=== PATIENT | male | born 1960 | race Caucasian/White ===

== ENCOUNTER 2019-01-21 22:31 | Emergency (ER) | payer MEDICAID, SELFPAY ==
[2019-01-21 22:33] VITALS: BP 134/65; PULSE 110; RESP 18; TEMP 36.9; O2SAT 97; BMI 25.1
--- NOTE | 2019-01-21 22:37 | ED.RN ---
RN CALLED FOR EKG, PULLED OLD EKGS FOR
--- NOTE | 2019-01-21 22:39 | EKG12_ITS ---
Test Reason : PALPS Blood Pressure : / mmHG Vent. Rate : 106 BPM Atrial Rate : 106 BPM P-R Int : 136 ms QRS Dur : 084 ms QT Int : 438 ms P-R-T Axes : 072 030 082 degrees QTc Int : 581 ms Sinus tachycardia with frequent Premature ventricular complexes in a pattern of bigeminy Otherwise normal ECG Confirmed by CHIQUI STYLES, HODAN ([id number]), features editor ELVIN WOODS ([id number] on 01/23/2019 9:32:31 AM Referred By: ROSITA Confirmed By:HODAN FLORIAN MD
--- NOTE | 2019-01-21 22:40 | ED.VIS.GEN ---
History of Present Illness Chief Complaint: Palpitations Informant: Patient Onset: Days Context: Sudden Onset Timing: Continuous Quality: Palpitations, irregular heartbeat Location: Chest Current Severity: Mild Maximum Severity: Moderate Worsened by: Nothing Relieved by: nothing Associated Symptoms: no associated symptoms Narrative: He reports that his heart heart is skipping. He denies history of coronary disease, atrial fibrillation, Congestive heart failure. He does report pedal edema when he stands for prolonged period of time. He denies orthopnea or PND. He denies nausea vomiting. He denies hematemesis, melena hematochezia. He denies back pain. He denies heat or cold intolerance. Prior similar symptoms: No Recent Illness/Hospitalization: No - Past Medical History (1) Gallbladder &duct stone, nonacute cholecystitis Status: Chronic Past Medical History - Allergies and Home Meds Allergies/Adverse Reactions: Allergies No Known Allergies Allergy (Verified 01/21/19 22:36) Primary Care Physician: Matt Dunbar MD [Primary Care Provider] - Prior records reviewed: Yes Lives: Alone Smoking Status: Current every day smoker Alcohol: None Drugs: None Review of Systems General: Denies: Chills, Fever, Malaise, Sweats, Weight loss Eyes: Denies: Visual changes - bilaterally, Blurred Vision - bilaterally, Diplopia ENT: Denies: Rhinorrhea, Sore throat Cardiovascular: Reports: Palpitations. Denies: Chest pain, Heart racing, -, - Respiratory: Denies: Dyspnea, Cough, Dyspnea on exertion Gastrointestinal: Denies: Abdominal pain, Nausea, Vomiting, Diarrhea, Melena, Hematochezia Genitourinary: Denies: Dysuria, Hematuria, Frequency Musculoskeletal: Denies: Myalgias, Arthralgias, Neck pain, Back pain, Extremity Pain Skin: Denies: Rash, Wounds Neurological: Denies: Headache, Weakness, Parasthesia, Numbness Psych: Denies: Depression, Anxiety Endocrine: Denies: Heat intolerance, Cold intolerance Hematologic: Denies: Easy bruising, Easy bleeding Physical Exam Vital Signs/Narrative: Vital Signs Temp Pulse Resp BP Pulse Ox 01/21/19 22:33 98.4 F 110 H 18 134/65 H 97 Inital Vital Signs reviewed: Yes General: Well nourished, Well developed, No Acute Distress Head: Normocephalic, Atraumatic Eyes: Perrl, EOMI. Negative for: Pale conjunctiva, Scleral icterus ENT: Moist mucous membranes, No rhinorrhea Neck: Supple, Nontender, No lymphadenopathy, No JVD, - - Baptiste A waves noted. Cardiovascular: Regular rate, Regular rhythm, No murmurs, Normal S1, Normal S2 Respiratory: No distress, CTA bilaterally, Chest nontender. Negative for: Rales, Rhonchi, Wheezing Abdomen: Soft, Nontender, Nondistended, Normal bowel sounds, No masses Back: Nontender, Normal Inspection Extremities: Nontender, Edema Skin: Normal color, No rash Neurological: Alert, Oriented x3, Cranial nerves II-XII grossly intact, Normal Strength, Normal Sensation Psychological: Normal affect, Normal Mood Diagnostic/Tx/Re-eval Laboratory Results 01/21/19 01/21/19 22:45 22:45 WBC 7.2 RBC 4.41 L Hgb 11.5 L Hct 36.0 L MCV 81.6 MCH 26.1 L MCHC 31.9 L RDW 15.2 H RDW Differential 45.1 H Plt Count 334 MPV 9.2 Immature Gran % (Auto) 0.100 Neut % (Auto) 62.4 Lymph % (Auto) 25.6 [place] % (Auto) 8.7 Eos % (Auto) 2.9 Baso % (Auto) 0.3 Absolute Neuts (auto) 4.5 Absolute Lymphs (auto) 1.85 Total Counted Not Reportable Sodium 137 Potassium 4.2 Chloride 106 Carbon Dioxide 28.0 Anion Gap 3 L BUN 17 Creatinine 1.17 Estim Creat Clear Calc 73.30 Est GFR (MDRD) Af Amer 82 Est GFR (MDRD) Non-Af 68 BUN/Creatinine Ratio 14.5 Glucose 118 H Calcium 8.4 L Magnesium 2.0 Troponin I < 0.015 - Rhythm Strip Rhythm Strip: Bigeminy Rate: 106 - EKG Initial EKG Interpretation: Sinus Rhythm - Ventricular rate is 106. Patient has bigeminy. AR interval is normal. QRS duration is normal. QT interval is normal. [place] is normal. There is no evidence of acute ischemic changes. - Medical Decision Making Monitor reveals bigeminy. Will obtain EKG to determine if there is any ischemic changes. Electric panel was ordered including magnesium. Troponin was ordered to evaluate for ischemia. After results have returned if patient remains in bigeminy will discuss case with cardiology. He states he has not seen a bottom crane operator in the past. Patient was reassessed at 0015. He is no longer in bigeminy. He does have occasional to frequent PVCs with occasional trigeminy. Since his workup is negative he was referred to Dr. Pastor. ED Disposition - Plan for ED Patient: Disposition: Home or Assisted Living Diagnosis: Ventricular bigeminy seen on cafeteria monitor Instructions: Premature Ventricular Contractions Referrals: Matt Dunbar MD [Primary Care Provider] - Mervin Pastor MD [STAFF PHYSICIAN] - As soon as possible Additional Instructions: Call Dr. Simental for his office in the morning to be seen within the next 24-48 hours. If you develop chest pain or shortness of breath with your palpitations return to the emergency department immediately.
--- NOTE | 2019-01-21 22:44 | ED.DCSUM_ITS ---
History of Present Illness Chief Complaint: Palpitations Informant: Patient Onset: Days Context: Sudden Onset Timing: Continuous Quality: Palpitations, irregular heartbeat Location: Chest Current Severity: Mild Maximum Severity: Moderate Worsened by: Nothing Relieved by: nothing Associated Symptoms: no associated symptoms Narrative: He reports that his heart heart is skipping. He denies history of coronary disease, atrial fibrillation, Congestive heart failure. He does report pedal edema when he stands for prolonged period of time. He denies orthopnea or PND. He denies nausea vomiting. He denies hematemesis, melena hematochezia. He denies back pain. He denies heat or cold intolerance. Prior similar symptoms: No Recent Illness/Hospitalization: No - Past Medical History (1) Gallbladder &duct stone, nonacute cholecystitis Status: Chronic Past Medical History - Allergies and Home Meds Allergies/Adverse Reactions: Allergies No Known Allergies Allergy (Verified 01/21/19 22:36) Primary Care Physician: Matt Dunbar MD [Primary Care Provider] - Prior records reviewed: Yes Lives: Alone Smoking Status: Current every day smoker Alcohol: None Drugs: None Review of Systems General: Denies: Chills, Fever, Malaise, Sweats, Weight loss Eyes: Denies: Visual changes - bilaterally, Blurred Vision - bilaterally, Diplopia ENT: Denies: Rhinorrhea, Sore throat Cardiovascular: Reports: Palpitations. Denies: Chest pain, Heart racing, -, - Respiratory: Denies: Dyspnea, Cough, Dyspnea on exertion Gastrointestinal: Denies: Abdominal pain, Nausea, Vomiting, Diarrhea, Melena, Hematochezia Genitourinary: Denies: Dysuria, Hematuria, Frequency Musculoskeletal: Denies: Myalgias, Arthralgias, Neck pain, Back pain, Extremity Pain Skin: Denies: Rash, Wounds Neurological: Denies: Headache, Weakness, Parasthesia, Numbness Psych: Denies: Depression, Anxiety Endocrine: Denies: Heat intolerance, Cold intolerance Hematologic: Denies: Easy bruising, Easy bleeding Physical Exam Vital Signs/Narrative: Vital Signs Temp Pulse Resp BP Pulse Ox 01/21/19 22:33 98.4 F 110 H 18 134/65 H 97 Inital Vital Signs reviewed: Yes General: Well nourished, Well developed, No Acute Distress Head: Normocephalic, Atraumatic Eyes: Perrl, EOMI. Negative for: Pale conjunctiva, Scleral icterus ENT: Moist mucous membranes, No rhinorrhea Neck: Supple, Nontender, No lymphadenopathy, No JVD, - - Baptiste A waves noted. Cardiovascular: Regular rate, Regular rhythm, No murmurs, Normal S1, Normal S2 Respiratory: No distress, CTA bilaterally, Chest nontender. Negative for: Rales, Rhonchi, Wheezing Abdomen: Soft, Nontender, Nondistended, Normal bowel sounds, No masses Back: Nontender, Normal Inspection Extremities: Nontender, Edema Skin: Normal color, No rash Neurological: Alert, Oriented x3, Cranial nerves II-XII grossly intact, Normal Strength, Normal Sensation Psychological: Normal affect, Normal Mood Diagnostic/Tx/Re-eval Laboratory Results 01/21/19 01/21/19 22:45 22:45 WBC 7.2 RBC 4.41 L Hgb 11.5 L Hct 36.0 L MCV 81.6 MCH 26.1 L MCHC 31.9 L RDW 15.2 H RDW Differential 45.1 H Plt Count 334 MPV 9.2 Immature Gran % (Auto) 0.100 Neut % (Auto) 62.4 Lymph % (Auto) 25.6 [place] % (Auto) 8.7 Eos % (Auto) 2.9 Baso % (Auto) 0.3 Absolute Neuts (auto) 4.5 Absolute Lymphs (auto) 1.85 Total Counted Not Reportable Sodium 137 Potassium 4.2 Chloride 106 Carbon Dioxide 28.0 Anion Gap 3 L BUN 17 Creatinine 1.17 Estim Creat Clear Calc 73.30 Est GFR (MDRD) Af Amer 82 Est GFR (MDRD) Non-Af 68 BUN/Creatinine Ratio 14.5 Glucose 118 H Calcium 8.4 L Magnesium 2.0 Troponin I < 0.015 - Rhythm Strip Rhythm Strip: Bigeminy Rate: 106 - EKG Initial EKG Interpretation: Sinus Rhythm - Ventricular rate is 106. Patient has bigeminy. [place] interval is normal. QRS duration is normal. QT interval is normal. [place] is normal. There is no evidence of acute ischemic changes. - Medical Decision Making Monitor reveals bigeminy. Will obtain EKG to determine if there is any ischemic changes. Electric panel was ordered including magnesium. Troponin was ordered to evaluate for ischemia. After results have returned if patient remains in bigeminy will discuss case with cardiology. He states he has not seen a investor relations coordinator in the past. Patient was reassessed at 0015. He is no longer in bigeminy. He does have occasional to frequent PVCs with occasional trigeminy. Since his workup is negative he was referred to Dr. Pastor. ED Disposition - Plan for ED Patient: Disposition: Home or Assisted Living Diagnosis: Ventricular bigeminy seen on cardiac cath tech Instructions: Premature Ventricular Contractions Referrals: Matt Dunbar MD [Primary Care Provider] - Mervin Pastor MD [STAFF PHYSICIAN] - As soon as possible Additional Instructions: Call Dr. Simental for his office in the morning to be seen within the next 24-48 hours. If you develop chest pain or shortness of breath with your palpitations return to the emergency department immediately.
[2019-01-21 22:53] LABS: Absolute Lymphocyte Count 1.85 X10^3/ul (0.83-4.51); Absolute Neutrophil Count 4.5 X10^3/uL (2.0-7.7); Basophil# 0.02 X10^3/uL; Basophil% 0.3 % (0-1); Eosinophil# 0.21 X10^3/uL; Eosinophils% 2.9 % (0-5); Hemoglobin 11.5 g/dl (13.0-16.5); Lymphocyte # 1.85 X10^3/ul (4.0); Lymphocyte % 25.6 % (19-41); Mean Corp Hgb Conc 31.9 g/gl (32-36); Mean Corpuscular Hgb 26.1 pg (27.0-32.0); Mean Corpuscular Volume 81.6 fL (80-94); Mean Platelet Vol. 9.2 fl (6.2-12.0); Monocyte# 0.63 X10^3/uL; Monocyte% 8.7 % (0-10); Neutrophil % 62.4 % (47-70); POSITIVE COUNT NO; POSITIVE DIFFERENTIAL NO; POSITIVE MORPHOLOGY NO; Platelet Count 334 K/mm3 (150-450); RBC Distribution Width CV 15.2 % (11.6-14.6); RBC Distribution Width SD 45.1 fl (35.1-43.9); Red Blood Count 4.41 M/mm3 (4.6-6.2); White Blood Count 7.2 K/mm3 (4.4-11.0)
[2019-01-21 23:09] LABS: Anion Gap 3 (5-15); BUN 17 mg/dL (7-18); BUN/Creat Ratio 14.5 RATIO (10-20); Calcium,Total 8.4 mg/dL (8.5-10.1); Chloride 106 mmol/L (98-107); Creatinine, Serum 1.17 mg/dL (0.70-1.30); EST Glomerular Filtration Rate 68 mL/min (>60); Est Glom Filt Rate - Afr Amer 82 mL/min (>60); Glucose 118 mg/dL (74-106); Potassium 4.2 mmol/L (3.5-5.1); Sodium Level 137 mmol/L (136-145)
[2019-01-21 23:54] VITALS: BP 99/66; PULSE 92; RESP 14; O2SAT 96
[2019-01-22] VITALS: BP 103/63; PULSE 84; RESP 13; O2SAT 96
[2019-01-22 00:33] VITALS: BP 107/77; PULSE 91; RESP 19; O2SAT 97
== END 2019-01-22 00:33 | disposition home or self-care (01) ==
PROVIDERS: Emergency Provider Emergency Medicine; Family Provider Family Medicine; PCP Family Medicine
DX: R00.8 Other abnormalities of heart beat (principal); F17.200 Nicotine dependence, unspecified, uncomplicated; Z79.82 Long term (current) use of aspirin
CPT/HCPCS: 80048; 83735; 84484; 85025; 93005; 99285; J7030; A4216

== ENCOUNTER 2019-01-22 22:09 | Emergency (ER) | payer MEDICAID, SELFPAY ==
[2019-01-21 22:33] VITALS: BMI 25.1
[2019-01-22 22:15] VITALS: BP 128/67; PULSE 99; RESP 15; TEMP 37; O2SAT 98; BMI 23.7
--- NOTE | 2019-01-22 22:57 | RAD_ITS ---
STUDY: X-RAY CHEST REASON FOR EXAM: Male, 58 years old. Palpitations smoker TECHNIQUE: PA and lateral views of the chest. COMPARISON: None. FINDINGS: The lungs are clear and expanded. There is no demonstrated pleural abnormality. Normal size heart. Normal mediastinum and sangeeta. Normal visualized pulmonary arteries. There is atherosclerotic calcification of the aortic arch with tortuosity. Normal visualized thoracic spine. Normal visualized ribs, clavicles, and shoulders. There is no demonstrated abnormality of the visualized soft tissue structures of the upper abdomen. RAD/Chest PA and Lateral IMPRESSION: No demonstrated acute cardiopulmonary process. Electronically Signed: Maryann Floyd MD at 23:37 EDT Tel , Service support ,
--- NOTE | 2019-01-22 22:57 | EKG12_ITS ---
Test Reason : Blood Pressure : / mmHG Vent. Rate : 102 BPM Atrial Rate : 102 BPM P-R Int : 142 ms QRS Dur : 084 ms QT Int : 316 ms P-R-T Axes : 076 036 058 degrees QTc Int : 411 ms Sinus tachycardia with frequent Premature ventricular complexes in a pattern of bigeminy Possible Left atrial enlargement Borderline ECG Confirmed by NETO STYLES, ED ([id number]), writer editor ELVIN WOODS ([id number]) on 01/24/2019 9:32:38 AM Referred By: Confirmed By:ED DUQUE MD
[2019-01-22] MEDS: Metoprolol Tartrate 25 MG Tablet PO (23:18)
[2019-01-22 23:19] VITALS: BP 105/82; PULSE 90; RESP 14; O2SAT 97
[2019-01-22 23:28] LABS: Absolute Lymphocyte Count 1.42 X10^3/ul (0.83-4.51); Absolute Neutrophil Count 3.2 X10^3/uL (2.0-7.7); Basophil# 0.03 X10^3/uL; Basophil% 0.5 % (0-1); Eosinophil# 0.24 X10^3/uL; Eosinophils% 4.2 % (0-5); Hematocrit 34.7 % (40-54); Hemoglobin 11.2 g/dl (13.0-16.5); Lymphocyte # 1.42 X10^3/ul (4.0); Lymphocyte % 24.8 % (19-41); Mean Corp Hgb Conc 32.3 g/gl (32-36); Mean Corpuscular Hgb 26.4 pg (27.0-32.0); Mean Corpuscular Volume 81.8 fL (80-94); Mean Platelet Vol. 9.9 fl (6.2-12.0); Monocyte# 0.82 X10^3/uL; Monocyte% 14.3 % (0-10); Neutrophil % 55.9 % (47-70); Platelet Count 343 K/mm3 (150-450); RBC Distribution Width CV 15.2 % (11.6-14.6); RBC Distribution Width SD 45.1 fl (35.1-43.9); Red Blood Count 4.24 M/mm3 (4.6-6.2); White Blood Count 5.7 K/mm3 (4.4-11.0)
[2019-01-22 23:43] LABS: POSITIVE COUNT NO; POSITIVE DIFFERENTIAL NO; POSITIVE MORPHOLOGY NO
[2019-01-22 23:44] LABS: Anion Gap 3 (5-15); BUN 20 mg/dL (7-18); BUN/Creat Ratio 24.4 RATIO (10-20); Calcium,Total 8.3 mg/dL (8.5-10.1); Chloride 108 mmol/L (98-107); Creatinine, Serum 0.82 mg/dL (0.70-1.30); EST Glomerular Filtration Rate 103 mL/min (>60); Est Glom Filt Rate - Afr Amer 124 mL/min (>60); Estimated Creatinine Clearance 104.58 ml/min; Glucose 124 mg/dL (74-106); Potassium 3.8 mmol/L (3.5-5.1); Sodium Level 140 mmol/L (136-145); Thyroid Stim Hormone (TSH) 9.97 uIU/mL (0.358-3.74)
--- NOTE | 2019-01-22 23:54 | ED.DCSUM_ITS ---
- ER Visit Summary Date of Service: 01/22/19 Chief Complaint: Palpitations History of Present Illness: The patient is a 58 M who presents with palpitations. This is been occurring for 3 days. He denies any chest pain shortness of breath nausea vomiting fevers. No history of prior similar symptoms. He was seen in the emergency department last night and found to be in ventricular bigeminy. Workup was unremarkable. On reevaluation he was back in normal rhythm. He was referred to Dr. Mills. Symptoms began again tonight about 2 hours before presentation. Physical Examination: Afebrile vitals notable for heart rate 99 Moist mucous membranes Heart is regular rhythm irregularly irregular Lungs are clear Abdomen soft Alert Test Results: EKG shows sinus rhythm at a rate of 102. Labs are notable for hemoglobin 11.2, hematocrit 34.7. TSH is 9.97. Troponin negative. Chest x-ray shows no acute process. Emergency Department Course and Treatment: Workup as above. I was concerned for possible hyperthyroidism given bigeminy and palpitations. TSH is actually elevated suggestive of hypothyroidism. I discussed these findings with the patient. He was given oral metoprolol here. On reevaluation he is in normal sinus rhythm and his symptoms have resolved. We will go ahead and start him on low-dose metoprolol until he can follow-up with cardiology. He understands return for new or worsening symptoms and was instructed on specific signs and symptoms to monitor for. Patient discharged. Treatment Plan: [] Disposition: Discharge Impression: Ventricular bigeminy Hypothyroidism This note was generated with [employer] dictation software. It may contain incorrect words, spelling, and punctuation that were not noted in review of the chart prior to signing ED Disposition - Plan for ED Patient: Referrals: Matt Dunbar MD [Primary Care Provider] -
--- NOTE | 2019-01-22 23:54 | ED.DEP ---
ED Disposition - Plan for ED Patient: Instructions: Premature Ventricular Contractions, ED Palpitations Prescriptions: Metoprolol Tartrate 25 mg PO DAILY #14 tab Referrals: Matt Dunbar MD [Primary Care Provider] - Mervin Pastor MD [STAFF PHYSICIAN] -
[2019-01-23 00:18] VITALS: BP 106/71; PULSE 73; RESP 13; O2SAT 96
--- NOTE | 2019-01-23 00:27 | ED.RN ---
PT TO CALL FOR TAXI RIDE HOME FROM [facility]OBBY. MOTHER IS ABLE TO PAY FOR TAXI.
== END 2019-01-23 00:27 | disposition home or self-care (01) ==
PROVIDERS: Emergency Provider Emergency Medicine; Family Provider Family Medicine; PCP Family Medicine
DX: R00.8 Other abnormalities of heart beat (principal); E03.9 Hypothyroidism, unspecified; Z72.0 Tobacco use; Z79.82 Long term (current) use of aspirin
CPT/HCPCS: 71046; 80048; 84443; 84484; 85025; 93005; 99285; A4216

== ENCOUNTER → 2019-02-12 | Outpatient (CLI) | payer MEDICAID, SELFPAY ==
[2019-02-12 13:27] VITALS: BMI 23.4
== END | disposition home or self-care (01) ==
LOC: PSN 14:14
PROVIDERS: Family Provider Family Medicine; PCP Family Medicine; Referring Provider Specialist; Visit Provider Specialist
DX: R00.2 Palpitations (principal)
CPT/HCPCS: 93225; 93226

== ENCOUNTER → 2019-03-08 | Outpatient (CLI) | payer MEDICAID, SELFPAY ==
[2019-02-12 13:27] VITALS: BMI 23.4
[2019-02-25 11:20] VITALS: BMI 23.4
--- NOTE | 2019-03-08 14:05 | ECHOD_ITS ---
Reason For Study: Bicuspid AV Procedure This was a 2D Doppler, Color Flow transthoracic echocardiogram. Exam performed in department. Left Ventricle Normal size and thickness. Left ventricular systolic function is normal. Normal diastology for age. The estimated ejection fraction is 65 %. No regional wall motion abnormalities noted. Right Ventricle Normal RV size. Normal systolic function. Atria Normal left atrium. Normal right atrium. No doppler evidence for ASD. Mitral Valve There is no mitral valve stenosis. No mitral valve insufficiency. Tricuspid Valve There is no tricuspid stenosis. Mild to moderate (1-2+) tricuspid valve insufficiency. Pulmonary artery systolic pressure is 30 mmHg. Aortic Valve Moderate diffuse aortic valve thickening. possible bicuspid aortic valve. Mild aortic stenosis. Mild (1+) aortic valve insufficiency. Pulmonic Valve There is no pulmonic valvular stenosis. No pulmonic valve insufficiency. Great Vessels Normal aortic root. Pericardium/Pleural No pericardial effusion. MMode/2D Measurements & Calculations LVIDd: 4.5 cm IVSd: 1.1 cm LVOT diam: 2.0 cm LVIDs: 2.8 cm LVPWd: 1.2 cm LVOT area: 3.2 cm2 RVDd: 3.6 cm FS: 38.7 % Ao root diam: 3.6 cm LAV(MOD-bp): 42.6 ml LA A4 area: 15.2 cm2 ACS: 1.3 cm LAV(MOD-bp) Indexed: 21.7 ml/m2 LA dimension: 3.1 cm LAV(MOD-sp2): 45.4 ml LAV(MOD-sp4): 35.7 ml RA A4 area: 18.1 cm2 Time Measurements MV dec time: 0.29 sec Doppler Measurements & Calculations MV E max ajit: 86.8 cm/sec Lat Peak E' Ajit: 10.1 cm/sec Med Peak E' Ajit: 10.1 cm/sec MV A max ajit: 60.4 cm/sec E/E' lat: 8.6 E/E' med: 8.6 MV E/A: 1.4 MV V2 max: 95.9 cm/sec MV P1/2t max ajit: 95.9 cm/sec Ao V2 max: 214.8 cm/sec MV max P.7 mmHg MV P1/2t: 67.7 msec Ao max P.4 mmHg MV V2 mean: 54.2 cm/sec MV dec slope: 415.1 cm/sec2 Ao V2 mean: 134.8 cm/sec MV mean P.4 mmHg Ao mean P.7 mmHg MV V2 VTI: 31.4 cm MVA(P1/2t): 3.3 cm2 Ao V2 VTI: 41.2 cm MVA(VTI): 2.5 cm2 VAL(I,D): 1.9 cm2 VAL(V,D): 1.6 cm2 AI max ajit: 323.9 cm/sec LV V1 max: 105.1 cm/sec SV(LVOT): 80.1 ml AI max P.0 mmHg LV V1 max P.4 mmHg LV V1 mean P.4 mmHg AI dec slope: 111.4 cm/sec2 LV V1 mean: 72.3 cm/sec AI P1/2t: 851.7 msec LV V1 VTI: 25.1 cm PA V2 max: 95.2 cm/sec TR max ajit: 240.6 cm/sec TR max P.2 mmHg Interpretation Summary Left ventricular systolic function is normal. Normal diastology for age. The estimated ejection fraction is 65 %. Mild to moderate (1-2+) tricuspid valve insufficiency. Moderate diffuse aortic valve thickening. possible bicuspid aortic valve Mild aortic stenosis. Ordering Physician: Paco Klein Referring Physician: Paco Klein Performed By: Surinder Echevarria RCS
== END | disposition home or self-care (01) ==
LOC: CVS 13:48
PROVIDERS: Family Provider Family Medicine; PCP Family Medicine; Referring Provider Specialist; Visit Provider Specialist
DX: I10 Essential (primary) hypertension (principal); I35.0 Nonrheumatic aortic (valve) stenosis; Q23.1 Congenital insufficiency of aortic valve
CPT/HCPCS: 93306

== ENCOUNTER 2019-07-28 15:28 | Emergency (ER) | payer MEDICAID, SELFPAY ==
[2019-06-17 11:26] VITALS: BMI 25.4
[2019-07-28 15:31] VITALS: BP 136/55; PULSE 85; RESP 17; TEMP 37; O2SAT 96; BMI 27.3
--- NOTE | 2019-07-28 15:35 | EKG12_ITS ---
Test Reason : PALP Blood Pressure : / mmHG Vent. Rate : 084 BPM Atrial Rate : 084 BPM P-R Int : 140 ms QRS Dur : 082 ms QT Int : 374 ms P-R-T Axes : 058 -02 032 degrees QTc Int : 441 ms Sinus rhythm with frequent Premature ventricular complexes Otherwise normal ECG Confirmed by ENTO STYLES, ED ([id number]), editor school photograph ELVIN WOODS ([id number]) on 08/02/2019 10:22:03 AM Referred By: MARS Confirmed By:ED DUQUE MD
--- NOTE | 2019-07-28 15:35 | RAD_ITS ---
STUDY: X-RAY CHEST REASON FOR EXAM: Male, 58 years old. Palpitations and short of breath TECHNIQUE: AP portable COMPARISON: January 22, 2019 FINDINGS: There are chronic interstitial changes in both lower lobes.. There is no demonstrated pleural abnormality. Normal size heart. Normal mediastinum and sangeeta. Normal visualized pulmonary arteries. Normal visualized aortic arch and descending thoracic aorta. Normal visualized thoracic spine. Normal visualized ribs, clavicles, and shoulders. There is no demonstrated abnormality of the visualized soft tissue structures of the upper abdomen. No significant change since prior exam RAD/Chest 1 View (Portable) IMPRESSION: Mild interstitial changes in the lower lobes. No acute infiltration or pulmonary edema Electronically Signed: David Guerrero MD at 15:58 EDT , Service support ,
[2019-07-28 15:36] VITALS: PULSE 90
--- NOTE | 2019-07-28 15:36 | ED.VIS.GEN ---
History of Present Illness Chief Complaint: Palpitations Informant: Patient Onset: Days Context: Gradual Onset Timing: Intermittent Current Severity: Moderate Maximum Severity: Moderate Narrative: The patient presents to the emergency department with palpitations. The patient has been having the symptoms intermittently for the past year. 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 He also has a history of bicuspid aortic valve. He does follow with cardiology, Dr. Klein. He is on metoprolol. He states that he had been taking ibuprofen because he strained a muscle in his leg. He felt like this was making his blood pressure elevated. He has been compliant with his metoprolol. He states from time to time, he will just feel like his heart is skipping beats. He denies chest pain or dyspnea. He denies weight gain orthopnea. He is otherwise been in his normal state of health. Prior similar symptoms: Yes Recent Illness/Hospitalization: No Past Medical History - Allergies and Home Meds Allergies/Adverse Reactions: Allergies No Known Allergies Allergy (Verified 07/28/19 15:35) Primary Care Physician: Bree Klein MD [STAFF PHYSICIAN] - Prior records reviewed: Yes Past Medical History: - - Hypertension, WPW status post ablation Smoking Status: Current every day smoker Review of Systems General: Denies: Chills, Fever, Sweats Eyes: Denies: Visual changes - bilaterally, Diplopia ENT: Denies: Rhinorrhea, Sore throat Cardiovascular: Reports: Palpitations. Denies: Chest pain Respiratory: Denies: Dyspnea, Cough, Dyspnea on exertion Gastrointestinal: Denies: Abdominal pain, Nausea, Vomiting, Diarrhea, Melena, Hematochezia Genitourinary: Denies: Dysuria, Hematuria, Frequency Musculoskeletal: Denies: Back pain, Extremity Pain Skin: Denies: Rash, Wounds Neurological: Denies: Headache, Weakness, Numbness Physical Exam Vital Signs/Narrative: Vital Signs Temp Pulse Resp BP Pulse Ox 07/28/19 15:31 98.6 F 85 17 136/55 H 96 Inital Vital Signs reviewed: Yes General: Well nourished, Well developed, No Acute Distress Head: Normocephalic, Atraumatic Eyes: Perrl, EOMI ENT: Moist mucous membranes, No rhinorrhea Neck: Supple, Nontender Cardiovascular: Regular rhythm, No murmurs, Irregular Respiratory: No distress, CTA bilaterally, Chest nontender Abdomen: Soft, Nontender, Nondistended, Normal bowel sounds Back: Nontender, Normal Inspection Extremities: Nontender, No edema Skin: Normal color, No rash Neurological: Alert, Oriented x3, Cranial nerves II-XII grossly intact, Normal Strength, Normal Sensation Psychological: Normal affect, Normal Mood Diagnostic/Tx/Re-eval Chest X-Ray - ED: 2 View, Normal, Heart, Lungs, Mediastinum Abnormal Lab Results 07/28/19 07/28/19 15:40 15:40 WBC 7.4 RBC 4.94 Hgb 13.2 Hct 41.7 MCV 84.4 MCH 26.7 L MCHC 31.7 L RDW Std Deviation 44.8 H RDW Coeff of Carmen 14.6 Plt Count 253 MPV 10.1 Immature Gran % (Auto) 0.500 Neut % (Auto) 61.2 Lymph % (Auto) 22.0 [place] % (Auto) 13.7 H Eos % (Auto) 2.2 Baso % (Auto) 0.4 Absolute Neuts (auto) 4.5 Absolute Lymphs (auto) 1.62 Nucleated RBC % 0 Sodium 142 Potassium 4.0 Chloride 106 Carbon Dioxide 29.0 Anion Gap 7 BUN 19 H Creatinine 0.90 Estim Creat Clear Calc 95.29 Est GFR (MDRD) Af Amer 112 Est GFR (MDRD) Non-Af 92 BUN/Creatinine Ratio 21.2 H Glucose 85 Calcium 9.0 Magnesium 2.3 Total Bilirubin 0.30 AST 12 L ALT 12 L Alkaline Phosphatase 92 Total Protein 7.9 Albumin 3.2 Globulin 4.7 H Albumin/Globulin Ratio 0.7 L - Rhythm Strip Rhythm Strip: Sinus Rhythm Rate: 80 Ectopy: PVC(s) - EKG Initial EKG Interpretation: Sinus Rhythm, No Acute Injury Pattern, - - EKG demonstrates sinus rhythm. There are a few PVCs. There is no acute ischemic change. - Medical Decision Making The patient presents to the emergency department palpitations. He has a history of PVCs. EKG was obtained which demonstrated a few PVCs, but no bigeminy. There was no evidence of WPW or acute ischemia. Screening labs are obtained. Electro lites were normal. The patient is otherwise asymptomatic. He does have a history of this. I do not suspect a dangerous cause. I do feel that he is safe for outpatient follow-up with his senior javascript engineer. Impression 1. Symptomatic PVCs ED Disposition - Plan for ED Patient: Disposition: Home or Assisted Living Instructions: Premature Ventricular Contractions Referrals: Bree Klein MD [STAFF PHYSICIAN] -
[2019-07-28 15:48] LABS: Absolute Lymphocyte Count 1.62 X10^3/uL (0.83-4.51); Absolute Neutrophil Count 4.5 X10^3/uL (2.0-7.7); Basophil# 0.03 X10^3/uL; Basophil% 0.4 % (0-1); Eosinophil# 0.16 X10^3/uL; Eosinophils% 2.2 % (0-5); Hematocrit 41.7 % (40-54); Hemoglobin 13.2 g/dL (13.0-16.5); Lymphocyte # 1.62 X10^3/ul (4.0); Mean Corp Hgb Conc 31.7 g/dL (32-36); Mean Corpuscular Hgb 26.7 pg (27.0-32.0); Mean Corpuscular Volume 84.4 fL (80-94); Mean Platelet Vol. 10.1 fl (6.2-12.0); Monocyte# 1.01 X10^3/uL; Monocyte% 13.7 % (0-10); NRBC Flagged by Analyzer 0 % (0-5); Neutrophil % 61.2 % (47-70); Platelet Count 253 K/mm3 (150-450); RBC Distribution Width CV 14.6 % (11.6-14.6); RBC Distribution Width SD 44.8 fl (35.1-43.9); Red Blood Count 4.94 M/mm3 (4.6-6.2); White Blood Count 7.4 K/mm3 (4.4-11.0)
[2019-07-28 16:10] LABS: ALB/GLOB Ratio 0.7 RATIO (0.9-2.4); AST(SGOT) 12 U/L (15-37); Alanine Aminotransfer ALT/SGPT 12 U/L (16-61); Albumin, Serum 3.2 g/dL (3.2-5.0); Alkaline Phosphatase 92 U/L (45-117); Anion Gap 7 (5-15); BUN 19 mg/dL (7-18); BUN/Creat Ratio 21.2 RATIO (10-20); Chloride 106 mmol/L (98-107); EST Glomerular Filtration Rate 92 mL/min (>60); Est Glom Filt Rate - Afr Amer 112 mL/min (>60); Estimated Creatinine Clearance 95.29 ml/min; Globulin 4.7 g/dL (2.2-4.2); Glucose 85 mg/dL (74-106); Magnesium 2.3 mg/dL (1.6-2.6); Protein, Total 7.9 g/dL (6.4-8.2); Sodium Level 142 mmol/L (136-145)
[2019-07-28 16:45] VITALS: BP 117/59; PULSE 81; RESP 16; O2SAT 95
== END 2019-07-28 16:52 | disposition home or self-care (01) ==
LOC: ED 15:41
PROVIDERS: Emergency Provider Emergency Medicine; Family Provider Family Medicine; PCP Family Medicine
DX: I49.3 Ventricular premature depolarization (principal); Q23.1 Congenital insufficiency of aortic valve; I10 Essential (primary) hypertension; F17.200 Nicotine dependence, unspecified, uncomplicated; Z79.899 Other long term (current) drug therapy
CPT/HCPCS: 71045; 80053; 83735; 85025; 93005; 96360; 99285; J7030; A4216

== ENCOUNTER 2019-12-05 15:12 | Emergency (ER) | payer MEDICAID, SELFPAY ==
[2019-11-18 14:05] VITALS: BMI 29.2
[2019-12-05 15:13] VITALS: BP 142/86; PULSE 78; RESP 17; TEMP 36.7; O2SAT 100; BMI 29.2
--- NOTE | 2019-12-05 15:52 | EKG12_ITS ---
Test Reason : CP Blood Pressure : / mmHG Vent. Rate : 070 BPM Atrial Rate : 070 BPM P-R Int : 150 ms QRS Dur : 092 ms QT Int : 406 ms P-R-T Axes : 060 007 031 degrees QTc Int : 438 ms Normal sinus rhythm Normal ECG Confirmed by CATHIE STYLES, LARRY ([id number]), editorial assistant JAY JAY NOLASCO ([id number]) on 12/09/2019 8:52:52 AM Referred By: SLY Confirmed By:GUILLERMO BRAND MD
--- NOTE | 2019-12-05 15:53 | ED.VIS.GEN ---
History of Present Illness Chief Complaint: Palpitations Informant: Patient Onset: Days - couple Context: Sudden Onset Timing: Intermittent, Lasts - a second or 2 Quality: skips Location: chest Current Severity: gone Maximum Severity: Moderate Worsened by: nothing in particular Relieved by: nothing in particular Associated Symptoms: none Narrative: Patient states he has been checking his blood pressure at home with a new cuff and it was in the 140s or 150s, high for him. He states he checked it today and it was higher but he cannot remember what it was. Has been feeling palpitations for the last couple days, same period of time. Denies any chest discomfort, shortness of breath, lightheadedness, near-syncope, or syncope. No recent illnesses. No changes in the chronic swelling in his legs. He states he has a medication that he takes twice a day for blood pressure, metoprolol, and has been compliant with it, with no recent changes in his medications from his doctors. He states he had a heart catheterization and suggestive might have been an EP study several years ago in [place], because he had a rhythm disturbance. He was having runs of tachycardia prior to that, he states the symptoms do not feel like that. Pt is very poor informant. - Past Medical History (1) Bicuspid aortic valve Status: Chronic (2) Essential hypertension Status: Chronic (3) HLD (hyperlipidemia) Status: Chronic (4) Heart palpitations Status: Chronic (5) Nonrheumatic aortic (valve) stenosis Status: Chronic (6) WPW (Lrtyj-Gxmcbqagm-Fprdf syndrome) Status: Chronic Comment: ablation 1999 (7) History of cardiac radiofrequency ablation (RFA) Status: Resolved Past Medical History - Allergies and Home Meds Allergies/Adverse Reactions: Allergies No Known Allergies Allergy (Verified 12/05/19 15:13) Primary Care Physician: Matt Dunbar MD [Primary Care Provider] - 3-5 Days if not improving Surgical History: - - RFA Lives: Alone Smoking Status: Current every day smoker Review of Systems General: Denies: Chills, Fever, Sweats Eyes: Denies: Visual changes - bilaterally, Diplopia ENT: Denies: Rhinorrhea, Sore throat Cardiovascular: Reports: Palpitations. Denies: Chest pain, Heart racing Respiratory: Denies: Dyspnea, Cough, Dyspnea on exertion Gastrointestinal: Denies: Abdominal pain, Nausea, Vomiting, Diarrhea, Melena, Hematochezia Genitourinary: Denies: Dysuria, Hematuria, Frequency Musculoskeletal: Reports: Swelling. Denies: Back pain, Extremity Pain Skin: Denies: Rash, Wounds Neurological: Denies: Headache, Weakness, Numbness Physical Exam Vital Signs/Narrative: Vital Signs Temp Pulse Resp BP Pulse Ox 12/05/19 15:13 98.0 F 78 17 142/86 H 100 Inital Vital Signs reviewed: Yes General: Well nourished, Well developed, No Acute Distress Head: Normocephalic, Atraumatic Eyes: Perrl, EOMI ENT: Moist mucous membranes, No rhinorrhea Neck: Supple, Nontender, No lymphadenopathy, No JVD Cardiovascular: Regular rate, Regular rhythm, Murmur - 2/6 systolic Respiratory: No distress, CTA bilaterally, Chest nontender Abdomen: Soft, Nontender, Nondistended, Normal bowel sounds Back: Nontender, Normal Inspection Extremities: Nontender, Edema - 1+ BLE symmetric to knees. Negative for: Calf Tenderness Skin: Normal color, No rash, No Trauma Neurological: Alert, Oriented x3, Cranial nerves II-XII grossly intact, Normal Strength, Normal Sensation Psychological: Normal affect, Normal Mood Diagnostic/Tx/Re-eval Laboratory Tests 12/05/19 12/05/19 Range/Units 16:55 16:55 WBC 6.5 (4.4-11.0) K/mm3 RBC 4.88 (4.6-6.2) M/mm3 Hgb 13.1 (13.0-16.5) g/dL Hct 41.2 (40-54) % MCV 84.4 (80-94) fL MCH 26.8 L (27.0-32.0) pg MCHC 31.8 L (32-36) g/dL RDW Std Deviation 43.9 (35.1-43.9) fl RDW Coeff of Carmen 14.3 (11.6-14.6) % Plt Count 227 (150-450) K/mm3 MPV 9.6 (6.2-12.0) fl Immature Gran % (Auto) 0.300 (0.0-0.9) % Neut % (Auto) 69.3 (47-70) % Lymph % (Auto) 18.8 L (19-41) % [place] % (Auto) 9.0 (0-10) % Eos % (Auto) 2.3 (0-5) % Baso % (Auto) 0.3 (0-1) % Absolute Neuts (auto) 4.5 (2.0-7.7) X10^3/uL Absolute Lymphs (auto) 1.21 (0.83-4.51) X10^3/uL Nucleated RBC % 0 (0-5) % Sodium 140 (136-145) mmol/L Potassium 3.6 (3.5-5.1) mmol/L Chloride 109 H (98-107) mmol/L Carbon Dioxide 27.0 (21.0-32.0) mmol/L Anion Gap 4 L (5-15) BUN 12 (7-18) mg/dL Creatinine 0.75 (0.70-1.30) mg/dL Estim Creat Clear Calc 112.95 ml/min Est GFR (MDRD) Af Amer 137 (>60) mL/min Est GFR (MDRD) Non-Af 113 (>60) mL/min BUN/Creatinine Ratio 16.0 (10-20) RATIO Glucose 90 (74-106) mg/dL Calcium 8.8 (8.5-10.1) mg/dL Troponin I < 0.015 (<0.045) ng/mL - Rhythm Strip Rhythm Strip: Sinus Rhythm Rate: 70 Ectopy: None - EKG Initial EKG Interpretation: Sinus Rhythm, No Acute Injury Pattern - normal EKG Prior: Unchanged - c/w EMS EKG, and with old EKG which has PVCs on it - Medical Decision Making Patient had no recurrent symptoms while in the emergency department. His electrolytes and work-up is unremarkable. No chest x-ray indicated. I initially ordered medication for his blood pressure because it was reading 173 systolic while resting in the cot, and appear to be accurate. However the next 2 blood pressures were in the 120s, so the clonidine was held and not given. Prior to discharge, his blood pressure is 131 systolic. At this time I feel he can follow-up as an outpatient and continue his metoprolol. PVCs on his old EKG, that would be the most likely explanation for his symptoms, as he was not having symptoms of a true dysrhythmia. ED Disposition - Plan for ED Patient: Disposition: Home or Assisted Living Diagnosis: Palpitations, Episode of hypertension Instructions: Palpitations Referrals: Matt Dunbar MD [Primary Care Provider] - 3-5 Days if not improving
[2019-12-05 16:57] VITALS: BP 143/94; PULSE 70; RESP 11; O2SAT 97
[2019-12-05 17:06] LABS: Absolute Lymphocyte Count 1.21 X10^3/uL (0.83-4.51); Absolute Neutrophil Count 4.5 X10^3/uL (2.0-7.7); Basophil# 0.02 X10^3/uL; Basophil% 0.3 % (0-1); Eosinophil# 0.15 X10^3/uL; Eosinophils% 2.3 % (0-5); Hematocrit 41.2 % (40-54); Hemoglobin 13.1 g/dL (13.0-16.5); Lymphocyte # 1.21 X10^3/ul (4.0); Lymphocyte % 18.8 % (19-41); Mean Corp Hgb Conc 31.8 g/dL (32-36); Mean Corpuscular Hgb 26.8 pg (27.0-32.0); Mean Corpuscular Volume 84.4 fL (80-94); Mean Platelet Vol. 9.6 fl (6.2-12.0); Monocyte# 0.58 X10^3/uL; NRBC Flagged by Analyzer 0 % (0-5); Neutrophil # 4.47 X10^3/uL (2.7-7.7); Neutrophil % 69.3 % (47-70); Platelet Count 227 K/mm3 (150-450); RBC Distribution Width CV 14.3 % (11.6-14.6); RBC Distribution Width SD 43.9 fl (35.1-43.9); Red Blood Count 4.88 M/mm3 (4.6-6.2); White Blood Count 6.5 K/mm3 (4.4-11.0)
[2019-12-05 17:12] VITALS: BP 120/80; PULSE 69; RESP 11; O2SAT 99
[2019-12-05 17:28] LABS: Anion Gap 4 (5-15); BUN 12 mg/dL (7-18); Calcium,Total 8.8 mg/dL (8.5-10.1); Chloride 109 mmol/L (98-107); Creatinine, Serum 0.75 mg/dL (0.70-1.30); EST Glomerular Filtration Rate 113 mL/min (>60); Est Glom Filt Rate - Afr Amer 137 mL/min (>60); Estimated Creatinine Clearance 112.95 ml/min; Glucose 90 mg/dL (74-106); Potassium 3.6 mmol/L (3.5-5.1); Sodium Level 140 mmol/L (136-145)
[2019-12-05 18:42] VITALS: BP 131/77; PULSE 71; RESP 15; O2SAT 97
[2019-12-05 18:55] VITALS: BP 130/88; PULSE 77; RESP 15; O2SAT 98
== END 2019-12-05 19:09 | disposition home or self-care (01) ==
PROVIDERS: Emergency Provider Emergency Medicine; PCP Family Medicine
DX: R00.2 Palpitations (principal); I10 Essential (primary) hypertension; F17.200 Nicotine dependence, unspecified, uncomplicated; Z79.899 Other long term (current) drug therapy
CPT/HCPCS: 80048; 84484; 85025; 93005; 99285; A4216

== ENCOUNTER 2020-03-21 11:42 | Emergency (ER) | payer MEDICAID, SELFPAY ==
[2020-03-21 11:43] VITALS: BP 167/89; PULSE 65; TEMP 37; O2SAT 97; BMI 29.7
--- NOTE | 2020-03-21 12:28 | ED.DCSUM_ITS ---
History of Present Illness Chief Complaint: Hypertension Informant: Patient Onset: Today Current Severity: Mild Maximum Severity: Mild Narrative: Blood pressure elevated to about 150, he has history of cardiovascular disease, he has no complaints of any kind no fever cough chest pain shortness of breath eating and drinking well bowel and bladder habits normal, he indicates he takes his blood pressure every day for routine basis he records that he recalls his physicians when he calls his physicians with blood pressure readings have told him not to worry about them this morning his blood pressure was about 160/80 a gain with no symptoms of any kind he is taking all his medications he presents for evaluation, he did not talk to his physicians His current blood pressure is 144/80 Past Medical History - Allergies and Home Meds Allergies/Adverse Reactions: Allergies No Known Allergies Allergy (Verified 12/05/19 15:13) Primary Care Physician: Matt Dunbar MD [Primary Care Provider] - Past Medical History: - - Hypertension and heart disease see the above Surgical History: - - RFA Smoking Status: Current every day smoker Review of Systems General: Denies: Chills, Fever, Sweats Eyes: Denies: Visual changes - bilaterally, Diplopia ENT: Denies: Rhinorrhea, Sore throat Cardiovascular: Denies: Chest pain, Palpitations Respiratory: Denies: Dyspnea, Cough, Dyspnea on exertion Gastrointestinal: Denies: Abdominal pain, Nausea, Vomiting, Diarrhea, Melena, Hematochezia Genitourinary: Denies: Dysuria, Hematuria, Frequency Musculoskeletal: Denies: Back pain, Extremity Pain Skin: Denies: Rash, Wounds Neurological: Denies: Headache, Weakness, Numbness Physical Exam Vital Signs/Narrative: Vital Signs Temp Pulse BP Pulse Ox 03/21/20 11:43 98.6 F 65 167/89 H 97 General: Well nourished, Well developed, No Acute Distress Head: Normocephalic, Atraumatic Eyes: Perrl, EOMI ENT: Moist mucous membranes, No rhinorrhea Neck: Supple, Nontender Cardiovascular: Regular rate, Regular rhythm, No murmurs Respiratory: No distress, CTA bilaterally, Chest nontender Abdomen: Soft, Nontender, Nondistended, Normal bowel sounds Back: Nontender, Normal Inspection Extremities: Nontender, No edema Skin: Normal color, No rash Neurological: Alert, Oriented x3, Cranial nerves II-XII grossly intact, Normal Strength, Normal Sensation Psychological: Normal affect, Normal Mood Diagnostic/Tx/Re-eval - Medical Decision Making Patient's blood pressure currently with no therapy is about 144/80 his physical exam is unremarkable he has no complaints he is taking all his medications, I explained to him we could do an ED evaluation with labs etc. he does not wish to pursue that I explained to him he should probably track his blood pressures as he has been doing in contact with his physicians for further management options he wants to go home now and he will follow-up with his outpatient providers Home stable Final impression hypertension ED Disposition - Plan for ED Patient: Diagnosis: Essential hypertension Instructions: ED Hypertension Established Referrals: Matt Dunbar MD [Primary Care Provider] -
== END 2020-03-21 12:49 | disposition home or self-care (01) ==
LOC: ED 12:46
PROVIDERS: Emergency Provider Emergency Medicine; PCP Family Medicine
DX: I10 Essential (primary) hypertension (principal); I25.10 Atherosclerotic heart disease of native coronary artery without angina pectoris; F17.200 Nicotine dependence, unspecified, uncomplicated; Z79.82 Long term (current) use of aspirin; Z79.899 Other long term (current) drug therapy
CPT/HCPCS: 99284

== ENCOUNTER 2020-04-14 11:53 | Emergency (ER) | payer MEDICAID, SELFPAY ==
[2020-04-14 11:54] VITALS: BP 138/88; PULSE 61; RESP 16; TEMP 36.6; O2SAT 99; BMI 29.2
--- NOTE | 2020-04-14 12:35 | ED.DCSUM_ITS ---
History of Present Illness Chief Complaint: Hypertension Narrative: Patient is a 59-year-old male with a past medical history of hypertension who presents to the emergency department for elevated blood pressure readings. He states that he checks them 2 times a day once in the morning, once at night. Last night he noticed that they were fluctuating. Today he checked his blood pressure and he had a reading in the 140s systolic. At that time he called his underground electrician office who prescribes his lisinopril. They state that they did not want to make any medication adjustments based on the one reading. At that time he decided to come to the emergency department. He denies any other symptoms whatsoever including any headaches, vision changes, chest pain, shortness of breath or heart palpitations. Upon arrival to the emerge department blood pressure has return to within normal limits. Past Medical History - Allergies and Home Meds Allergies/Adverse Reactions: Allergies No Known Allergies Allergy (Verified 12/05/19 15:13) Primary Care Physician: Matt Dunbar MD [Primary Care Provider] - Prior records reviewed: Yes Past Medical History: - - Hypertension, arthritis Surgical History: - - RFA Smoking Status: Current every day smoker Review of Systems All systems negative except as indicated General: Denies: Chills, Fever, Sweats Eyes: Denies: Visual changes - bilaterally, Diplopia ENT: Denies: Rhinorrhea, Sore throat Cardiovascular: Denies: Chest pain, Palpitations Respiratory: Denies: Dyspnea, Cough, Dyspnea on exertion Gastrointestinal: Denies: Abdominal pain, Nausea, Vomiting, Diarrhea Genitourinary: Denies: Dysuria, Hematuria, Frequency Musculoskeletal: Denies: Back pain, Extremity Pain Skin: Denies: Rash, Wounds Neurological: Denies: Headache, Weakness, Numbness Physical Exam Vital Signs/Narrative: Vital Signs Temp Pulse Resp BP Pulse Ox 04/14/20 11:54 97.8 F 61 16 138/88 H 99 Inital Vital Signs reviewed: Yes General: Well nourished, Well developed, No Acute Distress Head: Normocephalic, Atraumatic Eyes: Perrl, EOMI ENT: Moist mucous membranes, No rhinorrhea Neck: Supple, Nontender Cardiovascular: Regular rate, Regular rhythm, No murmurs, Murmur Respiratory: No distress, CTA bilaterally, Chest nontender Abdomen: Soft, Nontender, Nondistended, Normal bowel sounds Back: Nontender, Normal Inspection Extremities: Nontender, No edema Skin: Normal color, No rash Neurological: Alert, Oriented x3, Cranial nerves II-XII grossly intact, Normal Strength, Normal Sensation Psychological: Normal affect, Normal Mood Diagnostic/Tx/Re-eval - Medical Decision Making Patient presents to the emergency department for high blood pressure readings at home. He is asymptomatic with this. Upon arrival to the emerge department vital signs have returned within normal limits. He is in no acute distress. Physical exam is benign. Does have a holosystolic murmur that he was already aware of. I did discuss symptomatic versus asymptomatic hypertension extensively with him. Since he has been completely asymptomatic I do not feel any work-up is necessary at this time. Patient was reassured and he is to follow-up with his prescribing doctor as an outpatient. Did discuss strict return precautions including developing any chest pain, shortness of breath, rotations. He understands and is agreeable this plan. We will discharge him home in stable condition. ED Disposition - Plan for ED Patient: Disposition: Home or Assisted Living Diagnosis: Asymptomatic hypertension Instructions: ED HBP No Tx Referrals: Matt Dunbar MD [Primary Care Provider] - 3-5 Days
[2020-04-14 12:49] VITALS: BP 115/77; PULSE 70; RESP 16; O2SAT 97
== END 2020-04-14 12:50 | disposition home or self-care (01) ==
LOC: ED 12:37
PROVIDERS: Emergency Provider Emergency Medicine; PCP Family Medicine
DX: I10 Essential (primary) hypertension (principal); F17.200 Nicotine dependence, unspecified, uncomplicated; Z79.899 Other long term (current) drug therapy
CPT/HCPCS: 99284

== ENCOUNTER → 2021-05-05 07:40 | Outpatient (CLI) | payer MEDICAID, SELFPAY ==
[2020-06-01 14:22] VITALS: BMI 28.1
--- NOTE | 2021-05-05 07:49 | ECHOD_ITS ---
Reason For Study: Palpitations Procedure This was a 2D Doppler, Color Flow transthoracic echocardiogram. Exam performed in department. Left Ventricle Normal LV size. The estimated ejection fraction is 65 %. Diastolic function is indeterminate. No regional wall motion abnormalities noted. Right Ventricle Normal RV size. Normal systolic function. Atria Normal left atrium. Normal right atrium. No doppler evidence for ASD. Mitral Valve There is no mitral valve stenosis. Trivial mitral valve insufficiency. Tricuspid Valve There is no tricuspid stenosis. Mild tricuspid valve insufficiency. Pulmonary artery systolic pressure is 40-45 mmHg. Aortic Valve Previously reported as possible bicuspid. Appears to be trileaflet on this echo. Moderate diffuse aortic valve thickening. Mild aortic stenosis. Trivial aortic valve insufficiency. Pulmonic Valve There is no pulmonic valvular stenosis. Mild (1+) pulmonic valve insufficiency. Great Vessels Mildly dilated aortic root. Pericardium/Pleural No pericardial effusion. MMode/2D Measurements & Calculations LVIDd: 5.0 cm IVSd: 0.83 cm Ao root diam: 4.2 cm LVIDs: 3.2 cm LVPWd: 0.87 cm RVDd: 3.6 cm FS: 36.5 % LAV(MOD-bp): 49.6 ml LVAd ap4: 29.1 cm2 LVAd ap2: 26.2 cm2 LAV(MOD-bp) Indexed: 23.1 ml/m2 LVLd ap4: 7.7 cm LVLd ap2: 7.9 cm LAV(MOD-sp2): 40.4 ml EDV(MOD-sp4): 90.2 ml EDV(MOD-sp2): 72.4 ml LAV(MOD-sp4): 47.7 ml EDV(sp4-el): 93.9 ml EDV(sp2-el): 73.5 ml LVAs ap4: 14.0 cm2 LVAs ap2: 11.5 cm2 LVLs ap4: 6.4 cm LVLs ap2: 6.1 cm ESV(MOD-sp4): 26.6 ml ESV(MOD-sp2): 18.7 ml ESV(sp4-el): 25.9 ml ESV(sp2-el): 18.6 ml EF(MOD-sp4): 70.5 % EF(MOD-sp2): 74.2 % EF(sp4-el): 72.4 % SV(MOD-sp4): 63.5 ml SV(MOD-sp2): 53.7 ml SV(sp4-el): 68.0 ml LA dimension(2D): 4.3 cm LA A4 area: 18.6 cm2 RA A4 area: 19.9 cm2 Time Measurements MV dec time: 0.20 sec Doppler Measurements & Calculations MV E max ajit: 105.3 cm/sec Lat Peak E' Ajit: 3.5 cm/sec Med Peak E' Ajit: 5.8 cm/sec MV A max ajit: 61.3 cm/sec E/E' lat: 29.7 E/E' med: 18.1 MV E/A: 1.7 Ao V2 max: 280.6 cm/sec AI max ajit: 383.7 cm/sec LV V1 max: 138.6 cm/sec Ao max P.5 mmHg AI max P.9 mmHg LV V1 max P.7 mmHg Ao V2 mean: 182.7 cm/sec AI dec slope: 217.3 cm/sec2 LV V1 mean P.9 mmHg Ao mean P.2 mmHg AI P1/2t: 517.1 msec LV V1 mean: 92.3 cm/sec Ao V2 VTI: 57.5 cm LV V1 VTI: 31.5 cm PA V2 max: 90.4 cm/sec PI end-d ajit: 99.1 cm/sec TR max ajit: 303.5 cm/sec TR max P.7 mmHg ECHO/Echo Complete Interpretation Summary The estimated ejection fraction is 65 %. Diastolic function is indeterminate. Trivial mitral valve insufficiency. Mild tricuspid valve insufficiency. Previously reported as possible bicuspid. Appears to be trileaflet on this echo . Mild aortic stenosis. Moderate diffuse aortic valve thickening. Trivial aortic valve insufficiency. Mildly dilated aortic root. Ordering Physician: Bree Klein Referring Physician: Matt Dunbar Performed By: Estrella Saldivar, DINACS, RVT
== END ==
PROVIDERS: PCP Family Medicine; Referring Provider Specialist; Visit Provider Specialist
DX: I35.0 Nonrheumatic aortic (valve) stenosis (principal); I10 Essential (primary) hypertension; R00.2 Palpitations
CPT/HCPCS: 93306

== ENCOUNTER → 2021-06-12 07:43 | Outpatient (CLI) | payer MEDICAID, SELFPAY ==
[2021-06-12 08:37] LABS: AST(SGOT) 12 U/L (15-37); Alanine Aminotransfer ALT/SGPT 14 U/L (16-61); Albumin, Serum 3.5 g/dL (3.2-5.0); Alkaline Phosphatase 81 U/L (45-117); Anion Gap 6 (5-15); BUN 15 mg/dL (7-18); Bilirubin, Direct 0.12 mg/dL (0.00-0.30); Calcium,Total 8.9 mg/dL (8.5-10.1); Chloride 106 mmol/L (98-107); Cholesterol 168 mg/dL (200); EST Glomerular Filtration Rate 81 mL/min (>60); Est Glom Filt Rate - Afr Amer 98 mL/min (>60); Globulin 4.5 g/dL (2.2-4.2); Glucose 98 mg/dL (74-106); High Density Lipoprotein 32 mg/dL; Potassium 3.9 mmol/L (3.5-5.1); Sodium Level 139 mmol/L (136-145); Triglycerides 112 mg/dL; Very Low Density Lipoprotein 22 mg/dL (5-40)
== END ==
PROVIDERS: PCP Family Medicine; Referring Provider Nurse Practitioner Gerontology; Visit Provider Nurse Practitioner Gerontology
DX: I10 Essential (primary) hypertension (principal); E78.5 Hyperlipidemia, unspecified; R00.2 Palpitations
CPT/HCPCS: 36415; 80048; 80061; 80076; 84443

== ENCOUNTER → 2021-09-08 14:27 | Outpatient (CLI) | payer MEDICAID, SELFPAY ==
[2021-09-08 15:23] LABS: Hematocrit 42.2 % (40-54); Hemoglobin 13.9 g/dL (13.0-16.5); Mean Corp Hgb Conc 32.9 g/dL (32-36); Mean Corpuscular Hgb 29.4 pg (27.0-32.0); Mean Corpuscular Volume 89.4 fL (80-94); Platelet Count 245 K/mm3 (150-450); RBC Distribution Width CV 13.1 % (11.6-14.6); RBC Distribution Width SD 42.9 fl (35.1-43.9); Red Blood Count 4.72 M/mm3 (4.6-6.2); White Blood Count 7.1 K/mm3 (4.4-11.0)
[2021-09-08 15:56] LABS: Anion Gap 6 (5-15); BUN 20 mg/dL (7-18); BUN/Creat Ratio 16.7 RATIO (10-20); Calcium,Total 9.2 mg/dL (8.5-10.1); Chloride 101 mmol/L (98-107); EST Glomerular Filtration Rate 65 mL/min (>60); Est Glom Filt Rate - Afr Amer 79 mL/min (>60); Glucose 89 mg/dL (74-106); Magnesium 2.5 mg/dL (1.6-2.6); Potassium 3.9 mmol/L (3.5-5.1); Sodium Level 137 mmol/L (136-145); T4 Total, Thyroxin 6.3 ug/dL (4.5-12.1)
== END ==
PROVIDERS: PCP Family Medicine; Visit Provider Nurse Practitioner Gerontology
DX: E03.9 Hypothyroidism, unspecified (principal); I45.6 Pre-excitation syndrome; R00.2 Palpitations
CPT/HCPCS: 36415; 80048; 83735; 84436; 84443; 85027

== ENCOUNTER 2021-09-29 20:14 | Emergency (ER) | payer MEDICAID, SELFPAY ==
[2021-09-29 20:15] VITALS: BP 159/76; PULSE 69; RESP 15; TEMP 37.2; BMI 29.8
--- NOTE | 2021-09-29 20:35 | EKG12_ITS ---
Test Reason : PALPATIONS Blood Pressure : / mmHG Vent. Rate : 066 BPM Atrial Rate : 066 BPM P-R Int : 166 ms QRS Dur : 094 ms QT Int : 394 ms P-R-T Axes : 054 -13 041 degrees QTc Int : 413 ms Normal sinus rhythm Normal ECG Confirmed by NETO STYLES, ED ([id number]), web editor JAY JAY NOLASCO ([id number]) on 10/05/2021 9:26:05 AM Referred By: TAWANNA/[place] Confirmed By:ED DUQUE MD
--- NOTE | 2021-09-29 20:36 | EDS_ITS ---
HPI History of Present Illness Chief Complaint: Palpitations Informant: patient Onset/Context/Timing Onset: Today Activity at onset: gradual Timing: Waxes and wanes Quality: Positive for - (Extra beats, fluttering) Location: Substernal Worsened By: Nothing Relieved By: Nothing Associated Symptoms: Positive for Palpitations; Negative for Nausea, Vomiting, Diaphoresis, Dyspnea, Cough, Fever, Lightheadedness and Acid Reflux Narrative Narrative: Patient presents with palpitations that began today. Patient states it began earlier this morning then resolved patient states that then it came back on several hours ago. Patient states it has been constant since that time. Patient states it feels like there are extra beats and fluttering in his chest. Patient states nothing makes it worse and nothing makes it better. Patient denies any chest pain or shortness of breath. Patient denies any fevers or chills. Patient denies any nausea or vomiting. Patient denies any diaphoresis. [facility] Medical History (Updated 09/29/21 @ 22:[address] Cy Walker, DO) Bicuspid aortic valve Essential hypertension Heart palpitations HLD (hyperlipidemia) Nonrheumatic aortic (valve) stenosis Rheumatoid arthritis WPW (Fssda-Mxrjkvuaq-Dbfxd syndrome) Home Medications aspirin 81 mg PO DAILY 10/25/13 [History Last Taken Unknown] glucosamine-chondroitin 250 mg-200 mg tablet 1 tab PO DAILY tab 06/17/19 [History Last Taken Unknown] acetaminophen 650 mg tablet,extended release 650 mg PO Q12H 06/01/20 [History Last Taken Unknown] metoprolol tartrate 50 mg tablet 50 mg PO BID #180 tab 01/20/21 [Rx Last Taken Unknown] hydrochlorothiazide 12.5 mg capsule 12.5 mg PO DAILY #30 cap 05/06/21 [Rx Last Taken Unknown] lisinopril 10 mg tablet 10 mg PO BID #60 tab 05/06/21 [Rx Last Taken Unknown] levothyroxine 50 mcg PO DAILY 09/29/21 [History Last Taken Unknown] Allergy/AdvReac Type Severity Reaction Status Date / Time No Known Allergies Allergy Verified 09/29/21 20:18 Family History Brother Myocardial infarction Diabetes Father Heart disease Diabetes Cancer stomach Grandmother Heart disease Cancer stomach Surgical History H/O arthroscopic knee surgery History of arthroscopic knee surgery (~2000) History of cardiac radiofrequency ablation (RFA) (~1999) History of cholecystectomy History of cholecystectomy (~2014) Social History Smoking Status: Current every day smoker tobacco type: cigarettes alcohol intake: never substance use type: does not use caffeine: Yes Type: coffee Number of servings: 4 ROS ROS ED Constitutional Constitutional ED: Denies chills or fever(s) Eyes Eyes: Denies blurry vision or change in vision ENT ENT ED: Denies rhinorrhea or sore throat Cardiovascular Cardiovascular: Reports palpitations; Denies chest pain Respiratory/Chest Respiratory/Chest: Denies cough or dyspnea Gastrointestinal Gastrointestinal: Denies abdominal pain, nausea or vomiting Genitourinary Genitourinary ED: Denies dysuria or hematuria Musculoskeletal Musculoskeletal: Denies back pain or neck pain Integumentary Denies abscess or rash Neurologic Neurologic: Denies headache(s) or weakness Allergic/Immunologic Allergic/Immunologic ED: Denies mouth swelling or urticaria EXAM Physical Exam Const Vital Signs: 09/29/21 20:15 09/29/21 20:42 09/29/21 22:00 Temperature 98.9 F Temperature Source Temporal Pulse Rate 69 56 L Respiratory Rate 15 12 Blood Pressure 159/76 H 97/65 Blood Pressure Mean 103 75 Oxygen Delivery Method Room Air Room Air Positive well nourished and well developed General Appearance ED: well developed HEENT normocephalic and atraumatic Eyes PERRL and EOMs intact bilaterally Neck supple and no JVD Chest Wall palpation of chest normal Resp normal respiratory effort and clear to auscultation bilaterally Effort and Inspection: Negative for respiratory distress Cardio regular rate, regular rhythm and no murmurs GI normal to inspection, nondistended, normoactive bowel sounds, soft to palpation, non-tender and non-distended Extremity normal to inspection General Extremety ED: Negative for edema or tenderness General Extremity: Negative for edema Neuro oriented x3, CN's II-XII intact bilaterally and no sensory deficits noted Sensorium / Orientation: awake and alert Motor Exam: strength 5/5 throughout Psych mental status grossly normal Heart Score History: Slightly/Non-Suspicious ECG: Normal Age: >45 - <65 years Risk Factors: No Risk Factors Score: 1 MDM MDM MDM Narrative Medical decision making narrative: EKG was obtained. On my interpretation, it showed a normal sinus rhythm with a rate of 66. ND interval, QRS interval, and QTc intervals were all normal. Hostetter was normal. There are no acute ST or T wave changes. Portable 1 view chest x-ray was obtained. On my interpretation, lung tineo are clear. There is normal cardiac silhouette. Bony thorax is normal. There is no acute process noted. Radiologist also interpreted the x- ray and agrees. CBC was within normal limits. Basic metabolic profile was within normal limits. High-sensitivity troponin is was normal. TSH was elevated at 20.0. This was improved from previous result. Patient was advised of his findings. Patient was instructed to follow-up with his primary care physician in 5 to 7 days for further evaluation. Patient understood and was agreeable with the plan. All questions were answered. Lab Data Attestation: I reviewed the patient's lab results. Labs: Laboratory Results - last 24 hr 09/29/21 09/29/21 21:00 21:00 WBC 7.1 RBC 4.41 L Hgb 13.0 Hct 39.3 L MCV 89.1 MCH 29.5 MCHC 33.1 RDW Std Deviation 43.5 RDW Coeff of Carmen 13.2 Plt Count 205 MPV 9.7 Immature Gran % (Auto) 0.600 Neut % (Auto) 66.8 Lymph % (Auto) 21.5 [place] % (Auto) 7.5 Eos % (Auto) 3.0 Baso % (Auto) 0.6 Absolute Neuts (auto) 4.8 Absolute Lymphs (auto) 1.53 Nucleated RBC % 0 Sodium 142 Potassium 3.4 L Chloride 104 Carbon Dioxide 29.0 Anion Gap 9 BUN 20 H Creatinine 1.04 Estim Creat Clear Calc 79.44 Est GFR (MDRD) Af Amer 93 Est GFR (MDRD) Non-Af 77 BUN/Creatinine Ratio 19.2 Glucose 143 H Calcium 8.9 Troponin I High Sens 6 TSH 20.00 H Radiography Chest X-Ray - ED: 1 View, Read by ED Physician, Read by Radiologist and Normal Diagnostic Testing: Clinical Impression(s) from Imaging Studies Chest X-Ray 09/29/21 20:46 IMPRESSION: Normal x-ray examination of the chest. Electronically Signed: Andrew Ashraf DO at 21:43 EST Tel [phone], Service support , EKG Initial EKG: Attestation: I personally reviewed and interpreted this EKG as follows: Interpretation: Sinus Rhythm (66) and No Acute Injury Pattern Discharge Plan Triage Chief Complaint: Palpitations ED Provider: Cy Walker Dx/Rx/DC Orders Clinical Impression: Heart palpitations Instructions: ED Palpitations Prescriptions: No Action glucosamine-chondroitin 250 mg-200 mg tablet 250-200 mg tablet 1 tab PO DAILY RF: 0 acetaminophen [Tylenol Arthritis Pain] 650 mg tablet extended release 650 mg PO Q12H RF: 0 aspirin 81 MG tablet,chewable 81 mg PO DAILY RF: 0 levothyroxine 50 mcg tablet 50 mcg PO DAILY RF: 0 metoprolol tartrate 50 mg tablet 50 mg PO BID Qty: 180 RF: 3 lisinopril 10 mg tablet 10 mg PO BID Qty: 60 RF: 11 hydrochlorothiazide 12.5 mg capsule 12.5 mg PO DAILY Qty: 30 RF: 11 Primary Care Provider: Matt Dunbar Referrals: Matt Dunbar MD [Primary Care Provider] - 5-7 Days Disposition Disposition: Home, Self Care
--- NOTE | 2021-09-29 20:46 | RAD_ITS ---
STUDY: X-RAY CHEST REASON FOR EXAM: Male, 61 years old. Chest pain TECHNIQUE: Frontal view COMPARISON: July 28 2019 FINDINGS: The lungs are clear and expanded. There is no demonstrated pleural abnormality. Normal size heart. Normal mediastinum and sangeeta. Normal visualized pulmonary arteries. Normal visualized aortic arch and descending thoracic aorta. Degenerative changes of the thoracic spine. Normal visualized ribs, clavicles, and shoulders. There is no demonstrated abnormality of the visualized soft tissue structures of the upper abdomen. RAD/Chest 1 View (Portable) IMPRESSION: Normal x-ray examination of the chest. Electronically Signed: Andrew Ashraf DO at 21:43 EST Tel [phone], Service support ,
[2021-09-29 21:09] LABS: Absolute Lymphocyte Count 1.53 X10^3/uL (0.83-4.51); Absolute Neutrophil Count 4.8 X10^3/uL (2.0-7.7); Basophil# 0.04 X10^3/uL; Basophil% 0.6 % (0-1); Eosinophil# 0.21 X10^3/uL; Hematocrit 39.3 % (40-54); Lymphocyte # 1.53 X10^3/ul (0.83-4.51); Lymphocyte % 21.5 % (19-41); Mean Corp Hgb Conc 33.1 g/dL (32-36); Mean Corpuscular Hgb 29.5 pg (27.0-32.0); Mean Corpuscular Volume 89.1 fL (80-94); Mean Platelet Vol. 9.7 fl (6.2-12.0); Monocyte# 0.53 X10^3/uL; Monocyte% 7.5 % (0-10); NRBC Flagged by Analyzer 0 % (0-5); Neutrophil # 4.75 X10^3/uL (2.7-7.7); Neutrophil % 66.8 % (47-70); Platelet Count 205 K/mm3 (150-450); RBC Distribution Width CV 13.2 % (11.6-14.6); RBC Distribution Width SD 43.5 fl (35.1-43.9); Red Blood Count 4.41 M/mm3 (4.6-6.2); White Blood Count 7.1 K/mm3 (4.4-11.0)
[2021-09-29 21:37] LABS: Anion Gap 9 (5-15); BUN 20 mg/dL (7-18); BUN/Creat Ratio 19.2 RATIO (10-20); Calcium,Total 8.9 mg/dL (8.5-10.1); Chloride 104 mmol/L (98-107); Creatinine, Serum 1.04 mg/dL (0.70-1.30); EST Glomerular Filtration Rate 77 mL/min (>60); Est Glom Filt Rate - Afr Amer 93 mL/min (>60); Estimated Creatinine Clearance 79.44 ml/min; Glucose 143 mg/dL (74-106); Potassium 3.4 mmol/L (3.5-5.1); Sodium Level 142 mmol/L (136-145); Troponin-I HS 6 pg/mL (3.0-78.0)
[2021-09-29 22:00] VITALS: BP 97/65; PULSE 56; RESP 12
[2021-09-29 22:47] VITALS: BP 102/61; RESP 15; O2SAT 99
== END 2021-09-29 22:48 | disposition home or self-care (01) ==
PROVIDERS: Emergency Provider Emergency Medicine; PCP Family Medicine
DX: R00.2 Palpitations (principal); I10 Essential (primary) hypertension; E78.5 Hyperlipidemia, unspecified; Q23.1 Congenital insufficiency of aortic valve; M06.9 Rheumatoid arthritis, unspecified; Z79.899 Other long term (current) drug therapy; Z79.82 Long term (current) use of aspirin; F17.210 Nicotine dependence, cigarettes, uncomplicated
CPT/HCPCS: 71045; 80048; 84443; 84484; 85025; 93005; 99285; A4216

== ENCOUNTER 2021-10-06 19:26 | Emergency (ER) | payer MEDICAID, SELFPAY ==
[2021-10-06 19:27] VITALS: BP 130/81; PULSE 74; RESP 15; TEMP 37.3; O2SAT 96; BMI 28.8
--- NOTE | 2021-10-06 20:18 | EKG12_ITS ---
Test Reason : DYSRHYTHMIA Blood Pressure : / mmHG Vent. Rate : 069 BPM Atrial Rate : 069 BPM P-R Int : 164 ms QRS Dur : 086 ms QT Int : 386 ms P-R-T Axes : 061 -06 038 degrees QTc Int : 413 ms Normal sinus rhythm Normal ECG Confirmed by NETO STYLES, ED ([id number]), editor department CESARIO RAY ([id number]) on 10/12/2021 10:29:29 AM Referred By: GERMANIA Confirmed By:ED DUQUE MD
--- NOTE | 2021-10-06 20:19 | EX.ED.DYSGE1 ---
HPI History of Present Illness Chief Complaint: Palpitations Detail of Chief Complaint: Palpitations that he noticed around 4:20 AM today Informant: patient Narrative Narrative: Patient presents to the emergency department chief complaint of palpitations since around 4:20 AM. Patient states that he was up and drinking a cup of coffee when he noticed them. Patient states that they felt like extra beats and it was happen frequently. Patient now states that they are happening a little less frequently tonight but has had them throughout the day. He denies any chest pain. Patient states he was seen in the ER about a week ago for the same complaint. Patient states that he is on thyroid medicine that he is been taken for the last 3 weeks and initially was thought that maybe was related to his thyroid. Patient also has history of WPW with prior ablation. He denies any racing heart. Patient also states he has had a cold for the last for 5 days and has not had his Covid vaccine. Patient has had his influenza vaccine. Prior similar symptoms: Yes PFSH [facility] Medical History (Updated 10/06/21 @ 22:[address] Marleni Crews, DO) Aortic stenosis with bicuspid valve AVNRT (AV manolo re-entry tachycardia) Essential hypertension HLD (hyperlipidemia) Hyperthyroidism Rheumatoid arthritis WPW (Rmpgq-Tiejdpnrr-Cbzyp syndrome) Home Medications aspirin 81 mg PO DAILY 10/25/13 [History Last Taken Unknown] glucosamine-chondroitin 250 mg-200 mg tablet 1 tab PO DAILY tab 06/17/19 [History Last Taken Unknown] acetaminophen 650 mg tablet,extended release 650 mg PO Q12H 06/01/20 [History Last Taken Unknown] metoprolol tartrate 50 mg tablet 50 mg PO BID #180 tab 01/20/21 [Rx Last Taken Unknown] hydrochlorothiazide 12.5 mg capsule 12.5 mg PO DAILY #30 cap 05/06/21 [Rx Last Taken Unknown] lisinopril 10 mg tablet 10 mg PO BID #60 tab 05/06/21 [Rx Last Taken Unknown] levothyroxine 50 mcg PO DAILY 09/29/21 [History Last Taken Unknown] Allergy/AdvReac Type Severity Reaction Status Date / Time No Known Allergies Allergy Verified 10/06/21 19:27 Family History (Reviewed 06/08/21 @ 08:53 by Mei Barajas [employer], [employer]-C) Brother Myocardial infarction Diabetes Father Heart disease Diabetes Cancer stomach Grandmother Heart disease Cancer stomach Surgical History H/O arthroscopic knee surgery History of arthroscopic knee surgery (2000) History of cardiac radiofrequency ablation (RFA) (1999) History of cholecystectomy (2014) Social History Smoking Status: Current every day smoker tobacco type: cigarettes alcohol intake: never substance use type: does not use caffeine: Yes Type: coffee Number of servings: 4 ROS ROS ED Constitutional Constitutional ED: Reports systems reviewed and no addt'l complaints, except as documented; Denies body ache(s), change in weight or chills Eyes Eyes: Denies acute decrease in peripheral vision, change in vision, double vision or loss of vision ENT ENT ED: Reports none and rhinorrhea; Denies ear pain, lip swelling, loss taste/smell, neck pain, otalgia or sore throat Cardiovascular Cardiovascular: Reports none and palpitations; Denies abdominal pain, chest pain with activity, leg edema, lightheadedness, rapid heart rate or syncope Respiratory/Chest Respiratory/Chest: Reports none and cough; Denies change in mental status, dry cough, dyspnea, hemoptysis, shortness of breath at rest or shortness of breath with exertion Gastrointestinal Gastrointestinal: Reports none; Denies abdominal pain, change in stool character, diarrhea, hematemesis, hematochezia, melena, rectal bleeding or vomiting Genitourinary Genitourinary ED: Reports none; Denies abdominal discomfort, anuria, dysuria, genital pain or polyuria Musculoskeletal Musculoskeletal: Reports none; Denies arthralgias, back pain, difficulty walking, extremity pain, muscle weakness or myalgias Integumentary Reports none; Denies abscess or rash Neurologic Neurologic: Reports none; Denies abnormal gait, confusion, focal weakness, frequent falls, headache(s), loss of vision, numbness, paresthesias, radicular pain, vertigo or weakness Psychiatric Psychiatric: Reports systems reviewed and no addt'l complaints, except as documented and none; Denies behavioral changes, confusion, difficulty concentrating, hallucinations, suicidal ideation, tactile hallucinations or visual hallucinations Endocrine Endocrinology: Denies none, cold intolerance, excessive sweating, fatigue or heat intolerance Hematologic/Lymphatic Hematologic/Lymphatic: Reports none; Denies anemia, easy bleeding or easy bruising Allergic/Immunologic Allergic/Immunologic ED: Denies as per HPI, none, lip swelling, mouth swelling, throat swelling, tongue swelling or hives EXAM Physical Exam Const Vital Signs: 10/06/21 19:27 10/06/21 19:31 Temperature 99.1 F Temperature Source Oral Pulse Rate 74 Respiratory Rate 15 Respiratory Effort Normal Non-Labored Respiratory Pattern Normal Blood Pressure 130/81 H Blood Pressure Mean 97 Pulse Ox 96 Oxygen Delivery Method Room Air Positive well nourished and well developed General Appearance ED: well developed and NAD HEENT Reports TM's clear and moist mucous membranes normocephalic and atraumatic; Negative for trauma or tenderness Tympanic Membrane ED: Yes TM's clear Eyes PERRL and EOMs intact bilaterally General Eye ED: Negative for pale conjunctiva or scleral icterus Neck no lymphadenopathy, supple and no JVD General: Negative for tenderness Chest Wall inspection of chest normal and palpation of chest normal Chest: Negative for tenderness Resp normal respiratory effort and clear to auscultation bilaterally Effort and Inspection: Negative for respiratory distress or pain with movement Auscultation: Negative for rhonchi, wheezes or diminished lung sounds Cardio regular rate, regular rhythm, S1 normal heart sound, S2 normal heart sound and no murmurs Peripheral Pulses: pulses 2+ throughout GI normal to inspection, nondistended, normoactive bowel sounds, soft to palpation, non-tender, non-distended and no masses Back/Spine no CVA tenderness and no thoracic nor lumbar tenderness Extremity normal to inspection General Extremety ED: Negative for edema General Extremity: Negative for edema Neuro oriented x3, CN's II-XII intact bilaterally, no sensory deficits noted and gait normal Sensorium / Orientation: awake, alert, oriented to person, oriented to place and oriented to time Motor Exam: strength 5/5 throughout and strength abnormal Psych mental status grossly normal Skin no rashes or lesions noted and no wounds MDM MDM MDM Narrative Medical decision making narrative: IV line established on arrival. Patient placed on a night monitor. Lab work-up unremarkable. He did have an elevated TSH but it is down from 20 down to 15 in the last week. I did not appreciate any significant ectopy on the monitors while in the department and he is currently not feeling any palpitations. 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 Lab Data Attestation: I reviewed the patient's lab results. Labs: Laboratory Results - last 24 hr 10/06/21 10/06/21 19:35 19:35 WBC 6.5 RBC 4.39 L Hgb 13.3 Hct 39.2 L MCV 89.3 MCH 30.3 MCHC 33.9 RDW Std Deviation 43.4 RDW Coeff of Carmen 13.2 Plt Count 210 MPV 10.7 Immature Gran % (Auto) 0.300 Neut % (Auto) 61.5 Lymph % (Auto) 23.7 Stanton % (Auto) 11.3 H Eos % (Auto) 2.6 Baso % (Auto) 0.6 Absolute Neuts (auto) 4.0 Absolute Lymphs (auto) 1.55 Nucleated RBC % 0 Sodium 140 Potassium 4.0 Chloride 106 Carbon Dioxide 29.0 Anion Gap 5 BUN 22 H Creatinine 1.20 Estim Creat Clear Calc 68.85 Est GFR (MDRD) Af Amer 79 Est GFR (MDRD) Non-Af 65 BUN/Creatinine Ratio 18.3 Glucose 112 H Calcium 9.1 Troponin I High Sens 6 TSH 15.60 H Radiography Diagnostic Testing: Clinical Impression(s) from Imaging Studies Chest X-Ray 10/06/21 20:40 IMPRESSION: No radiographic evidence of acute cardiopulmonary disease. Electronically Signed: Tiuts Soliz MD at 21:18 EST Tel , Service support , EKG Initial EKG: Attestation: I personally reviewed and interpreted this EKG as follows: Comments: Sinus rhythm with a ventricular rate of 69 bpm with no acute ST segment changes Discharge Plan Triage Chief Complaint: Palpitations ED Provider: Marleni Crews Dx/Rx/DC Orders Clinical Impression: Palpitations Instructions: ED Palpitations Prescriptions: No Action glucosamine-chondroitin 250 mg-200 mg tablet 250-200 mg tablet 1 tab PO DAILY RF: 0 acetaminophen [Tylenol Arthritis Pain] 650 mg tablet extended release 650 mg PO Q12H RF: 0 aspirin 81 MG tablet,chewable 81 mg PO DAILY RF: 0 levothyroxine 50 mcg tablet 50 mcg PO DAILY RF: 0 metoprolol tartrate 50 mg tablet 50 mg PO BID Qty: 180 RF: 3 lisinopril 10 mg tablet 10 mg PO BID Qty: 60 RF: 11 hydrochlorothiazide 12.5 mg capsule 12.5 mg PO DAILY Qty: 30 RF: 11 Primary Care Provider: Matt Dunbar Referrals: Mervin Pastor MD [STAFF PHYSICIAN] - 5-7 Days Matt Dunbar MD [Primary Care Provider] - Disposition Disposition: Home, Self Care
[2021-10-06 20:26] LABS: Absolute Lymphocyte Count 1.55 X10^3/uL (0.83-4.51); Basophil# 0.04 X10^3/uL; Basophil% 0.6 % (0-1); Eosinophil# 0.17 X10^3/uL; Eosinophils% 2.6 % (0-5); Hematocrit 39.2 % (40-54); Hemoglobin 13.3 g/dL (13.0-16.5); Lymphocyte # 1.55 X10^3/ul (0.83-4.51); Lymphocyte % 23.7 % (19-41); Mean Corp Hgb Conc 33.9 g/dL (32-36); Mean Corpuscular Hgb 30.3 pg (27.0-32.0); Mean Corpuscular Volume 89.3 fL (80-94); Mean Platelet Vol. 10.7 fl (6.2-12.0); Monocyte# 0.74 X10^3/uL; Monocyte% 11.3 % (0-10); NRBC Flagged by Analyzer 0 % (0-5); Neutrophil # 4.02 X10^3/uL (2.7-7.7); Neutrophil % 61.5 % (47-70); Platelet Count 210 K/mm3 (150-450); RBC Distribution Width CV 13.2 % (11.6-14.6); RBC Distribution Width SD 43.4 fl (35.1-43.9); Red Blood Count 4.39 M/mm3 (4.6-6.2); White Blood Count 6.5 K/mm3 (4.4-11.0)
--- NOTE | 2021-10-06 20:40 | RAD_ITS ---
EXAM: XR CHEST, 1 VIEW CLINICAL INDICATION: palpitations TECHNIQUE: Frontal view of the chest. This report was created using [employer] report generation technology. COMPARISON: None. FINDINGS: LUNGS AND PLEURAL SPACES: Unremarkable. No consolidation or edema. No pneumothorax. No effusion. HEART: Unremarkable. Cardiac silhouette not enlarged. MEDIASTINUM: Central airways and mediastinal contour are unremarkable. Atherosclerotic calcifications of the nonenlarged thoracic aortic arch. BONES/JOINTS: Unchanged appearance of remote left acromioclavicular joint separation injury. SOFT TISSUES: Unremarkable. RAD/Chest 1 View (Portable) IMPRESSION: No radiographic evidence of acute cardiopulmonary disease. Electronically Signed: Titus Soliz MD at 21:18 EST Tel , Service support ,
[2021-10-06 20:51] LABS: Anion Gap 5 (5-15); BUN 22 mg/dL (7-18); BUN/Creat Ratio 18.3 RATIO (10-20); Calcium,Total 9.1 mg/dL (8.5-10.1); Chloride 106 mmol/L (98-107); EST Glomerular Filtration Rate 65 mL/min (>60); Est Glom Filt Rate - Afr Amer 79 mL/min (>60); Estimated Creatinine Clearance 68.85 ml/min; Glucose 112 mg/dL (74-106); Sodium Level 140 mmol/L (136-145); Troponin-I HS 6 pg/mL (3.0-78.0)
[2021-10-06 22:17] VITALS: BP 109/67; PULSE 66; RESP 17; O2SAT 95
== END 2021-10-06 22:17 | disposition home or self-care (01) ==
PROVIDERS: Emergency Provider Emergency Medicine; PCP Family Medicine
DX: R00.2 Palpitations (principal); I10 Essential (primary) hypertension; E78.5 Hyperlipidemia, unspecified; M06.9 Rheumatoid arthritis, unspecified; E05.90 Thyrotoxicosis, unspecified without thyrotoxic crisis or storm; Z79.899 Other long term (current) drug therapy; Z79.890 Hormone replacement therapy; Z79.82 Long term (current) use of aspirin; F17.210 Nicotine dependence, cigarettes, uncomplicated
CPT/HCPCS: 71045; 80048; 84443; 84484; 85025; 87426; 93005; 99285

== ENCOUNTER 2021-10-15 12:21 | Outpatient (CLI) | payer MEDICAID, SELFPAY | END 2021-10-15 23:59 | disposition short-term general hospital (02) | LOC: PSN 12:22 | PROVIDERS: PCP Family Medicine; Referring Provider Nurse Practitioner Family; Visit Provider Nurse Practitioner Family | DX: R00.2 Palpitations (principal); I47.1 Supraventricular tachycardia; I45.6 Pre-excitation syndrome | CPT/HCPCS: 93225; 93226 ==

== ENCOUNTER 2021-11-03 15:00 | Outpatient (CLI) | payer MEDICAID, SELFPAY | END 2021-11-03 23:59 | disposition short-term general hospital (02) | LOC: CVS 15:04 | PROVIDERS: PCP Family Medicine; Referring Provider Physician Assistant Medical; Visit Provider Physician Assistant Medical | DX: R00.2 Palpitations (principal) | CPT/HCPCS: 93271 ==

== ENCOUNTER 2021-12-14 22:58 | Outpatient (CLI) | payer MEDICAID, SELFPAY | END 2021-12-14 23:59 | disposition home or self-care (01) | PROVIDERS: PCP Family Medicine; Visit Provider Physician Assistant Medical | DX: G47.30 Sleep apnea, unspecified (principal); I45.5 Other specified heart block | CPT/HCPCS: 95810 ==

== ENCOUNTER 2022-01-15 07:30 | Outpatient (CLI) | payer MEDICAID, SELFPAY ==
[2022-01-15 09:16] LABS: Free T3 2.5 pg/mL (2.18-3.98); T4 Free Direct 1.13 ng/dL (0.76-1.46); Thyroid Stim Hormone (TSH) 9.06 uIU/mL (0.358-3.74)
== END 2022-01-15 23:59 | disposition home or self-care (01) ==
LOC: LAB 07:31
PROVIDERS: PCP Family Medicine; Referring Provider Nurse Practitioner Gerontology; Visit Provider Nurse Practitioner Gerontology
DX: E03.9 Hypothyroidism, unspecified (principal)
CPT/HCPCS: 36415; 84439; 84443; 84481

== ENCOUNTER 2022-01-19 13:32 | Outpatient (CLI) | payer MEDICAID, SELFPAY ==
--- NOTE | 2022-01-19 13:35 | CT_ITS ---
STUDY: LOW DOSE CT LUNG CANCER SCREENING REASON FOR EXAM: Male, 61 years old. and gt;40 pack years current smoker RADIATION DOSAGE (If Supplied By Facility): CTDIvol = ( 4.02 ) mGy, DLP = ( 148.98 ) mGycm TECHNIQUE: No contrast was administered. Low dose technique was utilized (average mAS-38 and kVp 120). 1.25 mm axial source images with a slice interval of 1.25-mm were reconstructed in lung windows. 2.5 mm axial source images with a slice interval of 2.5-mm were reconstructed in lung windows. 5.0 mm axial source images with a slice interval of 5.0-mm were reconstructed in soft tissue windows. COMPARISON: None. NODULES: No suspicious nodules are present. Emphysema: Hyperinflation and emphysematous changes more prominent in the lung apices. Findings suggestive of a bilateral apical scarring. No mass lesion is seen. Endobronchial lesion: None Aorta: Mild atherosclerotic calcification of the aortic arch. CORONARY ARTERIES: Coronary artery calcification Heart: Unremarkable Pulmonary artery: Unremarkable Mediastinal nodes: Small benign-appearing mediastinal lymph nodes. Other chest and abdominal findings: CT/Low Dose CT Lung Screening IMPRESSION: Lung-RADS category 2 - Continue annual screening with LDCT in 12 months. IMPORTANT NOTES FOR USE: ACR Lung-RADS Version 1.1 Assessment Categories Release Date: 2018 Category: Coded 0-4 bases on nodule(s) with highest degree of suspicion. Negative screen is defined as categories 1 and 2; a positive screen is defined as categories 3 and 4. Category 3 and 4A nodules that are unchanged on interval CT should be coded as category 2, and individuals returned to screening in 12 months. Category 4X: Category 3 or 4 nodules with additional imaging findings that increase the suspicion of lung cancer, such as spiculation, GGN that doubles in size in 1 year, enlarged lymph notes, etc. Category Modifiers: S (significant finding unrelated to lung cancer) Electronically Signed: Dung Brower MD at 14:15 EDT ,
== END 2022-01-19 23:59 | disposition home or self-care (01) ==
LOC: CT 13:33
PROVIDERS: PCP Family Medicine; Visit Provider Nurse Practitioner Acute Care
DX: F17.210 Nicotine dependence, cigarettes, uncomplicated (principal)
CPT/HCPCS: 71271

== ENCOUNTER → 2022-02-25 | Outpatient (CLI) | payer MEDICAID, SELFPAY ==
[2022-02-25] MEDS: Zolpidem Tartrate 5 MG Tablet PO (21:30)
== END | disposition home or self-care (01) ==
LOC: SL 20:01
PROVIDERS: PCP Family Medicine; Visit Provider Nurse Practitioner Acute Care
DX: G47.33 Obstructive sleep apnea (adult) (pediatric) (principal)
CPT/HCPCS: 95811

== ENCOUNTER → 2022-04-25 | Outpatient (CLI) | payer MEDICAID, SELFPAY ==
[2022-04-25 12:27] LABS: Thyroid Stim Hormone (TSH) 3.61 uIU/mL (0.358-3.74)
== END | disposition home or self-care (01) ==
LOC: LAB 10:38
PROVIDERS: PCP Family Medicine; Visit Provider Physician Assistant Medical
DX: E03.9 Hypothyroidism, unspecified (principal); G47.33 Obstructive sleep apnea (adult) (pediatric)
CPT/HCPCS: 36415; 84443

== ENCOUNTER → 2022-07-11 | Outpatient (CLI) | payer MEDICAID, SELFPAY ==
--- NOTE | 2022-07-12 08:52 | PFT ---
INTRODUCTION: The patient is a 61-year-old male that presents for pulmonary function studies secondary to a diagnosis of nicotine dependency. Respiratory therapy reported good patient effort. Bronchodilators were used during testing. INTERPRETATION: Forced expiration spirometry demonstrates no evidence of a large airways obstructive ventilatory defect. There was no significant response to aerosolized bronchodilators. Spirograms are of good quality and plateau normally. Body plethysmography was performed and reveals lung volumes to be within normal limits. Diffusing capacity by single breath CO is also within normal limits. IMPRESSION: Grossly normal pulmonary function studies.
== END | disposition home or self-care (01) ==
LOC: PSN 09:14
PROVIDERS: PCP Family Medicine; Referring Provider Internal Medicine Critical Care Medicine; Visit Provider Internal Medicine Critical Care Medicine
DX: F17.210 Nicotine dependence, cigarettes, uncomplicated (principal)
CPT/HCPCS: 94060; 94726; 94729

== ENCOUNTER → 2023-01-03 | Outpatient (CLI) | payer MEDICAID, SELFPAY ==
[2023-01-03 11:56] LABS: AST(SGOT) 15 U/L (15-37); Alanine Aminotransfer ALT/SGPT 14 U/L (16-61); Albumin, Serum 3.6 g/dL (3.2-5.0); Alkaline Phosphatase 84 U/L (45-117); Bilirubin, Direct 0.07 mg/dL (0.00-0.30); Cholesterol 146 mg/dL (200); Globulin 4.7 g/dL (2.2-4.2); High Density Lipoprotein 39 mg/dL; Protein, Total 8.3 g/dL (6.4-8.2); Triglycerides 89 mg/dL; Very Low Density Lipoprotein 18 mg/dL (5-40)
== END | disposition home or self-care (01) ==
PROVIDERS: PCP Family Medicine; Referring Provider Internal Medicine Cardiovascular Disease; Visit Provider Internal Medicine Cardiovascular Disease
DX: E78.5 Hyperlipidemia, unspecified (principal)
CPT/HCPCS: 36415; 80061; 80076

== ENCOUNTER → 2023-01-26 | Outpatient (CLI) | payer MEDICAID, SELFPAY ==
--- NOTE | 2023-01-26 07:32 | CT_ITS ---
EXAM: CT CHEST, LUNG CANCER SCREENING WITHOUT INTRAVENOUS CONTRAST CLINICAL INDICATION: smoker TECHNIQUE: Helically acquired images were obtained of the chest without intravenous contrast using low dose (LDCT) lung cancer screening protocol. This CT exam was performed using one or more of the following dose reduction techniques: automated exposure control, adjustment of the mA and/or kV according to patient size, and/or use of iterative reconstruction technique. This report was created using [employer] report generation technology. COMPARISON: CT Lung Cancer Screening dated 01/19/2022 FINDINGS: LUNGS AND PLEURAL SPACES: Diffuse emphysematous changes of the lungs again noted. No evidence of a lung mass or suspicious pulmonary nodule. No pleural effusion or thickening. No pneumothorax. HEART: Heart is normal size. Prominent coronary artery calcification. No pericardial effusion. MEDIASTINUM: Normal. No mediastinal or hilar adenopathy. Esophagus is unremarkable. No hiatal hernia. THYROID: Normal. No thyroid nodules or calcification. BONES/JOINTS: No suspicious lytic or blastic abnormality. VASCULATURE: See above. LYMPH NODES: Normal. No enlarged lymph nodes. CT/Low Dose CT Lung Screening IMPRESSION: 1. No evidence of a lung mass or suspicious pulmonary nodule. 2. Moderate diffuse pulmonary emphysema. Lung-RADS score: 1S - Additional clinically significant or potentially clinically significant findings are described. Recommend continued annual screening with low-dose CT (LDCT) in 12 months. Electronically Signed: Miguel Drake MD at 16:45 EDT Reading Location ID and State: [address] [place] [address] Tel , Service support ,
--- NOTE | 2023-01-26 07:32 | ECHOD_ITS ---
Reason For Study: Murmur Procedure This was a 2D Doppler, Color Flow transthoracic echocardiogram. Exam performed in department. Left Ventricle Normal LV size. Mild concentric left ventricular hypertrophy. Left ventricular systolic function is normal. The estimated ejection fraction is 65 %. No regional wall motion abnormalities noted. Right Ventricle Normal RV size. Normal systolic function. Atria Normal left atrium. Normal right atrium. Mitral Valve Normal mitral valve. Tricuspid Valve Normal tricuspid valve. Mild tricuspid valve insufficiency. Pulmonary artery systolic pressure is 30 mmHg. Aortic Valve Trisinus/trileaflet aortic valve. Mild focal aortic valve calcification. Peak aortic valve gradient 23 mmHg. Mean aortic valve gradient 12 mmHg. Mild aortic stenosis. Mild (1+) aortic valve insufficiency. Pulmonic Valve Normal pulmonic valve. Great Vessels Normal aortic root. The pulmonary artery is normal size. Normal inferior vena cava. Pericardium/Pleural No pericardial effusion. MMode/2D Measurements & Calculations LVIDd: 4.6 cm IVSd: 1.2 cm LVOT diam: 2.0 cm LVIDs: 2.7 cm LVPWd: 1.2 cm LVOT area: 3.2 cm2 RVDd: 4.2 cm FS: 41.4 % Ao root diam: 3.4 cm LAV(MOD-bp): 43.2 ml LA A4 area: 14.8 cm2 LA dimension: 3.4 cm LAV(MOD-bp) Indexed: 20.6 ml/m2 LAV(MOD-sp2): 48.5 ml LAV(MOD-sp4): 33.2 ml RA A4 area: 19.9 cm2 Time Measurements MV dec time: 0.24 sec Doppler Measurements & Calculations MV E max ajit: 85.8 cm/sec Lat Peak E' Ajit: 11.2 cm/sec Med Peak E' Ajit: 12.4 cm/sec MV A max ajit: 67.1 cm/sec E/E' lat: 7.7 E/E' med: 6.9 MV E/A: 1.3 MV V2 max: 90.5 cm/sec MV P1/2t max ajit: 92.5 cm/sec Ao V2 max: 238.5 cm/sec MV max P.3 mmHg MV P1/2t: 78.0 msec Ao max P.8 mmHg MV V2 mean: 49.6 cm/sec MV dec slope: 347.2 cm/sec2 Ao V2 mean: 163.2 cm/sec MV mean P.2 mmHg Ao mean P.4 mmHg MV V2 VTI: 32.4 cm MVA(P1/2t): 2.8 cm2 Ao V2 VTI: 54.6 cm MVA(VTI): 2.6 cm2 AV (velocity ratio): 0.47 VAL(I,D): 1.5 cm2 VAL(V,D): 1.5 cm2 AI max ajit: 329.0 cm/sec LV V1 max: 113.3 cm/sec SV(LVOT): 83.2 ml AI max P.3 mmHg LV V1 max P.1 mmHg LV V1 mean P.8 mmHg AI dec slope: 164.4 cm/sec2 LV V1 mean: 78.2 cm/sec AI P1/2t: 586.4 msec LV V1 VTI: 25.9 cm PA V2 max: 88.3 cm/sec TR max ajit: 254.0 cm/sec TR max P.8 mmHg ECHO/Echo Complete Interpretation Summary Normal LV size. Left ventricular systolic function is normal. The estimated ejection fraction is 65 %. Mild focal aortic valve calcification. Mean aortic valve gradient 12 mmHg. Mild (1+) aortic valve insufficiency. Mild aortic stenosis. Ordering Physician: Mervin Pastor Referring Physician: Mervin Pastor Performed By: Surinder Echevarria RCS
== END | disposition home or self-care (01) ==
LOC: CT 07:30
PROVIDERS: PCP Family Medicine; Referring Provider Internal Medicine Cardiovascular Disease; Visit Provider Internal Medicine Cardiovascular Disease
DX: I35.0 Nonrheumatic aortic (valve) stenosis (principal); F17.210 Nicotine dependence, cigarettes, uncomplicated
CPT/HCPCS: 71271; 93306

== ENCOUNTER → 2024-01-09 | Outpatient (CLI) | payer MEDICAID, SELFPAY | END | disposition home or self-care (01) | LOC: PSN 07:39 | PROVIDERS: PCP Family Medicine; Referring Provider Nurse Practitioner Acute Care; Visit Provider Nurse Practitioner Acute Care | DX: F17.210 Nicotine dependence, cigarettes, uncomplicated (principal) | CPT/HCPCS: 94060; 94726; 94729 ==

== ENCOUNTER → 2024-01-16 | Outpatient (CLI) | payer MEDICAID, SELFPAY ==
[2024-01-16 08:11] VITALS: PULSE 76; PULSE 77; PULSE 84; PULSE 89; PULSE 90; PULSE 91; O2SAT 95; O2SAT 96; O2SAT 97
--- NOTE | 2024-01-17 07:49 | PCM.PSN.6M ---
PSN 6 Minute Walk Test 6 Minute Walk Test 6 Minute Walk Test: 6 Minute Walk Test PSN:6-Minute Walk Test Start: 01/16/24 08:11 Freq: Status: Active Protocol: RESP.6MINW Document 01/16/24 08:11 [facility] (Rec: 01/16/24 08:14 [facility] [id number]) 6 Minute Walk Test Date Performed 01/16/24 Time Performed 08:00 Height 5 ft 11 in Weight: 209 lb Weight in Pounds 209.[address]: Lacey Gamble [employer] Assistive device used: None Pre-test Oxygen Delivery Method Room Air Pulse Ox 97 Pulse Rate (60-100) 77 Dyspnea Kaila Scale (0-10) 0 1st minute Oxygen Delivery Method Room Air Pulse Ox 97 Pulse Rate (60-100) 89 Dyspnea Kaila Scale (0-10) 0 Number of Rests Taken 0 2nd minute Oxygen Delivery Method Room Air Pulse Ox 95 Pulse Rate (60-100) 84 Dyspnea Kaila Scale (0-10) 0 Number of Rests Taken 0 3rd minute Oxygen Delivery Method Room Air Pulse Ox 95 Pulse Rate (60-100) 89 Dyspnea Kaila Scale (0-10) 0 Number of Rests Taken 0 4th minute Oxygen Delivery Method Room Air Pulse Ox 95 Pulse Rate (60-100) 91 Dyspnea Kaila Scale (0-10) 0 Number of Rests Taken 0 5th minute Oxygen Delivery Method Room Air Pulse Ox 96 Pulse Rate (60-100) 90 Dyspnea Kaila Scale (0-10) 0 Number of Rests Taken 0 6th minute Oxygen Delivery Method Room Air Pulse Ox 95 Pulse Rate (60-100) 90 Dyspnea Kaila Scale (0-10) 0 Number of Rests Taken 0 Post-test Oxygen Delivery Method Room Air Pulse Ox 97 Pulse Rate (60-100) 76 Dyspnea Kaila Scale (0-10) 0 Full Laps Walked 15 Partial Lap, Number of Tiles Walked 33 Total Distance Walked (ft) 918 Interpretation Interpretation: The patient ambulated 918 feet over the course of 6 minutes beginning on room air without assistive devices. Pretesting oxygen saturation was noted to be 97% on room air. With ambulation, the kimmie oxygen saturation was 95%. There was no significant exertional oxygen desaturation. Recommendations Recommendations: There is no indication for the use of supplemental oxygen at this time.
== END | disposition home or self-care (01) ==
LOC: PSN 07:49
PROVIDERS: PCP Family Medicine; Referring Provider Nurse Practitioner Acute Care; Visit Provider Nurse Practitioner Acute Care
DX: F17.210 Nicotine dependence, cigarettes, uncomplicated (principal)
CPT/HCPCS: 94618

== ENCOUNTER → 2024-02-02 | Outpatient (CLI) | payer MEDICAID, SELFPAY ==
--- NOTE | 2024-02-02 14:53 | CT_ITS ---
EXAM: CT CHEST, LUNG CANCER SCREENING WITHOUT INTRAVENOUS CONTRAST CLINICAL INDICATION: smoker TECHNIQUE: Helically acquired images were obtained of the chest without intravenous contrast using low dose (LDCT) lung cancer screening protocol. This CT exam was performed using one or more of the following dose reduction techniques: automated exposure control, adjustment of the mA and/or kV according to patient size, and/or use of iterative reconstruction technique. COMPARISON: No relevant prior studies available. FINDINGS: LUNGS AND PLEURAL SPACES: There is minimal scarring in the lung apices. There are mild emphysematous changes in the lung apices. There is a noncalcified nodule in the left lower lobe laterally that measures 5 mm seen on series 2 image 124. No pleural effusion or thickening. No pneumothorax. HEART: There are moderate coronary artery calcifications present.. Heart size is normal. No pericardial effusion. MEDIASTINUM: Unremarkable. No mediastinal or hilar adenopathy. Esophagus is unremarkable. No hiatal hernia. THYROID: Unremarkable. No thyroid lesions. BONES/JOINTS: Unremarkable. No suspicious lytic or blastic abnormality. VASCULATURE: See above. LYMPH NODES: Unremarkable. No enlarged lymph nodes. CT/Low Dose CT Lung Screening IMPRESSION: 5 mm noncalcified nodule in the left lower lobe. Lung-RADS score: 3 - Probably Benign. Recommend low-dose CT (LDCT) in 6 months. There is no acute pulmonary abnormality. Electronically Signed: Zan Bailey MD at 23:07 EDT ,
== END | disposition home or self-care (01) ==
LOC: CT 14:47
PROVIDERS: PCP Family Medicine; Referring Provider Nurse Practitioner Acute Care; Visit Provider Nurse Practitioner Acute Care
DX: F17.210 Nicotine dependence, cigarettes, uncomplicated (principal)
CPT/HCPCS: 71271

== ENCOUNTER 2024-06-21 20:47 | Emergency (ER) | payer MEDICAID, SELFPAY ==
[2024-06-21 20:52] VITALS: BP 177/93; PULSE 80; RESP 14; TEMP 36.9; BMI 29.2
--- NOTE | 2024-06-21 21:24 | EKG12_ITS ---
Test Reason : CP Blood Pressure : / mmHG Vent. Rate : 075 BPM Atrial Rate : 075 BPM P-R Int : 162 ms QRS Dur : 092 ms QT Int : 376 ms P-R-T Axes : 063 -06 047 degrees QTc Int : 419 ms Normal sinus rhythm Normal ECG Confirmed by Teddy Fuentes ([id number]), editor news CESARIO RAY ([id number]) on 06/24/2024 11:20:55 AM Referred By: KRISTINE Confirmed By:Teddy Fuentes
--- NOTE | 2024-06-21 21:25 | EDS_ITS ---
HPI History of Present Illness Chief Complaint: Chest Pain Informant: patient Narrative Narrative: Patient presents by EMS. He has epigastric discomfort that has been there for 3 to 4 days. No associated nausea, vomiting, back discomfort, pleuritic component, dyspnea, or changes with meals, position, or exertion. He states he thinks it feels like reflux that he has a history of but takes nothing for. When asked why he is not on anything for, he states he is not sure. When asked why he came by ambulance tonight for this discomfort that has been constant for 3 to 4 days, he states because he was having a cigarette when he suddenly felt palpitations that lasted for only 3-4 beats, no associated dyspnea, lightheadedness, syncope, or chest pain, and although he states he has had this before off and on as well, for some time, he states he was concerned that may be it was that irregular heartbeat again. He states it is not there now. [facility] Medical History Acid reflux Nonrheumatic aortic (valve) stenosis Thyroid nodule Thyromegaly Hyperthyroidism AVNRT (AV manolo re-entry tachycardia) Essential hypertension Rheumatoid arthritis HLD (hyperlipidemia) WPW (Xbuvl-Awaaqqipq-Cujhf syndrome) Home Medications ?Medication ?Instructions ?Recorded ?Last Taken ?Type aspirin 81 mg chewable tablet 81 mg PO DAILY 10/25/13 Unknown History acetaminophen 650 mg 650 mg PO Q12H 06/01/20 Unknown History tablet,extended release (Tylenol Arthritis Pain) hydrochlorothiazide 12.5 mg capsule 12.5 mg PO DAILY #90 caps 02/05/24 Unknown Rx lisinopril 10 mg tablet 10 mg PO DAILY #30 tabs 04/10/24 Unknown Rx levothyroxine 137 mcg tablet 150 mcg PO QDAY 05/06/24 Unknown History omeprazole 20 mg capsule,delayed 20 mg PO DAILY #30 CAPSULES 06/21/24 Unknown Rx release Allergy/AdvReac Type Severity Reaction Status Date / Time No Known Allergies Allergy Verified 06/21/24 20:52 Family History Brother Myocardial infarction Diabetes Father Heart disease Diabetes Cancer stomach Grandmother Heart disease Cancer stomach Surgical History History of cardiac radiofrequency ablation (RFA) (1999) History of cholecystectomy (2014) History of arthroscopic knee surgery (2000) H/O arthroscopic knee surgery Social History Smoking Status: Current every day smoker tobacco type: cigarettes alcohol intake: never substance use type: does not use caffeine: Yes Type: coffee Number of servings: 4 ROS ROS ED Constitutional Constitutional ED: Denies chills or fever(s) Eyes Eyes: Denies change in vision or diplopia ENT ENT ED: Denies rhinorrhea or sore throat Cardiovascular Cardiovascular: Reports palpitations; Denies chest pain Respiratory/Chest Respiratory/Chest: Denies cough or dyspnea Gastrointestinal Gastrointestinal: Reports abdominal pain; Denies diarrhea, nausea or vomiting Genitourinary Genitourinary ED: Denies dysuria or hematuria Musculoskeletal Musculoskeletal: Denies back pain or neck pain Integumentary Denies abscess or rash Neurologic Neurologic: Denies headache(s), paresthesias or weakness Psychiatric Psychiatric: Denies anxiety or suicidal thoughts EXAM Physical Exam Const Vital Signs: 06/21/24 20:52 06/21/24 20:56 06/21/24 21:42 Temperature 98.5 F Temperature Source Oral Pulse Rate 80 Respiratory Rate 14 Respiratory Effort Normal Non-Labored Blood Pressure 177/93 H Blood Pressure Mean 121 Pulse Ox Oxygen Delivery Method Room Air 06/21/24 21:47 06/21/24 22:00 06/21/24 23:00 Temperature Temperature Source Pulse Rate 74 68 66 Respiratory Rate 14 12 12 Respiratory Effort Blood Pressure 127/81 H 145/88 H Blood Pressure Mean 95 107 Pulse Ox 99 Oxygen Delivery Method Room Air Positive well nourished and well developed General Appearance ED: well developed and NAD HEENT Reports moist mucous membranes normocephalic and atraumatic Eyes PERRL and EOMs intact bilaterally Neck full ROM and supple Resp normal respiratory effort and clear to auscultation bilaterally Cardio regular rate, regular rhythm and no murmurs GI non-tender and non-distended Auscultation: normoactive bowel sounds Palpation: soft Back/Spine no CVA tenderness General Back: other FROM Extremity normal to inspection General Extremety ED: Negative for edema, pulses abnormal or tenderness General Extremity: Negative for edema or pulses abnormal Neuro oriented x3, CN's II-XII intact bilaterally and no sensory deficits noted Sensorium / Orientation: awake and alert Motor Exam: strength 5/5 throughout Psych mental status grossly normal Skin no rashes or lesions noted and no wounds Heart Score History: Slightly/Non-Suspicious ECG: Normal Age: >45 - <65 years Risk Factors: >/= 3 Risk Factors or History of CAD Score: 3 MDM MDM MDM Narrative Medical decision making narrative: Patient was monitored he had no telemetry events or recurrent palpitations or dysrhythmias. His EKG is normal. 1 view chest x-ray on my interpretation is normal. His troponin is in the single digits, liver enzymes and lipase are normal ruling out pancreatitis or acute cholecystitis in my judgment, and after GI cocktail his epigastric discomfort is resolved consistent with reflux/gastritis. He was given pantoprazole. At this time I am comfortable letting him go home I do not think he is having acute coronary syndrome, and going to prescribe him a PPI. He is comfortable with that plan. Lab Data Attestation: I reviewed the patient's lab results. Labs: Laboratory Results - last 24 hr 06/21/24 20:59 WBC 7.4 RBC 4.70 Hgb 13.7 Hct 41.9 MCV 89.1 MCH 29.1 MCHC 32.7 RDW Std Deviation 43.1 RDW Coeff of Carmen 13.1 Plt Count 226 MPV 10.4 Immature Gran % (Auto) 0.700 Neut % (Auto) 59.1 Lymph % (Auto) 26.7 [place] % (Auto) 10.4 H Eos % (Auto) 2.6 Baso % (Auto) 0.5 Absolute Neuts (auto) 4.4 Absolute Lymphs (auto) 1.97 Nucleated RBC % 0 Sodium 141 Potassium 3.9 Chloride 107 Carbon Dioxide 29.0 Anion Gap 5 BUN 14 Creatinine 1.03 Estim Creat Clear Calc 86.37 Est GFR (MDRD) Af Amer 94 Est GFR (MDRD) Non-Af 77 BUN/Creatinine Ratio 13.6 Glucose 102 Calcium 8.9 Total Bilirubin 0.20 AST 12 L ALT 13 L Alkaline Phosphatase 87 Troponin I High Sens 6 Total Protein 7.6 Albumin 3.6 Globulin 4.0 Albumin/Globulin Ratio 0.9 Lipase 42 Radiography Diagnostic Testing: Clinical Impression(s) from Imaging Studies Chest X-Ray 06/21/24 21:30 IMPRESSION: No radiographic evidence of acute cardiopulmonary disease. Electronically Signed: Andrewtiana Ashraf DO at 21:44 EDT Reading Location ID and State: [facility] / [place] Tel [phone], Service support , Rhythm Strip Rhythm Strip: Sinus Rhythm Rate: 80 Ectopy: None EKG Initial EKG: Attestation: I personally reviewed and interpreted this EKG as follows: Interpretation: Sinus Rhythm and No Acute Injury Pattern Comments: nml EKG Discharge Plan Triage Chief Complaint: Chest Pain ED Provider: Frank Coles Dx/Rx/DC Orders Clinical Impression: Acute epigastric pain, Palpitations, Chest pain due to GERD Instructions: ED Chest Pain, Noncardiac, ED Palpitations Prescriptions: New omeprazole 20 mg capsule,delayed release(DR/EC) 20 mg PO DAILY Qty: 30 0RF No Action acetaminophen [Tylenol Arthritis Pain] 650 mg tablet extended release 650 mg PO Q12H hydrochlorothiazide 12.5 mg capsule 12.5 mg PO DAILY Qty: 90 3RF levothyroxine 137 mcg tablet 150 mcg PO QDAY aspirin 81 MG tablet,chewable 81 mg PO DAILY lisinopril 10 mg tablet 10 mg PO DAILY Qty: 30 11RF Primary Care Provider: Matt Dunbar Referrals: Matt Dunbar MD [Primary Care Provider] - 1 Week if not improving Print Language: Citizen Of [place] Disposition Disposition: Home, Self Care
--- NOTE | 2024-06-21 21:30 | RAD_ITS ---
INDICATION: chest pain EXAMINATION/TECHNIQUE: X-RAY - XR Chest 1 View COMPARISON: October 06, 2021 FINDINGS: LINES/DEVICES: None. LUNGS: No consolidation, edema or effusion. No pneumothorax. MEDIASTINUM AND CARDIOVASCULAR STRUCTURES: Cardiac silhouette not enlarged. Central airways and mediastinal contour are unremarkable. BONES AND SOFT TISSUES: Unremarkable. RAD/Chest 1 View (Portable) IMPRESSION: No radiographic evidence of acute cardiopulmonary disease. Electronically Signed: Andrew Ashraf DO at 21:44 EDT ,
[2024-06-21] MEDS: Pantoprazole Sodium 40 MG Tablet PO (21:42)
[2024-06-21] MEDS: Lidocaine 2% Viscous15 ML UDC 15 ML PO (21:43)
[2024-06-21] MEDS: 0.9% Normal Saline (1000mL) 1,000 ML 150 ML IV (21:43)
[2024-06-21] MEDS: Mag /Aluminum/Simeth WCH UDC 30 ML ORAL.SUSP PO (21:43)
[2024-06-21 21:47] VITALS: PULSE 74; RESP 14
[2024-06-21 21:48] LABS: Absolute Lymphocyte Count 1.97 X10^3/uL (0.83-4.51); Absolute Neutrophil Count 4.4 X10^3/uL (2.0-7.7); Basophil# 0.04 X10^3/uL; Basophil% 0.5 % (0-1); Eosinophil# 0.19 X10^3/uL; Eosinophils% 2.6 % (0-5); Hematocrit 41.9 % (40-54); Hemoglobin 13.7 g/dL (13.0-16.5); Lymphocyte # 1.97 X10^3/ul (0.83-4.51); Lymphocyte % 26.7 % (19-41); Mean Corp Hgb Conc 32.7 g/dL (32-36); Mean Corpuscular Hgb 29.1 pg (27.0-32.0); Mean Corpuscular Volume 89.1 fL (80-94); Mean Platelet Vol. 10.4 fl (6.2-12.0); Monocyte# 0.77 X10^3/uL; Monocyte% 10.4 % (0-10); NRBC Flagged by Analyzer 0 % (0-5); Neutrophil # 4.36 X10^3/uL (2.7-7.7); Neutrophil % 59.1 % (47-70); Platelet Count 226 K/mm3 (150-450); RBC Distribution Width CV 13.1 % (11.6-14.6); RBC Distribution Width SD 43.1 fl (35.1-43.9); White Blood Count 7.4 K/mm3 (4.4-11.0)
[2024-06-21 22:00] VITALS: BP 127/81; PULSE 68; RESP 12
[2024-06-21 22:07] LABS: ALB/GLOB Ratio 0.9 RATIO (0.9-2.4); AST(SGOT) 12 U/L (15-37); Alanine Aminotransfer ALT/SGPT 13 U/L (16-61); Albumin, Serum 3.6 g/dL (3.2-5.0); Alkaline Phosphatase 87 U/L (45-117); Anion Gap 5 (5-15); BUN 14 mg/dL (7-18); BUN/Creat Ratio 13.6 RATIO (10-20); Calcium,Total 8.9 mg/dL (8.5-10.1); Chloride 107 mmol/L (98-107); Creatinine, Serum 1.03 mg/dL (0.70-1.30); EST Glomerular Filtration Rate 77 mL/min (>60); Est Glom Filt Rate - Afr Amer 94 mL/min (>60); Estimated Creatinine Clearance 86.37 ml/min; Glucose 102 mg/dL (74-106); Lipase 42 U/L (13-75); Potassium 3.9 mmol/L (3.5-5.1); Protein, Total 7.6 g/dL (6.4-8.2); Sodium Level 141 mmol/L (136-145); Troponin-I HS (w/2H Reflex) 6 pg/mL (3.0-78.0)
[2024-06-21 23:00] VITALS: BP 145/88; PULSE 66; RESP 12; O2SAT 99
[2024-06-21 23:33] LABS: Reflex Troponin-HS? (from REC) Y
[2024-06-21 23:45] VITALS: BP 134/85; PULSE 70; RESP 16; TEMP 36.6; O2SAT 100
== END 2024-06-21 23:46 | disposition home or self-care (01) ==
PROVIDERS: Emergency Provider Emergency Medicine; PCP Family Medicine; Visit Provider Emergency Medicine
DX: K21.9 Gastro-esophageal reflux disease without esophagitis (principal); R00.2 Palpitations; E78.5 Hyperlipidemia, unspecified; I10 Essential (primary) hypertension; R10.13 Epigastric pain; Z79.899 Other long term (current) drug therapy; F17.210 Nicotine dependence, cigarettes, uncomplicated
CPT/HCPCS: 71045; 80053; 83690; 84484; 85025; 93005; 99285; J7030; A4216

== ENCOUNTER → 2024-07-13 | Outpatient (CLI) | payer MEDICAID, SELFPAY ==
--- NOTE | 2024-07-13 09:55 | CT_ITS ---
INDICATION: NEW NODULE IN HIGH RISK PATIENT EXAMINATION: CT CHEST WITHOUT CONTRAST - CT Chest W/O Contrast Injection TECHNIQUE: Helically acquired images were obtained of the chest. A radiation dose optimization technique was used for this scan. The protocol utilizes one or more of the following dose reduction techniques: automated exposure control, adjustment of mA and/or kV according to patient size,and/or use of iterative reconstruction technique. IV Contrast dosage and agent: None. COMPARISON: None. FINDINGS: LUNGS, PLEURA AND LARGE AIRWAYS: 3 mm triangular nodule left upper lobe #38 appears new since previous exam. 3 mm nodule left lower lobe image #61 appears new. 3 mm groundglass nodule left lower lobe image #46 and 2 mm nodule left lower lobe image #26. These appear new. 3 mm nodule left lower lobe image #52 appears new. 3 mm nodule left lower lobe image #61 appears new. 3 mm nodule within the lingula image #74 appears new. 3 mm nodule left upper lobe image #38 appears new. 2. 4 mm groundglass nodules left upper lobe image #40 appears new. 5 mm groundglass nodule left upper lobe image #45 appears new. 5 mm groundglass nodule left upper lobe image #60 appears new. 2 mm nodule left lower lobe image #81. 3 x 5 mm groundglass nodule left lower lobe image #90 appears stable. 3 x 5 mm nodule left lower lobe image #94 appears stable. 3 mm nodule right lower lobe image #49. 4 mm nodule right upper lobe image #28 appears new. 4 mm groundglass nodule right upper lobe image #41. New. Bilateral centrilobular and paraseptal emphysema. No pleural effusion or thickening. No pneumothorax. THYROID: No thyroid lesions. HEART AND PERICARDIUM: Heart size is normal. No pericardial effusion. CORONARY ARTERIES: Coronary artery calcification present. VESSELS: Thoracic aorta is not dilated. Prominent stable bilateral axillary lymphadenopathy measuring up to 2.2 cm bilaterally. MEDIASTINUM AND GIN: No mediastinal or hilar adenopathy. Esophagus is unremarkable. No hiatal hernia. UPPER ABDOMEN: No acute pathology. BONES: No suspicious lytic or blastic abnormality. CT/Chest without Contrast IMPRESSION: Multiple new nonspecific small bilateral pulmonary nodules as above. Fleischner Society Guidelines (MacMahon, et al. Radiology 2017; 284(1):228-43) recommend follow-up chest CT in 2 years. Prominent nonspecific stable bilateral axillary lymphadenopathy. Coronary artery disease. Electronically Signed: Vince Torres MD at 23:55 EDT ,
== END | disposition home or self-care (01) ==
LOC: CT 09:54
PROVIDERS: PCP Family Medicine; Referring Provider Nurse Practitioner Acute Care; Visit Provider Nurse Practitioner Acute Care
DX: R91.1 Solitary pulmonary nodule (principal)
CPT/HCPCS: 71250

== ENCOUNTER → 2024-11-19 | Outpatient (CLI) | payer MEDICAID, SELFPAY ==
--- NOTE | 2024-11-19 07:41 | CT_ITS ---
PROCEDURE: CHEST WITHOUT CONTRAST REASON FOR EXAM: 64-year-old male, follow-up pulmonary nodules. TECHNIQUE: Chest CT without contrast. COMPARISON: CT chest 07/13/2024. FINDINGS: Hardware: None. Lymph nodes: Stable prominent bilateral axillary nodes. No mediastinal or hilar lymphadenopathy. Heart and Vasculature: Normal heart size. No pericardial effusion. Severe coronary artery and thoracic aortic calcifications. Lungs and Airways: Central airways are patent. Stable bilateral centrilobular and paraseptal emphysema. Several unchanged sub 6 mm pulmonary ground-glass nodules. For example a left upper lobe ground-glass nodule measures 0.5 cm (series 4, image 47), previously measuring 0.5 cm. No new or enlarging pulmonary nodule. Pleura: No pleural effusion. No pneumothorax. Upper Abdomen: Abdominal aortic calcifications. Bones: Bone windows are unremarkable. CT/Chest without Contrast IMPRESSION: 1. Stable CT chest. Consider follow-up CT at 2 and 4 years if patient is high risk by Fleischner criteria. If patient is immunocompromised or has known malignancy, they should be excluded from these g uidelines. Patient to return to regular low-dose CT screening. 2. Stable moderate emphysema. One or more dose reduction techniques were used (e.g., Automated exposure contr ol, adjustment of the mA and/or kV according to patient size, use of iterative reconstruction technique). Reading Location: [id number]
== END | disposition home or self-care (01) ==
LOC: CT 07:41
PROVIDERS: PCP Family Medicine; Referring Provider Nurse Practitioner Acute Care; Visit Provider Nurse Practitioner Acute Care
DX: R91.8 Other nonspecific abnormal finding of lung field (principal)
CPT/HCPCS: 71250

== ENCOUNTER → 2025-04-30 | Outpatient (CLI) | payer MEDICAID, SELFPAY ==
--- NOTE | 2025-04-30 07:03 | ECHOD_ITS ---
Reason For Study Reason For Study: BICUSPID AORTIC VALVE Procedure This was a 2D Doppler, Color Flow transthoracic echocardiogram. Exam performed in department. Left Ventricle Normal LV size. Left ventricular systolic function is normal. The left ventricular ejection fraction is 65 %. No regional wall motion abnormalities noted. Right Ventricle Normal RV size. Normal systolic function. Atria Normal left atrium. Normal right atrium. Mitral Valve Normal mitral valve. Tricuspid Valve Normal tricuspid valve. Mild (1+) tricuspid valve insufficiency. Pulmonary artery systolic pressure is 24 mmHg. Aortic Valve Trisinus/trileaflet aortic valve. Mild focal aortic valve calcification. Peak aortic valve gradient 32 mmHg. Mean aortic valve gradient 18 mmHg. Pulmonic Valve Normal pulmonic valve. Great Vessels Normal aortic root. The pulmonary artery is normal size. Inferior vena cava collapse with respiration. Pericardium/Pleural No pericardial effusion. MMode/2D Measurements & Calculations LVIDd: 4.8 cm IVSd: 0.90 cm LVOT diam: 2.0 cm LVIDs: 2.7 cm LVPWd: 0.95 cm LVOT area: 3.2 cm2 RVDd: 4.4 cm FS: 44.8 % asc Aorta Diam: 3.5 cm LAV(MOD-bp): 31.8 ml LVAd ap4: 23.6 cm2 LAV(MOD-bp) Indexed: 14.6 ml/m2 LVLd ap4: 7.6 cm LAV(MOD-sp2): 35.2 ml EDV(MOD-sp4): 60.3 ml LAV(MOD-sp4): 28.6 ml EDV(sp4-el): 62.0 ml LVAs ap4: 11.9 cm2 LVLs ap4: 6.4 cm ESV(MOD-sp4): 19.8 ml ESV(sp4-el): 18.9 ml EF(MOD-sp4): 67.1 % EF(sp4-el): 69.6 % LVAd ap2: 22.7 cm2 SV(MOD-sp4): 40.4 ml SV(MOD-sp2): 34.7 ml LVLd ap2: 7.5 cm SI(MOD-sp4): 18.6 ml/m2 SI(MOD-sp2): 16.0 ml/m2 EDV(MOD-sp2): 57.5 ml EDV(sp2-el): 58.5 ml LVAs ap2: 12.5 cm2 LVLs ap2: 6.0 cm ESV(MOD-sp2): 22.8 ml ESV(sp2-el): 22.3 ml EF(MOD-sp2): 60.4 % SV(sp4-el): 43.1 ml LA dimension(2D): 3.3 cm LA A4 area: 12.9 cm2 RA A4 area: 13.2 cm2 TAPSE: 2.0 cm Time Measurements MV dec time: 0.22 sec Doppler Measurements & Calculations MV E max ajit: 86.8 cm/sec Lat Peak E' Ajit: 12.3 cm/sec Med Peak E' Ajit: 11.0 cm/sec MV A max ajit: 80.3 cm/sec E/E' lat: 7.1 E/E' med: 7.9 MV E/A: 1.1 Ao V2 max: 283.0 cm/sec LV V1 max: 118.6 cm/sec MV dec slope: 389.9 cm/sec2 Ao max P.1 mmHg LV V1 max P.6 mmHg Ao V2 mean: 203.1 cm/sec LV V1 mean P.3 mmHg Ao mean P.2 mmHg LV V1 mean: 101.7 cm/sec Ao V2 VTI: 57.8 cm LV V1 VTI: 28.2 cm AV (velocity ratio): 0.49 VAL(I,D): 1.5 cm2 VAL(V,D): 1.3 cm2 SV(LVOT): 89.1 ml PA V2 max: 92.5 cm/sec TR max ajit: 225.5 cm/sec TR max P.3 mmHg ECHO/Echo Complete Interpretation Summary Normal LV size. Left ventricular systolic function is normal. The left ventricular ejection fraction is 65 %. Mild (1+) tricuspid valve insufficiency. Mild focal aortic valve calcification. Mean aortic valve gradient 18 mmHg. Ordering Physician: Mervin Pastor Referring Physician: Mervin Pastor MD Performed By: Janeth Mistry RDCS
--- OUTSIDE RECORDS SUMMARY | 2025-04-30 07:13 | XMS RPT_ITS | CCD ---
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 Matt Araiza Primary Care Provider Dr. Mervin Pastor Attending Provider LAQUITA Barajas Referring Provider Dr. Matt Araiza Referring Provider LAQUITA Barajas Attending Provider Mavis AGUILAR, ASSET RECOVERY SPECIALIST-C Lacey Attending Provider Dr. Matt Araiza Primary Care Provider Dr. Matt Araiza Referring Provider LAQUITA Barajas Attending Provider Matt Araiza MD Primary Care Provider Matt Araiza MD Unavailable Matt Araiza MD Primary Care Provider Matt Araiza MD Unavailable Dr. Matt Araiza Primary Care Provider Dr. Matt Araiza Referring Provider Dr. Mervin Pastor Attending Provider Dr. Matt Araiza Primary Care Provider Mavis AGUILAR, ASSET RECOVERY SPECIALIST-Jacobo Rahman Referring Provider [phone] Mavis AGUILAR, ASSET RECOVERY SPECIALIST-C Lacey Other Provider Dr. Duke Lopez Attending Provider Teodora STYLES, Matt Muhammad Primary Care Provider Dr. Matt Araiza Referring Provider Raine ASSET RECOVERY SPECIALIST, ASSET RECOVERY SPECIALIST-C Prince Still Attending Provider Darryl MORTGAGE COORDINATOR.WATCH CRYSTAL MOLDER Cristal Unavailable Wil MORTGAGE COORDINATOR.WATCH CRYSTAL MOLDER, Lolis Cole Unavailable [phone] TEODORA, MATT Muhammad Referring Unavailable TEODORA, MATT Muhammad Primary Care Unavailable TEODORA, MATT Muhammad Referring Unavailable TEODORA, MATT Muhammad Primary Care Unavailable TEODORA, MATT Muhammad Referring Unavailable TEODORA, MATT Muhammad Primary Care Unavailable TEODORA, MATT Muhammad Referring Unavailable TEODORA, MATT Muhammad Primary Care Unavailable TEODORA, MATT Muhammad Attending Unavailable TEODORA, MATT Muhammad Primary Care Unavailable TEODORA, MATT Muhammad Referring Unavailable TEODORA, MATT Muhammad Primary Care Unavailable TEODORA, MATT Muhammad Attending Unavailable TEODORA, MATT Muhammad Primary Care Unavailable TEODORA, MATT Muhammad Referring Unavailable TEODORA, MATT Muhammad Primary Care Unavailable [place] Dr. Matt STYLES Primary Care Provider Dr. Matt Araiza MD Referring Provider Verónica AGUILAR-CCaitie Attending Provider Darby STYLES, Dr. Jeffries Attending Provider Frank Coles Attending Unavailable Teodora, Matt Primary Care Unavailable [place], Matt Primary Care Unavailable Mervin Pastor Attending Unavailable Mervin Pastor Referring Unavailable Mavis AGUILAR, Lacey Attending Unavailable [place], Matt Primary Care Unavailable Teodora, Matt Referring Unavailable [place], Matt Primary Care Unavailable Mervin Pastor Attending Unavailable Teodora, Matt Referring Unavailable Teodora, Matt Primary Care Unavailable Teodora, Matt Referring Unavailable Caitie Sanches Attending Unavailable Mavis ASSET RECOVERY SPECIALIST, Lacey Attending Unavailable Teodora, Matt Primary Care Unavailable [place], Matt Referring Unavailable Mavis ASSET RECOVERY SPECIALIST, Lacey Attending Unavailable Mavis ASSET RECOVERY SPECIALIST, Lacey Referring Unavailable Teodora, Matt Primary Care Unavailable Mavis ASSET RECOVERY SPECIALIST, Lacey Attending Unavailable [place], Matt Primary Care Unavailable Mavis ASSET RECOVERY SPECIALIST, Lacey Referring Unavailable Medications Current Medications Medication Drug Class(es) Dates Sig (Normalized) Sig (Original) 8 hr acetaminophen 650 mg extended release oral tablet (20 sources) Start: 06-01-2020 take 1 tablet by mouth every twelve hours Acetaminophen (Tylenol Arthritis Pain) 650 mg tablet extended release Active 650 mg PO Q12H June 01, 2020 12:00am Start: 08-12-2019 End: 06-01-2020 take 2 tablets by mouth twice daily Acetaminophen (Tylenol) 325 mg tablet Discontinued 650 mg PO TWICE A DAY August 12, 2019 1:00am June 01, 2020 2:27pm take 1 tablet by adam th every eight hours as needed acetaminophen (TYLENOL ARTHRITIS PAIN) 650 mg CR tablet Take 650 mg by mouth every 8 hours as needed for Pain. Active Comment on above: Take 650 mg by mouth every 8 hours as needed for Pain. aspirin 81 mg chewable tablet (20 sources) Platelet Aggregation Inhibitor, Nonsteroidal Anti-inflammatory Drug Start: 10-25-2013 take 1 tablet by mouth once daily Aspirin 81 MG tablet,chewable Active 81 mg PO DAILY October 25, 2013 1:00am Start: 12-31-2012 take 1 tablet by adam th once daily at mealtime Aspirin 81 mg Tab Take 1 tablet by mouth once daily. Take with food. 30 tablet 11 12/31/2012 Active Comment on above: Take 1 tablet by adam th once daily. Take with food. Blood Pressure Test Kit-Medium kit (20 sources) Start: 10-21-2019 Blood Pressure Test Kit-Medium kit Indications: Essential hypertension 1 Each once daily. 1 Kit 10/21/2019 Active Start: 10-21-2019 Blood Pressure Test Kit-Medium kit Indications: Essential hypertension 1 Each once daily. 1 Kit 0 10/21/2019 Active Comment on above: 1 Each once daily. hydroCHLOROthiazide 12.5 mg oral capsule (20 sources) Thiazide Diuretic Start: 2019 End: 2024 take 1 capsule by mouth once daily hydroCHLOROthiazide 12.5 mg capsule Take 12.5 mg by mouth once daily. 09/03/2021 Active Comment on above: Take 12.5 mg by mout h once daily. lisinopril 10 mg oral tablet (20 sources) Angiotensin Converting Enzyme Inhibitor Start: 2020 End: 2023 take 1 tablet by mouth once daily lisinopril (ZESTRIL, PRINIVIL) 10 mg tablet Take 10 mg by mouth once daily. 09/03/2021 Active Start: 04-22-2020 End: 04-25-2022 take 1 tablet by mouth twice daily Lisinopril 10 mg tablet Discontinued 10 mg PO TWICE A DAY 60 May 06, 2021 1:27pm April 25, 2022 10:14am Start: 03-23-2020 End: 04-22-2020 take 1 tablet by mouth twice daily Lisinopril 5 mg tablet Discontinued 5 mg PO TWICE A DAY 60 March 23, 2020 3:47pm April 22, 2020 1:54pm Start: 12-06-2019 End: 03-23-2020 take 1 tablet by mouth once daily Lisinopril 5 mg tablet Discontinued 5 mg PO DAILY 30 December 06, 2019 12:41pm March 23, 2020 3:48pm Comment on above: Take 10 mg by mouth twice daily. Take 10 mg by mouth once daily. omeprazole 20 mg delayed release oral capsule (8 sources) Proton Pump Inhibitor Start: 06-21-2024 End: 04-01-2025 take 1 capsule by mouth once omeprazole (PRILOSEC) 20 mg capsule Take 1 capsule by mouth every afternoon. OTC 06/22/2024 Active predniSONE 20 mg oral tablet (2 sources) Start: 02-24-2025 End: 03-01-2025 take 1 tablet by mouth once daily predniSONE (DELTASONE) 20 mg tablet Indications: Acute pain of left shoulder Take 1 tablet by mouth once daily for 5 days. 5 tablet 02/24/2025 03/01/2025 Active Completed/Discontinued Medications Medication Drug Class(es) Dates Sig (Normalized) Sig (Original) acetaminophen 325 mg / oxyCODONE hydrochloride 5 mg oral tablet (9 sources) Opioid Agonist Start: 09-08-2013 End: 10-25-2013 Oxycodone-Acetamino phen 1 TABLET tablet Discontinued 1 - 2 {tbl} PO EVERY 4 HOURS NEEDED as needed for pain] September 08, 2013 1:00am October 25, 2013 4:14pm Start: 09-08-2013 End: 10-25-2013 take 1 tablet by mouth every four hours as needed Oxycodone-Acetaminophen Discontinued 1 - 2 TABLET PO EVERY 4 HOURS NEEDED September 08, 2013 1:00am October 25, 2013 4:14pm amoxicillin 875 mg / clavulanate 125 mg oral tablet (9 sources) Penicillin-class Antibacterial Start: 09-08-2013 End: 10-25-2013 Amoxicillin-Pot Clavulanate 875 MG tablet Discontinued 1 {tbl} PO Q12H September 08, 2013 1:00am October 25, 2013 4:14pm Automated BP arm cuff (6 sources) Start: 01-03-2023 End: 01-04-2023 Automated BP arm cuff Discontinued 0 .Route .MEDSUPPLY 1 January 03, 2023 12:00am January 04, 2023 3:12pm As directed Automated BP arm MONITOR (6 sources) Start: 01-04-2023 End: 02-05-2024 Automated BP arm MONITOR Discontinued 0 .Route .MEDSUPPLY 1 January 04, 2023 3:11pm February 05, 2024 9:34am As directed Start: 01-04-2023 Automated BP a rm MONITOR Active 0 .Route .MEDSUPPLY January 04, 2023 3:11pm As directed chondroitin sulfates 200 mg / glucosamine hydrochloride 250 mg oral tablet (18 sources) Start: 06-17-2019 End: 11-08-2021 Glucosamine-Chondroitin (Ost eo Bi-Flex) 250-200 mg tablet Discontinued 1 {tbl} PO DAILY June 17, 2019 11:30am November 08, 2021 10:58am Start: 01-28-2019 End: 06-17-2019 Glucosamine-Chondroitin (Ost eo Bi-Flex) 250-200 mg tablet Discontinued 1 {tbl} PO ONCE January 28, 2019 12:00am June 17, 2019 11:31am levothyroxine sodium 0.15 mg oral tablet (20 sources) l-Thyroxine Start: 05-06-2024 End: 05-06-2025 take 1 tablet by mouth once daily for thyroid dysfunction levothyroxine (LEVOXYL) 175 mcg tablet Indications: Hypothyroidism, acquired Take 1 tablet by mouth once daily. Take on empty stomach. For Thyroid. 90 tablet 3 05/06/2024 02/24/2025 Discontinued Start: 05-06-2024 Levothyroxine 137 mcg tablet Active 150 ug PO daily May 06, 2024 12:57pm Start: 03-18-2024 End: 03-13-2026 take 1 tablet by mouth once daily for thyroid dysfunction levothyroxine (SYNTHROID) 150 mcg tablet Take 150 mcg by mouth once daily. Take on an empty stomach. For thyroid 02/11/2025 03/13/2025 Discontinued Start: 01-29-2024 End: 01-28-2025 take 1 tablet by mouth once daily Levothyroxine 137 mc g tablet Discontinued 137 ug PO daily February 05, 2024 12:00am May 06, 2024 12:58pm Start: 12-25-2023 End: 12-24-2024 take 1 tablet by mouth once daily for thyroid dysfunction levothyroxine (LEVOXYL) 125 mcg tablet Indications: Hypothyroidism, acquired Take 1 tablet by mouth once daily. Take on empty stomach. For Thyroid 30 tablet 11 12/25/2023 01/29/2024 Discontinued Start: 11-07-2022 End: 02-05-2024 take 1 tablet by mouth once daily Levothyroxine 112 mc g tablet Discontinued 112 ug PO DAILY January 03, 2023 12:00am February 05, 2024 9:33am Start: 01-17-2022 End: 01-03-2023 take 1 tablet by mouth once daily Levothyroxine 100 mc g tablet Discontinued 100 ug PO DAILY February 25, 2022 12:00am January 03, 2023 10:29am Start: 11-29-2021 End: 02-25-2022 take 1 tablet by mouth once daily Levothyroxine 88 mcg tablet Discontinued 88 ug PO DAILY December 23, 2021 12:00am February 25, 2022 8:46am Start: 11-15-2021 End: 12-23-2021 take 2 tablets by mouth once daily Levothyroxine 50 mcg tablet Discontinued 100 ug PO DAILY November 15, 2021 5:06pm December 23, 2021 3:08pm Start: 11-15-2021 End: 12-23-2021 take 100 ug by mouth once daily Levothyroxine Disconti nued 100 MCG PO DAILY November 15, 2021 5:06pm December 23, 2021 3:08pm Start: 11-08-2021 End: 11-15-2021 Levothyroxine 50 mcg tablet Discontinued 75 ug PO DAILY November 08, 2021 10:57am November 15, 2021 5:06pm Start: 11-08-2021 End: 11-15-2021 take 75 ug by mouth once daily Levothyroxine Discontin ued 75 MCG PO DAILY November 08, 2021 10:57am November 15, 2021 5:06pm Start: 09-29-2021 End: 11-08-2021 take 1 tablet by mouth once daily Levothyroxine 50 mcg tablet Discontinued 50 ug PO DAILY September 29, 2021 1:00am November 08, 2021 10:57am Comment on above: Take 1 tablet by adam th once daily. Take on empty stomach. For Thyroid metoprolol tartrate 25 mg oral tablet (20 sources) beta-Adrenergic Monique Start: 10-27-2021 End: 11-08-2021 take 1 tablet by mouth twice daily Metoprolol Tartrate 25 mg tablet Discontinued 25 mg PO TWICE A DAY 180 October 27, 2021 1:47pm November 08, 2021 11:10am Start: 01-30-2019 End: 10-27-2021 take 1 tablet by mouth twice daily Metoprolol Tartrate 50 mg tablet Discontinued 50 mg PO TWICE A DAY 180 January 20, 2021 1:09pm October 27, 2021 1:47pm Start: 01-22-2019 End: 01-30-2019 take 1 tablet by mouth once daily Metoprolol Tartrate 25 MG tablet Discontinued 25 mg PO DAILY 14 January 22, 2019 12:00am January 30, 2019 3:23pm Vit K-Xtrgkxe-Iywb-Rutin-Hb1 96 (8 sources) Start: 01-22-2019 End: 06-17-2019 Vit J-Cgeeeam-Llwf-Rutin-Hb1 96 Discontinued 1 EACH PO DAILY January 22, 2019 10:19pm June 17, 2019 11:31am Start: 01-22-2019 End: 06-17-2019 Vit O-Zyfttth-Qjwg-Rutin-Hb1 96 Discontinued 1 EACH PO DAILY January 22, 2019 12:00am June 17, 2019 11:31am Vit F-Gjomxdp-Eenu-Rutin-Hb1 96 1 EACH tablet (1 source) Start: 01-22-2019 End: 06-17-2019 take 1 tablet by mouth once daily Vit H-Htjiocx-Nvvl-Rutin-Hb196 1 EACH tablet Discontinued 1 NMA PO DAILY January 22, 2019 12:00am June 17, 2019 11:31am Problems Active Problems Problem Classification Problem Date Documented Date Episodic/Chronic Abdominal pain (1 source) Epigastric pain; Translations: [Epigastric pain] 06-29-2024 Episodic Cardiac and circulatory congenital anomalies (20 sources) Bicuspid aortic valve; Translations: [Congenital insufficiency of aortic valve] Onset: 10-14-2013 10-14-2013 Chronic Cardiac dysrhythmias (20 sources) Supraventricular tachycardia; Translations: [Supraventricular tachycardia] Onset: 10-15-2021 10-21-2021 Chronic Comment on above: RFA 1999 Chronic obstructive pulmonary disease and bronchiectasis (1 source) Chronic obstructive pulmonary disease, unspecified; Translations: [Chronic obstructive pulmonary disease, unspecified] Onset: 08-20-2024 Chronic Conduction disorders (20 sources) Dutbi-Rgbddsidx-Wuyxy pattern; Translations: [Pre-excitation syndrome] Onset: 10-21-2019 10-21-2019 Chronic Comment on above: per holter monitor 4 .8 sec 11:19 pm ablation 1999 Disorders of lipid metabolism (20 sources) Hyperlipidemia; Translations: [Hyperlipidemia, unspecified] Onset: 04-23-2014 04-23-2014 Chronic Esophageal disorders (1 source) Chest pain; Translations: [Gastro-esophageal reflux disease without esophagitis] 06-29-2024 Chronic Essential hypertension (20 sources) Hypertensive disorder; Translations: [Essential (primary) hypertension] Onset: 05-21-2013 05-21-2013 Chronic Heart valve disorders (20 sources) Aortic valve stenosis; Translations: [Nonrheumatic aortic (valve) stenosis] Onset: 10-14-2013 10-14-2013 Chronic Heart valve disorders (10 sources) Ventricular bigeminy; Translations: [Other abnormalities of heart beat] Onset: 04-22-2025 01-23-2019 Episodic Immunizations and screening for infectious disease (6 sources) Viral screening status; Translations: [Encounter for screening for other viral diseases] Episodic Other lower respiratory disease (1 source) Nodule of lung; Translations: [Solitary pulmonary nodule] 05-06-2024 Episodic Other lower respiratory disease (2 sources) Multiple nodules of lung; Translations: [Other nonspecific abnormal finding of lung field] 01-29-2025 Episodic Comment on above: first identified Jan, all less than 6mm Other lower respiratory disease (2 sources) Other nonspecific abnormal finding of lung field; Translations: [Other nonspecific abnormal finding of lung field] Onset: 12-03-2024 Episodic Other non-traumatic joint disorders (3 sources) Polyarthropathy; Translations: [Polyarthritis, unspecified] 12-25-2023 Chronic Other non-traumatic joint disorders (2 sources) Joint pain; Translations: [Pain in unspecified joint] 05-23-2023 Episodic Other non-traumatic joint disorders (1 source) Chronic ankle pain; Translations: [Pain in right ankle and joints of right foot] 12-02-2021 Episodic Other non-traumatic joint disorders (3 sources) Pain in left shoulder; Translations: [Pain in joint, shoulder region] Onset: 02-24-2025 02-24-2025 Episodic Other screening for suspected conditions (not mental disorders or infectious disease) (4 sources) Patient encounter status; Translations: [Encounter for screening for malignant neoplasm of prostate] Episodic Residual codes; unclassified (20 sources) Obstructive sleep apnea syndrome; Translations: [Obstructive sleep apnea (adult) (pediatric)] Onset: 04-28-2022 Chronic Comment on above: Unable to tolerate, returned device Residual codes; unclassified (7 sources) Obstructive sleep apnea (adult) (pediatric); Translations: [Obstructive sleep apnea (adult)(pediatric)] Onset: 10-31-2022 Chronic Screening and history of mental health and substance abuse codes (2 sources) Encounter for screening for depression; Translations: [Encounter for screening examination for other mental health and behavioral disorders] Onset: 02-24-2025 Episodic Substance-related disorders (20 sources) Cigarette smoker ; Translations: [Nicotine dependence, cigarettes, uncomplicated] Onset: 01-25-2022 Chronic Comment on above: smoked 3 ppd for 20 years, now 1/2 ppd Thyroid disorders (20 sources) Thyroid nodule; Translations: [Nontoxic single thyroid nodule] Onset: 10-21-2021 10-21-2021 Chronic Past or Other Problems Problem Classification Problem Date Documented Date Episodic/Chronic Biliary tract disease (20 sources) Cholecystitis; Translations: [Calculus of gallbladder and bile duct with cholecystitis, unspecified, without obstruction] Onset: 05-23-2023 Resolved: 08-26-2024 02-25-2019 Episodic Cardiac dysrhythmias (20 sources) Palpitations; Translations: [Palpitations] Onset: 10-21-2019 Resolved: 10-31-2022 10-21-2019 Episodic Fracture of upper limb (17 sources) Fracture of metacarpal bone; Translations: [Unspecified fracture of fifth metacarpal bone, right hand, initial encounter for closed fracture] Onset: 03-18-2014 Resolved: 04-28-2022 03-18-2014 Episodic Nonspecific chest pain (1 source) Chest pain, unspecified; Translations: [Chest pain, unspecified] Onset: 07-15-2024 Episodic Other lower respiratory disease (1 source) Solitary pulmonary nodule; Translations: [Solitary pulmonary nodule] Onset: 08-06-2024 Episodic Other non-traumatic joint disorders (19 sources) Multiple joint pain; Translations: [Pain in unspecified joint] Onset: 06-04-2018 Resolved: 10-31-2022 06-04-2018 Episodic Other nutritional; endocrine; and metabolic disorders (16 sources) Overweight in adulthood with body mass index of 25 or more but less than 30; Translations: [Body mass index (BMI) 26.0-26.9, adult] Onset: 09-30-2022 05-23-2023 Episodic Residual codes; unclassified (20 sources) History of radiofrequency ablation operation for arrhythmia; Translations: [Other specified postprocedural states] Onset: 10-09-1999 10-21-2019 Episodic Residual codes; unclassified (15 sources) History of cardiac catheterization; Translations: [Other specified postprocedural states] Onset: 05-23-2023 Resolved: 08-26-2024 05-23-2023 Episodic Rheumatoid arthritis and related disease (16 sources) Rheumatoid arthritis of multiple joints; Translations: [Rheumatoid arthritis with rheumatoid factor of multiple sites without organ or systems involvement] Onset: 09-28-2022 Resolved: 05-23-2023 05-23-2023 Chronic Sprains and strains (17 sources) Sprain of left rotator cuff capsule; Translations: [Sprain of left rotator cuff capsule, initial encounter] Onset: 06-04-2018 Resolved: 04-28-2022 06-04-2018 Episodic Unclassified (1 source) Acute pain of left shoulder 02-24-2025 Results Test Name Value Interpretation Reference Range Facility Cardiology Visit Reporton Cardiology Visit Report [facility] [address] [place], [place] [address] OFFICE VISIT Date of Service: 04/01/25 MR#: [id number] Acct: [id number] Name: DAMON BUI Rep #: [id number] : 1960 Provider: Dr. Mervin Pastor MD Age/Sex: 64/M Location: [facility] [place] Status: Signed HPI HPI History of Present Illness Details: This is a 64-year-old male that presents to the office for an outpatient cardiovascular appointment. He has a history of bicuspid aortic valve, mild aortic regurgitation in 2016, hypertension, hyperlipidemia, WPW syndrome status post ablation several years ago. He had a 48-hour Holter monitor placed in October of this year which demonstrated a sinus pause of 4.8 seconds recorded during sleep. He subsequently had a 30-day event monitor placed which also demonstrated a 4.9- second pause and a 7.4-second pause. He was noted to be hypothyroid at that time and since his thyroid medication has been replaced, He can not recall the last time that this was done. He has an appt later this week with his PCP. Patient had a 30-day event monitor placed and December 2021. He had several pauses the longest 1 noting to be 4.7 seconds. He subsequently did have a repeat in April 2022 and it demonstrated sinus rhythm with a heart rate of 89 bpm and no pauses were noted. He denies chest, arm, jaw, or neck discomfort. He states palpitations during times of stress and during abnormal TSH levels. He denies bilateral lower extremity edema. He denies claudication. He denies shortness of breath with activity, shortness of breath at rest, orthopnea, or PND. He denies chronic cough. He denies significant, sudden weight gain. He denies lightheadedness, dizziness, near-syncope, or syncope. He denies blood in urine, blood in stool, or epistaxis. He denies fever with chills. He denies myalgia. He denies fatigue. His exercise level has remained stable. 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[employer] Plater Required: No Accompanied by: Self Is patient in pain?: No Allergies No Known Allergies Allergy (Verified 04/01/25 10:52) Medications ???Medication ???Instructions ???Recorded ???Confirmed ???Type aspirin 81 mg chewable tablet 81 mg PO DAILY 10/25/13 04/01/25 H istory acetaminophen 650 mg 650 mg PO Q12H 06/01/20 04/01/25 H istory tablet,extended release (Tylenol Arthritis Pain) lisinopril 10 mg tablet 10 mg PO DAILY #30 tabs 04/10/24 0 04/01/25 Rx levothyroxine 137 mcg tablet 150 mcg PO QDAY 05/06/24 04/01/25 History hydrochlorothiazide 12.5 mg capsule 12.5 mg PO DAILY #90 caps 02/0704/01/25 Rx Have you fallen in the past year?: No PFSH Medical History Acid reflux Nonrheumatic aortic (valve) stenosis Thyroid nodule Thyromegaly Hyperthyroidism AVNRT (AV manolo re-entry tachycardia) Essential hypertension Rheumatoid arthritis HLD (hyperlipidemia) WPW (Kzgmx-Npvdgewvf-Tpzfx syndrome) Surgical History History of cardiac radiofrequency ablation (RFA) (1999) History of cholecystectomy (2014) History of arthroscopic knee surgery (2000) H/O arthroscopic knee surgery Family History Brother Myocardial infarction Diabetes Father Heart disease Diabetes Cancer stomach Grandmother Heart disease Cancer stomach Social History Smoking Status: Current every day smoker tobacco type: cigarettes alcohol intake: never substance use type: does not use caffeine: Yes Type: coffee Number of servings: 4 ROS Const Const: Negative for fatigue, weakness, headache(s), daytime sleepiness or difficulty sleeping ENT ENT: Negative for headache(s), dizziness or Nosebleed/epistaxis Cardio Chest Pain: No Palpitations: Yes Edema: None Resp Respiratory: Negative for SOB with activity, SOB at rest, SOB orthopnea SOB lying down or Cough GI GI: Negative nausea, vomiting or heartburn Neuro Neuro: Negative for dizziness, lightheadedness, near syncope, headache(s) or weakness Endo Endo: Negative for fatigue Cardiology Exam Const Appearance: cooperative, healthy appearing, comfortable and no acute distress Nutritional Appearance: well nourished and overweight Orientation: alert, awake and oriented x3 Head Head: normal to inspection Ears: hearing grossly normal bilaterally Nose: external nose normal Face and Sinus: face symmetric Mouth (more content not included)... Normal [facility] CBC W Auto Differential pane l (Bld)on 03-01-2025 Basophils (Bld) [#/Vol] 0.05 10*3/uL Normal <0.11 [facility] Comment on above: Order Comment: Speci men Type: BLOOD SPECIMEN Ordering Facility: [facility] Address: [address] [place] [address] Performed By: #### [id number] [id number] #### [facility] CLIA [id number] [address] [place] [address] [place] Basophils/100 WBC (Bld) 0.6 % Normal [facility] Comment on above: Order Comment: Speci men Type: BLOOD SPECIMEN Ordering Facility: [facility] Address: [address] [place] [address] Performed By: #### [id number] #### [facility] CLIA [id number] [address] [place] [address] [place] Differential cell count method Nom (Bld) Auto Normal [facility] Comment on above: Order Comment: Speci men Type: BLOOD SPECIMEN [facility] [facility] Address: [address] [place] [address] Performed By: #### 5 7021-8 #### [facility] CLIA [id number] [address] [place] [address] [place] Eosinophils (Bld) [#/Vol] 0.11 10*3/uL Normal <0.46 [facility] Comment on above: Order Comment: Speci men Type: BLOOD SPECIMEN Ordering Facility: [facility] Address: [address] [place] [address] Performed By: #### 5 7021-8 #### [facility] CLIA [id number] [address] [place] [address] [place] Eosinophils/100 WBC (Bld) 1.3 % Normal [facility] Comment on above: Order Comment: Speci men Type: BLOOD SPECIMEN Ordering Facility: [facility] Address: [address] [place] [address] Performed By: #### 5 7021-8 #### [facility] CLIA [id number] [address] [place] [address] [place] Erythrocyte distribution width (RBC) [Ratio] 13.1 % Normal 11.5-15.0 [facility] Comment on above: Order Comment: Speci men Type: BLOOD SPECIMEN Ordering Facility: [facility] Address: [address] [place] [address] Performed By: #### 5 7021-8 #### [facility] CLIA [id number] [address] [place] [address] [place] Hematocrit (Bld) [Volume fraction] 41.3 % Normal 39.0-51.0 [facility] Comment on above: Order Comment: Speci men Type: BLOOD SPECIMEN Ordering Facility: [facility] Address: [address] [place] [address] Performed By: #### 5 7021-8 #### [facility] CLIA [id number] [address] [place] [address] [place] Hemoglobin (Bld) [Mass/Vol] 13.6 g/dL Normal 13.0-17.0 [facility] Comment on above: Order Comment: Speci men Type: BLOOD SPECIMEN Ordering Facility: [facility] Address: [address] [place] [address] Performed By: #### 5 7021-8 #### [facility] CLIA [id number] [address] [place] [address] [place] Immature granulocytes (Bld) [#/Vol] 0.03 10*3/uL Normal <0.10 [facility] Comment on above: Order Comment: Speci men Type: BLOOD SPECIMEN Ordering Facility: [facility] Address: [address] [place] [address] Performed By: #### 5 7021-8 #### [facility] CLIA [id number] [address] [place] [address] [place] Immature granulocytes/100 WBC (Bld) 0.3 % Normal [facility] Comment on above: Order Comment: Speci men Type: BLOOD SPECIMEN Ordering Facility: [facility] Address: [address] [place] [address] Performed By: #### 5 7021-8 #### [facility] CLIA [id number] [address] [place] [address] [place] Lymphocytes (Bld) [#/Vol] 2.01 10*3/uL Normal 1.00-4.00 [facility] Comment on above: Order Comment: Speci men Type: BLOOD SPECIMEN Ordering Facility: [facility] Address: [address] [place] [address] Performed By: #### 5 7021-8 #### [facility] CLIA [id number] [address] [place] [address] [place] Lymphocytes/100 WBC (Bld) 23.3 % Normal [facility] Comment on above: Order Comment: Speci men Type: BLOOD SPECIMEN Ordering Facility: [facility] Address: [address] [place] [address] Performed By: #### 5 7021-8 #### [facility] CLIA [id number] [address] [place] [address] [place] MCH (RBC) [Entitic mass] 29.6 pg Normal 26.0-34.0 [facility] Comment on above: Order Comment: Speci men Type: BLOOD SPECIMEN Ordering Facility: [facility] Address: [address] [place] [address] Performed By: #### 5 7021-8 #### [facility] CLIA [id number] [address] [place] [address] [place] MCHC (RBC) [Mass/Vol] 32.9 g/dL Normal 30.5-36.0 [facility] Comment on above: Order Comment: Speci men Type: BLOOD SPECIMEN Ordering Facility: [facility] Address: [address] [place] [address] Performed By: #### 5 7021-8 #### [facility] CLIA [id number] [address] [place] [address] [place] MCV (RBC) [Entitic vol] 90.0 fL Normal 80.0-100.0 [facility] Comment on above: Order Comment: Speci men Type: BLOOD SPECIMEN Ordering Facility: [facility] Address: [address] [place] [address] Performed By: #### 5 7021-8 #### [facility] CLIA [id number] [address] [place] [address] [place] Monocytes (Bld) [#/Vol] 0.74 10*3/uL Normal <0.87 [facility] Comment on above: Order Comment: Speci men Type: BLOOD SPECIMEN Ordering Facility: [facility] Address: [address] [place] [address] Performed By: #### 5 7021-8 #### [facility] CLIA [id number] [address] [place] [address] [place] Monocytes/100 WBC (Bld) 8.6 % Normal [facility] Comment on above: Order Comment: Speci men Type: BLOOD SPECIMEN Ordering Facility: [facility] Address: [address] [place] [address] Performed By: #### 5 7021-8 #### [facility] CLIA [id number] [address] [place] [address] [place] Neutrophils (Bld) [#/Vol] 5.67 10*3/uL Normal 1.45-7.50 [facility] Comment on above: Order Comment: Speci men Type: BLOOD SPECIMEN Ordering Facility: [facility] Address: [address] [place] [address] Performed By: #### 5 7021-8 #### [facility] CLIA [id number] [address] [place] [address] [place] Neutrophils/100 WBC (Bld) 65.9 % Normal [facility] Comment on above: Order Comment: Speci men Type: BLOOD SPECIMEN Ordering Facility: [facility] Address: [address] [place] [address] Performed By: #### 5 7021-8 #### [facility] CLIA [id number] [address] [place] [address] [place] Nucleated RBC (Bld) [#/Vol] 10*3/uL Normal <0.01 [facility] Comment on above: Order Comment: Speci men Type: BLOOD SPECIMEN Ordering Facility: [facility] Address: [address] [place] [address] Performed By: #### 5 7021-8 #### [facility] CLIA [id number] [address] [place] [address] [place] Nucleated RBC/100 WBC (Bld) [Ratio] 0.0 /100 WBC Normal [facility] Comment on above: Order Comment: Speci men Type: BLOOD SPECIMEN Ordering Facility: [facility] Address: [address] [place] [address] Performed By: #### 5 7021-8 #### [facility] CLIA [id number] [address] [place] [address] [place] Platelet mean volume (Bld) [Entitic vol] 10.4 fL Normal 9.0-12.7 [facility] Comment on above: Order Comment: Speci men Type: BLOOD SPECIMEN Ordering Facility: [facility] Address: [address] [place] [address] Performed By: #### 5 7021-8 #### [facility] CLIA [id number] [address] [place] [address] [place] Platelets (Bld) [#/Vol] 241 10*3/uL Normal 150-400 [facility] Comment on above: Order Comment: Speci men Type: BLOOD SPECIMEN Ordering Facility: [facility] Address: [address] [place] [address] Performed By: #### 5 7021-8 #### [facility] CLIA [id number] [address] [place] [address] [place] RBC (Bld) [#/Vol] 4.59 10*6/uL Normal 4.20-6.00 [facility] Comment on above: Order Comment: Speci men Type: BLOOD SPECIMEN Ordering Facility: [facility] Address: [address] [place] [address] Performed By: #### 5 7021-8 #### [facility] CLIA [id number] [address] [place] [address] [place] WBC (Bld) [#/Vol] 8.61 10*3/uL Normal 3.70-11.00 [facility] Comment on above: Order Comment: Speci men Type: BLOOD SPECIMEN Ordering Facility: [facility] Address: [address] [place] [address] Performed By: #### 5 7021-8 #### [facility] CLIA [id number] [address] [place] [address] [place] Comprehensive metabolic 2000 panelon 03-01-2025 Albumin [Mass/Vol] 4.2 g/dL Normal 3.9-4.9 [facility] Comment on above: Order Comment: Speci men Type: BLOOD SPECIMEN Ordering Facility: [facility] Address: [address] [id number] Performed By: #### Nina CASTRO, 6-3 #### [facility] CLIA [id number] [address] [place] [address] [place] ALP [Catalytic activity/Vol] 75 U/L Normal 38-113 [facility] Comment on above: Order Comment: Speci men Type: BLOOD SPECIMEN Ordering Facility: [facility] Address: [address] [place] [address] Performed By: #### Nina CASTRO, 6-3 #### [facility] CLIA [id number] [address] [place] [address] [place] ALT [Catalytic activity/Vol] 8 U/L Low 10-54 [facility] Comment on above: Order Comment: Speci men Type: BLOOD SPECIMEN Ordering Facility: [facility] Address: [address] [place] [address] Performed By: #### Nina CASTRO, 6-3 #### [facility] CLIA [id number] [address] [place] [address] [place] Anion gap [Moles/Vol] 10 mmol/L Normal 8-15 [facility] Comment on above: Order Comment: Speci men Type: BLOOD SPECIMEN Ordering Facility: [facility] Address: [address] [place] [address] Performed By: #### Nina CASTRO, 6-3 #### [facility] CLIA [id number] [address] [place], [place] [address] [place] AST [Catalytic activity/Vol] 19 U/L Normal 14-40 [facility] Comment on above: Order Comment: Speci men Type: BLOOD SPECIMEN Ordering Facility: [facility] Address: [address] [place] [address] Performed By: #### Nina CASTRO, 6-3 #### [facility] CLIA [id number] [address] [place] [address] [place] Bilirubin [Mass/Vol] 0.3 mg/dL Normal 0.2-1.3 [facility] Comment on above: Order Comment: Speci men Type: BLOOD SPECIMEN Ordering Facility: [facility] Address: [address] [place] [address] Performed By: #### Nina CASTRO, 6-3 #### [facility] CLIA [id number] [address] [place] [address] [place] Calcium [Mass/Vol] 9.5 mg/dL Normal 8.5-10.2 [facility] Comment on above: Order Comment: Speci men Type: BLOOD SPECIMEN Ordering Facility: [facility] Address: [address] [place] [address] Performed By: #### Nina CASTRO, 6-3 #### [facility] CLIA [id number] [address] [place] [address] [place] Chloride [Moles/Vol] 104 mmol/L Normal 98-107 [facility] Comment on above: Order Comment: Speci men Type: BLOOD SPECIMEN Ordering Facility: [facility] Address: [address] [place] [address] Performed By: #### Nina CASTRO, 6-3 #### [facility] CLIA [id number] [address] [place] [address] [place] CO2 [Moles/Vol] 26 mmol/L Normal 22-30 [facility] Comment on above: Order Comment: Speci men Type: BLOOD SPECIMEN Ordering Facility: [facility] Address: [address] [place] [address] Performed By: #### Nina CASTRO, 6-3 #### [facility] CLIA [id number] [address] [place] [address] [place] Creatinine [Mass/Vol] 0.94 mg/dL Normal 0.73-1.22 [facility] Comment on above: Order Comment: Speci men Type: BLOOD SPECIMEN Ordering Facility: [facility] Address: [address] [place] [address] Performed By: #### T 4FTI, 3016-3 #### [facility] CLIA [id number] [address] [place] [address] [place] Creatinine and Glomerular filtration rate.predicted panel (S/P/Bld) 91 mL/min/1.73m??? Normal >=60 [facility] Comment on above: Order Comment: Kelley billings Type: BLOOD SPECIMEN Ordering Facility: [facility] Address: [address] [place] [address] Result Comment: Maggie mated Glomerular Filtration Rate (eGFR) is calculated using the 2020 CKD-EPI creatinine equation. This equation utilizes serum creatinine, sex, and age as parameters. The creatinine assay has traceable calibration to isotope dilution-mass spectrometry. Refer to KDIGO guidelines for clinical interpretation. In patients with unstable renal function, e.g. those with acute kidney injury, the eGFR may not accurately reflect actual GFR. Performed By: #### T 4FTI, 3016-3 #### [facility] CLIA [id number] [address] [place] [address] [place] Glucose [Mass/Vol] 91 mg/dL Normal 74-99 [facility] Comment on above: Order Comment: Kelley billings Type: BLOOD SPECIMEN Ordering Facility: [facility] Address: [address] [place] [address] Result Comment: The [place] Diabetes Association (ADA) provides guidance for cutoff values for fasting glucose and random glucose. The ADA defines fasting as no caloric intake for at least 8 hours. Fasting plasma glucose results between 100 to 125 mg/dL indicate increased risk for diabetes (prediabetes). Fasting plasma glucose results greater than or equal to 126 mg/dL meet the criteria for diagnosis of diabetes. In the absence of unequivocal hyperglycemia, results should be confirmed by repeat testing. In a patient with classic symptoms of hyperglycemia or hyperglycemic crisis, random plasma glucose results greater than or equal to 200 mg/dL meet the criteria for diagnosis of diabetes. Reference: Standards of Medical Care in Diabetes 2016, [place] [employer]. Diabetes Care. 2016.39(Suppl 1). Performed By: #### Nina CASTRO, 6-3 #### [facility] CLIA [id number] [address] [place] [address] [place] Potassium [Moles/Vol] 3.9 mmol/L Normal 3.7-5.1 [facility] Comment on above: Order Comment: Speci men Type: BLOOD SPECIMEN Ordering Facility: [facility] Address: [address] [place] [address] Performed By: #### Nina CASTRO, 3015-3 #### [facility] CLIA [id number] [address] [place] [address] [place] Protein [Mass/Vol] 7.3 g/dL Normal 6.3-8.0 [facility] Comment on above: Order Comment: Speci men Type: BLOOD SPECIMEN Ordering Facility: [facility] Address: [address] [place] [address] Performed By: #### Nina CASTRO, 3015-3 #### [facility] CLIA [id number] [address] [place] [address] [place] Sodium [Moles/Vol] 140 mmol/L Normal 136-144 [facility] Comment on above: Order Comment: Speci men Type: BLOOD SPECIMEN Ordering Facility: [facility] Address: [address] [place] [address] Performed By: #### Nina CASTRO, 3015-3 #### [facility] CLIA [id number] [address] [place], [place] [address] [place] Urea nitrogen [Mass/Vol] 15 mg/dL Normal 9-24 [facility] Comment on above: Order Comment: Speci men Type: BLOOD SPECIMEN Ordering Facility: [facility] Address: [address] [place] [address] Performed By: #### Nina CASTRO, 6-3 #### [facility] CLIA [id number] [address] [place] [address] [place] Lipid 1996 panelon 5 Cholesterol [Mass/Vol] 164 mg/dL Normal <200 [facility] Comment on above: Order Comment: Marthai manuelito Type: BLOOD SPECIMEN Ordering Facility: [facility] Address: [address] [place] [address] Result Comment: <200 mg/dL, Desirable 200-239 mg/dL, Borderline high >239 mg/dL, High Performed By: #### T 4FKIZZY, 3016-3 #### [facility] CLIA [id number] [address] [place] [address] [place] Cholesterol in HDL [Mass/Vol] 31 mg/dL Low >39 [facility] Comment on above: Order Comment: Kelley billings Type: BLOOD SPECIMEN Ordering Facility: [facility] Address: [address] [place] [address] Result Comment: 40-5 9 mg/dL, Acceptable >59 mg/dL, High: Negative risk factor for coronary heart disease <40 mg/dL, Low: Positive risk factor for coronary heart disease Performed By: #### T GLORIA, 6-3 #### [facility] CLIA [id number] [address] [place] [address] STATES [facility] Cholesterol in LDL [Mass/Vol] 109 mg/dL High <100 [facility] Comment on above: Order Comment: Marthai men Type: BLOOD SPECIMEN Ordering Facility: [facility] Address: [address] [place] [address] Result Comment: <100 mg/dL, Optimal 100-129 mg/dL, Near optimal/above optimal 130-159 mg/dL, Borderline high 160-189 mg/dL, High >189 mg/dL, Very high Secondary prevention optimal LDL Cholesterol levels are recommended to be <70 mg/dL LDL cholesterol is calculated using the Sanchez-NIH equation. Performed By: #### T 4FKIZZY, 3016-3 #### [facility] CLIA [id number] [address] [place] [address] [place] Cholesterol in LDL/Cholesterol in HDL [Mass ratio] 3.52 {ratio} High <2.54 [facility] Comment on above: Order Comment: Kelley billings Type: BLOOD SPECIMEN Ordering Facility: [facility] Address: [address] [place] [address] Result Comment: Tika stephenson: 1. National Cholesterol Education Program ATP III Guideline At-A-Glance Quick Desk Reference: National Heart, Lung, and Blood Clever. National Institutes of Health. 2001: NIH Publication No. 01-3305. 2. An International Atherosclerosis Society position paper: global recommendations for the management of dyslipidemia: executive summary, Atherosclerosis. 2014: 232(2):410-413. Performed By: #### T GLORIA, 3016-3 #### [facility] CLIA [id number] [address] [place] [address] [place] Cholesterol in VLDL [Mass/Vol] 22 mg/dL Normal <30 [facility] Comment on above: Order Comment: Kelley billings Type: BLOOD SPECIMEN Ordering Facility: [facility] Address: [address] [place] [address] Performed By: #### Nina CASTRO, 6-3 #### [facility] CLIA [id number] [address] [place] [address] [place] Cholesterol non HDL [Mass/Vol] 133 mg/dL High <130 [facility] Comment on above: Order Comment: Kelley billings Type: BLOOD SPECIMEN Ordering Facility: [facility] Address: [address] [place] [address] Result Comment: <130 mg/dL, Optimal 130-159 mg/dL, Near optimal/above optimal 160-189 mg/dL, Borderline high 190-219 mg/dL, High >219 mg/dL, Very high Secondary prevention optimal non HDL Cholesterol levels are recommended to be <100 mg/dL Performed By: #### T 4FKIZZY, 3016-3 #### [facility] CLIA [id number] [address] [place] [address] [place] Cholesterol.total/Cho lesterol in HDL [Mass ratio] 5.29 {ratio} High <5.10 [facility] Comment on above: Order Comment: Speci men Type: BLOOD SPECIMEN Ordering Facility: [facility] Address: [address] [place] [address] Performed By: #### Nina CASTRO, 3015-3 #### [facility] CLIA [id number] [address] [place] [address] [place] FASTING TIME 12 hrs Normal [facility] Comment on above: Order Comment: Speci men Type: BLOOD SPECIMEN Ordering Facility: [facility] Address: [address] [place] [address] Performed By: #### Nina CASTRO, 3015-12 #### [facility] CLIA [id number] [address] [place] [address] [place] Triglyceride [Mass/Vol] 130 mg/dL Normal <150 [facility] Comment on above: Order Comment: Speci men Type: BLOOD SPECIMEN Ordering Facility: [facility] Address: [address] [place] [address] Result Comment: <150 mg/dL, Normal 150-199 mg/dL, Borderline high 200-499 mg/dL, High >499 mg/dL, Very high Performed By: #### Nina CASTRO, 3015- #### [facility] CLIA [id number] [address] [place] [address] [place] TSH SerPl-aCncon 03-01-2025 TSH Qn 0.903 m[IU]/L Normal 0.270-4.200 [facility] Comment on above: Order Comment: Speci men Type: BLOOD SPECIMEN Ordering Facility: [facility] Address: [address] [place] [address] Performed By: #### Nina CASTRO, 3015- #### [facility] CLIA [id number] [address] [place] [address] [place] CNOVon 02-24-2025 [facility] DAMON BUI ([id number]) 1960 M Date Time Provider Department 02/24/25 9:20 AM MATT ARAIZA During your visit today, we recorded the following information about you: Pulse Blood pressure Weight Height 77/minute 120/68 97.2 kg 1.803 m Matt Araiza MD 02/24/2025 9:56 AM Signed Patient presents with: 6 Month Exam HPI: Patient presents today for office visit for routine 6 month follow up. HTN: Does not monitor BP at home Denies chest pain and shortness of breath Mentions some palpitations and irregular heartbeats intermittently. Not necessarily new. Denies headaches and dizziness Denies edema Sees cardiology soon THYROID: No energy changes No hair or skin changes No temperature intolerances Last us: Diffusely heterogeneous thyroid gland. Subcentimeter right thyroid nodule as described TI-RADS Category: TR3 ACR Recommendation: TI-RADS 3 nodule. No FNA or further imaging is advised. Left shoulder pain x 3-4 weeks. Limited range of motion. Denies any numbness or tingling No injury. Hx of remote injury. No numbness or weakness. GERD: Symptoms controlled Has follow with pulmonary. Has labs pending. MEDICATIONS: Current Outpatient Medications Medication Sig levothyroxine (SYNTHROID) 150 mcg tablet Take 150 mcg by mouth once daily. Take on an empty stomach. For thyroid omeprazole (PRILOSEC) 20 mg capsule Take 1 capsule by mouth every afternoon. OTC hydroCHLOROthiazide 12.5 mg capsule Take 12.5 mg by mouth once daily. lisinopril (ZESTRIL, PRINIVIL) 10 mg tablet Take 10 mg by mouth once daily. Blood Pressure Test Kit-Medium kit 1 Each once daily. acetaminophen (TYLENOL ARTHRITIS PAIN) 650 mg CR tablet Take 650 mg by mouth every 8 hours as needed for Pain. Aspirin 81 mg Tab Take 1 tablet by mouth once daily. Take with food. No current facility-administered medications for this visit. 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 L knee. FAMILY HISTORY Problem Relation Age of Onset Heart Brother at 43 from heart attack. Heart Paternal Grandfather Heart Father double bypass surgery, heart attack Cancer Father patient is unsure what type of cancer Diabetes Father Diabetes Brother Heart Paternal Grandmother Cancer Paternal Grandmother Social History Tobacco Use Smoking status: Every Day Current packs/day: 0.50 Average packs/day: 0.5 packs/day for 38.0 years (19.0 ttl pk-yrs) Types: Cigarettes Smokeless tobacco: Never Substance Use Topics Alcohol use: No Comment: quit 1988 Drug use: No Discussed tobacco cessation, including risks of continued use. Offered assistance to help quit if patient desires. Reviewed current medications, allergies, past medical history, surgical history, family history and social history today. REVIEW OF SYSTEMS All other reviewed and negative other than HPI. HEALTH MAINTENANCE: Reviewed health maintenance issues today and recommended the following in detail. BP Controlled (<130/80) Never done Pneumococcal Vaccine: 50+(2 of 2 - PCV) due on 09/13/2022 Depression Screening due on 02/13/2025 Anxiety Screening due on 02/13/2025 VITALS: BP 120/68 Pulse 77 Ht 180.3 cm (5' 11") Wt 97.2 kg (214 lb 3.2 oz) SpO2 97% BMI 29.87 kg/m? Last 4 Encounter Wt Readings: Date: Wt: 08/26/2024 95.7 kg (211 lb) 02/14/2024 92.5 kg (204 lb) 05/23/2023 90.7 kg (200 lb) 10/31/2022 86.6 kg (191 lb) PHYSICAL EXAMINATION: General appearance: Well appearing, alert, in no acute distress, well-hydrated, well nourished. Skin: Skin color, texture, turgor normal, no suspicious rashes or lesions Head: Normocephalic, no masses, lesions, tenderness or abnormalities Lungs: Lungs clear to auscultation. No wheezing, rhonchi, rales Heart: RRR without murmur, gallop, or rubs. No ectopy Abdomen: Normal abdominal exam, Abdomen soft, non-tender. Bowel sounds normal. No masses, organomegaly Extremities: No deformities, edema, skin discoloration, clubbing or cyanosis. Good capillary refill. Shoulder: Location: left Redness: No. Warmth: No. Tenderness to palpation: over ant shoudler. . Swelling: No. Range of motion: decreased abduction. Empty can test: positive. Crepitus. ASSESSMENT/PLAN: 1. Primary hypertension - ICD9: 401.9, ICD10: I10 (primary diagnosis) - Controlled - Continue current medications 2. Screening for depression - ICD9: V79.0, ICD10: Z13.31 - DEPRESSION SCREENING 3. Encounter for screening examination for other mental health and behavioral disorders - ICD9: V79.8, ICD10: Z13.39 - ANXIE (more content not included)... Normal [facility] XR SHLDR >/=3V AP/SOLIS AP/OTH R LTon 02-24-2025 XR SHLDR >/=3V AP/SOLIS AP/OTHR LT * * *Final Report* * * DATE OF EXAM: Feb 24 2025 10:23AM WOX [id number] - XR SHLDR >/=3V AP/SOLIS AP/OTHR LT / PROCEDURE REASON: Acute pain of left shoulder * * * * Physician Interpretation * * * * EXAMINATION / TECHNIQUE: XR SHLDR >/=3V AP/SOLIS AP/OTHR LT HISTORY: chronic left shoulder joint pain. Acute pain of left shoulder COMPARISON: 05/02/2018. RESULT: No acute fracture or dislocation. Severe glenohumeral osteoarthritis. Chronic elevation of the distal clavicle and associated osteoarthritis similar to the prior exam. IMPRESSION: Severe glenohumeral osteoarthritis. Welfare Interviewer: PSCB Transcribe Date/Time: Feb 26 2025 7:45P Dictated by : EL TAVAREZ MD This examination was interpreted and the report reviewed and electronically signed by: EL TAVAREZ MD on Feb 26 2025 7:46PM EST [id number] Normal [facility] Pulmonary Visit Reporton Pulmonary Visit Report [facility] [place] [address] [place] [address] OFFICE VISIT Date of Service: 01/29/25 MR#: [id number] Acct: [id number] Name: DAMON BUI Rep #: [id number] : 1960 Provider: Caitie Sanches NP Age/Sex: 64/M Location: [facility] Status: Signed Assessment and Plan Assessment and Plan (1) Multiple lung nodules on CT: Status: Acute Comment: first identified February 02, 2024, all less than 6mm Plan: Multiple nodules identified on CT imaging but there are no new nodules. Largest in size is measuring 5 mm. The patient does have a history of rheumatoid arthritis that has not been treated. It is possible that these are rheumatoid nodules. There has been no new malignancy identified elsewhere in the body. He is not utilizing immunotherapy at this time. I have recommended repeating chest CT in 12 months from recent scan. This will be close to following these nodules for 2 years per recommendations. As long as the nodules have not increased at that time then the patient can return to the LDCT program. (2) Smoking greater than 40 pack years: Status: Chronic Comment: smoked 3 ppd for 20 years, now 1/2 ppd Plan: Complete smoking cessation is warranted at this time. The patient continues to not require daily maintenance inhaler. He should notify this practice if he has worsening respiratory symptoms. He is not requiring any inhalers at this point, his respiratory symptoms have remained stable. He has been offered ipratropium bromide nasal spray for his nasal symptoms but he has declined today. (3) Rheumatoid arthritis: Status: Chronic Qualifiers: Rheumatoid arthritis location: multiple sites Rheumatoid factor presence: with rheumatoid factor Qualified Code(s): M05.79 - Rheumatoid arthritis with rheumatoid factor of multiple sites without organ or systems involvement Plan: I still recommend that the patient become established with a nude model to consider further management for joint disease. Orders: Orders Chest without Contrast 10 Months R91.8 - Other nonspecific abnormal finding of lung field Plan Details Follow Up: 11 Months (LMR) HPI HPI Comments Details: This patient presents to the office today to discuss test results. He is ambulatory and currently on room air. He has not recently been seen in the ED or urgent care for any respiratory illness. He has not required any antibiotics or prednisone for any breathing problems. He is not currently on any maintenance inhalers. He has not required any albuterol for rescue. He continues to smoke cigarettes. He is currently smoking just under 1/2 pack/day. He reports shortness of breath with stairs. He denies hemoptysis. He reports he has cough and clear sputum. He reports wheezing with stairs, this has not progressed since last follow up. He denies chest tightness, chest pain or palpitations. He also denies any fever, chills or body aches. He has had worsening nasal drainage and running nose since August. He thinks it is allergies. The patient does report that he has known rheumatoid arthritis. He has never seen a nude model. Unfortunately, the local nude model does not accept his insurance. He is not willing to go to nude model due to travel out of town. He is following with primary care. He is not on immunosuppression. Test results personally reviewed the patient: Chest CT without contrast from November 19, 2024 shows stable nodules. There are no new nodules identified when compared to chest CT from July 13, 2025. The largest in size is measuring 5 mm. There is stable moderate emphysema also noted. Intake Vital Signs 08/20/24 07:41 01/29/25 06:18 Height 5 ft 11 in 5 ft 11 in Weight: 208 lb BMI 29.0 BP 122/71 H Blood Pressure Location Rt brachial Position Sitting Respiration 20 H Pulse 72 Pulse Source Monitor Temp 97.2 F L Temperature Source Temporal Artery Pulse Oximetry (%) 97 Oxygen Delivery Method room air Intake Visit Reasons: 4 M [employer]U [employer] Required: No DME Vendor: n/a Accompanied by: Self Is patient in pain?: No Allergies No Known Allergies Allergy (Verified 01/29/25 12:50) Medications ???Medication ???Instructions ???Recorded ???Confirmed ???Type aspirin 81 mg chewable tablet 81 mg PO DAILY 10/25/13 01/29/25 H istory acetaminophen 650 mg 650 mg PO Q12H 06/01/20 01/29/25 H istory tablet,extended release (Tylenol Arthritis Pain) hydrochlorothiazide 12.5 mg capsule 12.5 mg PO DAILY #90 caps 02/0401/29/25 Rx lisinopril 10 mg tablet 10 mg PO DAILY #30 tabs 04/10/24 0 01/29/25 Rx levothyroxine 137 mcg tablet 150 mcg PO QDAY 05/06/24 01/29/25 History omeprazole 20 mg capsule,delayed 20 mg PO DAILY #30 CAPSULES 01/29/25 Rx rel (more content not included)... Normal [facility] Chest without Contraston Chest without Contrast [facility] Imaging Services [address] [place], [place] [id number] Chest without Contrast MR#: [id number] Acct: [id number] Name: DAMON BUI Rep #: [id number] : 1960 M 64 From: Nidia Khan nd, MD PCP: Dr. Matt Araiza MD Status: REG CLI Study: Chest without Contrast Date of Exam: 11/19/24 Exam# [id number] Ordering Dr: Lacey Gamble ASSET RECOVERY SPECIALIST ASSET RECOVERY SPECIALIST-C PROCEDURE: CHEST WITHOUT CONTRAST REASON FOR EXAM: 64-year-old male, follow-up pulmonary nodules. TECHNIQUE: Chest CT without contrast. COMPARISON: CT chest 07/13/2024. FINDINGS: Hardware: None. Lymph nodes: Stable prominent bilateral axillary nodes. No mediastinal or hilar lymphadenopathy. Heart and Vasculature: Normal heart size. No pericardial effusion. Severe coronary artery and thoracic aortic calcifications. Lungs and Airways: Central airways are patent. Stable bilateral centrilobular and paraseptal emphysema. Several unchanged sub 6 mm pulmonary ground-glass nodules. For example a left upper lobe ground-glass nodule measures 0.5 cm (series 4, image 47), previously measuring 0.5 cm. No new or enlarging pulmonary nodule. Pleura: No pleural effusion. No pneumothorax. Upper Abdomen: Abdominal aortic calcifications. Bones: Bone windows are unremarkable. CT/Chest without Contrast IMPRESSION: 1. Stable CT chest. Consider follow-up CT at 2 and 4 years if patient is high risk by Fleischner criteria. If patient is immunocompromised or has known malignancy, they should be excluded from these guidelines. Patient to return to regular low-dose CT screening. 2. Stable moderate emphysema. One or more dose reduction techniques were used (e.g., Automated exposure control, adjustment of the mA and/or kV according to patient size, use of iterative reconstruction technique). Reading Location: [facility] CC: DEONTE Gamble; Dr. Matt Araiza MD Welfare Interviewer: Signed Normal [facility] US THYROID/PARATHYROIDon US THYROID/PARATHYROID * * *Final Report* * * DATE OF EXAM: Aug 28 2024 9:22AM WRU 1048 - US THYROID/PARATHYROID / PROCEDURE REASON: Thyroid nodule * * * * Physician Interpretation * * * * EXAMINATION: THYROID ULTRASOUND CLINICAL HISTORY: Thyroid nodule TECHNIQUE: Sonography and Doppler imaging of the thyroid was performed. Images were obtained and stored in a permanent archive and interpreted remotely. MQ: UST_1 COMPARISON: Ultrasound dated 11/07/2022 RESULT: Right Lobe: 1.8 x 1.8 x 4.4 cm, heterogeneous echogenicity, expected vascular flow. Left Lobe: 1.9 x 2.5 x 4.2 cm, heterogeneous echogenicity, expected vascular flow. Isthmus: 0.4 cm The most suspicious thyroid nodule(s) (up to four) as below: NODULE 1: Location: Right mid Size: 0.5 x 0.7 x 0.6 cm, previously 0.5 x 0.5 x 0.6 cm Characteristics: Composition: Solid or almost completely solid, 2 points Echogenicity: Isoechoic, 1 point Shape: Nbhoi-jily-svij, 0 points Margin: Smooth, 0 points Echogenic foci (add points for all that apply): None, 0 points Internal vascularity: None appreciable Interval growth: Stable to slightly increased in size TI-RADS Category: TR3 ACR Recommendation: TI-RADS 3 nodule. No FNA or further imaging is advised. IMPRESSION: Diffusely heterogeneous thyroid gland. Subcentimeter right thyroid nodule as described TI-RADS Category: TR3 ACR Recommendation: TI-RADS 3 nodule. No FNA or further imaging is advised. ACR recommendations are strictly based on the size and imaging appearance at the time of the exam and do not consider stability or previous biopsy results. Welfare Interviewer: SANTHOSH Transcribe Date/Time: Aug 28 2024 1:48P Dictated by : JOSE MIGUEL NARVAEZ MD This examination was interpreted and the report reviewed and electronically signed by: JOSE MIGUEL NARVAEZ MD on Aug 28 2024 2:22PM EST [id number] Normal [facility] US Thyroid glandon 4 IMPRESSION: Diffusely heterogeneous thyroid gland. Subcentimeter right thyroid nodule as described TI-RADS Category: TR3 ACR Recommendation: TI-RADS 3 nodule. No FNA or further imaging is advised. ACR recommendations are strictly based on the size and imaging appearance at the time of the exam and do not consider stability or previous biopsy results. Welfare Interviewer: PSCB Transcribe Date/Time: Aug 28 2024 1:48P Dictated by : JOSE MIGUEL NARVAEZ MD This examination was interpreted and the report reviewed and electronically signed by: JOSE MIGUEL NARVAEZ MD on Aug 28 2024 2:22PM EST DIVISION OF RADIOLOGY * * *Final Report* * * DATE OF EXAM: Aug 28 2024 9:22AM U 1048 - US THYROID/PARATHYROID / PROCEDURE REASON: Thyroid nodule * * * * Physician Interpretation * * * * EXAMINATION: THYROID ULTRASOUND CLINICAL HISTORY: Thyroid nodule TECHNIQUE: Sonography and Doppler imaging of the thyroid was performed. Images were obtained and stored in a permanent archive and interpreted remotely. MQ: UST_1 COMPARISON: Ultrasound dated 11/07/2022 RESULT: Right Lobe: 1.8 x 1.8 x 4.4 cm, heterogeneous echogenicity, expected vascular flow. Left Lobe: 1.9 x 2.5 x 4.2 cm, heterogeneous echogenicity, expected vascular flow. Isthmus: 0.4 cm The most suspicious thyroid nodule(s) (up to four) as below: NODULE 1: Location: Right mid Size: 0.5 x 0.7 x 0.6 cm, previously 0.5 x 0.5 x 0.6 cm Characteristics: Composition: Solid or almost completely solid, 2 points Echogenicity: Isoechoic, 1 point Shape: Dhzca-azyf-mjqi, 0 points Margin: Smooth, 0 points Echogenic foci (add points for all that apply): None, 0 points Internal vascularity: None appreciable Interval growth: Stable to slightly increased in size TI-RADS Category: TR3 ACR Recommendation: TI-RADS 3 nodule. No FNA or further imaging is advised. DIVISION OF RADIOLOGY Provider, [facility] - 08/28/2024 * * *Final Report* * * DATE OF EXAM: Aug 28 2024 9:22AM WRU 1048 - US THYROID/PARATHYROID / PROCEDURE REASON: Thyroid nodule * * * * Physician Interpretation * * * * EXAMINATION: THYROID ULTRASOUND CLINICAL HISTORY: Thyroid nodule TECHNIQUE: Sonography and Doppler imaging of the thyroid was performed. Images were obtained and stored in a permanent archive and interpreted remotely. MQ: UST_1 COMPARISON: Ultrasound dated 11/07/2022 RESULT: Right Lobe: 1.8 x 1.8 x 4.4 cm, heterogeneous echogenicity, expected vascular flow. Left Lobe: 1.9 x 2.5 x 4.2 cm, heterogeneous echogenicity, expected vascular flow. Isthmus: 0.4 cm The most suspicious thyroid nodule(s) (up to four) as below: NODULE 1: Location: Right mid Size: 0.5 x 0.7 x 0.6 cm, previously 0.5 x 0.5 x 0.6 cm Characteristics: Composition: Solid or almost completely solid, 2 points Echogenicity: Isoechoic, 1 point Shape: Mbmri-dyhb-jpqn, 0 points Margin: Smooth, 0 points Echogenic foci (add points for all that apply): None, 0 points Internal vascularity: None appreciable Interval growth: Stable to slightly increased in size TI-RADS Category: TR3 ACR Recommendation: TI-RADS 3 nodule. No FNA or further imaging is advised. IMPRESSION IMPRESSION: Diffusely heterogeneous thyroid gland. Subcentimeter right thyroid nodule as described TI-RADS Category: TR3 ACR Recommendation: TI-RADS 3 nodule. No FNA or further imaging is advised. ACR recommendations are strictly based on the size and imaging appearance at the time of the exam and do not consider stability or previous biopsy results. Welfare Interviewer: PSCB Transcribe Date/Time: Aug 28 2024 1:48P Dictated by : JOSE MIGUEL NARVAEZ MD This examination was interpreted and the report reviewed and electronically signed by: JOSE MIGUEL NARVAEZ MD on Aug 28 2024 2:22PM EST [facility] Radiology Study observation (narrative) [facility] US Thyroid glandOrdered By: [facility] Provider on 08-28-2024 [facility] CNPNon 08-27-2024 [facility] ([id number]) 1960 M Date Time Provider Department 08/27/24 MATT ARAIZA During your visit today, we recorded the following information about you: Charity Solorzano MA 08/27/2024 8:11 AM Signed PCP sends CC'd chart to Matt Matthew MD sent to [facility] Teodora Adams Has open referral to rheumatology that he has not pursued. Needs done ELINA Martinez Margaret 08/27/2024 1:54 PM Signed 1st call attempt to schedule rheum tiffany, left Teresa Rodriguez 08/28/2024 9:30 AM Signed As per . The patient went outside of [facility]. Matt Araiza MD 08/29/2024 2:11 PM Signed Did he just set that up? As of three days ago, the outside rheums he had contacted declined him due to insurance. Cecelia Cassidy LPN 08/29/2024 2:33 PM Signed Attempted to reach out to patient. Dr Mendoza doesn't accept Medicaid. He could contact insurance for other suggestion of schedule within clinic. Please attempt to reach patient again. Cecelia Cassidy LPN 09/02/2024 11:06 AM Signed Patient has a virtual visit scheduled with Rheum. Allergies As of Date: 08/27/2024 (No Known Allergies) Date Reviewed: 08/26/2024 Reviewed by: Diana Fuchs MA - Fully Assessed Reason for Visit: Consult [502] Cmt: Rheumatology Prescriptions as of 09/02/2024 - omeprazole (PRILOSEC) 20 mg capsule Take 1 capsule by mouth every afternoon. OTC - levothyroxine (LEVOXYL) 175 mcg tablet Take 1 tablet by mouth once daily. Take on empty stomach. For Thyroid. - hydroCHLOROthiazide 12.5 mg capsule Take 12.5 mg by mouth once daily. - lisinopril (ZESTRIL, PRINIVIL) 10 mg tablet Take 10 mg by mouth once daily. - Blood Pressure Test Kit-Medium kit 1 Each once daily. - acetaminophen (TYLENOL ARTHRITIS PAIN) 650 mg CR tablet Take 650 mg by mouth every 8 hours as needed for Pain. - Aspirin 81 mg Tab Take 1 tablet by mouth once daily. Take with food. Problem List As Of Date 08/27/2024 Noted Resolved Hypertension [I10] 05/21/2013 Bicuspid aortic valve [Q23.81] Aortic stenosis [I35.0] Fracture of fifth metacarpal bone of right hand*03/18/2014 04/28/2022 Hyperlipidemia [E78.5] 04/23/2014 Sprain of left rotator cuff capsule [S43.422A] 06/04/2018 04/28/2022 Polyarthralgia [M25.50] 06/04/2018 10/31/2022 Palpitations [R00.2] 10/21/2019 10/31/2022 Odqtv-Hzsjtcycv-Whjcp (WPW) syndrome [I45.6] 10/21/2019 H/O cardiac radiofrequency ablation [Z98.890] 10/21/2019 Thyroid nodule [E04.1] 10/21/2021 Hypothyroidism, acquired [E03.9] 10/21/2021 SVT (supraventricular tachycardia) (HCC) [I47.1*10/21/2021 RUKHSANA (obstructive sleep apnea) [G47.33] 04/28/2022 Atrioventricular manolo re-entry tachycardia (HC*05/23/2023 Diagnosed: 05/23/2023 Body mass index (BMI) of 26.0-26.9 in adult [Z6*09/30/2022 Diagnosed: 05/23/2023 Cholecystitis [K81.9] 05/23/2023 08/26/2024 Diagnosed: 05/23/2023 Cigarette smoker [F17.210] 01/25/2022 Diagnosed: 05/23/2023 History of cardiac catheterization [Z98.890] 05/23/2023 08/26/2024 Diagnosed: 05/23/2023 History of knee surgery [Z98.890] 05/23/2023 Diagnosed: 05/23/2023 Rheumatoid arthritis with rheumatoid factor of *09/28/2022 05/23/2023 Diagnosed: 05/23/2023 Routine health maintenance [Z00.00] 09/30/2022 08/26/2024 Diagnosed: 05/23/2023 Ventricular yaneli [I49.8] 10/15/2021 Diagnosed: 05/23/2023 Encounter Status:Closed by CECELIA CASSIDY on 09/02/[address] [facility] CNOVon 08-26-2024 CNOV Office Visit (FAMPWS ) DAMON BUI ([id number]) 1960 M Date Time Provider Department 08/26/24 9:20 AM [facility] During your visit today, we recorded the following information about you: Pulse Blood pressure Weight Height 81/minute 136/76 95.7 kg 1.803 m Matt Araiza MD 08/26/2024 9:31 AM Signed Patient presents with: 6 Month Exam HPI: Patient presents today for office visit for follow up. Sees [facility]. Last OV 08/20/24. Most recent lung CT shows multiple new lung nodules. Total 18, all but 3 are new. Largest 5 mm. Smoking approx 8 cigarettes a day. Trying to quit. Denies chest pain. Shortness of breath with exertion. Mentions the only time he really gets short of breath is when going up his steep stairs. They feel it is due to autoimmune process, he has been referred to rheum several times in the past and has not gone. Reinforced th need to do so. HTN: Continues on HCTZ and Lisinopril. Does not monitor his BP. Denies chest pain. SOB with exertion. Denies headaches. Some dizziness if stands up too fast. Rarely occurs. Is overall ok. Has been having palpitations since Jun. Feels intermittently fluttering. Sees Dr. Pastor. Sees him again in December. No syncope. No edema. Thyroid numbers looked ok in Jun. Continues on Levothyroxine 175 mcg daily. Denies any energy, hair or skin changes. Last tsh was 2.610 Got his flu short. Did not do his last thyroid us that was ordered for this year. MEDICATIONS: Current Outpatient Medications Medication Sig omeprazole (PRILOSEC) 20 mg capsule Take 1 capsule by mouth every afternoon. OTC levothyroxine (LEVOXYL) 175 mcg tablet Take 1 tablet by mouth once daily. Take on empty stomach. For Thyroid. hydroCHLOROthiazide 12.5 mg capsule Take 12.5 mg by mouth once daily. lisinopril (ZESTRIL, PRINIVIL) 10 mg tablet Take 10 mg by mouth once daily. Blood Pressure Test Kit-Medium kit 1 Each once daily. acetaminophen (TYLENOL ARTHRITIS PAIN) 650 mg CR tablet Take 650 mg by mouth every 8 hours as needed for Pain. Aspirin 81 mg Tab Take 1 tablet by mouth once daily. Take with food. No current facility-administered medications for this visit. ALLERGIES: ALLERGIES No Known Allergies PAST MEDICAL HISTORY Diagnosis Date Aortic stenosis Arrhythmia 1984 ? SVT-s/p RFA Bicuspid aortic valve HTN (hypertension) Hyperlipidemia 04/23/2014 PAST SURGICAL HISTORY Procedure Laterality Date CHOLECYSTECTOMY 2013 KNEE ARTHROSCOPY 2000 cartilage. L knee. FAMILY HISTORY Problem Relation Age of Onset Heart Brother at 43 from heart attack. Heart Paternal Grandfather Heart Father double bypass surgery, heart attack Cancer Father patient is unsure what type of cancer Diabetes Father Diabetes Brother Heart Paternal Grandmother Cancer Paternal Grandmother Social History Tobacco Use Smoking status: Every Day Current packs/day: 0.50 Average packs/day: 0.5 packs/day for 38.0 years (19.0 ttl pk-yrs) Types: Cigarettes Smokeless tobacco: Never Substance Use Topics Alcohol use: No Comment: quit 1988 Drug use: No Reviewed current medications, allergies, past medical history, surgical history, family history and social history today. REVIEW OF SYSTEMS All other reviewed and negative other than HPI. HEALTH MAINTENANCE: Reviewed health maintenance issues today and recommended the following in detail. Shingrix Vaccine(1 of 2) Never done Pneumococcal Vaccine(2 of 2 - PCV) due on 09/13/2022 Covid-19 Vaccine(2023- season) Never done VITALS: BP 136/76 Pulse 81 Ht 180.3 cm (5' 11") Wt 95.7 kg (211 lb) SpO2 97% BMI 29.43 kg/m? Last 4 Encounter Wt Readings: Date: Wt: 02/14/2024 92.5 kg (204 lb) 05/23/2023 90.7 kg (200 lb) 10/31/2022 86.6 kg (191 lb) 04/28/2022 90.7 kg (200 lb) PHYSICAL EXAMINATION: General appearance: Well appearing, alert, in no acute distress, well-hydrated, well nourished. Skin: Skin color, texture, turgor normal, no suspicious rashes or lesions Head: Normocephalic, no masses, lesions, tenderness or abnormalities Lungs: Lungs clear to auscultation. No wheezing, rhonchi, rales Heart: RRR , murmur unchanged. gallop, or rubs. No ectopy Abdomen: Normal abdominal exam, Abdomen soft, non-tender. Bowel sounds normal. No masses, organomegaly Extremities: has deformities of hands. Musculoskeletal: No joint swelling, deformity, or tenderness Peripheral pulses: Normal Neuro: Negative. ASSESSMENT/PLAN: 1. Primary hypertension - ICD9: 401.9, ICD10: I10 (primary diagnosis) - Controlled - Continue current medications - COMPLETE BLOOD COUNT AND DIFFERENTIAL - COMPREHENSIVE METABOLIC PANEL - LIPID PANEL BASIC 2. H/O cardiac radiofrequency ablation - ICD9: V15.1, ICD10: Z98.890 - doing well. 3. SVT (supraventricular tachycardia) (HCC) - (more content not included)... Normal [facility]-2024 [facility] DAMON [facility]UI ([id number]) 1960 M Date Time Provider Department 08/20/24 [facility] During your visit today, we recorded the following information about you: Marlena Carty LPN 08/20/2024 11:18 AM Signed Anne-Marie jimenez from [facility]. Pt had an appt with ASSET RECOVERY SPECIALIST Lacey Gamble today AND anne-marie is faxing OV notes to PCP. She states the note will include that pt has multiple new lung nodules AND he also has increased joint AND muscle pain AND he has no current nude model. Office to watch for fax. DOTTY Jasso Rilee, MA 08/22/2024 4:20 PM Signed Please review OV notes below. See Pulmonary message. Scan on 08/20/2024 10:25 AM by Provider, External, PRABHJOT: Consultation - Pulmonary ELINA Randolph William J, MD 08/23/2024 7:29 AM Signed Looking over the chart. He has been referred to rheumatology numerous times, the last last of which was just in the last year. Still has current referral placed. If he has not not gone as instructed, still needs set up soon and he needs to follow through with our recommendations. The current referral should still be open. Cecelia Cassidy LPN 08/23/2024 12:02 PM Signed I have this fax printed for his appointment on Monday with PCP. Allergies As of Date: 08/20/2024 (No Known Allergies) Date Reviewed: 02/14/2024 Reviewed by: Diana Fuchs MA - Fully Assessed Reason for Visit: OV notes faxed [Other] Prescriptions as of 08/23/2024 - levothyroxine (LEVOXYL) 175 mcg tablet Take 1 tablet by mouth once daily. Take on empty stomach. For Thyroid. - hydroCHLOROthiazide 12.5 mg capsule Take 12.5 mg by mouth once daily. - lisinopril (ZESTRIL, PRINIVIL) 10 mg tablet Take 10 mg by mouth once daily. - Blood Pressure Test Kit-Medium kit 1 Each once daily. - acetaminophen (TYLENOL ARTHRITIS PAIN) 650 mg CR tablet Take 650 mg by mouth every 8 hours as needed for Pain. - Aspirin 81 mg Tab Take 1 tablet by mouth once daily. Take with food. 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] 10/21/2019 H/O cardiac radiofrequency ablation [Z98.890] 10/21/2019 Thyroid nodule [E04.1] 10/21/2021 Hypothyroidism, acquired [E03.9] 10/21/2021 SVT (supraventricular tachycardia) (HCC) [I47.1*10/21/2021 RUKHSANA (obstructive sleep apnea) [G47.33] 04/28/2022 Atrioventricular manolo re-entry tachycardia (HC*05/23/2023 Diagnosed: 05/23/2023 Body mass index (BMI) of 26.0-26.9 in adult [Z6*09/30/2022 Diagnosed: 05/23/2023 Cholecystitis [K81.9] 05/23/2023 Diagnosed: 05/23/2023 Cigarette smoker [F17.210] 01/25/2022 Diagnosed: 05/23/2023 History of cardiac catheterization [Z98.890] 05/23/2023 Diagnosed: 05/23/2023 History of knee surgery [Z98.890] 05/23/2023 Diagnosed: 05/23/2023 Rheumatoid arthritis with rheumatoid factor of *09/28/2022 05/23/2023 Diagnosed: 05/23/2023 Routine health maintenance [Z00.00] 09/30/2022 Diagnosed: 05/23/2023 Ventricular bigeminy [I49.8] 10/15/2021 Diagnosed: 05/23/2023 Encounter Status:Closed by CECELIA CASSIDY on 08/23/24 Normal [facility] Pulmonary Visit Reporton Pulmonary Visit Report [facility] [place] [address] [place] [address] OFFICE VISIT Date of Service: 08/20/24 MR#: [id number] Acct: [id number] Name: DAMON BUI Rep #: [id number] : 1960 Provider: DEONTE Gamble Age/Sex: 63/M Location: [facility] Status: Signed with Addenda ADDENDUM by Anne-Marie Wellington on 10/08/24 at 1137 Office Procedure Documentation entered by Anne-Marie Wellington 10/08/24 11:37: Smoking Cessation Smoking Cessation 08/20/24. Complicates exam, plan, care and prognosis. If you recall, he had pulmonary function test in January 2024 that was once again normal. He is not currently showing COPD on spirometry. However, given his ongoing smoking at some point the disease progression will likely be evident on testing. Encourage complete smoking cessation. He is not requiring any inhalers at this point. He remains asymptomatic. Time Spent 3-10 minutes: Yes Date cc: Dr. Matt Araiza MD * Signed Assessment and Plan Assessment and Plan (1) Multiple lung nodules on CT: Status: Acute Comment: Total of 18 small nodules, all but 3 are new, largest 5 mm Plan: Deteriorated. Multiple new nodules. The patient does have a history of rheumatoid arthritis that has not been treated. It is possible that these are rheumatoid nodules. However, given his smoking history we also need to consider that this could be malignancy. We will repeat a diagnostic CT of the chest in 3 months. He will then follow-up with Dr. Lopez in 4 months to discuss test results. This case was reviewed today with Dr. Lopez. (2) Smoking greater than 40 pack years: Status: Chronic Comment: smoked 3 ppd for 20 years, now 1/2 ppd Plan: Complicates exam, plan, care and prognosis. If you recall, he had pulmonary function test in January 2024 that was once again normal. He is not currently showing COPD on spirometry. However, given his ongoing smoking at some point the disease progression will likely be evident on testing. Encourage complete smoking cessation. He is not requiring any inhalers at this point. He remains asymptomatic. (3) Rheumatoid arthritis: Status: Chronic Qualifiers: Rheumatoid arthritis location: multiple sites Rheumatoid factor presence: with rheumatoid factor Qualified Code(s): M05.79 - Rheumatoid arthritis with rheumatoid factor of multiple sites without organ or systems involvement Plan: Deteriorated. Given the patient's complaints of increase in muscle and joint pain with the recent CT scan indicating multiple new lung nodules, it appears as though the patient may be experiencing a rheumatoid flare. He is not currently being managed by a nude model. He has an appointment with his primary care doctor on August 26, 2024. He plans to discuss this. He is aware that he needs to establish with a nude model and will likely require some type of immunosuppression. Influenza vaccination provided in the office today. Orders: Orders Chest without Contrast 3 Months R91.8 - Other nonspecific abnormal finding of lung field Influenza Immunization Today I10 - Essential (primary) hypertension, J44.9 - Chronic obstructive pulmonary disease, unspecified Plan Details Follow Up: 4 Months (DMB) HPI 4 M FU Chief Complaint: Test results HPI Comments Details: This patient presents to the office today to discuss test results. He is ambulatory and currently on room air. He has not recently been seen in the ED or urgent care for any respiratory illness. He has not required any antibiotics or prednisone for any breathing problems. He is not currently on any maintenance inhalers. He has not required any albuterol for rescue. He continues to smoke cigarettes. He is currently smoking just under 1/2 pack/day. He denies any difficulty with shortness of breath. He denies any cough, sputum production or hemoptysis. He denies any wheezing, chest tightness, chest pain or palpitations. He also denies any fever, chills or body aches. The patient does report that he has known rheumatoid arthritis. He has never seen a nude model. He states that his primary care doctor wanted to send him out of town". Unfortunately, the local nude model does not accept his insurance. The patient has been experiencing increase in joint and muscle pain recently. Test results personally reviewed the patient: Low-dose CT lung screening completed on July 13, 2024. 3 mm triangular nodule left upper lobe appears new since previous exam. 3 mm nodule left lower lobe appears new. 3 mm groundglass nodule left lower lobe and 2 mm nodule left lower lobe appear new. 3 mm nodule left lower lobe new. 3 mm nodule left lower lobe new. 3 mm nodule within the lingula new. 3 mm nodule left upper lobe new. Two 4 mm groundglass (more content not included)... Normal [facility] Chest without Contraston Chest without Contrast [facility] Imaging Services [address] [place] [address] Chest without Contrast MR#: [id number] Acct: [id number] Name: DAMON BUI Rep #: [id number] : 1960 M Roberta From: Vince Thompson PCP: Dr. Matt Araiza MD Status: [facility] Study: Chest without Contrast Date of Exam: 07/13/24 Exam# [id number] Ordering Dr: Lacey Gamble NP, NP-C ADDENDUM by Dr. Vince Torres MD on 07/21/24 at 0011 ==== ADDENDUM ==== [id number] Emphysema is an independent risk factor for lung cancer. Low dose CT follow-up recommended. Electronically Signed: Vince Torres MD at 0:11 EDT , 07/21/24 001 Date cc: DEONTE Gamble; Dr. Matt Araiza MD * Signed ADDENDUM by Dr. Vince Torres MD on 07/21/[address]/Chest without Contrast IMPRESSION: undefined 07/21/2417 Date cc: DEONTE Gamble; Dr. Matt Araiza MD * Signed [id number] INDICATION: NEW NODULE IN HIGH RISK PATIENT EXAMINATION: CT CHEST WITHOUT CONTRAST - CT Chest W/O Contrast Injection TECHNIQUE: Helically acquired images were obtained of the chest. A radiation dose optimization technique was used for this scan. The protocol utilizes one or more of the following dose reduction techniques: automated exposure control, adjustment of mA and/or kV according to patient size,and/or use of iterative reconstruction technique. IV Contrast dosage and agent: None. COMPARISON: None. FINDINGS: LUNGS, PLEURA AND LARGE AIRWAYS: 3 mm triangular nodule left upper lobe #38 appears new since previous exam. 3 mm nodule left lower lobe image #61 appears new. 3 mm groundglass nodule left lower lobe image #46 and 2 mm nodule left lower lobe image #26. These appear new. 3 mm nodule left lower lobe image #52 appears new. 3 mm nodule left lower lobe image #61 appears new. 3 mm nodule within the lingula image #74 appears new. 3 mm nodule left upper lobe image #38 appears new. 2. 4 mm groundglass nodules left upper lobe image #40 appears new. 5 mm groundglass nodule left upper lobe image #45 appears new. 5 mm groundglass nodule left upper lobe image #60 appears new. 2 mm nodule left lower lobe image #81. 3 x 5 mm groundglass nodule left lower lobe image #90 appears stable. 3 x 5 mm nodule left lower lobe image #94 appears stable. 3 mm nodule right lower lobe image #49. 4 mm nodule right upper lobe image #28 appears new. 4 mm groundglass nodule right upper lobe image #41. New. Bilateral centrilobular and paraseptal emphysema. No pleural effusion or thickening. No pneumothorax. THYROID: No thyroid lesions. HEART AND PERICARDIUM: Heart size is normal. No pericardial effusion. CORONARY ARTERIES: Coronary artery calcification present. VESSELS: Thoracic aorta is not dilated. Prominent stable bilateral axillary lymphadenopathy measuring up to 2.2 cm bilaterally. MEDIASTINUM AND GIN: No mediastinal or hilar adenopathy. Esophagus is unremarkable. No hiatal hernia. UPPER ABDOMEN: No acute pathology. BONES: No suspicious lytic or blastic abnormality. CT/Chest without Contrast IMPRESSION: Multiple new nonspecific small bilateral pulmonary nodules as above. Fleischner Society Guidelines (MacMahon, et al. Radiology 2017; 284(1):228-43) recommend follow-up chest CT in 2 years. Prominent nonspecific stable bilateral axillary lymphadenopathy. Coronary artery disease. Electronically Signed: Vince Torres MD at 23:55 EDT Reading Location ID and State: [employer] / [place] Tel , Service support , CC: DEONTE Gamble; Dr. Matt Araiza MD Welfare Interviewer: Signed Normal [facility] T4/FTI/T4Uon 06-22-2024 FTI 9.4 ug/dL Normal 5.3-10.8 [facility] Comment on above: Order Comment: Speci men Type: BLOOD SPECIMEN Ordering Facility: [facility] Address: [address] [place] [address] Performed By: #### T 4FTI, 3016-3 #### [facility] CLIA [id number] [address] [place] [address] [place] T4 [Mass/Vol] 8.0 ug/dL Normal 5.5-10.2 [facility] Comment on above: Order Comment: Speci men Type: BLOOD SPECIMEN Ordering Facility: [facility] Address: [address] [place] [address] Performed By: #### T 4FTI, 3016-3 #### [facility] CLIA [id number] [address] [place] [address] [place] T4 uptake [Mass/Vol] 0.85 Low 0.91-1.19 [facility] Comment on above: Order Comment: Speci men Type: BLOOD SPECIMEN Ordering Facility: [facility] Address: [address] [place] [address] Performed By: #### T 4FTI, 3016-3 #### [facility] CLIA [id number] [address] [place] [address] [place] TSH SerPl-aCncon 06-22-2024 TSH Qn 2.610 m[IU]/L Normal 0.270-4.200 [facility] Comment on above: Order Comment: Speci men Type: BLOOD SPECIMEN Ordering Facility: [facility] Address: [address] [place] [address] Performed By: #### T 4FTI, 3016-3 #### [facility] CLIA [id number] [address] [place] [address] [place] 12 Lead EKGon 06-21-2024 12 Lead EKG [facility] Cardiovascular Services [address] [place] [address] 12 Lead EKG 06/21/242050 MR#: [id number] Acct: [id number] Name: DAMON BUI Rep #: [id number] : 1960 63 From: Teddy Fuentes MD Attending Dr: Status: DEP ER Ordering Dr: Frank Coles MD Date: 06/21/24 Location: ED Sex: M C Admitted: Test Reason : CP Blood Pressure : / mmHG Vent. Rate : 075 BPM Atrial Rate : 075 BPM P-R Int : 162 ms QRS Dur : 092 ms QT Int : 376 ms P-R-T Axes : 063 -06 047 degrees QTc Int : 419 ms Normal sinus rhythm Normal ECG Confirmed by Teddy Fuentes ([id number]), advertising editor CESARIO RAY ([id number]) on 06/24/2024 11:20:55 AM Referred By: BB Confirmed By:Teddy Fuentes 06/24/24 1121 Date Teddy Fuentes MD CC: Dr. Frank Coles MD; Dr. Matt Araiza MD Signed Normal [facility] CBC W/Diff, Automatedon 06-094 Absolute Lymph 1.97 X10 3/uL Normal 0.83-4.51 [facility] Comment on above: Performed By: #### L 501.2450, L500.4050, L100.0100, L501.5425 #### [facility] [address] [place], [address] Absolute Neut 4.4 X10 3/uL Normal 2.0-7.7 [facility] Comment on above: Performed By: #### L 501.2450, L500.4050, L100.0100, L501.5425 #### [facility] [address] [place], [address] Basophils/100 WBC (Bld) 0.5 % Normal 0-1 [facility] Comment on above: Performed By: #### L 501.2450, L500.4050, L100.0100, L501.5425 #### [facility] [address] [place], [address] Eosinophils/100 WBC (Bld) 2.6 % Normal 0-5 [facility] Comment on above: Performed By: #### L 501.2450, L500.4050, L100.0100, L501.5425 #### [facility] [address] [place], [address] Erythrocyte distribution width (RBC) [Ratio] 13.1 % Normal 11.6-14.6 [facility] Comment on above: Performed By: #### L 501.2450, L500.4050, L100.0100, L501.5425 #### [facility] [address] [place], [address] Hematocrit (Bld) [Volume fraction] 41.9 % Normal 40-54 [facility] Comment on above: Performed By: #### L 501.2450, L500.4050, L100.0100, L501.5425 #### [facility] [address] [place], [address] Hemoglobin (Bld) [Mass/Vol] 13.7 g/dL Normal 13.0-16.5 [facility] Comment on above: Performed By: #### L 501.2450, L500.4050, L100.0100, L501.5425 #### [facility] [address] [place], [address] IG% 0.700 Normal 0.0-0.9 [facility] Comment on above: Result Comment: IG% - Immature Granulocytes (promyelocytes, myelocytes and metamyelocytes) > 1% indicates that a LEFT SHIFT is Present. Performed By: #### L 501.2450, L500.4050, L100.0100, L501.5425 #### [facility] [address] [place], [address] Lymphocytes/100 WBC (Bld) 26.7 % Normal 19-41 [facility] Comment on above: Performed By: #### L 501.2450, L500.4050, L100.0100, L501.5425 #### [facility] [address] [place], [address] MCH (RBC) [Entitic mass] 29.1 pg Normal 27.0-32.0 [facility] Comment on above: Performed By: #### L 501.2450, L500.4050, L100.0100, L501.5425 #### [facility] [address] [place], [address] MCHC (RBC) [Mass/Vol] 32.7 g/dL Normal 32-36 [facility] Comment on above: Performed By: #### L 501.2450, L500.4050, L100.0100, L501.5425 #### [facility] [address] [place], [address] MCV (RBC) [Entitic vol] 89.1 fL Normal 80-94 [facility] Comment on above: Performed By: #### L 501.2450, L500.4050, L100.0100, L501.5425 #### [facility] [address] [place], [address] Monocytes/100 WBC (Bld) 10.4 % High 0-10 [facility] Comment on above: Performed By: #### L 501.2450, L500.4050, L100.0100, L501.5425 #### [facility] [address] [place], [address] Neutrophils/100 WBC (Bld) 59.1 % Normal 47-70 [facility] Comment on above: Performed By: #### L 501.2450, L500.4050, L100.0100, L501.5425 #### [facility] [address] [place], [address] Nucleated RBC (Bld) [#/Vol] 0 10*3/uL Normal 0-5 [facility] Comment on above: Performed By: #### L 501.2450, L500.4050, L100.0100, L501.5425 #### [facility] [address] [place], [address] Platelet mean volume (Bld) [Entitic vol] 10.4 fL Normal 6.2-12.0 [facility] Comment on above: Performed By: #### L 501.2450, L500.4050, L100.0100, L501.5425 #### [facility] [address] [place], [address] Platelets (Bld) [#/Vol] 226 10*3/uL Normal 150-450 [facility] Comment on above: Performed By: #### L 501.2450, L500.4050, L100.0100, L501.5425 #### [facility] [address] [place], [address] RBC (Bld) [#/Vol] 4.70 10*6/uL Normal 4.6-6.2 [facility] Comment on above: Performed By: #### L 501.2450, L500.4050, L100.0100, L501.5425 #### [facility] [address] [place], [address] RDW SD 43.1 fl Normal 35.1-43.9 [facility] Comment on above: Performed By: #### L 501.2450, L500.4050, L100.0100, L501.5425 #### [facility] [address] [place], [address] WBC (Bld) [#/Vol] 7.4 10*3/uL Normal 4.4-11.0 [facility] Comment on above: Performed By: #### L 501.2450, L500.4050, L100.0100, L501.5425 #### [facility] [address] [place], [address] Chest 1 View (Portable)on Chest 1 View (Portable) [facility] Imaging Services [address] [place] [address] Chest 1 View (Portable) MR#: [id number] Acct: [id number] Name: DAMON BUI Rep #: [id number] : 1960 M 63 From: Andrew Ashraf DO PCP: Dr. Matt Araiza MD Status: [facility] ER Study: Chest 1 View (Portable) Date of Exam: 06/21/24 Exam# [id number] Ordering Dr: [place] [id number] INDICATION: chest pain EXAMINATION/TECHNIQUE: X-RAY - XR Chest 1 View COMPARISON: October 06, 2021 FINDINGS: LINES/DEVICES: None. LUNGS: No consolidation, edema or effusion. No pneumothorax. MEDIASTINUM AND CARDIOVASCULAR STRUCTURES: Cardiac silhouette not enlarged. Central airways and mediastinal contour are unremarkable. BONES AND SOFT TISSUES: Unremarkable. RAD/Chest 1 View (Portable) IMPRESSION: No radiographic evidence of acute cardiopulmonary disease. Electronically Signed: Andrew Ashraf DO at 21:44 EDT , CC: Dr. Frank Coles MD; Dr. Matt Araiza MD Welfare Interviewer: Signed Normal [facility] Comprehensive Metabolic Prof ilon 06-21-2024 Albumin [Mass/Vol] 3.6 g/dL Normal 3.2-5.0 [facility] Comment on above: Order Comment: 1 Y Performed By: #### L 501.2450, L500.4050, L100.0100, L501.5425 #### [facility] [address] [place], [address] Albumin/Globulin [Mass ratio] 0.9 {ratio} Normal 0.9-2.4 [facility] Comment on above: Order Comment: 1 Y Performed By: #### L 501.2450, L500.4050, L100.0100, L501.5425 #### [facility] [address] [place], [address] ALK P 87 U/L Normal 45-117 [facility] Comment on above: Order Comment: 1 Y Performed By: #### L 501.2450, L500.4050, L100.0100, L501.5425 #### [facility] [address] [place], [address] ALT [Catalytic activity/Vol] 13 U/L Low 16-61 [facility] Comment on above: Order Comment: 1 Y Performed By: #### L 501.2450, L500.4050, L100.0100, L501.5425 #### [facility] [address] [place], [address] AST [Catalytic activity/Vol] 12 U/L Low 15-37 [facility] Comment on above: Order Comment: 1 Y Performed By: #### L 501.2450, L500.4050, L100.0100, L501.5425 #### [facility] [address] [place], [address] Bilirubin [Mass/Vol] 0.20 mg/dL Normal 0.20-1.00 [facility] Comment on above: Order Comment: 1 Y Result Comment: For patients on eltrombopag therapy, use of Dimension Adair TBIL is not recommended. Performed By: #### L 501.2450, L500.4050, L100.0100, L501.5425 #### [facility] [address] [place], [address] BUN/CRE 13.6 RATIO Normal 10-20 [facility] Comment on above: Order Comment: 1 Y Performed By: #### L 501.2450, L500.4050, L100.0100, L501.5425 #### [facility] [address] [place], [address] CA,Total 8.9 mg/dL Normal 8.5-10.1 [facility] Comment on above: Order Comment: 1 Y Performed By: #### L 501.2450, L500.4050, L100.0100, L501.5425 #### [facility] [address] [place], [address] Chloride [Moles/Vol] 107 mmol/L Normal 98-107 [facility] Comment on above: Order Comment: 1 Y Performed By: #### L 501.2450, L500.4050, L100.0100, L501.5425 #### [facility] [address] [place], [address] CO2 [Moles/Vol] 29.0 mmol/L Normal 21.0-32.0 [facility] Comment on above: Order Comment: 1 Y Performed By: #### L 501.2450, L500.4050, L100.0100, L501.5425 #### [facility] [address] [place], [address] Creatinine [Mass/Vol] 1.03 mg/dL Normal 0.70-1.30 [facility] Comment on above: Order Comment: 1 Y Result Comment: The validity of the calculated GFR GFRAA in patients over 70 years has not been determined. Clinical correlation is essential. Performed By: #### L 501.2450, L500.4050, L100.0100, L501.5425 #### [facility] [address] [place], [address] ECRCL 86.37 ml/min Normal [facility] Comment on above: Order Comment: 1 Y Performed By: #### L 501.2450, L500.4050, L100.0100, L501.5425 #### [facility] [address] [place], [address] EST GFR - AA 94 mL/min Normal >60 [facility] Comment on above: Order Comment: 1 Y Result Comment: Afri can Iraqi GFR Calc Performed By: #### L 501.2450, L500.4050, L100.0100, L501.5425 #### [facility] [address] [place], [address] GAP 5 Normal 5-15 [facility] Comment on above: Order Comment: 1 Y Performed By: #### L 501.2450, L500.4050, L100.0100, L501.5425 #### [facility] [address] [place], [address] GFR/1.73 sq M.predicted among non-blacks MDRD (S/P/Bld) [Vol rate/Area] 77 mL/min/{1.73_m2} Normal >60 [facility] Comment on above: Order Comment: 1 Y Result Comment: Non- GFR Calc Performed By: #### L 501.2450, L500.4050, L100.0100, L501.5425 #### [facility] [address] [place], [address] Globulin (S) [Mass/Vol] 4.0 g/dL Normal 2.2-4.2 [facility] Comment on above: Order Comment: 1 Y Performed By: #### L 501.2450, L500.4050, L100.0100, L501.5425 #### [facility] [address] [place], [address] Glucose [Mass/Vol] 102 mg/dL Normal 74-106 [facility] Comment on above: Order Comment: 1 Y Result Comment: Fast ing Glucose result from 100 to 125 mg/dL suggests IMPAIRED HOMEOSTASIS per A.D.A. criteria. Performed By: #### L 501.2450, L500.4050, L100.0100, L501.5425 #### [facility] [address] [place], [address] Potassium [Moles/Vol] 3.9 mmol/L Normal 3.5-5.1 [facility] Comment on above: Order Comment: 1 Y Performed By: #### L 501.2450, L500.4050, L100.0100, L501.5425 #### [facility] [address] [place], [address] Sodium [Moles/Vol] 141 mmol/L Normal 136-145 [facility] Comment on above: Order Comment: 1 Y Performed By: #### L 501.2450, L500.4050, L100.0100, L501.5425 #### [facility] [address] [place], [address] T PROT 7.6 g/dL Normal 6.4-8.2 [facility] Comment on above: Order Comment: 1 Y Performed By: #### L 501.2450, L500.4050, L100.0100, L501.5425 #### [facility] [address] [place], [address] Urea nitrogen [Mass/Vol] 14 mg/dL Normal 7-18 [facility] Comment on above: Order Comment: 1 Y Performed By: #### L 501.2450, L500.4050, L100.0100, L501.5425 #### [facility] [address] [place], [address] Emergency Department Summary on 06-21-2024 Emergency Department Summary [facility] Medical Records Department [address] [facility] [place] [address] Emergency Department Summary 06/21/24 MR#: [id number] Acct: [id number] Name: DAMON BUI Rep #: [id number] : 1960 63 From: Frank Coles MD PCP: Dr. Matt Araiza MD Status:REG ER Location: ED HPI History of Present Illness Chief Complaint: Chest Pain Informant: patient Narrative Narrative: Patient presents by EMS. He has epigastric discomfort that has been there for 3 to 4 days. No associated nausea, vomiting, back discomfort, pleuritic component, dyspnea, or changes with meals, position, or exertion. He states he thinks it feels like reflux that he has a history of but takes nothing for. When asked why he is not on anything for, he states he is not sure. When asked why he came by ambulance tonight for this discomfort that has been constant for 3 to 4 days, he states because he was having a cigarette when he suddenly felt palpitations that lasted for only 3-4 beats, no associated dyspnea, lightheadedness, syncope, or chest pain, and although he states he has had this before off and on as well, for some time, he states he was concerned that may be it was that irregular heartbeat again." He states it is not there now. [facility] Medical History Acid reflux Nonrheumatic aortic (valve) stenosis Thyroid nodule Thyromegaly Hyperthyroidism AVNRT (AV manolo re-entry tachycardia) Essential hypertension Rheumatoid arthritis HLD (hyperlipidemia) WPW (Fxyzh-Uylimecuj-Emtnt syndrome) Home Medications ???Medication ???Instructions ???Recorded ???Last Taken ???Type aspirin 81 mg chewable tablet 81 mg PO DAILY 10/25/13 Unknown History acetaminophen 650 mg 650 mg PO Q12H 06/01/20 Unknown History tablet,extended release (Tylenol Arthritis Pain) hydrochlorothiazide 12.5 mg capsule 12.5 mg PO DAILY #90 caps 02/05/24 Unknown Rx lisinopril 10 mg tablet 10 mg PO DAILY #30 tabs 04/10/24 Unknown Rx levothyroxine 137 mcg tablet 150 mcg PO QDAY 05/06/24 Unknown History omeprazole 20 mg capsule,delayed 20 mg PO DAILY #30 CAPSULES 06/21/24 Unknown Rx release Allergy/AdvReac Type Severity Reaction Status Date / Time No Known Allergies Allergy Verified 06/21/24 20:52 Family History Brother Myocardial infarction Diabetes Father Heart disease Diabetes Cancer stomach Grandmother Heart disease Cancer stomach Surgical History History of cardiac radiofrequency ablation (RFA) (1999) History of cholecystectomy (2014) History of arthroscopic knee surgery (2000) H/O arthroscopic knee surgery Social History Smoking Status: Current every day smoker tobacco type: cigarettes alcohol intake: never substance use type: does not use caffeine: Yes Type: coffee Number of servings: 4 ROS ROS ED Constitutional Constitutional ED: Denies chills or fever(s) Eyes Eyes: Denies change in vision or diplopia ENT ENT ED: Denies rhinorrhea or sore throat Cardiovascular Cardiovascular: Reports palpitations; Denies chest pain Respiratory/Chest Respiratory/Chest: Denies cough or dyspnea Gastrointestinal Gastrointestinal: Reports abdominal pain; Denies diarrhea, nausea or vomiting Genitourinary Genitourinary ED: Denies dysuria or hematuria Musculoskeletal Musculoskeletal: Denies back pain or neck pain Integumentary Denies abscess or rash Neurologic Neurologic: Denies headache(s), paresthesias or weakness Psychiatric Psychiatric: Denies anxiety or suicidal thoughts EXAM Physical Exam Const Vital Signs: 06/21/24 20:52 06/21/24 20:56 06/21/24 21:42 Temperature 98.5 F Temperature Source Oral Pulse Rate 80 Respiratory Rate 14 Respiratory Effort Normal Non-Labored Blood Pressure 177/93 H Blood Pressure Mean 121 Pulse Ox Oxygen Delivery Method Room Air 06/21/24 21:47 06/21/24 22:00 06/21/24 23:00 Temperature Temperature Source Pulse Rate 74 68 66 Respiratory Rate 14 12 12 Respiratory Effort Blood Pressure 127/81 H 145/88 H Blood Pressure Mean 95 107 Pulse Ox 99 Oxygen Delivery Method Room Air Positive well nourished and well developed General Appearance ED: well developed and NAD HEENT Reports moist mucous membranes normocephalic and atraumatic Eyes PERRL and EOMs intact bilaterally Neck full ROM and supple Resp normal respiratory effort and clear to auscultation bilaterally Cardio regular rate, regular rhythm and no murmurs GI non-tender and non-distended Auscultation: normoactive bowel sounds Palpation: soft Back/Spine (more content not included)... Normal [facility] L501.5425on 06-21-2024 TROPONIN-I HS 6 pg/mL Normal 3.0-78.0 [facility] Comment on above: Order Comment: 1 Y Result Comment: Adamaris pham Note: New Test Units and Gender Specific Reference Ranges. For more information see Policy Stat Procedure Adair High Sensitivity Troponin (TNIH) and attachments. Performed By: #### L 501.4090, L500.4050, L100.0100, L501.5425 #### [facility] [address] [place], [address] Lipaseon 06-21-2024 Lipase [Catalytic activity/Vol] 42 U/L Normal 13-75 [facility] Comment on above: Order Comment: 1 Y Result Comment: Adamaris pham note: LIPASE revised reference range effective 23. New Lipase methodology. Expected to produce lower values than the previous assay method. NEW Reference Range: 13 - 75 U/L Performed By: #### L 501.2450, L500.4050, L100.0100, L501.5425 #### [facility] [place], [address] [facility] 05-06-2024 [facility] Telephone ([facility]) DAMON BUI ([id number]) 1960 M Date Time Provider Department 05/06/24 MATT ARAIZA [facility] During your visit today, we recorded the following information about you: Matt Araiza MD 05/06/2024 3:06 PM Signed Thyroid is just borderline. Change synthroid to 175 mcg a day and recheck tsh in six weeks. Make sure taking on an empty stomach Anna Parsons RN 05/06/2024 3:11 PM Signed Pt called and is notified of providers results and instructions. Pt voices understanding. He states he even waits 2 hours before he eats breakfast. Anna Parsons RN Allergies As of Date: 05/06/2024 (No Known Allergies) Date Reviewed: 02/14/2024 Reviewed by: Diana Fuchs MA - Fully Assessed Reason for Visit: Results [95] Visit Diagnosis:Hypothyroidis m, acquired [E03.9] Order(s):levothyroxine (LEVOXYL) 175 mcg tabletTake 1 tablet by mouth once daily. Take on empty stomach. For Thyroid.Disp: 90 tabletRfl: 3 THYROID STIMULATING HORMONE [SQTSH] Order #: [id number] FUTURE T4/FTI/T4U [ZYA6LAE] Order #: [id number] FUTURE Prescriptions as of 05/06/2024 - levothyroxine (LEVOXYL) 175 mcg tablet Take 1 tablet by mouth once daily. Take on empty stomach. For Thyroid. - hydroCHLOROthiazide 12.5 mg capsule Take 12.5 mg by mouth once daily. - lisinopril (ZESTRIL, PRINIVIL) 10 mg tablet Take 10 mg by mouth once daily. - Blood Pressure Test Kit-Medium kit 1 Each once daily. - acetaminophen (TYLENOL ARTHRITIS PAIN) 650 mg CR tablet Take 650 mg by mouth every 8 hours as needed for Pain. - Aspirin 81 mg Tab Take 1 tablet by mouth once daily. Take with food. 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] 10/21/2019 H/O cardiac radiofrequency ablation [Z98.890] 10/21/2019 Thyroid nodule [E04.1] 10/21/2021 Hypothyroidism, acquired [E03.9] 10/21/2021 SVT (supraventricular tachycardia) (HCC) [I47.1*10/21/2021 RUKHSANA (obstructive sleep apnea) [G47.33] 04/28/2022 Atrioventricular manolo re-entry tachycardia (HC*05/23/2023 Body mass index (BMI) of 26.0-26.9 in adult [Z6*09/30/2022 Cholecystitis [K81.9] 05/23/2023 Cigarette smoker [F17.210] 01/25/2022 History of cardiac catheterization [Z98.890] 05/23/2023 History of knee surgery [Z98.890] 05/23/2023 Rheumatoid arthritis with rheumatoid factor of *09/28/2022 05/23/2023 Routine health maintenance [Z00.00] 09/30/2022 Ventricular bigeminy [I49.8] 10/15/2021 Prescriptions ordered this encounter Disp Refills Start End LEVOTHYROXINE 175 MCG TABLET 90 t* 3 05/06/2024 05/06/2025 Class: Med Update Route: ORAL Sig: Take 1 tablet by mouth once daily. Take on empty stomach. For Thyroid. Medications Discontinued During This Encounter Prescriptions - levothyroxine (LEVOXYL) 150 mcg tablet (Discontinued) Take 1 tablet by mouth once daily. Take on empty stomach. For Thyroid. Encounter Status:Closed by ANNA PARSONS on 05/06/24 Normal [facility] Pulmonary Visit Reporton Pulmonary Visit Report [facility] Pulmonary Medicine of [address] [place] [address] OFFICE VISIT Date of Service: 05/06/24 MR#: [id number] Acct: [id number] Name: DAMON BUI Rep #: [id number] : 1960 Provider: DEONTE Gamble Age/Sex: 63/M Location: [facility] Status: Signed Assessment and Plan Assessment and Plan (1) Lung nodule: Status: Acute Plan: New, high risk patient. Follow with diagnostic CT chest in 6 months. Ordered for July. Follow up in August to discuss test results. (2) RUKHSANA (obstructive sleep apnea): Status: Chronic Comment: Unable to tolerate, returned device Plan: Noncompliant (3) Smoking greater than 40 pack years: Status: Chronic Comment: smoked 3 ppd for 20 years, now 1/2 ppd Plan: He does not have COPD at this time. Highly encouraged to quit smoking. He stated he will "try next month" to quit. Orders: Orders Chest without Contrast 07/09/24 R91.1 - Solitary pulmonary nodule Plan Details Follow Up: 08/09/24 ([facility]) HPI 6 M FU Chief Complaint: Test results HPI Comments Details: This patient presents to the office today to discuss test results. He is ambulatory and currently on room air. He has not recently been seen in the ED or urgent care for any respiratory illness. He has not required any antibiotics or prednisone for any breathing problems. He is not currently on any maintenance inhalers. He has not required any albuterol for rescue. He continues to smoke cigarettes. He is currently smoking about 1/2 pack/day. He denies any difficulty with shortness of breath. He denies any cough, sputum production or hemoptysis. He denies any wheezing, chest tightness, chest pain or palpitations. He also denies any fever, chills or body aches. Test results personally reviewed the patient: Pulmonary function test completed on January 09, 2024. Impression is grossly normal. Walking oximetry completed on January 16, 2024. The patient was able to ambulate total of 918 feet over the course of 6 minutes. He did not become hypoxic and does not currently require any supplem ental oxygen. Low-dose CT lung screening completed on February 02, 2024. Mild emphysematous changes in the lung apices. Noncalcified nodule in the left lower lobe laterally measuring 5 mm. Recommend repeating LDCT in 6 months. Intake Vital Signs 08/23/23 07:48 02/05/24 09:27 05/06/24 07:58 Height 5 ft 11 in 5 ft 11 in 5 ft 11 in Weight: 205 lb 207 lb BMI 28.5 28.8 BP 133/79 H 113/69 Blood Pressure Location Lt brachial Lt brachial Position Sitting Sitting Respiration 18 16 Pulse 74 71 Pulse Source NIBP Monitor Temp 97.3 F L Temperature Source Temporal Artery Pulse Oximetry (%) 97 Oxygen Delivery Method room air Intake Visit Reasons: 6 M FU Chief Complaint: RUKHSANA [employer] Required: No DME Vendor: N/A Accompanied by: Self Allergies No Known Allergies Allergy (Verified 05/06/24 12:57) Medications ???Medication ???Instructions ???Recorded ???Confirmed ???Type aspirin 81 mg chewable tablet 81 mg PO DAILY 10/25/13 05/06/24 History acetaminophen 650 mg 650 mg PO Q12H 06/01/20 05/06/24 History tablet,extended release (Tylenol Arthritis Pain) hydrochlorothiazide 12.5 mg capsule 12.5 mg PO DAILY #90 caps 02/05/24 05/06/24 Rx lisinopril 10 mg tablet 10 mg PO DAILY #30 tabs 04/10/24 05/06/24 Rx levothyroxine 137 mcg tablet 150 mcg PO QDAY 05/06/24 05/06/24 History PFSH Medical History Nonrheumatic aortic (valve) stenosis Thyroid nodule Thyromegaly Hyperthyroidism AVNRT (AV manolo re-entry tachycardia) Essential hypertension Rheumatoid arthritis HLD (hyperlipidemia) WPW (Blfbs-Rptcsfmrn-Qqbzi syndrome) Surgical History History of cardiac radiofrequency ablation (RFA) (1999) History of cholecystectomy (2014) History of arthroscopic knee surgery (2000) H/O arthroscopic knee surgery Family History Brother Myocardial infarction Diabetes Father Heart disease Diabetes Cancer stomach Grandmother Heart disease Cancer stomach Social History Smoking Status: Current every day smoker tobacco type: cigarettes alcohol intake: never substance use type: does not use caffeine: Yes Type: coffee Number of servings: 4 Exam Const Constitutional: Positive conversant, cooperative, in no acute respiratory distress, well developed, well nourished, good hygiene and smells of smoke Head Head: Yes normocephalic, Yes atraumatic and No cyanosis of lips/distal nose Eyes Eye: Positive clear conjunctiva; Negative nystagmus or scleral abnormal (more content not included)... Normal [facility] TSH SerPl-aCncon 05-04-2024 TSH Qn 4.760 m[IU]/L High 0.270-4.200 [facility] Comment on above: Order Comment: Speci men Type: BLOOD SPECIMEN Ordering Facility: [facility] Address: [address] [place] [address] Performed By: #### T 4FTI, 3016-3 #### [facility] CLIA [id number] [address] [place] [address] [place] [address] [place] Kaleb 03-18-2024 [facility] DAMON BUI ([id number]) 1960 M Date Time Provider Department 03/18/24 MATT ARAIZA During your visit today, we recorded the following information about you: Matt Araiza MD 03/18/2024 11:15 AM Signed Thyroid is still low. Make sure taking on empty stomach. Increase synthroid to 150 mcg a day . Recheck tsh in six weeks. Cecelia Cassidy LPN 03/18/2024 12:44 PM Signed Patient notified and verbalizes understanding. Is taking on an empty stomach and waiting to eat. Allergies As of Date: 03/18/2024 (No Known Allergies) Date Reviewed: 02/14/2024 Reviewed by: Diana Fuchs MA - Fully Assessed Reason for Visit: Results [95] Visit Diagnosis:Hypothyroidis m, acquired [E03.9] Order(s):levothyroxine (LEVOXYL) 150 mcg tabletTake 1 tablet by mouth once daily. Take on empty stomach. For Thyroid.Disp: 30 tabletRfl: 11 THYROID STIMULATING HORMONE [SQTSH] Order #: [id number] FUTURE Prescriptions as of 03/18/2024 - levothyroxine (LEVOXYL) 150 mcg tablet Take 1 tablet by mouth once daily. Take on empty stomach. For Thyroid. - hydroCHLOROthiazide 12.5 mg capsule Take 12.5 mg by mouth once daily. - lisinopril (ZESTRIL, PRINIVIL) 10 mg tablet Take 10 mg by mouth once daily. - Blood Pressure Test Kit-Medium kit 1 Each once daily. - acetaminophen (TYLENOL ARTHRITIS PAIN) 650 mg CR tablet Take 650 mg by mouth every 8 hours as needed for Pain. - Aspirin 81 mg Tab Take 1 tablet by mouth once daily. Take with food. 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] 10/21/2019 H/O cardiac radiofrequency ablation [Z98.890] 10/21/2019 Thyroid nodule [E04.1] 10/21/2021 Hypothyroidism, acquired [E03.9] 10/21/2021 SVT (supraventricular tachycardia) (HCC) [I47.1*10/21/2021 RUKHSANA (obstructive sleep apnea) [G47.33] 04/28/2022 Atrioventricular manolo re-entry tachycardia (HC*05/23/2023 Body mass index (BMI) of 26.0-26.9 in adult [Z6*09/30/2022 Cholecystitis [K81.9] 05/23/2023 Cigarette smoker [F17.210] 01/25/2022 History of cardiac catheterization [Z98.890] 05/23/2023 History of knee surgery [Z98.890] 05/23/2023 Rheumatoid arthritis with rheumatoid factor of *09/28/2022 05/23/2023 Routine health maintenance [Z00.00] 09/30/2022 Ventricular bigeminy [I49.8] 10/15/2021 Prescriptions ordered this encounter Disp Refills Start End LEVOTHYROXINE 150 MCG TABLET 30 t* 11 03/18/2024 03/18/2025 Route: ORAL Sig: Take 1 tablet by mouth once daily. Take on empty stomach. For Thyroid. Medications Discontinued During This Encounter Prescriptions - levothyroxine (LEVOXYL) 137 mcg tablet (Discontinued) Take 1 tablet by mouth once daily. Take on empty stomach. For Thyroid Encounter Status:Closed by CECELIA CASSIDY on 03/18/24 Normal [facility] TSH SerPl-aCncon 03-16-2024 TSH Qn 6.770 m[IU]/L High 0.270-4.200 [facility] Comment on above: Order Comment: Speci men Type: BLOOD SPECIMEN Ordering Facility: [facility] Address: [address] [place] [address] [place] [address] Performed By: #### T 4FTI, 3016-3 #### [facility] CLIA [id number] [address] [place] [address] [place] Basophil percentageOrdered B y: Dr. Pastor on 01-03-2023 Bilirubin [Mass/Vol] 0.30 mg/dL 0.20-1.00 [facility] Comment on above: For patients on eltr ombopag therapy, use of Dimension Adair TBIL is not recommended. Cholesterol [Mass/Vol] 146 mg/dL <200 [facility] Comment on above: <200 mg/dL Desirable 200-240 mg/dL Borderline >240 mg/dL High Risk Protein [Mass/Vol] 8.3 g/dL 6.4-8.2 [facility] Triglyceride [Mass/Vol] 89 mg/dL <199 [facility] Comment on above: The drugs N-Acetylcy steine and Metamizole may falsely depress this assay.Serum Triglycerides Reference Interval Normal <150 mg/dL Borderline high 150 - 199 mg/dL High 200 - 499 mg/dL Very High > or = 500 mg/dL Direct bilirubinOrdered By: Dr. Pastor on 01-03-2023 Bilirubin.direct [Mass/Vol] 0.07 mg/dL 0.00-0.30 [facility] - Chemistry and C hemistry - challengeOrdered By: Dr. Pastor on 01-03-2023 ALP [Catalytic activity/Vol] 84 U/L 45-117 [facility] ALT [Catalytic activity/Vol] 14 U/L 16-61 [facility] Globulin (S) [Mass/Vol] 4.7 g/dL 2.2-4.2 [facility] Serum or plasma albumin ac urement (mass/volume)Ordered By: Dr. Pastor on 01-03-2023 Albumin [Mass/Vol] 3.6 g/dL 3.2-5.0 [facility] Serum or plasma cholesterol in HDL measurement (mass/volume)Ordered By: Dr. Pastor on 01-03-2023 Cholesterol in HDL [Mass/Vol] 39 mg/dL >40 [facility] Comment on above: The drugs N-Acetylcy steine and Metamizole may falsely depress this assay. Reference Range HDL <40 mg/dL Low HDL Cholesterol HDL >or= 60 mg/dL High HDL Cholesterol Serum or plasma cholesterol in VLDL measurement (mass/volume)Ordered By: Dr. Pastor on 01-03-2023 Cholesterol in VLDL [Mass/Vol] 18 mg/dL 5-40 [facility] Serum or plasma low density lipoprotein (LDL) cholesterol measurement (mass/volume)Ordered By: Dr. Pastor on 01-03-2023 Cholesterol in LDL [Mass/Vol] 89 mg/dL 0-130 [facility] Thin prep Papanicolaou smear with manual screeningOrdered By: Dr. Pastor on 01-03-2023 Thin prep Papanicolaou smear with manual screening 15 U/L 15-37 [facility] US THYROID/PARATHYROIDon [facility] No Panel Informationon 04-25 Thyroid Stimulating Hormone (TSH) 3.61 uIU/mL 0.358-3.74 [facility] Work Phone: TSH (EXTERNAL)on 04-25-2022 TSH 3.61 IU/ml 0.2 - 5.6 IU/ml [facility] - Chemistry and C hemistry - challengeon 01-15-2022 Free T4 [Mass/Vol] 1.13 ng/dL 0.76-1.46 [facility] Work Phone: No Panel Informationon 01-15 Free Triiodothyronine (T3) pg/dL 2.5 pg/mL 2.18-3.98 [facility] Work Phone: Thyroid Stimulating Hormone (TSH) 9.06 uIU/mL 0.358-3.74 [facility] Work Phone: TSH (EXTERNAL)on 01-15-2022 TSH 9.06 IU/ml Abnormal 0.2 - 5.6 IU/ml [facility] XR Ankle - right AP and Late ral and obliqueon 12-02-2021 IMPRESSION:No eviden ce of osseous, articular or soft tissue abnormality. Welfare Interviewer: SANTHOSH Transcribe Date/Time: Dec 02 2021 3:49P Dictated by : ANJU RAMEY MD This examination was interpreted and the report reviewed and electronically signed by: ANJU RAMEY MD on Dec 02 2021 3:50PM EST DIVISION OF RADIOLOGY * * *Final Report* * * DATE OF EXAM: Dec 02 2021 3:32PM [id number] - XR ANKLE 3V AP/LAT/OBL RT / PROCEDURE REASON: multiple diagnoses * * * * Physician Interpretation * * * * EXAM:XR ANKLE 3V AP/LAT/OBL RT HISTORY: Chronic pain of right ankle Chronic pain of right ankle COMPARISON:None DIVISION OF RADIOLOGY Provider, [facility] Madyson walker Clever - 12/02/2021 * * *Final Report* * * DATE OF EXAM: Dec 02 2021 3:32PM WOX [id number] - XR ANKLE 3V AP/LAT/OBL RT / PROCEDURE REASON: multiple diagnoses * * * * Physician Interpretation * * * * EXAM:XR ANKLE 3V AP/LAT/OBL RT HISTORY: Chronic pain of right ankle Chronic pain of right ankle COMPARISON:None IMPRESSION IMPRESSION:No evidence of osseous, articular or soft tissue abnormality. Welfare Interviewer: SANTHOSH Transcribe Date/Time: Dec 02 2021 3:49P Dictated by : ANJU RAMEY MD This examination was interpreted and the report reviewed and electronically signed by: ANJU RAEMY MD on Dec 02 2021 3:50PM [facility] Radiology Study observation (narrative) [facility] XR Ankle - right AP and Late ral and obliqueOrdered By: Cc Provider on 12-02-2021 [facility] Absolute lymphocyte counton 10-06-2021 Lymphocytes Auto (Unsp spec) [#/Vol] 1.55 10*3/uL 0.83-4.51 [facility] Work Phone: Basophil percentageon 2020 Chloride [Moles/Vol] 106 mmol/L 98-107 [facility] Work Phone: Eosinophils/100 WBC (Bld) 2.6 % 0-5 [facility] Work Phone: Glucose [Mass/Vol] 112 mg/dL 74-106 [facility] Work Phone: Comment on above: Fasting Glucose resu lt from 100 to 125 mg/dL suggests IMPAIRED HOMEOSTASIS per A.D.A. criteria.Please note revised GLUCOSE reference range effective 2017. Neutrophils (Bld) [#/Vol] 4.0 10*3/uL 2.0-7.7 [facility] Work Phone: Potassium [Moles/Vol] 4.0 mmol/L 3.5-5.1 [facility] Work Phone: Comment on above: Moderate Hemolysis, Result may be falsely increased. Sodium [Moles/Vol] 140 mmol/L 136-145 [facility] Work Phone: WBC (Bld) [#/Vol] 6.5 10*3/uL 4.4-11.0 [facility] Work Phone: Blood erythrocytes count (nu mber/volume)on 10-06-2021 RBC (Bld) [#/Vol] 4.39 10*6/uL 4.6-6.2 [facility] Work Phone: Blood hemoglobin measurement (mass/volume)on 10-06-2021 Hemoglobin (Bld) [Mass/Vol] 13.3 g/dL 13.0-16.5 [facility] Work Phone: Blood lymphocytes/100 leukoc yteson 10-06-2021 Lymphocytes/100 WBC (Bld) 23.7 % 19-41 [facility] Work Phone: Blood monocytes/100 leukocyt eson 10-06-2021 Monocytes/100 WBC (Bld) 11.3 % 0-10 [facility] Work Phone: Blood platelet mean volumeon 10-06-2021 Platelet mean volume (Bld) [Entitic vol] 10.7 fL 6.2-12.0 [facility] Work Phone: Determination of erythrocyte mean corpuscular volume (MCV)on 10-06-2021 MCV (RBC) [Entitic vol] 89.3 fL 80-94 [facility] Work Phone: Hematocrit Auto (Bld) [Volum e fraction]on 10-06-2021 Hematocrit (Bld) [Volume fraction] 39.2 % 40-54 [facility] Work Phone: Laboratory - Chemistry and C hemistry - challengeon 10-06-2021 CO2 [Moles/Vol] 29.0 mmol/L 21.0-32.0 [facility] Work Phone: Urea nitrogen/Creatinine [Mass ratio] 18.3 mg/mg 10-20 [facility] Work Phone: Laboratory - Hematology and Cell countson 10-06-2021 Basophils/100 WBC (Unsp spec) 0.6 % 0-1 [facility] Work Phone: Erythrocyte distribution width (RBC) [Entitic vol] 43.4 fL 35.1-43.9 [facility] Work Phone: Erythrocyte distribution width (RBC) [Ratio] 13.2 % 11.6-14.6 [facility] Work Phone: Immature granulocytes/100 WBC (Bld) 0.300 % 0.0-0.9 [facility] Work Phone: Comment on above: IG% - Immature Granu locytes (promyelocytes, myelocytes and metamyelocytes) > 1% indicates that a LEFT SHIFT is Present. MCH (RBC) [Entitic mass] 30.3 pg 27.0-32.0 [facility] Work Phone: Neutrophils/100 WBC (Bld) 61.5 % 47-70 [facility] Work Phone: Nucleated RBC/100 WBC (Bld) [Ratio] 0 % 0-5 [facility] Work Phone: MCHC Auto (RBC) [Mass/Vol]on 10-06-2021 MCHC (RBC) [Mass/Vol] 33.9 g/dL 32-36 [facility] Work [facility]: No Panel Informationon 10-06 Estimated Creatinine Clearance Calc 68.85 ml/min [facility] Work Phone: Estimated GFR (MDRD) Amer 79 mL/min >60 [facility] Work Phone: Comment on above: GFR Calc Estimated GFR (MDRD) Non-Af Amer 65 mL/min >60 [facility] Work Phone: Comment on above: Non- GFR Calc Thyroid Stimulating Hormone (TSH) 15.60 uIU/mL 0.358-3.74 [facility] Work Phone: Troponin I High Sensitivity 6 pg/mL 3.0-78.0 [facility] Work Phone: Comment on above: Please Note: New Meche t Units and Gender Specific Reference Ranges. For more information see Policy Stat Procedure [facility] High Sensitivity Troponin (TNIH) and attachments. SARS-CoV-2 Antigen (Rapid) [facility] Work Phone: Platelets bldon 10-06-2021 Platelets (Bld) [#/Vol] 210 10*3/uL 150-450 [facility] Work Phone: Serum or plasma calcium ac urement (mass/volume)on 10-06-2021 Calcium [Mass/Vol] 9.1 mg/dL 8.5-10.1 [facility] Work Phone: Serum or plasma creatinine m easurement (mass/volume)on 10-06-2021 Creatinine [Mass/Vol] 1.20 mg/dL 0.70-1.30 [facility] Work Phone: Comment on above: The validity of the calculated GFR & GFRAA in patients over 70 years has not been determined. Clinical correlation is essential. Serum or plasma urea nitroge n measurement (mass/volume)on 10-06-2021 Urea nitrogen [Mass/Vol] 22 mg/dL 7-18 [facility] Work Phone: TSH (EXTERNAL)on 10-06-2021 TSH 15.60 IU/ml Abnormal 0.2 - 5.6 IU/ml [facility] Thin prep Papanicolaou smear with manual screeningon 10-06-2021 Thin prep Papanicolaou smear with manual screening 5 5-15 [facility] Work Phone: Absolute lymphocyte counton 09-29-2021 Lymphocytes Auto (Unsp spec) [#/Vol] 1.53 10*3/uL 0.83-4.51 [facility] Work Phone: Basophil percentageon 2020 Chloride [Moles/Vol] 104 mmol/L 98-107 [facility] Work Phone: Eosinophils/100 WBC (Bld) 3.0 % 0-5 [facility] Work Phone: Glucose [Mass/Vol] 143 mg/dL 74-106 [facility] Work Phone: Comment on above: Fasting Glucose resu lt greater than or equal to 126 mg/dL suggests DIABETES MELLITUS per A.D.A. criteria.Please note revised GLUCOSE reference range effective 2017. Neutrophils (Bld) [#/Vol] 4.8 10*3/uL 2.0-7.7 [facility] Work Phone: Potassium [Moles/Vol] 3.4 mmol/L 3.5-5.1 [facility] Work Phone: Sodium [Moles/Vol] 142 mmol/L 136-145 [facility] Work Phone: WBC (Bld) [#/Vol] 7.1 10*3/uL 4.4-11.0 [facility] Work Phone: Blood erythrocytes count (nu mber/volume)on 09-29-2021 RBC (Bld) [#/Vol] 4.41 10*6/uL 4.6-6.2 [facility] Work Phone: Blood hemoglobin measurement (mass/volume)on 09-29-2021 Hemoglobin (Bld) [Mass/Vol] 13.0 g/dL 13.0-16.5 [facility] Work Phone: Blood lymphocytes/100 leukoc yteson 09-29-2021 Lymphocytes/100 WBC (Bld) 21.5 % 19-41 [facility] Work Phone: Blood monocytes/100 leukocyt eson 09-29-2021 Monocytes/100 WBC (Bld) 7.5 % 0-10 [facility] Work Phone: Blood platelet mean volumeon 09-29-2021 Platelet mean volume (Bld) [Entitic vol] 9.7 fL 6.2-12.0 [facility] Work Phone: Determination of erythrocyte mean corpuscular volume (MCV)on 09-29-2021 MCV (RBC) [Entitic vol] 89.1 fL 80-94 [facility] Work Phone: Hematocrit Auto (Bld) [Volum e fraction]on 09-29-2021 Hematocrit (Bld) [Volume fraction] 39.3 % 40-54 [facility] Work Phone: Laboratory - Chemistry and C hemistry - challengeon 09-29-2021 CO2 [Moles/Vol] 29.0 mmol/L 21.0-32.0 [facility] Work Phone: Urea nitrogen/Creatinine [Mass ratio] 19.2 mg/mg 10-20 [facility] Work Phone: Laboratory - Hematology and Cell countson 09-29-2021 Basophils/100 WBC (Unsp spec) 0.6 % 0-1 [facility] Work Phone: Erythrocyte distribution width (RBC) [Entitic vol] 43.5 fL 35.1-43.9 [facility] Work Phone: Erythrocyte distribution width (RBC) [Ratio] 13.2 % 11.6-14.6 [facility] Work Phone: Immature granulocytes/100 WBC (Bld) 0.600 % 0.0-0.9 [facility] Work Phone: Comment on above: IG% - Immature Granu locytes (promyelocytes, myelocytes and metamyelocytes) > 1% indicates that a LEFT SHIFT is Present. MCH (RBC) [Entitic mass] 29.5 pg 27.0-32.0 [facility] Work Phone: Neutrophils/100 WBC (Bld) 66.8 % 47-70 [facility] Work Phone: Nucleated RBC/100 WBC (Bld) [Ratio] 0 % 0-5 [facility] Work Phone: MCHC Auto (RBC) [Mass/Vol]on 09-29-2021 MCHC (RBC) [Mass/Vol] 33.1 g/dL 32-36 [facility] Work Phone: No Panel Informationon 09-29 Estimated Creatinine Clearance Calc 79.44 ml/min [facility] Work Phone: Estimated GFR (MDRD) Amer 93 mL/min >60 [facility] Work Phone: Comment on above: GFR Calc Estimated GFR (MDRD) Non-Af Amer 77 mL/min >60 [facility] Work Phone: Comment on above: Non- GFR Calc Thyroid Stimulating Hormone (TSH) 20.00 uIU/mL 0.358-3.74 [facility] Work Phone: Troponin I High Sensitivity 6 pg/mL 3.0-78.0 [facility] Work Phone: Comment on above: Please Note: New Meche t Units and Gender Specific Reference Ranges. For more information see Policy Stat Procedure [facility] High Sensitivity Troponin (TNIH) and attachments. Platelets bldon 09-29-2021 Platelets (Bld) [#/Vol] 205 10*3/uL 150-450 [facility] Work Phone: Serum or plasma calcium ac urement (mass/volume)on 09-29-2021 Calcium [Mass/Vol] 8.9 mg/dL 8.5-10.1 [facility] Work Phone: Serum or plasma creatinine m easurement (mass/volume)on 09-29-2021 Creatinine [Mass/Vol] 1.04 mg/dL 0.70-1.30 [facility] Work Phone: Comment on above: The validity of the calculated GFR & GFRAA in patients over 70 years has not been determined. Clinical correlation is essential. Serum or plasma urea nitroge n measurement (mass/volume)on 09-29-2021 Urea nitrogen [Mass/Vol] 20 mg/dL 7-18 [facility] Work Phone: Thin prep Papanicolaou smear with manual screeningon 09-29-2021 Thin prep Papanicolaou smear with manual screening 9 - [facility] Work Phone: Vital Signs Date Time Vital Sign Value Performing Clinician Faci lity 04-01-2025 10:49-0400 Body height 180.[address] Matt Araiza MD Work Phone: [facility] 04-01-2025 10:49-0400 Body mass index (BMI) [Ratio] 29.7 kg/m2 Dr. Matt Araiza MD Work Phone: [facility] 04-01-2025 10:49-0400 Body weight 96.[address] Matt Araiza MD Work Phone: [facility] 04-01-2025 10:49-0400 Diastolic blood pressure 86 mm[Hg] Dr. Matt Araiza MD Work Phone: [facility] 04-01-2025 10:49-0400 Heart rate 79 /min Dr. Matt Araiza MD Work Phone: [facility] 04-01-2025 10:49-0400 Respiratory rate 16 /min Dr. Matt Araiza MD Work Phone: [facility] 04-01-2025 10:49-0400 Systolic blood pressure 139 mm[Hg] Dr. Matt Araiza MD Work Phone: [facility] 02-24-2025 09:05-0400 Body height 180.3 cm Matt Araiza MD Work Phone: [facility] 02-24-2025 09:05-0400 Body mass index (BMI) [Ratio] 29.87 kg/m2 Matt Araiza MD Work Phone: [facility] 02-24-2025 09:05-0400 Body weight 97.16 kg Matt Araiza MD Work Phone: [facility] 02-24-2025 09:05-0400 Diastolic blood pressure 68 mm[Hg] Matt Araiza MD Work Phone: [facility] 02-24-2025 09:05-0400 Heart rate 77 /min Matt Araiza MD Work Phone: [facility] 02-24-2025 09:05-0400 SaO2% (BldA) [Mass fraction] 97 % Matt Araiza MD Work Phone: [facility] 02-24-2025 09:05-0400 Systolic blood pressure 120 mm[Hg] Matt Araiza MD Work Phone: [facility] 01-29-2025 06:18-0400 Body mass index (BMI) [Ratio] 29 kg/m2 Dr. Matt Araiza MD Work Phone: [facility] 01-29-2025 06:18-0400 Body temperature 97.2 [degF] Dr. Matt Araiza MD Work Phone: [facility] 01-29-2025 06:18-0400 Body weight 94.[address] Matt Araiza MD Work Phone: [facility] 01-29-2025 06:18-0400 Diastolic blood pressure 71 mm[Hg] Dr. Matt Araiza MD Work Phone: [facility] 01-29-2025 06:18-0400 Heart rate 72 /min Dr. Matt Araiza MD Work Phone: [facility] 01-29-2025 06:18-0400 Respiratory rate 20 /min Dr. Matt Araiza MD Work Phone: [facility] 01-29-2025 06:18-0400 SaO2% (BldA) [Mass fraction] 97 % Dr. Matt Araiza MD Work Phone: [facility] 01-29-2025 06:18-0400 Systolic blood pressure 122 mm[Hg] Dr. Matt Araiza MD Work Phone: [facility] 08-26-2024 09:05-0500 Body height 180.3 cm Matt Araiza MD Work Phone: [facility] 08-26-2024 09:05-0500 Body mass index (BMI) [Ratio] 29.43 kg/m2 Matt Araiza MD Work Phone: [facility] 08-26-2024 09:05-0500 Body weight 95.71 kg Matt Araiza MD Work Phone: [facility] 08-26-2024 09:05-0500 Diastolic blood pressure 76 mm[Hg] Matt Araiza MD Work Phone: [facility] 08-26-2024 09:05-0500 Heart rate 81 /min Matt Araiza MD Work Phone: [facility] 08-26-2024 09:05-0500 SaO2% (BldA) [Mass fraction] 97 % Matt Araiza MD Work Phone: [facility] 08-26-2024 09:05-0500 Systolic blood pressure 136 mm[Hg] Matt Araiza MD Work Phone: [facility] 02-14-2024 07:58-0400 Body height 180.3 cm Matt Araiza MD Work Phone: [facility] 02-14-2024 07:58-0400 Body mass index (BMI) [Ratio] 28.45 kg/m2 Matt Araiza MD Work Phone: [facility] 02-14-2024 07:58-0400 Body weight 92.53 kg Matt Araiza MD Work Phone: [facility] 02-14-2024 07:58-0400 Diastolic blood pressure 72 mm[Hg] Matt Araiza MD Work Phone: [facility] 02-14-2024 07:58-0400 Heart rate 79 /min Matt Araiza MD Work Phone: [facility] 02-14-2024 07:58-0400 SaO2% (BldA) [Mass fraction] 98 % Matt Araiza MD Work Phone: [facility] 02-14-2024 07:58-0400 Systolic blood pressure 116 mm[Hg] Matt Araiza MD Work Phone: [facility] 02-05-2024 09:27-0400 Body height 180.[address] Matt Araiza Work Phone: [facility] 02-05-2024 09:27-0400 Body mass index (BMI) [Ratio] 28.5 kg/m2 Dr. Matt Araiza Work Phone: [facility] 02-05-2024 09:27-0400 Body weight 92.[address] Matt Araiza Work Phone: [facility] 02-05-2024 09:27-0400 Diastolic blood pressure 79 mm[Hg] Dr. Matt rAaiza Work Phone: [facility] 02-05-2024 09:27-0400 Heart rate 74 /min Dr. Matt Araiza Work Phone: [facility] 02-05-2024 09:27-0400 Respiratory rate 18 /min Dr. Matt Araiza Work Phone: [facility] 02-05-2024 09:27-0400 Systolic blood pressure 133 mm[Hg] Dr. Matt Araiza Work Phone: [facility] 01-16-2024 08:11-0400 Body height 180.[address] Matt Araiza Work Phone: [facility] 01-16-2024 08:11-0400 Body weight 94.[address] Matt Araiza Work Phone: [facility] 01-16-2024 08:11-0400 Heart rate 77 /min Dr. Matt Araiza Work Phone: [facility] 01-16-2024 08:11-0400 SaO2% (BldA) [Mass fraction] 97 % Dr. Matt Araiza Work Phone: [facility] 05-23-2023 12:53-0400 Body weight 90.72 kg Matt Araiza MD Work Phone: [facility] 05-23-2023 12:53-0400 Diastolic blood pressure 78 mm[Hg] Matt Araiza MD Work Phone: [facility] 05-23-2023 12:53-0400 Heart rate 75 /min Matt Araiza MD Work Phone: [facility] 05-23-2023 12:53-0400 Respiratory rate 16 /min Matt Araiza MD Work Phone: [facility] 05-23-2023 12:53-0400 SaO2% (BldA) [Mass fraction] 97 % Matt Araiza MD Work Phone: [facility] 05-23-2023 12:53-0400 Systolic blood pressure 132 mm[Hg] Matt Araiza MD Work Phone: [facility] 01-03-2023 10:26-0400 Body height 180.[address] Matt Araiza Work Phone: [facility] 01-03-2023 10:26-0400 Body mass index (BMI) [Ratio] 27.4 kg/m2 Dr. Matt Araiza Work Phone: [facility] 01-03-2023 10:26-0400 Body weight 89.[address] Matt Araiza Work Phone: [facility] 01-03-2023 10:26-0400 Diastolic blood pressure 68 mm[Hg] Dr. Matt Araiza Work Phone: [facility] 01-03-2023 10:26-0400 Heart rate 75 /min Dr. Matt Araiza Work Phone: [facility] 01-03-2023 10:26-0400 Respiratory rate 18 /min Dr. Matt Araiza Work Phone: [facility] 01-03-2023 10:26-0400 Systolic blood pressure 138 mm[Hg] Dr. Matt Araiza Work Phone: [facility] 10-31-2022 10:12-0500 Body weight 86.64 kg Matt Araiza MD Work Phone: [facility] 10-31-2022 10:12-0500 Diastolic blood pressure 80 mm[Hg] Matt Araiza MD Work Phone: [facility] 10-31-2022 10:12-0500 Heart rate 76 /min Matt Araiza MD Work Phone: [facility] 10-31-2022 10:12-0500 SaO2% (BldA) [Mass fraction] 99 % Matt Araiza MD Work Phone: [facility] 10-31-2022 10:12-0500 Systolic blood pressure 132 mm[Hg] Matt Araiza MD Work Phone: [facility] 04-28-2022 09:30-0400 Body weight 90.72 kg Matt Araiza MD Work Phone: [facility] 04-28-2022 09:30-0400 Diastolic blood pressure 72 mm[Hg] Matt Araiza MD Work Phone: [facility] 04-28-2022 09:30-0400 Heart rate 80 /min Matt Araiza MD Work Phone: [facility] 04-28-2022 09:30-0400 Systolic blood pressure 132 mm[Hg] Matt Araiza MD Work Phone: [facility] 04-25-2022 09:38-0400 Body height 180.[address] Matt Araiza Work Phone: [facility] Work Phone: 04-25-2022 09:38-0400 Body mass index (BMI) [Ratio] 27.4 kg/m2 Dr. Matt Araiza Work Phone: [facility] Work Phone: 04-25-2022 09:38-0400 Body weight 89.[address] Matt Araiza Work Phone: [facility] Work Phone: 04-25-2022 09:38-0400 Diastolic blood pressure 70 mm[Hg] Dr. Matt Araiza Work Phone: [facility] Work Phone: 04-25-2022 09:38-0400 Heart rate 72 /min Dr. Matt Araiza Work Phone: [facility] Work Phone: 04-25-2022 09:38-0400 Systolic blood pressure 98 mm[Hg] Dr. Matt Araiza Work Phone: [facility] Work Phone: 12-30-2021 10:31-0400 Body mass index (BMI) [Ratio] 29 kg/m2 Dr. Matt Araiza Work Phone: [facility] Work Phone: 12-30-2021 10:31-0400 Body temperature 97.4 [degF] Dr. Matt Araiza Work Phone: [facility] Work Phone: 12-30-2021 10:31-0400 Body weight 94.[address] Matt Araiza Work Phone: [facility] Work Phone: 12-30-2021 10:31-0400 Diastolic blood pressure 83 mm[Hg] Dr. Matt Araiza Work Phone: [facility] Work Phone: 12-30-2021 10:31-0400 Heart rate 79 /min Dr. Matt Araiza Work Phone: [facility] Work Phone: 12-30-2021 10:31-0400 Respiratory rate 16 /min Dr. Matt Araiza Work Phone: [facility] Work Phone: 12-30-2021 10:31-0400 SaO2% (BldA) [Mass fraction] 96 % Dr. Matt Araiza Work Phone: [facility] Work Phone: 12-30-2021 10:31-0400 Systolic blood pressure 130 mm[Hg] Dr. Matt Araiza Work Phone: [facility] Work Phone: 12-30-2021 10:31-0400 Body height 180.[address] Matt Araiza Work Phone: [facility] Work Phone: 12-30-2021 10:31-0400 Body mass index (BMI) [Ratio] 29 kg/m2 Dr. Matt Araiza Work Phone: [facility] Work Phone: 12-30-2021 10:31-0400 Body temperature 97.4 [degF] Dr. Matt Araiza Work Phone: [facility] Work Phone: 12-30-2021 10:31-0400 Body weight 94.[address] Matt Araiza Work Phone: [facility] Work Phone: 12-30-2021 10:31-0400 Diastolic blood pressure 83 mm[Hg] Dr. Matt Araiza Work Phone: [facility] Work Phone: 12-30-2021 10:31-0400 Heart rate 79 /min Dr. Matt rAaiza Work Phone: [facility] Work Phone: 12-30-2021 10:31-0400 Respiratory rate 16 /min Dr. Matt Araiza Work Phone: [facility] Work Phone: 12-30-2021 10:31-0400 SaO2% (BldA) [Mass fraction] 96 % Dr. Matt Araiza Work Phone: [facility] Work Phone: 12-30-2021 10:31-0400 Systolic blood pressure 130 mm[Hg] Dr. Matt Araiza Work Phone: [facility] Work Phone: 12-23-2021 14:11-0400 Body mass index (BMI) [Ratio] 28.1 kg/m2 Dr. Matt Araiza Work Phone: [facility] Work Phone: 12-23-2021 14:11-0400 Body weight 91.[address] Matt Araiza Work Phone: [facility] Work Phone: 12-23-2021 14:11-0400 Diastolic blood pressure 76 mm[Hg] Dr. Matt Araiza Work Phone: [facility] Work Phone: 12-23-2021 14:11-0400 Heart rate 78 /min Dr. Matt Araiza Work Phone: [facility] Work Phone: 12-23-2021 14:11-0400 Respiratory rate 16 /min Dr. Matt Araiza Work Phone: [facility] Work Phone: 12-23-2021 14:11-0400 SaO2% (BldA) [Mass fraction] 96 % Dr. Matt Araiza Work Phone: [facility] Work Phone: 12-23-2021 14:11-0400 Systolic blood pressure 108 mm[Hg] Dr. Matt Araiza Work Phone: [facility] Work Phone: 11-08-2021 08:26-0500 Body mass index (BMI) [Ratio] 29 kg/m2 Dr. Matt Araiza Work Phone: [facility] Work Phone: 11-08-2021 08:26-0500 Body weight 94.[address] Matt Araiza Work Phone: [facility] Work Phone: 11-08-2021 08:26-0500 Diastolic blood pressure 72 mm[Hg] Dr. Matt Araiza Work Phone: [facility] Work Phone: 11-08-2021 08:26-0500 Heart rate 58 /min Dr. Matt Araiza Work Phone: [facility] Work Phone: 11-08-2021 08:26-0500 Respiratory rate 18 /min Dr. Matt Araiza Work Phone: [facility] Work Phone: 11-08-2021 08:26-0500 SaO2% (BldA) [Mass fraction] 99 % Dr. Matt Araiza Work Phone: [facility] Work Phone: 11-08-2021 08:26-0500 Systolic blood pressure 118 mm[Hg] Dr. Matt Araiza Work Phone: [facility] Work Phone: 10-06-2021 21:17-0500 Diastolic blood pressure 67 mm[Hg] Dr. Matt Araiza Work Phone: [facility] Work Phone: 10-06-2021 21:17-0500 Heart rate 66 /min Dr. Matt Araiza Work Phone: [facility] Work Phone: 10-06-2021 21:17-0500 Respiratory rate 17 /min Dr. Matt Araiza Work Phone: [facility] Work Phone: 10-06-2021 21:17-0500 SaO2% (BldA) [Mass fraction] 95 % Dr. Matt Araiza Work Phone: [facility] Work Phone: 12-29-2021 21:17-0500 Systolic blood pressure 109 mm[Hg] Dr. Matt Araiza Work Phone: [facility] Work Phone: 10-06-2021 18:27-0500 Body mass index (BMI) [Ratio] 28.8 kg/m2 Dr. Matt Araiza Work Phone: [facility] Work Phone: 10-06-2021 18:27-0500 Body temperature 99.1 [degF] Dr. Matt Araiza Work Phone: [facility] Work Phone: 10-06-2021 18:27-0500 Body weight 93.[address] Matt Araiza Work Phone: [facility] Work Phone: 09-29-2021 21:47-0500 Diastolic blood pressure 61 mm[Hg] Dr. Matt Araiza Work Phone: [facility] Work Phone: 09-29-2021 21:47-0500 Respiratory rate 15 /min Dr. Matt Araiza Work Phone: [facility] Work Phone: 09-29-2021 21:47-0500 SaO2% (BldA) [Mass fraction] 99 % Dr. Matt Araiza Work Phone: [facility] Work Phone: 09-29-2021 21:47-0500 Systolic blood pressure 102 mm[Hg] Dr. Matt Araiza Work Phone: [facility] Work Phone: 09-29-2021 21:00-0500 Heart rate 56 /min Dr. Matt Araiza Work Phone: [facility] Work Phone: 09-29-2021 19:15-0500 Body mass index (BMI) [Ratio] 29.8 kg/m2 Dr. Matt Araiza Work Phone: [facility] Work Phone: 09-29-2021 19:15-0500 Body temperature 98.9 [degF] Dr. Matt Araiza Work Phone: [facility] Work Phone: 09-29-2021 19:15-0500 Body weight [address] Matt Araiza Work Phone: [facility] Work Phone: Encounters Encounter Date Encounter Type Care Provider Facility Start: 04-30-2025 ambulatory [facility] Facility:[facility] Start: 04-01-2025 End: 04-01-[address] Mervin Pastor MD -[facility] Work Phone: Start: 04-01-2025 End: 04-01-[address] Matt Araiza MD Work Phone: [facility] Work Phone: Start: 03-13-2025 End: 03-13-2025 Refill [facility] Comment on above: Refill Request Start: 03-01-2025 End: 03-01-2025 ambulatory [facility] Facility:[facility] Start: 02-27-2025 End: 04-29-2025 Follow-up encounter Matt Araiza MD Work Phone: [facility] Start: 02-24-2025 ambulatory [facility] Facility :[facility] Start: 02-24-2025 End: 02-24-2025 Subsequent hospital visit by physician X[facility] Work Phone: Radiology Comment on above: Acute pain of left s houlder [M25.512] Start: 02-24-2025 End: 02-24-2025 Patient encounter procedure Matt Araiza MD Work Phone: [facility] Comment on above: Primary hypertension (Primary Dx); Screening for depression; Encounter for screening examination for other mental health and behavioral disorders; SVT (supraventricular tachycardia) (HCC); Bicuspid aortic valve; Nonrheumatic aortic valve stenosis; Thyroid nodule; Hypothyroidism, acquired; RUKHSANA (obstructive sleep apnea); Acute pain of left shoulder Start: 02-24-2025 End: 02-24-2025 ambulatory MATT Muhammad TEODORA Facility:[facility] Start: 01-29-2025 End: 01-29-2025 Patient encounter procedure [employer] Caitie Sanches [facility] Work Phone: Start: 01-29-2025 End: 01-29-2025 ambulatory Matt Teodora Facility:[facility] Start: 11-19-2024 End: 11-19-2024 ambulatory Lacey Gamble NP Facility:[facility] Start: 08-28-2024 End: 08-28-2024 ambulatory MATT DELATORREO Facility:[facility] Start: 08-28-2024 End: 08-28-2024 Subsequent hospital visit by physician [facility] [place] [place] [facility] Work Phone: Radiology Comment on above: Thyroid nodule [E04. 1] Start: 08-27-2024 End: 09-02-2024 Telephone encounter Matt Araiza MD Work Phone: [facility] Comment on above: Consult (Rheumatolog y) Start: 08-26-2024 End: 08-26-2024 ambulatory MATT ARAIZA Facility:[facility] Start: 08-26-2024 End: 08-26-2024 Patient encounter procedure Matt Araiza MD Work Phone: [facility] [place] Comment on above: Primary hypertension (Primary Dx); H/O cardiac radiofrequency ablation; SVT (supraventricular tachycardia) (HCC); Atrioventricular manolo re-entry tachycardia (HCC); Nonrheumatic aortic valve stenosis; Hyperlipidemia, unspecified hyperlipidemia type; Bicuspid aortic valve; RUKHSANA (obstructive sleep apnea); Thyroid nodule; Hypothyroidism, acquired; Elevated rheumatoid factor; Polyarthritis Start: 08-20-2024 End: 08-23-2024 Telephone encounter Matt Araiza MD Work Phone: [facility] [place] Comment on above: OV notes faxed Start: 08-20-2024 End: 08-20-2024 ambulatory Lacey Gamble ASSET RECOVERY SPECIALIST Facility:[facility] Start: 07-13-2024 End: 07-13-2024 ambulatory Lacey Gamble NP Facility:[facility] Start: 06-22-2024 End: 06-22-2024 ambulatory MATT ARAIZA Facility:[facility] Start: 06-21-2024 End: 06-21-2024 Emergency department patient visit Frank Coles Facility:[facility] Start: 05-06-2024 Telephone encounter Matt Araiza MD Work Phone: [facility] [place] Comment on above: Results Start: 05-06-2024 End: 05-06-2024 ambulatory Lacey Gamble ASSET RECOVERY SPECIALIST Facility:[facility] Start: 05-04-2024 End: 05-04-2024 ambulatory MATT ARAIZA Facility:[facility] Start: 03-18-2024 Telephone encounter Matt Araiza MD Work Phone: [facility] [place] Comment on above: Results Start: 03-16-2024 End: 03-16-2024 ambulatory MATT ARAIZA Facility:[facility] Start: 02-26-2024 E-mail encounter fro m caregiver Matt Araiza MD Work Phone: [facility] [place] Start: 02-26-2024 Patient encounter procedure Ines Araiza MD Work Phone: [facility] Comment on above: Rheum Referral Start: 02-14-2024 End: 02-14-2024 Patient encounter procedure Matt Araiza MD Work Phone: [facility] Comment on above: Arthralgia, unspecif ied joint (Primary Dx); Polyarthritis; Elevated rheumatoid factor; Primary hypertension; Hypothyroidism, acquired; Bicuspid aortic valve Start: 02-05-2024 End: 02-05-[address] Matt Araiza Work Phone: [facility] Work Phone: Start: 02-02-2024 End: 02-02-[address] Matt Araiza Work Phone: [facility] Work Phone: Start: 02-02-2024 End: 02-02-[address] Matt Araiza Work Phone: [facility] Work Phone: Start: 01-29-2024 Telephone encounter Matt Araiza MD Work Phone: [facility] Comment on above: Results Start: 01-17-2024 Non-patient / Non-visit Dr. Ines Araiza Work Phone: [facility] Start: 01-16-2024 End: 01-16-[address] Matt Araiza Work Phone: [facility] Work Phone: Start: 01-16-2024 End: 01-16-[address] Matt Araiza Work Phone: [facility]-Pulmonary Services/Neurology Work Phone: Start: 01-09-2024 End: 01-09-2024 ambulatory [facility] Work Phone: Start: 01-09-2024 End: 01-09-2024 Patient encounter procedure [facility]Neurology Work Phone: Start: 12-25-2023 Telephone encounter Matt Araiza MD Work Phone: [facility] Comment on above: Results Start: 05-23-2023 Patient encounter status Jimmy Araiza MD Work Phone: [facility] Start: 05-23-2023 End: 05-23-2023 Patient encounter procedure Matt Araiza MD Work Phone: [facility] Comment on above: Primary hypertension (Primary Dx); Screening for viral disease; Bicuspid aortic valve; Nonrheumatic aortic valve stenosis; Lqjgx-Zeibmhjmu-Fbpjl (WPW) syndrome; RUKHSANA (obstructive sleep apnea); Thyroid nodule; Hypothyroidism, acquired; Rheumatoid arthritis with rheumatoid factor of multiple sites without organ or systems involvement (HCC); Arthralgia, unspecified joint Start: 01-26-2023 Non-patient / Non-visit Dr. Ines Araiza Work Phone: [facility] Start: 01-26-2023 End: 01-26-[address] Matt Araiza Work Phone: [facility] Work Phone: Start: 01-26-2023 End: 01-26-[address] Matt Araiza Work Phone: [facility] Start: 01-03-2023 End: 01-03-[address] Matt Araiza Work Phone: [facility] Work Phone: Start: 01-03-2023 End: 01-03-[address] Matt Araiza Work Phone: [facility] Start: 11-07-2022 Telephone encounter Matt Araiza MD Work Phone: [facility] Comment on above: Results Start: 11-07-2022 End: 11-07-2022 Subsequent hospital visit by physician [facility] [place] [place] [facility] Work Phone: Radiology Comment on above: Thyroid nodule [E04. 1] Start: 10-31-2022 End: 10-31-2022 Patient encounter procedure Matt Araiza MD Work Phone: Family [facility] Comment on above: Primary hypertension (Primary Dx); H/O cardiac radiofrequency ablation; Hyperlipidemia, unspecified hyperlipidemia type; Bicuspid aortic valve; Nonrheumatic aortic valve stenosis; RUKHSANA (obstructive sleep apnea); Hypothyroidism, acquired; Thyroid nodule Start: 09-30-2022 End: 08-26-2024 Patient encounter status Matt Araiza MD Work Phone: [facility] Start: 07-15-2022 Telephone encounter Matt Araiza MD Work Phone: [facility] Comment on above: Refill Request Start: 04-28-2022 End: 04-28-2022 Patient encounter procedure Matt Araiza MD Work Phone: [facility] Comment on above: Primary hypertension (Primary Dx); Hyperlipidemia, unspecified hyperlipidemia type; SVT (supraventricular tachycardia) (HCC); Thyroid nodule; Hypothyroidism, acquired; Screening for prostate cancer; Screening for colon cancer; Need for hepatitis C screening test; Screening for HIV (human immunodeficiency virus); RUKHSANA (obstructive sleep apnea); Bicuspid aortic valve; Palpitations Start: 04-25-2022 End: 04-25-[address] Matt Araiza Work Phone: [facility] Start: 02-25-2022 End: 02-25-[address] Matt Araiza Work Phone: [facility] Start: 01-19-2022 End: 01-19-[address] Matt Araiza Work Phone: [facility] Start: 01-17-2022 Chart abstracting Matt Mcpherson MD Work Phone: [facility] Start: 01-17-2022 Telephone encounter Matt Araiza MD Work Phone: [facility] Comment on above: Results Start: 01-15-2022 End: 01-15-[address] Matt Araiza Work Phone: [facility]Laboratory Start: 12-30-2021 End: 12-30-[address] Matt Araiza Work Phone: [facility]-Pulmonary Medicine [facility] Start: 12-28-[address] Ronen Araiza Work Phone: [facility]Cardiovascul [facility] Services Start: 12-23-2021 End: 12-23-[address] Matt Araiza Work Phone: [facility] Start: 12-14-2021 End: 12-14-[address] Matt Araiza Work Phone: [facility] Start: 12-02-2021 End: 12-02-2021 Subsequent hospital visit by physician [facility] Work Phone: Radiology Comment on above: Chronic pain of righ t ankle [M25.571, G89.29] Start: 11-08-2021 End: 11-08-[address] Matt Araiza Work Phone: [facility] Start: 11-03-2021 End: 11-03-[address] Matt Araiza Work Phone: [facility]Cardiov[facility] Services Start: 11-03-2021 Non-patient / Non-visit Dr. Ines Araiza Work Phone: [facility] Start: 10-15-2021 End: 10-15-[address] Matt Araiza Work Phone: [facility]-Pulmonary Services/Neurology Start: 10-07-2021 Telephone encounter Matt Araiza MD Work Phone: [facility] [place] Comment on above: Results; Patient Upd ate Start: 10-06-2021 End: 10-06-2021 Emergency department patient visit Dr. Matt Araiza Work Phone: [facility]-Emergency Department Start: 09-29-2021 End: 09-29-2021 Emergency department patient visit Dr. Matt Araiza Work Phone: [facility]Emergency [facility] Procedures Date Procedure Procedure Detail Performing Clinician Start: 03-01-2025 Lipid 1996 panel - Serum or Plasma Matt Araiza MD Work Phone: Start: 02-24-2025 Adult depression screening assessment Matt Araiza MD Work Phone: Start: 08-28-2024 Us soft tissue head & neck real time imge docm Matt Araiza MD Work Phone: Start: 02-14-2024 Adult depression screening assessment Matt Araiza MD Work Phone: Start: 02-02-[address] Ronen Araiza Work Phone: Start: 12-23-2023 Lipid 1996 panel - Serum or Plasma Matt Araiza MD Work Phone: Start: 05-23-2023 History of operative procedure on knee History of knee surgery Matt Araiza MD Work Phone: Start: 01-26-[address] Ronen Araiza Work Phone: Start: 11-07-2022 soft tissue head & neck real time imge docm Matt Araiza MD Work Phone: Start: 11-05-2022 Lipid 1996 panel - Serum or Plasma Us 1 Work Phone: Start: 04-28-2022 Adult depression screening assessment Matt Araiza MD Work Phone: Start: 04-25-2022 Thyrotropin [Units/volume] in Serum or Plasma [facility] Provider Start: 01-19-[address] Ronen Araiza Work Phone: Start: 01-15-2022 Thyrotropin [Units/volume] in Serum or Plasma [facility] Provider Start: 12-02-2021 Radex ankle complete minimum 3 views Matt Araiza MD Work Phone: Start: 10-06-2021 Plain chest X-ray Dr. Kayley Araiza Work Phone: Start: 10-06-2021 SARS-CoV-2 Antigen (Rapid) Dr. Matt Araiza Work Phone: Start: 10-06-2021 Thyrotropin [Units/volume] in Serum or Plasma [facility] Provider Start: 09-29-2021 Plain chest X-ray Dr. Kayley Araiza Work Phone: Start: 07-15-2019 Adult depression screening assessment Matt Araiza MD Work Phone: History of operative procedure on knee H/O arthroscopic knee surgery Dr. Matt Araiza Work Phone: Comment on above: 2001, left knee Plan of Treatment Date Care Activity Detail Author Start: 2035 RSV Vaccine (1 - 1-dose 75+ series) RSV Vaccine (1 - 1-dose 75+ series) [facility] Start: 09-13-2031 Urine microalbumin profile [facility] Start: 03-01-2030 Lipid panel Lipid Screening [facility] Start: 12-22-2028 Lipid panel Lipid Screening [facility] Start: 03-01-2028 Diabetes Screening Diabetes Screenin g [facility] Start: 11-05-2027 Lipid 1996 panel - Serum or Plasma Lipid Screening [facility] Start: 11-05-2027 LIPID SCREEN LIPID SCREEN [facility] Start: 10-31-2027 PROSTATE CANCER SCREENING DISCUSSION PROSTATE CANCER SCREENING DISCUSSION [facility] Start: 10-31-2027 Prostate specific antigen measurement Prostate Cancer Screening Discussion [facility] Start: 12-22-2026 Diabetes Screening Diabetes Screenin g [facility] Start: 06-12-2026 LIPID SCREEN LIPID SCREEN [facility] Start: 02-24-2026 Annual PCP Team Chronic Disease Visit Annual PCP Team Chronic Disease Visit [facility] Start: 02-24-2026 Anxiety Screening Anxiety Screening [facility] Start: 02-24-2026 BP Controlled (<130/80) BP Controlled (<130/80) [facility] Start: 02-24-2026 Depression Screening Depression Scre ening [facility] Start: 02-24-2026 Pneumococcal Vaccine : 50+ (2 of 2 - PCV) Pneumococcal Vaccine: 50+ (2 of 2 - PCV) [facility] Comment on above: Postponed from 09/13 (Declined at this time) Start: 11-05-2025 DIABETES SCREEN DIABETES SCREEN [facility] Start: 11-05-2025 Diabetes Screening Diabetes Screenin g [facility] Start: 09-12-2025 COLOGUARD (FIT-DNA) COLOGUARD (FIT-D NA) [facility] Start: 09-12-2025 COLORECTAL CANCER SCREENING COLORECTAL CANCER SCREENING [facility] Start: 09-12-2025 Screening for malignant neoplasm of colon [facility] Start: 09-03-2025 End: 09-03-2025 Patient encounter procedure 09/03/2025 10:00 AM EST Office Visit [facility] [place] [address] [place] [id number] Matt Araiza MD [address] [place] [id number] 6 month follow up [facility] [place] Comment on above: 6 month follow up Start: 08-26-2025 Annual PCP Team Chronic Disease Visit Annual PCP Team Chronic Disease Visit [facility] Start: 08-26-2025 Covid-19 Vaccine ( season) Covid-19 Vaccine ( season) [facility] Comment on above: Postponed from 06/09 (Declined at this time) Start: 08-26-2025 Pneumococcal vaccination Pneumococcal Vaccine (2 of 2 - PCV) [facility] Comment on above: Postponed from 09/13 (Declined at this time) Start: 08-26-2025 Shingrix Vaccine (1 of 2) Shingrix Vaccine (1 of 2) [facility] Comment on above: Postponed from 09/21 (Declined at this time) Start: 06-09-2025 Influenza vaccination Influenza Vacc ine (#1) [facility] Start: 02-24-2025 End: 02-24-2025 Patient encounter procedure 02/24/2025 9:20 AM EDT Office Visit [facility] Edda Gonzalez [address] [place], [place] [id number] Matt Araiza MD [address] [place], [place] [id number] 6 month follow up. Labs prior [facility] [place] Comment on above: 6 month follow up. L abs prior Start: 02-23-2025 End: 05-25-2025 CBC W Auto Differential panel - Blood COMPLETE BLOOD COUNT AND DIFFERENTIAL Lab Routine Primary hypertension Expected: 02/23/2025, Expires: 05/25/2025 [facility] Work Phone: Comment on above: Expected: 02/23/2025 , Expires: 05/25/2025 Start: 02-23-2025 End: 05-25-2025 Comprehensive metabolic 2000 panel - Serum or Plasma COMPREHENSIVE METABOLIC PANEL Lab Routine Primary hypertension Expected: 02/23/2025, Expires: 05/25/2025 [facility] Comment on above: Expected: 02/23/2025 , Expires: 05/25/2025 Start: 02-23-2025 End: 05-25-2025 Lipid 1996 panel - Serum or Plasma LIPID PANEL BASIC Lab Routine Primary hypertension Expected: 02/23/2025, Expires: 05/25/2025 [facility] Comment on above: Expected: 02/23/2025 , Expires: 05/25/2025 Start: 02-23-2025 End: 05-25-2025 Thyrotropin [Units/volume] in Serum or Plasma THYROID STIMULATING HORMONE Lab Routine Hypothyroidism, acquired Expected: 02/23/2025, Expires: 05/25/2025 [facility] Comment on above: Expected: 02/23/2025 , Expires: 05/25/2025 Start: 02-13-2025 Annual PCP Team Chronic Disease Visit Annual PCP Team Chronic Disease Visit [facility] Start: 02-13-2025 Anxiety Screening Anxiety Screening [facility] Start: 02-13-2025 BP Controlled (<130/80) BP Controlled (<130/80) [facility] Start: 02-13-2025 Covid-19 Vaccine () Covid-19 Vaccine () [facility] Comment on above: Postponed from 06/09 (Declined at this time) Start: 02-13-2025 Depression Screening Depression Scre ening [facility] Start: 02-13-2025 RSV Vaccine (1 - 1-dose 60+ series) RSV Vaccine (1 - 1-dose 60+ series) [facility] Comment on above: Postponed from 09/21 (Declined at this time) Start: 09-09-2024 End: 09-09-2024 ambulatory 09/09/2024 10:00 AM EST [facility] [address] [place] [address] Valerie Bryant, MORTGAGE COORDINATOR.WATCH CRYSTAL MOLDER [address] [place] [address] Polyarthritis [M13.0]; Elevated rheumatoid factor [R76.8] Rheumatology Comment on above: Polyarthritis [M13.0 ]; Elevated rheumatoid factor [R76.8] Start: 08-28-2024 End: 08-28-2024 Patient encounter procedure 08/28/2024 9:15 AM EST Appointment Radiology [address] [place] [address] Thyroid nodule [E04.1] Radiology Comment on above: Thyroid nodule [E04. 1] Start: 08-26-2024 End: 08-26-2024 Patient encounter procedure 08/26/2024 9:20 AM EST Office Visit Family [facility] [address] [place] [address] Matt Araiza MD [address] [place] [address] 6 month follow up [facility] [place] Comment on above: 6 month follow up Start: 06-22-2024 End: 06-22-2024 ambulatory 06/22/2024 8:00 AM EDT Results Only [place] [facility] [address] [place] [address] [place] [facility] Start: 06-09-2024 Covid-19 Vaccine () Covid-19 Vaccine () [facility] Start: 06-09-2024 Influenza vaccination Influenza Vacc ine (#1) [facility] Start: 06-06-2024 End: 09-05-2024 T4/FTI/T4U T4/FTI/T4U Lab Routine Hypothyroidism, acquired Expected: 06/06/2024, Expires: 09/05/2024 [facility] Comment on above: Expected: 06/06/2024 , Expires: 09/05/2024 Start: 06-06-2024 End: 09-05-2024 Thyrotropin [Units/volume] in Serum or Plasma THYROID STIMULATING HORMONE Lab Routine Hypothyroidism, acquired Expected: 06/06/2024, Expires: 09/05/2024 [facility] Work Phone: Comment on above: Expected: 06/06/2024 , Expires: 09/05/2024 Start: 05-23-2024 ANNUAL PCP TEAM CHRONIC DISEASE VISIT ANNUAL PCP TEAM CHRONIC DISEASE VISIT [facility] Start: 05-23-2024 COVID-19 VACCINE (#1) COVID-19 VACCI NE (#1) [facility] Comment on above: Postponed from 03/22 (Declined at this time) Start: 05-23-2024 PNEUMOCOCCAL (2 - PCV) PNEUMOCOCCAL (2 - PCV) [facility] Comment on above: Postponed from 09/13 (Declined at this time) Start: 05-23-2024 Pneumococcal vaccination [facility] Comment on above: Postponed from 09/13 (Declined at this time) Start: 05-23-2024 SHINGRIX VACCINE (1 of 2) SHINGRIX VACCINE (1 of 2) [facility] Comment on above: Postponed from 09/21 (Declined at this time) Start: 04-29-2024 End: 07-29-2024 Thyrotropin [Units/volume] in Serum or Plasma THYROID STIMULATING HORMONE Lab Routine Hypothyroidism, acquired Expected: 04/29/2024, Expires: 07/29/2024 [facility] Work Phone: Comment on above: Expected: 04/29/2024 , Expires: 07/29/2024 Start: 03-16-2024 End: 03-16-2024 ambulatory 03/16/2024 7:40 AM EDT Results Only [facility] [address] [facility] [place] [address] [facility] Start: 02-09-2024 End: 02-09-2024 Patient encounter procedure 02/09/2024 2:40 PM EDT Office Visit [facility] [place] [address] [facility] [place] [address] Matt Araiza MD [address] [place] [address] My arthritis [facility] [place] Comment on above: My arthritis Start: 01-29-2024 End: 04-29-2024 Thyrotropin [Units/volume] in Serum or Plasma THYROID STIMULATING HORMONE Lab Routine Hypothyroidism, acquired Expected: 01/29/2024, Expires: 04/29/2024 [facility] Work Phone: Comment on above: Expected: 01/29/2024 , Expires: 04/29/2024 Start: 12-25-2023 End: 03-25-2024 Thyrotropin [Units/volume] in Serum or Plasma TSH BLD Lab Routine Hypothyroidism, acquired Expected: 12/25/2023, Expires: 03/25/2024 [facility] Work Phone: Comment on above: Expected: 12/25/2023 , Expires: 03/25/2024 Start: 11-23-2023 End: 05-23-2024 FRANISCO BY IFA SCREEN FRANSICO BY IFA SCREEN Lab Routine Arthralgia, unspecified joint Expected: 11/23/2023, Expires: 05/23/2024 [facility] Work Phone: Comment on above: Expected: 11/23/2023 , Expires: 05/23/2024 Start: 11-23-2023 End: 05-23-2024 C reactive protein [Mass/volume] in Serum or Plasma C-REACTIVE PROTEIN (CRP) Lab Routine Arthralgia, unspecified joint Expected: 11/23/2023, Expires: 05/23/2024 [facility] Work Phone: Comment on above: Expected: 11/23/2023 , Expires: 05/23/2024 Start: 11-23-2023 End: 01-23-2024 CBC W Auto Differential panel - Blood CBC + DIFF Lab Routine Primary hypertension Expected: 11/23/2023, Expires: 01/23/2024 [facility] Work Phone: Comment on above: Expected: 11/23/2023 , Expires: 01/23/2024 Start: 11-23-2023 End: 01-23-2024 Comprehensive metabolic 2000 panel - Serum or Plasma COMP METABOLIC PANEL Lab Routine Primary hypertension Expected: 11/23/2023, Expires: 01/23/2024 [facility] Work Phone: Comment on above: Expected: 11/23/2023 , Expires: 01/23/2024 Start: 11-23-2023 End: 05-23-2024 Erythrocyte sedimentation rate SED RATE WESTERGREN Lab Routine Arthralgia, unspecified joint Expected: 11/23/2023, Expires: 05/23/2024 [facility] Work Phone: Comment on above: Expected: 11/23/2023 , Expires: 05/23/2024 Start: 11-23-2023 End: 01-23-2024 Lipid 1996 panel - Serum or Plasma LIPID PANEL BASIC Lab Routine Primary hypertension Expected: 11/23/2023, Expires: 01/23/2024 [facility] Work Phone: Comment on above: Expected: 11/23/2023 , Expires: 01/23/2024 Start: 11-23-2023 End: 05-23-2024 Rheumatoid factor [Units/volume] in Serum or Plasma RHEUMATOID FACTOR BL Lab Routine Arthralgia, unspecified joint Expected: 11/23/2023, Expires: 05/23/2024 [facility] Work Phone: Comment on above: Expected: 11/23/2023 , Expires: 05/23/2024 Start: 11-23-2023 End: 01-23-2024 Thyrotropin [Units/volume] in Serum or Plasma TSH BLD Lab Routine Thyroid nodule Hypothyroidism, acquired Expected: 11/23/2023, Expires: 01/23/2024 [facility] Work Phone: Comment on above: Expected: 11/23/2023 , Expires: 01/23/2024 Start: 11-23-2023 End: 01-23-2024 VARICELLA ZOSTER IGG VARICELLA ZOSTER IGG Lab Routine Screening for viral disease Expected: 11/23/2023, Expires: 01/23/2024 [facility] Work Phone: Comment on above: Expected: 11/23/2023 , Expires: 01/23/2024 Start: 10-31-2023 ANNUAL PCP TEAM CHRONIC DISEASE VISIT ANNUAL PCP TEAM CHRONIC DISEASE VISIT [facility] Start: 10-09-2023 Behavioral Health Screening Behavioral Health Screening [facility] Start: 10-09-2023 Depression Assessment Depression Ass essment [facility] Start: 06-09-2023 Covid-19 Vaccine ( season) Covid-19 Vaccine () [facility] Start: 06-09-2023 Influenza vaccination C [facility] Start: 04-28-2023 Adult depression screening assessment DEPRESSION SCREENING [facility] Start: 04-28-2023 ANNUAL PCP TEAM CHRONIC DISEASE VISIT ANNUAL PCP TEAM CHRONIC DISEASE VISIT [facility] Start: 12-19-2022 End: 02-18-2023 Thyrotropin [Units/volume] in Serum or Plasma TSH BLD Lab Routine Hypothyroidism, acquired Expected: 12/19/2022, Expires: 02/18/2023 [facility] Work Phone: Comment on above: Expected: 12/19/2022 , Expires: 02/18/2023 Start: 12-02-2022 ANNUAL PCP TEAM CHRONIC DISEASE VISIT ANNUAL PCP TEAM CHRONIC DISEASE VISIT [facility] Start: 12-02-2022 BP CONTROLLED (<130/80) BP CONTROLLED (<130/80) [facility] Start: 10-31-2022 End: 12-31-2022 Thyrotropin [Units/volume] in Serum or Plasma TSH BLD Lab Routine Hypothyroidism, acquired Expected: 10/31/2022, Expires: 12/31/2022 [facility] Work Phone: Comment on above: Expected: 10/31/2022 , Expires: 12/31/2022 Start: 10-29-2022 End: 12-29-2022 CBC panel - Blood by Automated count CBC Lab Routine Primary hypertension Expected: 10/29/2022, Expires: 12/29/2022 [facility] Work Phone: Comment on above: Expected: 10/29/2022 , Expires: 12/29/2022 Start: 10-29-2022 End: 12-29-2022 Comprehensive metabolic 2000 panel - Serum or Plasma COMP METABOLIC PANEL Lab Routine Primary hypertension Expected: 10/29/2022, Expires: 12/29/2022 [facility] Work Phone: Comment on above: Expected: 10/29/2022 , Expires: 12/29/2022 Start: 10-29-2022 End: 12-29-2022 Hepatitis C virus Ab [Presence] in Serum HEP C AB IA W/CONF SCRN Lab Routine Need for hepatitis C screening test Expected: 10/29/2022, Expires: 12/29/2022 [facility] Work Phone: Comment on above: Expected: 10/29/2022 , Expires: 12/29/2022 Start: 10-29-2022 End: 12-29-2022 HIV 1+2 Ab [Presence] in Serum or Plasma by Immunoassay HIV 1 2 COMBO(AG/AB),WITH REFLEX TO DIFFERENTIATION Lab Routine Screening for HIV (human immunodeficiency virus) Expected: 10/29/2022, Expires: 12/29/2022 [facility] Work Phone: Comment on above: Expected: 10/29/2022 , Expires: 12/29/2022 Start: 10-29-2022 End: 12-29-2022 Lipid 1996 panel - Serum or Plasma LIPID PANEL BASIC Lab Routine Primary hypertension Expected: 10/29/2022, Expires: 12/29/2022 [facility] Work Phone: Comment on above: Expected: 10/29/2022 , Expires: 12/29/2022 Start: 09-13-2022 COVID-19 VACCINE (#1) COVID-19 VACCI NE (#1) [facility] Comment on above: Postponed from 03/22 (Declined at this time) Start: 09-13-2022 COVID-19 VACCINE (1) COVID-19 VACCIN E (1) [facility] Comment on above: Postponed from 09/21 (Declined at this time) Start: 09-13-2022 PNEUMOCOCCAL (2 - PCV) PNEUMOCOCCAL (2 - PCV) [facility] Start: 09-13-2022 Pneumococcal vaccination Pneumococcal Vaccine (2 of 2 - PCV) [facility] Start: 06-09-2022 Influenza vaccination INFLUENZA (#1) [facility] Start: 02-28-2022 End: 04-30-2022 Thyrotropin [Units/volume] in Serum or Plasma TSH BLD Lab Routine Hypothyroidism, acquired Expected: 02/28/2022, Expires: 04/30/2022 [facility] Work Phone: Comment on above: Expected: 02/28/2022 , Expires: 04/30/2022 Start: 10-09-2021 DEPRESSION ASSESSMENT DEPRESSION ASS ESSMENT [facility] Start: 05-18-2021 DIABETES SCREEN DIABETES SCREEN [facility] Start: 2020 HEPATITIS B (1 of 3 - Risk 3-dose series) HEPATITIS B (1 of 3 - Risk 3-dose series) [facility] Start: 2020 RSV Vaccine (1 - 1-dose 60+ series) RSV Vaccine (1 - 1-dose 60+ series) [facility] Start: 07-15-2020 Adult depression screening assessment DEPRESSION SCREENING [facility] Start: 01-18-2018 PROSTATE CANCER SCREENING DISCUSSION PROSTATE CANCER SCREENING DISCUSSION [facility] Start: 04-02-2017 COLORECTAL CANCER SCREENING COLORECTAL CANCER SCREENING [facility] Start: 04-02-2017 FECAL OCCULT BLOOD FECAL OCCULT BLOO D [facility] Start: 04-02-2017 Screening for malignant neoplasm of colon Fecal Occult Blood [facility] Start: 2010 SHINGRIX VACCINE (1 of 2) SHINGRIX VACCINE (1 of 2) [facility] Start: 2005 COLOGUARD (FIT-DNA) COLOGUARD (FIT-D NA) [facility] Start: 2005 Colonoscopy COLONOSCOPY [facility] Start: [address] COLONOGRAPHY [facility] Start: 2005 Screening for malignant neoplasm of colon [facility] Start: 2005 SIGMOIDOSCOPY SIGMOIDOSCOPY [facility] Start: 1978 BP CONTROLLED (<130/80) BP CONTROLLED (<130/80) [facility] Start: 1978 HEPATITIS C SCREENING HEPATITIS C [facility] Start: 1978 HIV SCREENING HIV SCREENING [facility] Start: 1961 HEPATITIS A (1 of 2 - Risk 2-dose series) HEPATITIS A (1 of 2 - Risk 2-dose series) [facility] Start: [birth year]22-1961 COVID-19 VACCINE (#1) COVID-19 VACCI NE (#1) [facility] COLOGUARD COLOGUARD Lab Ro utine Screening for colon cancer Ordered: 04/28/2022 [facility] Work Phone: Comment on above: Ordered: 04/28/2022 CT Chest WO contrast [facility] Measurement of respiratory function [facility] Work Phone: Patient Education ED Palpitations [facility] Work Phone: Patient referral [facility] Work Phone: US Heart [facility] End: 11-30-2023 Us soft tissue head & neck real time imge docm US THYROID/PARATHYROID Radiology Routine Thyroid nodule 1 Occurrences starting 10/31/2022 until 11/30/2023 [facility] Work Phone: Comment on above: 1 Occurrences starti ng 10/31/2022 until 11/30/2023 End: 09-25-2025 US Thyroid gland US THYROID/PARATHYROID Radiology Routine Thyroid nodule 1 Occurrences starting 08/26/2024 until 09/25/2025 [facility] Comment on above: 1 Occurrences starti ng 08/26/2024 until 09/25/2025 End: 03-26-2026 XR Shoulder - left 3 Views XR SHOULDER GENERAL 3V OR MORE AP/TRUE AP/OTHER LEFT Radiology Routine Acute pain of left shoulder 1 Occurrences starting 02/24/2025 until 03/26/2026 [facility] Work Phone: Comment on above: 1 Occurrences starti ng 02/24/2025 until 03/26/2026 XR Shoulder - left 3 Views XR SHOULDER GENERAL 3V OR MORE AP/TRUE AP/OTHER LEFT Radiology Routine Acute pain of left shoulder 02/24/2025 10:23 AM EDT [facility] Immunizations Immunization Date Immunization Notes Care Provider [facility] 08-20-2024 influenza, injectabl e, madin santhosh canine kidney, preservative free Matt Araiza MD Work Phone: [facility] 08-20-2024 influenza virus vacc ine, unspecified formulation Matt Araiza MD Work Phone: [facility] 08-23-2023 influenza, injectabl e, quadrivalent, preservative free [facility] 08-23-2023 influenza virus vacc ine, unspecified formulation Matt Araiza MD Work Phone: [facility] 08-11-2022 influenza, injectabl e, quadrivalent, preservative free [facility] 08-11-2022 influenza, seasonal, injectable Dr. Matt Araiza Work Phone: [facility] 08-11-2022 influenza virus vacc ine, unspecified formulation Us 1 Work Phone: [facility] 08-10-2022 influenza, seasonal, injectable Matt Araiza MD Work Phone: [facility] 09-13-2021 influenza, injectabl e, quadrivalent, contains preservative Matt Araiza MD Work Phone: [facility] 09-13-2021 pneumococcal polysaccharide vaccine, 23 valent Matt Araiza MD Work Phone: [facility] 09-13-2021 tetanus toxoid, redu lucho diphtheria toxoid, and acellular pertussis vaccine, adsorbed Matt Araiza MD Work Phone: [facility] Payers Date Payer Category Payer Self-pay 2022 Unknown [id number] 2019 Medicaid [employer] [place] [id number] 2019-Present [phone] [address] [address] [place] [address] Medicaid [id number] 2019 Medicaid [id number] Self-pay SELF PAY INSURANCE [id number] Unknown [id number] Unknown [id number] Unknown [id number] Unknown [id number] Unknown [id number] Unknown [id number] Unknown [id number] Unknown [id number] Social History Date Type Detail Facility Start: 12-31-2012 End: 08-26-2024 Tobacco smoking status NHIS Smokes tobacco daily [facility] History of tobacco use Cigarette Smoker C [facility] Start: 12-31-2012 End: 05-01-2023 Cigarettes smoked current (pack per day) - Reported 0.5 [facility] Start: 12-31-2012 End: 08-26-2024 Tobacco use and exposure Smokeless tobacco non-user [facility] Start: 12-13-2021 End: 02-24-2025 Alcohol intake Current non-drinker of alcohol (finding) [facility] Start: 12-02-2021 End: 10-24-2022 History SDOH Alcohol Frequency 1 [facility] Start: 12-02-2021 End: 10-24-2022 History SDOH Alcohol Std Drinks 98 [facility] Start: 08-19-2013 History SDOH Alcohol Comment quit 1989 [facility] Start: 12-02-2021 End: 10-24-2022 History SDOH Social Connections Phone 2 [facility] Start: 12-02-2021 End: 10-24-2022 History SDOH Social Connections Living 5 [facility] Start: 12-02-2021 History SDOH Physical Activity DPW 7 [facility] Start: 12-02-2021 End: 10-24-2022 History SDOH Housing Unable to Pay 3 [facility] Start: 1960 Sex Assigned At Male [facility] Start: 12-30-2021 End: 02-05-2024 Tobacco smoking status NHIS Unknown if ever smoked [facility] Start: 01-22-2019 None [facility] Start: 12-05-2019 Alone [facility] Start: 12-05-2019 Cigarettes [facility] Start: 11-02-2021 End: 04-28-2022 Exposure to SARS-CoV-2 (event) Not sure [facility] Start: 10-24-2022 History SDOH Alcohol Std Drinks 0 [facility] Start: 10-24-2022 End: 05-01-2023 Social connection and isolation panel [facility] How often do you get together with friends or relatives? Patient refused [facility] Do you belong to any clubs or organizations such as quaker groups, unions, fraternal or athletic groups, or school groups? Yes [facility] Are you now , , , , never or living with a partner? [facility] How often to you hav e a drink containing alcohol? Never [facility] Do you feel stress - tense, restless, nervous, or anxious, or unable to sleep at night because your mind is troubled all the time - these days [OSQ] Only a little [facility] (I/We) worried aysha er (my/our) food would run out before (I/we) got money to buy more. Never true [facility] Start: 09-10-2021 Gender identity Identifies as male gender (finding) [facility] Start: 09-10-2021 Sexual orientation Heterosexual (finding) [facility] Has the [employer], [employer], or [employer] threatened to shut off services in your home in past 12Mo No [facility] Do you feel stress - tense, restless, nervous, or anxious, or unable to sleep at night because your mind is troubled all the time - these days [OSQ] Not at all [facility] Functional Status Date Assessment Result Facility 04-14-2015 Are you deaf, or do you have serious difficulty hearing No 04/14/2015 4:35 PM Val Bennett Ma No [facility] 04-14-2015 Are you blind, or do you have serious difficulty seeing, even when wearing glasses No 04/14/2015 4:35 PM Val Bennett Ma No [facility] 04-14-2015 Do you have serious difficulty walking or climbing stairs No 04/14/2015 4:35 PM Val Bennett Ma No [facility] 04-14-2015 Do you have difficul ty dressing or bathing No 04/14/2015 4:35 PM Val Bennett Ma No [facility] 04-14-2015 Because of a physica l, mental, or emotional condition, do you have difficulty doing errands alone such as visiting a physician's office or shopping No 04/14/2015 4:35 PM EDT Val Skinner Ma No [facility] Mental Status Date Assessment Result Facility 10-06-2021 Cognitive function Level Of Cons ciousness Awake;Alert;Appropriate;Fol lows Commands [facility] Work Phone: 09-29-2021 Cognitive function Level Of Cons ciousness Awake;Alert;Appropriate;Fol lows Commands [facility] Work Phone: 04-14-2015 Because of a physica l, mental, or emotional condition, do you have serious difficulty concentrating, remembering, or making decisions No 04/14/2015 4:35 PM EDT Val Skinner Ma No [facility] Clinical Notes 06-04-2018 to 03-13-2025 Telephone Encounter - Lolis De La Torre APRN.CNP - 03/13/2025 4:59 PM EDTTelephone Encounter - Lolis De La Torre APRN.CNP - 03/13/2025 4:59 PM Matt Cox MD - 02/24/2025 9:05 AM EDT Note Date & Type Note Facility 03-13-2025 Telephone encount er Note The following approved medication requests have been transmitted electronically. Requested Prescriptions Pending Prescriptions Disp Refills levothyroxine (SYNTHROID) 150 mcg tablet 90 tablet 3 Sig: Take 1 tablet by mouth once daily. Take on an empty stomach. For thyroid Lolis De La Torre APRN.CNP [facility] 03-13-2025 Miscellaneous Notes Formattin g of this note is different from the original. The following approved medication requests have been transmitted electronically. Requested Prescriptions Pending Prescriptions Disp Refills levothyroxine (SYNTHROID) 150 mcg tablet 90 tablet 3 Sig: Take 1 tablet by mouth once daily. Take on an empty stomach. For thyroid Lolis De La Torre APRN.CNP PATIENT OUT OF MEDICATION OF THIS MORNING. Prescription Refill Information The patient has been identified by name and date of : Yes Caregiver verified no other encounters exist for this prescription request: Yes Caregiver confirmed with patient/requestor that no other refills are due, in the near future, with this provider at this time: Yes The last office visit in the department: 02/24/25 Does the patient have a future office visit with this provider/department: Yes 09/03/25 Requested Prescriptions Pending Prescriptions Disp Refills levothyroxine (SYNTHROID) 150 mcg tablet 90 tablet Sig: Take 1 tablet by mouth once daily. Take on an empty stomach. For thyroid Karissa Yu March 13, 2025 10:09 AM documented in this encounter [facility] 03-13-2025 Telephone encount er Note PATIENT OUT OF MEDICATION OF THIS MORNING. Prescription Refill Information The patient has been identified by name and date of : Yes Caregiver verified no other encounters exist for this prescription request: Yes Caregiver confirmed with patient/requestor that no other refills are due, in the near future, with this provider at this time: Yes The last office visit in the department: 02/24/25 Does the patient have a future office visit with this provider/department: Yes 09/03/25 Requested Prescriptions Pending Prescriptions Disp Refills levothyroxine (SYNTHROID) 150 mcg tablet 90 tablet Sig: Take 1 tablet by mouth once daily. Take on an empty stomach. For thyroid Karissa Yu March 13, 2025 10:09 AM [facility] 02-24-2025 History of Presen t illness Narrative Radiology Service Progress Note PATIENT NAME: Damon Bui DATE OF SERVICE: February 24, 2025 TIME: 10:12 AM PATIENT IDENTITY VERIFICATION COMPLETED USING TWO (2) IDENTIFIERS: Name and Date of confirmed by patient verbally. FALL SCREENING: Has the patient had 2 falls in the last year or 1 fall with injury or currently using an Ambulatory Assistive Device (Walker, Cane, Wheelchair, Crutches, etc.)? No PATIENT GENDER DATA: Assigned male at PATIENT RELEVANT IMPLANT DATA REVIEWED: Not Applicable PATIENT PRESENTS WITH AN IMPLANTABLE OR ATTACHED DOPSTER: No RADIOLOGY DEPARTMENT: General X-ray: Exam(s) Completed: Upper Extremity X-Ray(s): Shoulder, AP / TRUE AP / AXILLARY left PERIPHERAL IV DATA: Not applicable SIGNED BY: Pramod Juarez February 24, 2025 10:12 AM documented in this encounter [facility] 02-24-2025 Note HNO ID: [id number] Author: ASHLEY MCCRAY Tech Service: ? Author Type: Technologist Type: Progress Notes Filed: 02/24/2025 10:23 Note Text: Radiology Service Progress Note PATIENT NAME: Damon Bui DATE OF SERVICE: February 24, 2025 TIME: 10:12 AM PATIENT IDENTITY VERIFICATION COMPLETED USING TWO (2) IDENTIFIERS: Name and Date of confirmed by patient verbally. FALL SCREENING: Has the patient had 2 falls in the last year or 1 fall with injury or currently using an Ambulatory Assistive Device (Walker, Cane, Wheelchair, Crutches, etc.)? No PATIENT GENDER DATA: Assigned male at PATIENT RELEVANT IMPLANT DATA REVIEWED: Not Applicable PATIENT PRESENTS WITH AN IMPLANTABLE OR ATTACHED DOPSTER: No RADIOLOGY DEPARTMENT: General X-ray: Exam(s) Completed: Upper Extremity X-Ray(s): Shoulder, AP / TRUE AP / AXILLARY left PERIPHERAL IV DATA: Not applicable SIGNED BY: Pramod Juarez February 24, 2025 10:12 AM [facility] 02-24-2025 Note HNO ID: [id number] Author: MATT ARAIZA MD Service: ? Author Type: Physician Type: Progress Notes Filed: 02/24/2025 09:56 Note Text: Patient presents with: 6 Month Exam HPI: Patient presents today for office visit for routine 6 month follow up. HTN: Does not monitor BP at home Denies chest pain and shortness of breath Mentions some palpitations and irregular heartbeats intermittently. Not necessarily new. Denies headaches and dizziness Denies edema Sees cardiology soon THYROID: No energy changes No hair or skin changes No temperature intolerances Last us: Diffusely heterogeneous thyroid gland. Subcentimeter right thyroid nodule as described TI-RADS Category: TR3 ACR Recommendation: TI-RADS 3 nodule. No FNA or further imaging is advised. Left shoulder pain x 3-4 weeks. Limited range of motion. Denies any numbness or tingling No injury. Hx of remote injury. No numbness or weakness. GERD: Symptoms controlled Has follow with pulmonary. Has labs pending. MEDICATIONS: Current Outpatient Medications Medication Sig levothyroxine (SYNTHROID) 150 mcg tablet Take 150 mcg by mouth once daily. Take on an empty stomach. For thyroid omeprazole (PRILOSEC) 20 mg capsule Take 1 capsule by mouth every afternoon. OTC hydroCHLOROthiazide 12.5 mg capsule Take 12.5 mg by mouth once daily. lisinopril (ZESTRIL, PRINIVIL) 10 mg tablet Take 10 mg by mouth once daily. Blood Pressure Test Kit-Medium kit 1 Each once daily. acetaminophen (TYLENOL ARTHRITIS PAIN) 650 mg CR tablet Take 650 mg by mouth every 8 hours as needed for Pain. Aspirin 81 mg Tab Take 1 tablet by mouth once daily. Take with food. No current facility-administered medications for this visit. ALLERGIES: ALLERGIES No Known Allergies PAST MEDICAL HISTORY Diagnosis Date Aortic stenosis Arrhythmia 1984 ? SVT-s/p RFA Bicuspid aortic valve HTN (hypertension) Hyperlipidemia 04/23/2014 PAST SURGICAL HISTORY Procedure Laterality Date CHOLECYSTECTOMY 2013 KNEE ARTHROSCOPY 2000 cartilage. L knee. FAMILY HISTORY Problem Relation Age of Onset Heart Brother at 43 from heart attack. Heart Paternal Grandfather Heart Father double bypass surgery, heart attack Cancer Father patient is unsure what type of cancer Diabetes Father Diabetes Brother Heart Paternal Grandmother Cancer Paternal Grandmother Social History Tobacco Use Smoking status: Every Day Current packs/day: 0.50 Average packs/day: 0.5 packs/day for 38.0 years (19.0 ttl pk-yrs) Types: Cigarettes Smokeless tobacco: Never Substance Use Topics Alcohol use: No Comment: quit 1988 Drug use: No Discussed tobacco cessation, including risks of continued use. Offered assistance to help quit if patient desires. Reviewed current medications, allergies, past medical history, surgical history, family history and social history today. REVIEW OF SYSTEMS All other reviewed and negative other than HPI. HEALTH MAINTENANCE: Reviewed health maintenance issues today and recommended the following in detail. BP Controlled (<130/80) Never done Pneumococcal Vaccine: 50+(2 of 2 - PCV) due on 09/13/2022 Depression Screening due on 02/13/2025 Anxiety Screening due on 02/13/2025 VITALS: BP 120/68 Pulse 77 Ht 180.3 cm (5' 11") Wt 97.2 kg (214 lb 3.2 oz) SpO2 97% BMI 29.87 kg/m? Last 4 Encounter Wt Readings: Date: Wt: 08/26/2024 95.7 kg (211 lb) 02/14/2024 92.5 kg (204 lb) 05/23/2023 90.7 kg (200 lb) 10/31/2022 86.6 kg (191 lb) PHYSICAL EXAMINATION: General appearance: Well appearing, alert, in no acute distress, well-hydrated, well nourished. Skin: Skin color, texture, turgor normal, no suspicious rashes or lesions Head: Normocephalic, no masses, lesions, tenderness or abnormalities Lungs: Lungs clear to auscultation. No wheezing, rhonchi, rales Heart: RRR without murmur, gallop, or rubs. No ectopy Abdomen: Normal abdominal exam, Abdomen soft, non-tender. Bowel sounds normal. No masses, organomegaly Extremities: No deformities, edema, skin discoloration, clubbing or cyanosis. Good capillary refill. Shoulder: Location: left Redness: No. Warmth: No. Tenderness to palpation: over ant shoudler. . Swelling: No. Range of motion: decreased abduction. Empty can test: positive. Crepitus. ASSESSMENT/PLAN: 1. Primary hypertension - ICD9: 401.9, ICD10: I10 (primary diagnosis) - Controlled - Continue current medications 2. Screening for depression - ICD9: V79.0, ICD10: Z13.31 - DEPRESSION SCREENING 3. Encounter for screening examination for other mental health and behavioral disorders - ICD9: V79.8, ICD10: Z13.39 - ANXIETY SCREENING 4. SVT (supraventricular tachycardia) (HCC) - ICD9: 427.89, ICD10: I47.10 - per cardiology 5. Bicuspid aortic valve - ICD9: 746.4, ICD10: Q23.81 - per cardiology 6. Nonrheumatic aortic valve stenosis - ICD9: 424.1, ICD10: I35.0 - stable (more content not included)... [facility] 02-24-2025 History of Presen t illness Narrative Patient presents with: 6 Month Exam HPI: Patient presents today for office visit for routine 6 month follow up. HTN: Does not monitor BP at home Denies chest pain and shortness of breath Mentions some palpitations and irregular heartbeats intermittently. Not necessarily new. Denies headaches and dizziness Denies edema Sees cardiology soon THYROID: No energy changes No hair or skin changes No temperature intolerances Last us: Diffusely heterogeneous thyroid gland. Subcentimeter right thyroid nodule as described TI-RADS Category: TR3 ACR Recommendation: TI-RADS 3 nodule. No FNA or further imaging is advised. Left shoulder pain x 3-4 weeks. Limited range of motion. Denies any numbness or tingling No injury. Hx of remote injury. No numbness or weakness. GERD: Symptoms controlled Has follow with pulmonary. Has labs pending. MEDICATIONS: Current Outpatient Medications Medication Sig levothyroxine (SYNTHROID) 150 mcg tablet Take 150 mcg by mouth once daily. Take on an empty stomach. For thyroid omeprazole (PRILOSEC) 20 mg capsule Take 1 capsule by mouth every afternoon. OTC hydroCHLOROthiazide 12.5 mg capsule Take 12.5 mg by mouth once daily. lisinopril (ZESTRIL, PRINIVIL) 10 mg tablet Take 10 mg by mouth once daily. Blood Pressure Test Kit-Medium kit 1 Each once daily. acetaminophen (TYLENOL ARTHRITIS PAIN) 650 mg CR tablet Take 650 mg by mouth every 8 hours as needed for Pain. Aspirin 81 mg Tab Take 1 tablet by mouth once daily. Take with food. No current facility-administered medications for this visit. ALLERGIES: ALLERGIES No Known Allergies PAST MEDICAL HISTORY Diagnosis Date Aortic stenosis Arrhythmia 1984 ? SVT-s/p RFA Bicuspid aortic valve HTN (hypertension) Hyperlipidemia 04/23/2014 PAST SURGICAL HISTORY Procedure Laterality Date CHOLECYSTECTOMY 2013 KNEE ARTHROSCOPY 2000 cartilage. L knee. FAMILY HISTORY Problem Relation Age of Onset Heart Brother at 43 from heart attack. Heart Paternal Grandfather Heart Father double bypass surgery, heart attack Cancer Father patient is unsure what type of cancer Diabetes Father Diabetes Brother Heart Paternal Grandmother Cancer Paternal Grandmother Social History Tobacco Use Smoking status: Every Day Current packs/day: 0.50 Average packs/day: 0.5 packs/day for 38.0 years (19.0 ttl pk-yrs) Types: Cigarettes Smokeless tobacco: Never Substance Use Topics Alcohol use: No Comment: quit 1988 Drug use: No Discussed tobacco cessation, including risks of continued use. Offered assistance to help quit if patient desires. Reviewed current medications, allergies, past medical history, surgical history, family history and social history today. REVIEW OF SYSTEMS All other reviewed and negative other than HPI. HEALTH MAINTENANCE: Reviewed health maintenance issues today and recommended the following in detail. BP Controlled (<130/80) Never done Pneumococcal Vaccine: 50+(2 of 2 - PCV) due on 09/13/2022 Depression Screening due on 02/13/2025 Anxiety Screening due on 02/13/2025 VITALS: BP 120/68 Pulse 77 Ht 180.3 cm (5' 11") Wt 97.2 kg (214 lb 3.2 oz) SpO2 97% BMI 29.87 kg/m Last 4 Encounter Wt Readings: Date: Wt: 08/26/2024 95.7 kg (211 lb) 02/14/2024 92.5 kg (204 lb) 05/23/2023 90.7 kg (200 lb) 10/31/2022 86.6 kg (191 lb) PHYSICAL EXAMINATION: General appearance: Well appearing, alert, in no acute distress, well-hydrated, well nourished. Skin: Skin color, texture, turgor normal, no suspicious rashes or lesions Head: Normocephalic, no masses, lesions, tenderness or abnormalities Lungs: Lungs clear to auscultation. No wheezing, rhonchi, rales Heart: RRR without murmur, gallop, or rubs. No ectopy Abdomen: Normal abdominal exam, Abdomen soft, non-tender. Bowel sounds normal. No masses, organomegaly Extremities: No deformities, edema, skin discoloration, clubbing or cyanosis. Good capillary refill. Shoulder: Location: left Redness: No. Warmth: No. Tenderness to palpation: over ant shoudler. . Swelling: No. Range of motion: decreased abduction. Empty can test: positive. Crepitus. ASSESSMENT/PLAN: 1. Primary hypertension - ICD9: 401.9, ICD10: I10 (primary diagnosis) - Controlled - Continue current medications 2. Screening for depression - ICD9: V79.0, ICD10: Z13.31 - DEPRESSION SCREENING 3. Encounter for screening examination for other mental health and behavioral disorders - ICD9: V79.8, ICD10: Z13.39 - ANXIETY SCREENING 4. SVT (supraventricular tachycardia) (HCC) - ICD9: 427.89, ICD10: I47.10 - per cardiology 5. Bicuspid aortic valve - ICD9: 746.4, ICD10: Q23.81 - per cardiology 6. Nonrheumatic aortic valve stenosis - ICD9: 424.1, ICD10: I35.0 - stable 7. Thyroid nodule - ICD9: 241.0, ICD10: E04.1 - does not require follow up. 8. Hypothyroidism, acquired - ICD9: 244.9, ICD10: E03.9 - Instructed patient on importance of taking on an empty stomach either first thing in the morning or at bedtime. Get labs. 9. RUKHSANA (obstructive sleep apnea) - ICD9: 327.23, ICD10: G47.33 - per pulmonary. Does not treat 10. Acute pain of left shoulder - ICD9: 719.41, ICD10: M25.512 Discussed risks and benefits of new medication with the patient. Advised them to call if any side effects or questions. Red flags for re-assessment reviewed with patient in detail. Call if symptoms worsen at all or if not better in one to two weeks Reviewed diagnosis and treatment options in detail. Questions were answered. Patient expressed understanding of treatment plan. - PREDNISONE 20 MG TABLET - XR SHOULDER GENERAL 3V OR MORE AP/TRUE AP/OTHER LEFT Matt Araiza MD documented in this encounter [facility] 01-29-2025 Evaluation note Diagnosis Onset Date Resolution Multiple lung nodules on CT acute January 29, 2025 12:29pm Rheumatoid arthritis chronic Apri l 2024 12:29pm Smoking greater than 40 pack years chronic January 29, 2025 12:29pm [facility] [employer] Phone: 1(114) 372-791911-25-2024 Telephone encounter Note* Telephone Encounter - Cecelia Cassidy LPN - 09/02/2024 11:06 AM EST Patient has a virtual visit scheduled with Rheum. [facility]11-25-2024 Miscellaneous Notes* Telephone Encounter - Cecelia Cassidy LPN - 09/02/2024 11:06 AM EST Patient has a virtual visit scheduled with Rheum. * Telephone Encounter - Cecelia Cassidy LPN - 08/29/2024 2:32 PM EST Attempted to reach out to patient. Dr Mendoza doesn't accept Medicaid. He could contact insurance for other suggestion of schedule within clinic. Please attempt to reach patient again. * Telephone Encounter - Matt Araiza MD - 08/29/2024 2:10 PM EST Did he just set that up? As of three days ago, the outside rheums he had contacted declined him dueto insurance. * Telephone Encounter - Teresa Rodriguez - 08/28/2024 9:30 AM EST As per FYI. The patient went outside of [facility]. * Telephone Encounter - Renita Apple - 08/27/2024 1:54 PM EST 1st call attempt to schedule rheum tiffany, left vm * Telephone Encounter - Charity Solorzano MA - 08/27/2024 8:10 AM EST PCP sends CC'd chart to Matt Matthew MD sent to [facility] Has open referral to rheumatology that he has not pursued. Needs done Charity Solorzano MA [facility] Telephone encounter Note * Telephone Encounter - Cecelia Cassidy LPN - 08/29/2024 2:32 PM EST Attempted to reach out to patient. Dr Mendoza doesn't accept Medicaid. He could contact insurance for other suggestion of schedule within clinic. Please attempt to reach patient again. [facility]11-21-2024 Telephone encounter Note* Telephone Encounter - Matt Araiza MD - 08/29/2024 2:10 PM EST Did he just set that up? As of three days ago, the outside rheums he had contacted declined him dueto insurance. [facility]11-20-2024 Telephone encounter Note* Telephone Encounter - Teresa Rodriguez - 08/28/2024 9:30 AM EST As per FYI. The patient went outside of [facility]. [facility]11-20-2024 NoteHNO ID: [id number] Author: ANNE-MARIE WILSON RDMS Service: ? Author Type: Sheet Metal Worker Maintenance Type: Progress Notes Filed: 08/29/2024 11:03 Note Text: Radiology Service Progress Note PATIENT NAME: Damon Bui DATE OF SERVICE: August 29, 2024 TIME: 11:03 AM PATIENT IDENTITY VERIFICATION COMPLETED USING TWO (2) IDENTIFIERS: Name and Date of confirmed by patient verbally. FALL SCREENING: Has the patient had 2 falls in the last year or 1 fall with injury or currently using an Ambulatory Assistive Device (Walker, Cane, Wheelchair, Crutches, etc.)? No PATIENT GENDER DATA: Male PATIENT RELEVANT IMPLANT DATA REVIEWED: Not Applicable PATIENT PRESENTS WITH AN IMPLANTABLE OR ATTACHED DOPSTER: No RADIOLOGY DEPARTMENT: Ultrasound PERIPHERAL IV DATA: Not applicable SIGNED BY: Anne-Marie Wilson RDMS RVNina August 29, 2024 11:03 [facility]11-19-2024 Telephone encounter Note* Telephone Encounter - Renita Apple - 08/27/2024 1:54 PM EST 1st call attempt to schedule rheum tiffany, left vm [facility]11-19-2024 Telephone encounter Note* Telephone Encounter - Charity Solorzano MA - 08/27/2024 8:10 AM EST PCP sends CC'd chart to Matt Matthew MD [facility] Has open referral to rheumatology that he has not pursued. Needs done Charity Solorzano MA [facility]11-18-2024 NoteHNO ID: [id number] Author: MATT ARAIZA MD Service: ? Author Type: Physician Type: Progress Notes Filed: 08/26/2024 09:31 Note Text: Patient presents with: 6 Month Exam HPI: Patient presents today for office visit for follow up. Sees [facility]. Last OV 08/20/24. Most recent lung CT shows multiple new lung nodules. Total 18, all but 3 are new. Largest 5 mm. Smoking approx 8 cigarettes a day. Trying to quit. Denies chest pain. Shortness of breath with exertion. Mentions the only time he really gets short of breath is when going up his steep stairs. They feel it is due to autoimmune process, he has been referred to rheum several times in the past and has not gone. Reinforced th need to do so. HTN: Continues on HCTZ and Lisinopril. Does not monitor his BP. Denies chest pain. SOB with exertion. Denies headaches. Some dizziness if stands up too fast. Rarely occurs. Is overall ok. Has been having palpitations since Jun. Feels intermittently fluttering. Sees Dr. Pastor. Sees him again in December. No syncope. No edema. Thyroid numbers looked ok in Jun. Continues on Levothyroxine 175 mcg daily. Denies any energy, hair or skin changes. Last tsh was 2.610 Got his flu short. Did not do his last thyroid us that was ordered for this year. MEDICATIONS: Current Outpatient Medications Medication Sig omeprazole (PRILOSEC) 20 mg capsule Take 1 capsule by mouth every afternoon. OTC levothyroxine (LEVOXYL) 175 mcg tablet Take 1 tablet by mouth once daily. Take on empty stomach. For Thyroid. hydroCHLOROthiazide 12.5 mg capsule Take 12.5 mg by mouth once daily. lisinopril (ZESTRIL, PRINIVIL) 10 mg tablet Take 10 mg by mouth once daily. Blood Pressure Test Kit-Medium kit 1 Each once daily. acetaminophen (TYLENOL ARTHRITIS PAIN) 650 mg CR tablet Take 650 mg by mouth every 8 hours as needed for Pain. Aspirin 81 mg Tab Take 1 tablet by mouth once daily. Take with food. No current facility-administered medications for this visit. ALLERGIES: ALLERGIES No Known Allergies PAST MEDICAL HISTORY Diagnosis Date Aortic stenosis Arrhythmia 1984 ? SVT-s/p RFA Bicuspid aortic valve HTN (hypertension) Hyperlipidemia 04/23/2014 PAST SURGICAL HISTORY Procedure Laterality Date CHOLECYSTECTOMY 2013 KNEE ARTHROSCOPY 2000 cartilage. L knee. FAMILY HISTORY Problem Relation Age of Onset Heart Brother at 43 from heart attack. Heart Paternal Grandfather Heart Father double bypass surgery, heart attack Cancer Father patient is unsure what type of cancer Diabetes Father Diabetes Brother Heart Paternal Grandmother Cancer Paternal Grandmother Social History Tobacco Use Smoking status: Every Day Current packs/day: 0.50 Average packs/day: 0.5 packs/day for 38.0 years (19.0 ttl pk-yrs) Types: Cigarettes Smokeless tobacco: Never Substance Use Topics Alcohol use: No Comment: quit 1988 Drug use: No Reviewed current medications, allergies, past medical history, surgical history, family history and social history today. REVIEW OF SYSTEMS All other reviewed and negative other than HPI. HEALTH MAINTENANCE: Reviewed health maintenance issues today and recommended the following in detail. Shingrix Vaccine(1 of 2) Never done Pneumococcal Vaccine(2 of 2 - PCV) due on 09/13/2022 Covid-19 Vaccine(2023- season) Never done VITALS: BP 136/76 Pulse 81 Ht 180.3 cm (5' 11") Wt 95.7 kg (211 lb) SpO2 97% BMI 29.43 kg/m? Last 4 Encounter Wt Readings: Date: Wt: 02/14/2024 92.5 kg (204 lb) 05/23/2023 90.7 kg (200 lb) 10/31/2022 86.6 kg (191 lb) 04/28/2022 90.7 kg (200 lb) PHYSICAL EXAMINATION: General appearance: Well appearing, alert, in no acute distress, well-hydrated, well nourished. Skin: Skin color, texture, turgor normal, no suspicious rashes or lesions Head: Normocephalic, no masses, lesions, tenderness or abnormalities Lungs: Lungs clear to auscultation. No wheezing, rhonchi, rales Heart: RRR , murmur unchanged. gallop, or rubs. No ectopy Abdomen: Normal abdominal exam, Abdomen soft, non-tender. Bowel sounds normal. No masses, organomegaly Extremities: has deformities of hands. Musculoskeletal: No joint swelling, deformity, or tenderness Peripheral pulses: Normal Neuro: Negative. ASSESSMENT/PLAN: 1. Primary hypertension - ICD9: 401.9, ICD10: I10 (primary diagnosis) - Controlled - Continue current medications - COMPLETE BLOOD COUNT AND DIFFERENTIAL - COMPREHENSIVE METABOLIC PANEL - LIPID PANEL BASIC 2. H/O cardiac radiofrequency ablation - ICD9: V15.1, ICD10: Z98.890 - doing well. 3. SVT (supraventricular tachycardia) (HCC) - ICD9: 427.89, ICD10: I47.10 - stable. 4. Atrioventricular manolo re-entry tachycardia (HCC) - ICD9: 427.89, ICD10: I47.19 - stable. 5. Nonrheumatic aortic valve stenosis - ICD9: 424.1, ICD10: I35.0 - stable. Follows with [facility]. 6. Hyperlip (more content not included)...[facility]11-18-2024 History of Present illness Narrative* Matt Araiza MD - 08/26/2024 9:05 AM EST Patient presents with: 6 Month Exam HPI: Patient presents today for office visit for follow up. Sees [facility]. Last OV 08/20/24. Most recent lung CT shows multiple new lung nodules. Total 18, all but 3 are new. Largest 5 mm. Smoking approx 8 cigarettes a day. Trying to quit. Denies chest pain. Shortness of breath with exertion. Mentions the only time he really gets short of breath is when going up his steep stairs. They feel it is due to autoimmune process, he has been referred to rheum several times in the past and has not gone. Reinforced th need to do so. HTN: Continues on HCTZ and Lisinopril. Does not monitor his BP. Denies chest pain. SOB with exertion. Denies headaches. Some dizziness if stands up too fast. Rarely occurs. Is overall ok. Has been having palpitations since Jun. Feels intermittently fluttering. Sees Dr. Pastor. Sees him again in December. No syncope. No edema. Thyroid numbers looked ok in Jun. Continues on Levothyroxine 175 mcg daily. Denies any energy, hair or skin changes. Last tsh was 2.610 Got his flu short. Did not do his last thyroid us that was ordered for this year. MEDICATIONS: Current Outpatient Medications Medication Sig omeprazole (PRILOSEC) 20 mg capsule Take 1 capsule by mouth every afternoon. OTC levothyroxine (LEVOXYL) 175 mcg tablet Take 1 tablet by mouth once daily. Take on empty stomach. For Thyroid. hydroCHLOROthiazide 12.5 mg capsule Take 12.5 mg by mouth once daily. lisinopril (ZESTRIL, PRINIVIL) 10 mg tablet Take 10 mg by mouth once daily. Blood Pressure Test Kit-Medium kit 1 Each once daily. acetaminophen (TYLENOL ARTHRITIS PAIN) 650 mg CR tablet Take 650 mg by mouth every 8 hours as needed for Pain. Aspirin 81 mg Tab Take 1 tablet by mouth once daily. Take with food. No current facility-administered medications for this visit. ALLERGIES: ALLERGIES No Known Allergies PAST MEDICAL HISTORY Diagnosis Date Aortic stenosis Arrhythmia 1984 ? SVT-s/p RFA Bicuspid aortic valve HTN (hypertension) Hyperlipidemia 04/23/2014 PAST SURGICAL HISTORY Procedure Laterality Date CHOLECYSTECTOMY 2013 KNEE ARTHROSCOPY 2000 cartilage. L knee. FAMILY HISTORY Problem Relation Age of Onset Heart Brother at 43 from heart attack. Heart Paternal Grandfather Heart Father double bypass surgery, heart attack Cancer Father patient is unsure what type of cancer Diabetes Father Diabetes Brother Heart Paternal Grandmother Cancer Paternal Grandmother Social History Tobacco Use Smoking status: Every Day Current packs/day: 0.50 Average packs/day: 0.5 packs/day for 38.0 years (19.0 ttl pk-yrs) Types: Cigarettes Smokeless tobacco: Never Substance Use Topics Alcohol use: No Comment: quit 1988 Drug use: No Reviewed current medications, allergies, past medical history, surgical history, family history andsocial history today. REVIEW OF SYSTEMS All other reviewed and negative other than HPI. HEALTH MAINTENANCE: Reviewed health maintenance issues today and recommended the following in detail. Shingrix Vaccine(1 of 2) Never done Pneumococcal Vaccine(2 of 2 - PCV) due on 09/13/2022 Covid-19 Vaccine(2023-) Never done VITALS: BP 136/76 Pulse 81 Ht 180.3 cm (5' 11") Wt 95.7 kg (211 lb) SpO2 97% BMI 29.43 kg/m Last 4 Encounter Wt Readings: Date: Wt: 02/14/2024 92.5 kg (204 lb) 05/23/2023 90.7 kg (200 lb) 10/31/2022 86.6 kg (191 lb) 04/28/2022 90.7 kg (200 lb) PHYSICAL EXAMINATION: General appearance: Well appearing, alert, in no acute distress, well-hydrated, well nourished. Skin: Skin color, texture, turgor normal, no suspicious rashes or lesions Head: Normocephalic, no masses, lesions, tenderness or abnormalities Lungs: Lungs clear to auscultation. No wheezing, rhonchi, rales Heart: RRR , murmur unchanged. gallop, or rubs. No ectopy Abdomen: Normal abdominal exam, Abdomen soft, non-tender. Bowel sounds normal. No masses, organomegaly Extremities: has deformities of hands. Musculoskeletal: No joint swelling, deformity, or tenderness Peripheral pulses: Normal Neuro: Negative. ASSESSMENT/PLAN: 1. Primary hypertension - ICD9: 401.9, ICD10: I10 (primary diagnosis) - Controlled - Continue current medications - COMPLETE BLOOD COUNT AND DIFFERENTIAL - COMPREHENSIVE METABOLIC PANEL - LIPID PANEL BASIC 2. H/O cardiac radiofrequency ablation - ICD9: V15.1, ICD10: Z98.890 - doing well. 3. SVT (supraventricular tachycardia) (HCC) - ICD9: 427.89, ICD10: I47.10 - stable. 4. Atrioventricular manolo re-entry tachycardia (HCC) - ICD9: 427.89, ICD10: I47.19 - stable. 5. Nonrheumatic aortic valve stenosis - ICD9: 424.1, ICD10: I35.0 - stable. Follows with [facility]. 6. Hyperlipidemia, unspecified hyperlipidemia type - ICD9: 272.4, ICD10: E78.5 - follows labs. 7. Bicuspid aortic valve - ICD9: 746.4, ICD10: Q23.81 - see cardiology. 8. RUKHSANA (obstructive sleep apnea) - ICD9: 327.23, ICD10: G47.33 - follows with pulmonary. 9. Thyroid nodule - ICD9: 241.0, ICD10: E04.1 - US THYROID/PARATHYROID 10. Hypothyroidism, acquired - ICD9: 244.9, ICD10: E03.9 - THYROID STIMULATING HORMONE 11. Elevated rheumatoid factor - ICD9: 795.79, ICD10: R76.8 - pulmonary and myself are worried about RA. Reinforced need to see rheum. 12. Polyarthritis - ICD9: 716.50, ICD10: M13.0 -as above. Matt Araiza MD [facility] Telephone encounter Note * Telephone Encounter - Cecelia Cassidy LPN - 08/23/2024 12:02 PM EST I have this fax printed for his appointment on Monday with PCP. [facility]11-15-2024 Miscellaneous Notes* Telephone Encounter - Cecelia Cassidy LPN - 08/23/2024 12:02 PM EST I have this fax printed for his appointment on Monday with PCP. * Telephone Encounter - Matt Araiza MD - 08/23/2024 7:27 AM EST Looking over the chart. He has been referred to rheumatology numerous times, the last last of whichwas just in the last year. Still has current referral placed. If he has not not gone as instructed,still needs set up soon and he needs to follow through with our recommendations. The current referral should still be open. * Telephone Encounter - Marilyn Barrera MA - 08/22/2024 4:20 PM EST Please review OV notes below. See Pulmonary message. Scan on 08/20/2024 10:25 AM by Provider, PRABHJOT Gonzalez: Consultation - Pulmonary Marilyn Barrera MA * Telephone Encounter - Marlena Carty LPN - 08/20/2024 11:11 AM EST Anne-Marie calling from [facility]. Pt had an appt with ASSET RECOVERY SPECIALIST Lacey Gamble today & anne-marie is faxing OV notes to PCP. She states the note will include that pt has multiple new lung nodules & he also has increased joint & muscle pain & he has no current nude model. Office to watch for fax. Marlena Carty LPN [facility]11-[facility] Telephone encounter Note * Telephone Encounter - Matt Araiza MD - 08/23/2024 7:27 AM EST Looking over the chart. He has been referred to rheumatology numerous times, the last last of whichwas just in the last year. Still has current referral placed. If he has not not gone as instructed,still needs set up soon and he needs to follow through with our recommendations. The current referral should still be open. [facility]11-14-2024 Telephone encounter Note* Telephone Encounter - Marilyn Barrera MA - 08/22/2024 4:20 PM EST Please review OV notes below. See Pulmonary message. Scan on 08/20/2024 10:25 AM by Provider, External, PAFlavioC: Consultation - Pulmonary Marilyn Barrera MA [facility]11-12-2024 Telephone encounter Note* Telephone Encounter - Marlena Carty LPN - 08/20/2024 11:11 AM EST Anne-Marie calling from [facility]. Pt had an appt with ASSET RECOVERY SPECIALIST Lacey Gamble today & anne-marie is faxing OV notes to PCP. She states the note will include that pt has multiple new lung nodules & he also has increased joint & muscle pain & he has no current nude model. Office to watch for fax. Marlena Carty LPN [facility]07-29-2024 Telephone encounter Note* Telephone Encounter - Anna Parsons RN - 05/06/2024 3:10 PM EDT Pt called and is notified of providers results and instructions. Pt voices understanding. He stateshe even waits 2 hours before he eats breakfast. Anna Parsons RN [facility]07-29-2024 Miscellaneous Notes* Telephone Encounter - Anna Parsons RN - 05/06/2024 3:10 PM EDT Pt called and is notified of providers results and instructions. Pt voices understanding. He stateshe even waits 2 hours before he eats breakfast. Anna Parsons, RN * Telephone Encounter - Matt Araiza MD - 05/06/2024 3:04 PM EDT Thyroid is just borderline. Change synthroid to 175 mcg a day and recheck tsh in six weeks. Make sure taking on an empty stomach documented in [facility] encounterDay[facility]07-[facility]24 Telephone encounter Note * Telephone Encounter - Matt Araiza MD - 05/06/2024 3:04 PM EDT Thyroid is just borderline. Change synthroid to 175 mcg a day and recheck tsh in six weeks. Make sure taking on an empty stomach [facility]06-10-2024 Telephone encounter Note* Telephone Encounter - Cecelia Cassidy LPN - 03/18/2024 12:43 PM EDT Patient notified and verbalizes understanding. Is taking on an empty stomach and waiting to eat. [facility]06-10-2024 Miscellaneous Notes* Telephone Encounter - Cecelia Cassidy LPN - 03/18/2024 12:43 PM EDT Patient notified and verbalizes understanding. Is taking on an empty stomach and waiting to eat. * Telephone Encounter - Matt Araiza MD - 03/18/2024 11:13 AM EDT Thyroid is still low. Make sure taking on empty stomach. Increase synthroid to 150 mcg a day . Recheck tsh in six weeks. documented [facility] encounter[facility]06-[facility]24 Telephone encounter Note * Telephone Encounter - Matt Araiza MD - 03/18/2024 11:13 AM EDT Thyroid is still low. Make sure taking on empty stomach. Increase synthroid to 150 mcg a day . Recheck tsh in six weeks. [facility]05-20-2024 Telephone encounter Note* Telephone Encounter - Kasey Graham MA - 02/26/2024 11:13 AM EDT Fax received from Dr Mccarthy's office. They do not accept Wall [facility]05-20-2024 Miscellaneous Notes* Telephone Encounter - Kasey Graham MA - 02/26/2024 11:13 AM EDT Fax received from Dr Mccarthy's office. They do not accept Wall documented in [facility] encounterDay[facility]05[facility] History of Present illness Narrative* Matt Araiza MD - 02/14/2024 7:58 AM EDT Patient presents with: Follow Up HPI: Patient presents today for office visit for follow up. HTN: Continues on Lisinopril 10 mg daily HCTZ 12.5 mg daily Does not monitor BP. His machine broke. Denies chest pain and shortness of breath Denies headaches and dizziness Denies palpitations and syncope Denies edema Follows with Cardiology. Dr. Pastor Follows with Pulmonary. Breathing stable. Completed six minute [address]. CT lung Ca screening completed on 02/02/24. Showed 5mm noncalcified nodule in left lower lobe-probably benign. They recommend follow up in 6 months. Continues to smoke 1/2 PPD Mentions today is arthritis is really bothering him. Most bothersome in B/L shoulders and elbows. Takes tylenol prn. Was referred to rheumatology , however, I see nothing set up. He is unsure if there is a family history of any autoimmune disorders. THYROID: Continues on Levothyroxine 137 mcg daily No energy, hair or skin changes. Latest Ref Rng 12/23/2023 01/27/2024 WSR 0 - 15 mm/hr 35 (H) CRP <0.9 mg/dL 2.2 (H) FRANSICO Negative Negative Rheumatoid Factor <16 IU/mL 32 (H) TSH 0.270 - 4.200 mIU/L 6.390 (H) Legend: (H) High MEDICATIONS: Current Outpatient Medications Medication Sig levothyroxine (LEVOXYL) 137 mcg tablet Take 1 tablet by mouth once daily. Take on empty stomach. For Thyroid hydroCHLOROthiazide 12.5 mg capsule Take 12.5 mg by mouth once daily. lisinopril (ZESTRIL, PRINIVIL) 10 mg tablet Take 10 mg by mouth once daily. Blood Pressure Test Kit-Medium kit 1 Each once daily. acetaminophen (TYLENOL ARTHRITIS PAIN) 650 mg CR tablet Take 650 mg by mouth every 8 hours as needed for Pain. Aspirin 81 mg Tab Take 1 tablet by mouth once daily. Take with food. No current facility-administered medications for this visit. ALLERGIES: ALLERGIES No Known Allergies PAST MEDICAL HISTORY Diagnosis Date Aortic stenosis Arrhythmia 1984 ? SVT-s/p RFA Bicuspid aortic valve HTN (hypertension) Hyperlipidemia 04/23/2014 PAST SURGICAL HISTORY Procedure Laterality Date CHOLECYSTECTOMY 2013 KNEE ARTHROSCOPY 2000 cartilage. L knee. FAMILY HISTORY Problem Relation Age of Onset Heart Brother at 43 from heart attack. Heart Paternal Grandfather Heart Father double bypass surgery, heart attack Cancer Father patient is unsure what type of cancer Diabetes Father Diabetes Brother Heart Paternal Grandmother Cancer Paternal Grandmother Social History Tobacco Use Smoking status: Every Day Packs/day: 0.50 Years: 38.00 Additional pack years: 0.00 Total pack years: 19.00 Types: Cigarettes Smokeless tobacco: Never Substance Use Topics Alcohol use: No Comment: quit 1988 Drug use: No Reviewed current medications, allergies, past medical history, surgical history, family history andsocial history today. REVIEW OF SYSTEMS All other reviewed and negative other than HPI. HEALTH MAINTENANCE: Reviewed health maintenance issues today and recommended the following in detail. BP Controlled (<130/80) Never done RSV Vaccine(1 - 1-dose 60+ series) Never done Covid-19 Vaccine(2022-24 season) Never done Behavioral Health Screening Never done VITALS: BP 116/72 Pulse 79 Ht 180.3 cm (5' 11") Wt 92.5 kg (204 lb) SpO2 98% BMI 28.45 kg/m Last 4 Encounter Wt Readings: Date: Wt: 02/14/2024 92.5 kg (204 lb) 05/23/2023 90.7 kg (200 lb) 10/31/2022 86.6 kg (191 lb) 04/28/2022 90.7 kg (200 lb) PHYSICAL EXAMINATION: General appearance: Well appearing, alert, in no acute distress, well-hydrated, well nourished. Skin: Skin color, texture, turgor normal, no suspicious rashes or lesions Head: Normocephalic, no masses, lesions, tenderness or abnormalities Neck: Supple, no adenopathy; thyroid symmetric, normal size, no bruits Lungs: Lungs clear to auscultation. No wheezing, rhonchi, rales Heart: RRR, II/ murmur gallop, or rubs. No ectopy Abdomen: Normal abdominal exam, Abdomen soft, non-tender. Bowel sounds normal. No masses, organomegaly Extremities: No deformities, edema, skin discoloration, clubbing or cyanosis. Good capillary refill. ASSESSMENT/PLAN: 1. Arthralgia, unspecified joint - ICD9: 719.40, ICD10: M25.50 (primary diagnosis) - see rheum. Continue tylenol. 2. Polyarthritis - ICD9: 716.50, ICD10: M13.0 -as above. 3. Elevated rheumatoid factor - ICD9: 795.79, ICD10: R76.8 - rheum referral already placed. 4. Primary hypertension - ICD9: 401.9, ICD10: I10 - Controlled - Continue current medications 5. Hypothyroidism, acquired - ICD9: 244.9, ICD10: E03.9 - continue current dose of meds. Tsh next month. 6. Bicuspid aortic valve - ICD9: 746.4, ICD10: Q23.1 - continue follow up with cardiology. Matt Araiza MD documented [facility]Day[facility] Telephone encounter Note * Telephone Encounter - Anna Parsons RN - 01/29/2024 10:05 AM EDT Pt called and is notified of providers results and instructions. Pt voices understanding. Anna Parsons RN [facility]04-22-2024 Miscellaneous Notes* Telephone Encounter - Anna Parsons RN - 01/29/2024 10:05 AM EDT Pt called and is notified of providers results and instructions. Pt voices understanding. Anna Parsons RN * Telephone Encounter - Kyra Aguilera LPN - 01/29/2024 10:00 AM EDT Called and left message for patient to call office back for results. Kyra Aguilera LPN January 29, 2024 10:01 AM * Telephone Encounter - Matt Araiza MD - 01/29/2024 8:41 AM EDT Thyroid is improving but likely needs a little more. Change to 137 and recheck in six weeks documented in this encounterDay[facility]04-22-2024 Telephone encounter Note * Telephone Encounter - Kyra Aguilera LPN - 01/29/2024 10:00 AM EDT Called and left message for patient to call office back for results. Kyra Aguilera LPN January 29, 2024 10:01 AM [place] [address]-22-2024 Telephone encounter Note* Telephone Encounter - Matt Araiza MD - 01/29/2024 8:41 AM EDT Thyroid is improving but likely needs a little more. Change to 137 and recheck in six weeks [facility]04-10-2024 Procedure [facility]03-18-2024 Miscellaneous Notes* Telephone Encounter - Diana Fuchs MA - 12/25/2023 3:52 PM EDT Patient informed and verbalized understanding. Diana Fuchs MA * Telephone Encounter - Matt Araiza MD - 12/25/2023 3:40 PM EDT His thyroid is low. Change to synthroid 125 mcg a day. Recheck tsh in six weeks. His rheum factor and inflammatory markers are still mildly up. We can have him see rheumatology. His blood shows he did have chicken pox. Can consider shingrix when ready documented in this encounterDayton [facility]08-15-2023 History of Present illness Narrative* Matt Araiza MD - 05/23/2023 1:00 PM EDT Patient presents with: Recheck: 6 month HPI: Patient presents today for office visit for follow up. HTN: Continues on Lisinopril and HCTZ Does not monitor BP Denies chest pain and shortness of breath No headaches or dizziness No syncope No edema Palpitations are stable. Followed by Cardiology. THYROID: Continues on Levothyroxine No energy, hair, skin or weight changes. Not using CPAP. Following with Dr Lopez. MEDICATIONS: Current Outpatient Medications Medication Sig levothyroxine (LEVOXYL) 112 mcg tablet Take 1 tablet by mouth once daily. Take on empty stomach. For Thyroid hydroCHLOROthiazide 12.5 mg capsule Take 12.5 mg by mouth once daily. lisinopril (ZESTRIL, PRINIVIL) 10 mg tablet Take 10 mg by mouth once daily. Blood Pressure Test Kit-Medium kit 1 Each once daily. acetaminophen (TYLENOL ARTHRITIS PAIN) 650 mg CR tablet Take 650 mg by mouth every 8 hours as needed for Pain. Aspirin 81 mg Tab Take 1 tablet by mouth once daily. Take with food. No current facility-administered medications for this visit. ALLERGIES: ALLERGIES No Known Allergies PAST MEDICAL HISTORY Diagnosis Date Aortic stenosis Arrhythmia 1984 ? SVT-s/p RFA Bicuspid aortic valve HTN (hypertension) Hyperlipidemia 04/23/2014 PAST SURGICAL HISTORY Procedure Laterality Date CHOLECYSTECTOMY 2013 KNEE ARTHROSCOPY 2000 cartilage. L knee. FAMILY HISTORY Problem Relation Age of Onset Heart Brother at 43 from heart attack. Heart Paternal Grandfather Heart Father double bypass surgery, heart attack Cancer Father patient is unsure what type of cancer Diabetes Father Diabetes Brother Heart Paternal Grandmother Cancer Paternal Grandmother Social History Tobacco Use Smoking status: Every Day Packs/day: 0.50 Years: 38.00 Additional pack years: 0.00 Total pack years: 19.00 Types: Cigarettes Smokeless tobacco: Never Substance Use Topics Alcohol use: No Comment: quit 1988 Drug use: No Reviewed current medications, allergies, past medical history, surgical history, family history andsocial history today. REVIEW OF SYSTEMS Was referred in the past to rheumatology. Still with some arthritis changes in his hands etc. Uses tylenol. Never kept appt. Had us on his thyroid this year. No urinary issues or bowel changes. All other reviewed and negative other than HPI. HEALTH MAINTENANCE: Reviewed health maintenance issues today and recommended the following in detail. COVID-19 VACCINE(1) Never done BP CONTROLLED (<130/80) Never done SHINGRIX VACCINE(1 of 2-would like tested for chicken pox. PNEUMOCOCCAL(2 - PCV) due on 09/13/2022 VITALS: BP 132/78 Pulse 75 Resp 16 Wt 90.7 kg (200 lb) SpO2 97% BMI 27.89 kg/m Last 4 Encounter Wt Readings: Date: Wt: 10/31/2022 86.6 kg (191 lb) 04/28/2022 90.7 kg (200 lb) 12/02/2021 94.8 kg (209 lb) 10/21/2021 93.9 kg (207 lb) PHYSICAL EXAMINATION: General appearance: Well appearing, alert, in no acute distress, well-hydrated, well nourished. Skin: Skin color, texture, turgor normal, no suspicious rashes or lesions Head: Normocephalic, no masses, lesions, tenderness or abnormalities Lungs: Lungs clear to auscultation. No wheezing, rhonchi, rales Heart: RRR , no murmur. gallop, or rubs. No ectopy Abdomen: Normal abdominal exam, Abdomen soft, non-tender. Bowel sounds normal. No masses, organomegaly Extremities: No deformities, edema, skin discoloration, clubbing or cyanosis. Good capillary refill. Musculoskeletal: some deformity of his MIP joints of his hands. Peripheral pulses: Normal Neuro: Negative. ASSESSMENT/PLAN: 1. Primary hypertension - ICD9: 401.9, ICD10: I10 (primary diagnosis) - Controlled - Continue current medications - CBC + DIFF - COMP METABOLIC PANEL - LIPID PANEL BASIC 2. Screening for viral disease - ICD9: V73.99, ICD10: Z11.59 - VARICELLA ZOSTER IGG 3. Bicuspid aortic valve - ICD9: 746.4, ICD10: Q23.1 - per cardiology 4. Nonrheumatic aortic valve stenosis - ICD9: 424.1, ICD10: I35.0 - per cardiology 5. 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 6. RUKHSANA (obstructive sleep apnea) - ICD9: 327.23, ICD10: G47.33 - stable. Does not treat. Sees pulmonary. 7. Thyroid nodule - ICD9: 241.0, ICD10: E04.1 - follow annually. - TSH BLD 8. Hypothyroidism, acquired - ICD9: 244.9, ICD10: E03.9 - wants to wait on blood work until next time. - TSH BLD 9. Rheumatoid arthritis with rheumatoid factor of multiple sites without organ or systems involvement (HCC) - ICD9: 714.0, ICD10: M05.79 - has never formally seen rheum. Encouraged to consider. Willing to do labs but wants to wait untilnext time. 10. Arthralgia, unspecified joint - ICD9: 719.40, ICD10: M25.50 - SED RATE WESTERGREN - C-REACTIVE PROTEIN (CRP) - FRANSICO BY IFA SCREEN - RHEUMATOID FACTOR BL Matt Araiza MD RTO in six months. documented in this encounterDay[facility]01-30-2023 Miscellaneous Notes* Telephone Encounter - Kasey Graham Ma - 11/07/2022 4:58 PM EST Patient was made aware of the results. Patient verbalizes understanding. Kasey Graham Ma * Telephone Encounter - Diana Fuchs - 11/07/2022 9:52 AM EST Placed call to patient with no answer. No voicemail set-up to leave message. Try again later. Diana Fuchs * Telephone Encounter - Matt Araiza MD - 11/07/2022 9:27 AM EST Labs ok, except thyroid is just a little low. Increase dose to levothyroxine 112 mcg a day. Rechecktsh in six weeks. Make sure taking med on empty stomach documented in this encounterDayton [facility]01-30-2023 History of Present illness Narrative* Anne-Marie Wilson RDMS - 11/07/2022 10:00 AM EST Radiology Service Progress Note PATIENT NAME: Damon Bui DATE OF SERVICE: November 07, 2022 TIME: 10:08 AM PATIENT IDENTITY VERIFICATION COMPLETED USING TWO (2) IDENTIFIERS: Name and Date of confirmedby patient verbally. FALL SCREENING: Has the patient had 2 falls in the last year or 1 fall with injury or currently using an Ambulatory Assistive Device (Walker, Cane, Wheelchair, Crutches, etc.)? No PATIENT GENDER DATA: Male PATIENT RELEVANT IMPLANT DATA REVIEWED: Not Applicable RADIOLOGY DEPARTMENT: Ultrasound PERIPHERAL IV DATA: Not applicable SIGNED BY: Anne-Marie Wilson RDMS RVT November 07, 2022 10:08 AM documented in this encounterDayton [facility]01-23-2023 History of Present illness Narrative* Matt Araiza MD - 10/31/2022 10:14 AM EST Patient presents with: 6 Month Exam HPI: Patient presents today for office visit for follow up HTN: Patient is compliant with meds Yes Monitors bp at home: No. Denies side effects: Yes. Chest pain: No. Dyspnea: No. Edema: No. Palpitations: stable. Syncope: No. Headache: No. Dizziness: No. HYPOTHYROID: Patient is compliant with medications: Yes Patient has changes in energy: No Patient has changes in hair or skin: No Patient has temperature intolerance: No Patient has weight changes: No Due for repeat thyroid nodule. No pain or swelling. Scheduled to follow up with cardio in December and pulm in February. He is not using his cpap. MEDICATIONS: Current Outpatient Medications Medication Sig levothyroxine (LEVOXYL) 100 mcg tablet Take 1 tablet by mouth once daily. Take on empty stomach. For Thyroid hydroCHLOROthiazide 12.5 mg capsule Take 12.5 mg by mouth once daily. lisinopril (ZESTRIL, PRINIVIL) 10 mg tablet Take 10 mg by mouth once daily. Aspirin 81 mg Tab Take 1 tablet by mouth once daily. Take with food. Blood Pressure Test Kit-Medium kit 1 Each once daily. acetaminophen (TYLENOL ARTHRITIS PAIN) 650 mg CR tablet Take 650 mg by mouth every 8 hours as needed for Pain. No current facility-administered medications for this visit. ALLERGIES: ALLERGIES No Known Allergies PAST MEDICAL HISTORY Diagnosis Date Aortic stenosis Arrhythmia 1984 ? SVT-s/p RFA Bicuspid aortic valve HTN (hypertension) Hyperlipidemia 04/23/2014 PAST SURGICAL HISTORY Procedure Laterality Date CHOLECYSTECTOMY 2013 KNEE ARTHROSCOPY 2000 cartilage. L knee. FAMILY HISTORY Problem Relation Age of Onset Heart Brother at 43 from heart attack. Heart Paternal Grandfather Heart Father double bypass surgery, heart attack Cancer Father patient is unsure what type of cancer Diabetes Father Diabetes Brother Heart Paternal Grandmother Cancer Paternal Grandmother Social History Tobacco Use Smoking status: Every Day Packs/day: 0.50 Years: 38.00 Pack years: 19.00 Types: Cigarettes Smokeless tobacco: Never Substance Use Topics Alcohol use: No Comment: quit 1988 Drug use: No Reviewed current medications, allergies, past medical history, surgical history, family history andsocial history today. REVIEW OF SYSTEMS GI: Negative for change in bowel habit : Negative All other reviewed and negative other than HPI. HEALTH MAINTENANCE: Reviewed health maintenance issues today and recommended the following in detail. COVID-19 VACCINE(1) Never done PROSTATE CANCER SCREENING DISCUSSION -Had discussion with patient regarding risks and benefits of prostate screening. Allowed them to decide if they wished to proceed with screening including SEN andPSA. HEPATITIS B(1 of 3 - Risk 3-dose series) Never done PNEUMOCOCCAL(2 - PCV) due on 09/13/2022 DEPRESSION ASSESSMENT Never done VITALS: BP 132/80 Pulse 76 Wt 86.6 kg (191 lb) SpO2 99% BMI 26.64 kg/m Last 4 Encounter Wt Readings: Date: Wt: 10/31/2022 86.6 kg (191 lb) 04/28/2022 90.7 kg (200 lb) 12/02/2021 94.8 kg (209 lb) 10/21/2021 93.9 kg (207 lb) PHYSICAL EXAMINATION: General appearance: Well appearing, alert, in no acute distress, well-hydrated, well nourished. Skin: Skin color, texture, turgor normal, no suspicious rashes or lesions Head: Normocephalic, no masses, lesions, tenderness or abnormalities Lungs: Lungs clear to auscultation. No wheezing, rhonchi, rales Heart: murmur unchanged. Normal s1 and s2 Abdomen: Normal abdominal exam, Abdomen soft, non-tender. Bowel sounds normal. No masses, organomegaly Extremities: No deformities, edema, skin discoloration, clubbing or cyanosis. Good capillary refill. Musculoskeletal: No joint swelling, deformity, or tenderness ASSESSMENT/PLAN: 1. Primary hypertension - ICD9: 401.9, ICD10: I10 (primary diagnosis) - good control - Goal of BP <130/80 2. H/O cardiac radiofrequency ablation - ICD9: V15.1, ICD10: Z98.890 - stable. 3. Hyperlipidemia, unspecified hyperlipidemia type - ICD9: 272.4, ICD10: E78.5 - get labs. 4. Bicuspid aortic valve - ICD9: 746.4, ICD10: Q23.1 - see cardiology 5. Nonrheumatic aortic valve stenosis - ICD9: 424.1, ICD10: I35.0 - see cardiology. 6. RUKHSANA (obstructive sleep apnea) - ICD9: 327.23, ICD10: G47.33 - per Dr Garcia 7. Hypothyroidism, acquired - ICD9: 244.9, ICD10: E03.9 - follow labs. - TSH BLD 8. Thyroid nodule - ICD9: 241.0, ICD10: E04.1 Recheck us. - US THYROID/PARATHYROID Matt Araiza MD RTO in six months documented in this encounterDay[facility]12-21-2022 History of Past illness Narrative* Problem Noted Date Diagnosed Date Resolved Date Rheumatoid arthritis with rh eumatoid factor of multiple sites without organ or systems involvement 09/28/2022 05/23/2023 05/23/2023 Overview: Last Assessment & Plan: Condition: stable Managed by PCP/specialist Follow up in: if symptoms worsen or fail to improve Palpitations 10/21/2019 10/31/2022 Sprain of left rotator cuff capsule 06/04/2018 04/28/2022 Polyarthralgia 06/04/2018 10/31/2022 Fracture of fifth metacarpal bone of right hand 03/18/2014 04/28/2022 documented as of this encounter (statuses as of 05/24/2023) [facility] History of Past illness Narrative* Problem Noted Date Diagnosed Date Resolved Date Rheumatoid arthritis with rh eumatoid factor of multiple sites without organ or systems involvement 09/28/2022 05/23/2023 05/23/2023 Overview: Last Assessment & Plan: Condition: stable Managed by PCP/specialist Follow up in: if symptoms worsen or fail to improve Palpitations 10/21/2019 10/31/2022 Sprain of left rotator cuff capsule 06/04/2018 04/28/2022 Polyarthralgia 06/04/2018 10/31/2022 Fracture of fifth metacarpal bone of right hand 03/18/2014 04/28/2022 documented as of this encounter (statuses as of 08/14/2023) [facility] History of Past illness Narrative* Problem Noted Date Diagnosed Date Resolved Date Rheumatoid arthritis with rh eumatoid factor of multiple sites without organ or systems involvement 09/28/2022 05/23/2023 05/23/2023 Overview: Last Assessment & Plan: Condition: stable Managed by PCP/specialist Follow up in: if symptoms worsen or fail to improve Palpitations 10/21/2019 10/31/2022 Sprain of left rotator cuff capsule 06/04/2018 04/28/2022 Polyarthralgia 06/04/2018 10/31/2022 Fracture of fifth metacarpal bone of right hand 03/18/2014 04/28/2022 documented as of this encounter (statuses as of 12/26/2023) [facility] Miscellaneous Notes* Telephone Encounter - Mandie Tesfaye LPN - 07/18/2022 7:50 AM EDT Patient has been identified by name and date of : Yes Patient phones for refill(s): Requested Prescriptions Pending Prescriptions Disp Refills levothyroxine (LEVOXYL) 100 mcg tablet 30 tablet 5 Sig: Take 1 tablet by mouth once daily. Take on empty stomach. For Thyroid Date of last office visit in primary care: 04/28/22 next apt 10/31/22 Last 2 Encounter Wt Readings: Date: Wt: 04/28/2022 90.7 kg (200 lb) 12/02/2021 94.8 kg (209 lb) Previous labs/tests for medication: Thyroid: TSH Date Value 04/25/2022 3.61 IU/ml 11/27/2021 9.990 uU/mL Thank you. Mandie Tesfaye LPN documented in this encounterDayton [facility]07-21-2022 History of Present illness Narrative* Matt Araiza MD - 04/28/2022 9:39 AM EDT Patient presents with: Thyroid Problem Sleep Apnea: RUKHSANA using CPAP now from [facility] [place] Blood Pressure: [facility] decreased lisinopril HPI: Patient presents today for office visit for follow up. HTN: Patient is compliant with meds Yes Cardiology decreased his lisinopril due to lower bp. Is good today. Denies side effects: Yes. Chest pain: No. Dyspnea: No. Edema: No. Palpitations: Gets occasional palpitations. Syncope: No. Headache: No. Dizziness: No. HYPOTHYROID: tsh just now was 3.61. feeling well on current dose. MEDICATIONS: Current Outpatient Medications Medication Sig levothyroxine (LEVOXYL) 100 mcg tablet Take 1 tablet by mouth once daily. Take on empty stomach. For Thyroid hydroCHLOROthiazide 12.5 mg capsule Take 12.5 mg by mouth once daily. lisinopril (ZESTRIL, PRINIVIL) 10 mg tablet Take 10 mg by mouth once daily. Aspirin 81 mg Tab Take 1 tablet by mouth once daily. Take with food. Blood Pressure Test Kit-Medium kit 1 Each once daily. acetaminophen (TYLENOL ARTHRITIS PAIN) 650 mg CR tablet Take 650 mg by mouth every 8 hours as needed for Pain. No current facility-administered medications for this visit. ALLERGIES: ALLERGIES No Known Allergies PAST MEDICAL HISTORY Diagnosis Date Aortic stenosis Arrhythmia 1984 ? SVT-s/p RFA Bicuspid aortic valve HTN (hypertension) Hyperlipidemia 04/23/2014 PAST SURGICAL HISTORY Procedure Laterality Date CHOLECYSTECTOMY 2013 KNEE ARTHROSCOPY 2000 cartilage. L knee. FAMILY HISTORY Problem Relation Age of Onset Heart Brother at 43 from heart attack. Heart Paternal Grandfather Heart Father double bypass surgery, heart attack Cancer Father patient is unsure what type of cancer Diabetes Father Diabetes Brother Heart Paternal Grandmother Cancer Paternal Grandmother Social History Tobacco Use Smoking status: Current Every Day Smoker Packs/day: 0.50 Years: 38.00 Pack years: 19.00 Types: Cigarettes Smokeless tobacco: Never Used Substance Use Topics Alcohol use: No Comment: quit 1988 Drug use: No Discussed tobacco cessation, including risks of continued use. Offered assistance to help quit if patient desires. Reviewed current medications, allergies, past medical history, surgical history, family history andsocial history today. REVIEW OF SYSTEMS Sees sleep med next week. All other reviewed and negative other than HPI. HEALTH MAINTENANCE: Reviewed health maintenance issues today and recommended the following in detail. HEPATITIS C SCREENING Never done HIV SCREENING Never done SHINGRIX VACCINE(1 of 2) Never done COLORECTAL CANCER SCREENING due on 04/02/2017 PROSTATE CANCER SCREENING DISCUSSION due on 01/18/2018 DIABETES SCREEN -Had discussion with patient regarding risks and benefits of prostate screening. Allowed them to decide if they wished to proceed with screening including SEN and PSA. VITALS: BP 132/72 Pulse 80 Wt 90.7 kg (200 lb) BMI 27.89 kg/m Last 4 Encounter Wt Readings: Date: Wt: 04/28/2022 90.7 kg (200 lb) 12/02/2021 94.8 kg (209 lb) 10/21/2021 93.9 kg (207 lb) 09/13/2021 93.9 kg (207 lb) PHYSICAL EXAMINATION: General appearance: Well appearing, alert, in no acute distress, well-hydrated, well nourished. Skin: Skin color, texture, turgor normal, no suspicious rashes or lesions Head: Normocephalic, no masses, lesions, tenderness or abnormalities Lungs: Lungs clear to auscultation. No wheezing, rhonchi, rales Heart: murmur unchanged. Abdomen: Normal abdominal exam, Abdomen soft, non-tender. Bowel sounds normal. No masses, organomegaly Extremities: No deformities, edema, skin discoloration, clubbing or cyanosis. Good capillary refill. Musculoskeletal: No joint swelling, deformity, or tenderness Peripheral pulses: Normal Neuro: Negative. ASSESSMENT/PLAN: 1. Primary hypertension - ICD9: 401.9, ICD10: I10 (primary diagnosis) - good control - Continue current medication(s) - Goal of BP <130/80 - CBC + DIFF - COMP METABOLIC PANEL - LIPID PANEL BASIC 2. Hyperlipidemia, unspecified hyperlipidemia type - ICD9: 272.4, ICD10: E78.5 - to be determined upon return of lab results - Continue current medication. 3. SVT (supraventricular tachycardia) (HCC) - ICD9: 427.89, ICD10: I47.1 - per cardiology 4. Thyroid nodule - ICD9: 241.0, ICD10: E04.1 - discuss at next visit. 5. Hypothyroidism, acquired - ICD9: 244.9, ICD10: E03.9 - Instructed patient on importance of taking on an empty stomach either first thing in the morning or at bedtime. - TSH BLD 6. Screening for prostate cancer - ICD9: V76.44, ICD10: Z12.5 - Counseled on healthy diet and regular exercise - Declines psa testing. 7. Screening for colon cancer - ICD9: V76.51, ICD10: Z12.11 - COLOGUARD 8. Need for hepatitis C screening test - ICD9: V73.89, ICD10: Z11.59 - HEP C AB IA W/CONF SCRN 9. Screening for HIV (human immunodeficiency virus) - ICD9: V73.89, ICD10: Z11.4 - HIV 1 2 COMBO(AG/AB),WITH REFLEX TO DIFFERENTIATION 10. RUKHSANA (obstructive sleep apnea) - ICD9: 327.23, ICD10: G47.33 - per sleep meds. 11. Bicuspid aortic valve - ICD9: 746.4, ICD10: Q23.1 - per cardiology. 12. Palpitations - ICD9: 785.1, ICD10: R00.2 - doing better. Matt Araiza RTO in six months and prn. documented in this encounterDay[facility]04-11-2022 Miscellaneous Notes* Telephone Encounter - Jenn Stevens LPN - 01/17/2022 10:58 AM EDT PATIENT NOTIFIED OF SAME. * Telephone Encounter - Matt Araiza MD - 01/17/2022 10:19 AM EDT tsh is a little better but still up. Increase synthroid to 100 mcg a day . Recheck tsh in six weeks. Please make sure taking on an emptystomach documented in this encounterDayton Osteopathic Hospital02-24-2022 History of Present illness Narrative* Corrie Price, RT(R) - 12/02/2021 3:20 PM EST Radiology Service Progress Note PATIENT NAME: Damon Bui DATE OF SERVICE: December 02, 2021 TIME: 3:17 PM PATIENT IDENTITY VERIFICATION COMPLETED USING TWO (2) IDENTIFIERS: Name and Date of confirmedby patient verbally. FALL SCREENING: Has the patient had 2 falls in the last year or 1 fall with injury or currently using an Ambulatory Assistive Device (Walker, Cane, Wheelchair, Crutches, etc.)? No PATIENT GENDER DATA: Male PATIENT RELEVANT IMPLANT DATA REVIEWED: Not Applicable RADIOLOGY DEPARTMENT: General X-ray: Exam(s) Completed: Lower Extremity X- Ray(s): Ankle, Right and Wt. Bearing PERIPHERAL IV DATA: Not applicable SIGNED BY: RT Haley(R) December 02, 2021 3:17 PM documented in this encounterDayton [facility]01-07-2022 Evaluation note* Diagnosis Onset Date Resolution Status Sinus pause October 15, 2021 acute Essential hypertension chron ic WPW (Fbhek-Bfyqpwjmi-Clkto syndrome) chronic Nonrheumatic aortic (valve) stenosis acute Sinus pause October 15, 2021 acute Essential hypertension chron ic RUKHSANA (obstructive sleep apnea) acute Smoking greater than 40 pack years acute Essential hypertension chron ic [facility] Work Phone: 1(953) 851-988001-05-2022 Miscellaneous Notes* Telephone Encounter - Marilyn Barrera Ma - 10/13/2021 10:49 AM EST Sent letter to pt to contact office after trying to contact him. Marilyn Barrera Ma * Telephone Encounter - Charity Solorzano Ma - 10/07/2021 4:41 PM EST [employer] message sent to pt asking pt to call office back regarding results. Charity Solorzano Ma * Telephone Encounter - Mei Tesfaye LPN - 10/07/2021 3:18 PM EST Phone call placed, x2 voicemail not set up [phone], home number [phone] left brief message to contact a nurse. Mei Tesfaye LPN * Telephone Encounter - Matt Araiza MD - 10/07/2021 2:18 PM EST Let him know I already saw. That is improving. Again, we usually don't check it for at least six weeks because it will take that long to get a level that we can do anything with. Reviewing the ER notes, work up was essentially normal. Get labs in mid October as already recommended. I would not adjust meds until then at the earliest. * Telephone Encounter - Cecelia Cassidy LPN - 10/07/2021 1:50 PM EST TSH 15.60 [facility] ER. [facility] Past illness Narrative* Problem Noted Date Resolved Date Palpitations 10/21/2019 10/31/2022 Sprain of left rotator cuff capsule 06/04/2018 04/28/2022 Polyarthralgia 06/04/2018 10/31/2022 Fracture of fifth metacarpal bone of right hand 03/18/2014 04/28/2022 documented as of this encounter (statuses as of 10/31/2022) [facility] of Past illness Narrative* Problem Noted Date Resolved Date Palpitations 10/21/2019 10/31/2022 Sprain of left rotator cuff capsule 06/04/2018 04/28/2022 Polyarthralgia 06/04/2018 10/31/2022 Fracture of fifth metacarpal bone of right hand 03/18/2014 04/28/2022 documented as of this encounter (statuses as of 11/08/2022) [facility] History of Past illness Narrative* Problem Noted Date Resolved Date Sprain of left rotator cuff capsule 06/04/2018 04/28/2022 Fracture of fifth metacarpal bone of right hand 03/18/2014 04/28/2022 documented as of this encounter (statuses as of 04/28/2022) [facility] of Past illness Narrative* Problem Noted Date Resolved Date Sprain of left rotator cuff capsule 06/04/2018 04/28/2022 Fracture of fifth metacarpal bone of right hand 03/18/2014 04/28/2022 documented as of this encounter (statuses as of 07/18/2022) [facility] Diagnosis Hypothyroidism, acquired Unspecified hypothyroidism [facility] Diagnosis Onset Date Resolution Status RUKHSANA (obstructive sleep apnea) acute Smoking greater than 40 pack years acute Essential hypertension chron ic Hypothyroidism acute Nonrheumatic aortic (valve) stenosis acute RUKHSANA (obstructive sleep apnea) acute Sinus pause October 15, 2021 acute Essential hypertension chron ic [facility] Work Phone: Evaluation note* Diagnosis Primary hypertension- Primary Unspecified essential hypertension Hyperlipidemia, unspecified hyperlipidemia type SVT (supraventricular tachycardia) (HCC) Other specified cardiac dysrhythmias Thyroid nodule Nontoxic uninodular goiter Hypothyroidism, acquired Unspecified hypothyroidism Screening for prostate cancer Special screening for malignant neoplasm of prostate Screening for colon cancer Special screening for malignant neoplasms, colon Need for hepatitis C screening test Special screening examination for other specified viral diseases Screening for HIV (human immunodeficiency virus) Special screening examination for other specified viral diseases RUKHSANA (obstructive sleep apnea) Obstructive sleep apnea (adult) (pediatric) Bicuspid aortic valve Congenital insufficiency of aortic valve Palpitations [facility] Diagnosis Primary hypertension- Primary Unspecified essential hypertension H/O cardiac radiofrequency ablation Hyperlipidemia, unspecified hyperlipidemia type Bicuspid aortic valve Congenital insufficiency of aortic valve Nonrheumatic aortic valve stenosis Aortic valve disorders RUKHSANA (obstructive sleep apnea) Obstructive sleep apnea (adult) (pediatric) Hypothyroidism, acquired Unspecified hypothyroidism Thyroid nodule Nontoxic uninodular goiter [facility] Diagnosis Hypothyroidism, acquired Unspecified hypothyroidism [facility] Diagnosis Onset Date Resolution Status Nonrheumatic aortic (valve) stenosis acute RUKHSANA (obstructive sleep apnea) acute AVNRT (AV manolo re-entry tachycardia) chronic Essential hypertension chron ic HLD (hyperlipidemia) chronic WPW (Qlyyj-Eetztebwh-Dxqct syndrome) [facility] Work Phone: Evaluation note* Diagnosis Primary hypertension- Primary Unspecified essential hypertension Screening for viral disease Special screening examination for unspecified viral disease Bicuspid aortic valve Congenital insufficiency of aortic valve Nonrheumatic aortic valve stenosis Aortic valve disorders Gxysw-Ajiydxvlr-Uidlx (WPW) syndrome Anomalous atrioventricular excitation RUKHSANA (obstructive sleep apnea) Obstructive sleep apnea (adult) (pediatric) Thyroid nodule Nontoxic uninodular goiter Hypothyroidism, acquired Unspecified hypothyroidism Rheumatoid arthritis with rheumatoid factor of multiple sites without organ or systems involvement ([facility]) Arthralgia, unspecified joint [facility] Diagnosis Thyroid nodule Nontoxic uninodular goiter [facility] Diagnosis Polyarthritis- Primary Unspecified polyarthropathy or polyarthritis, site unspecified Hypothyroidism, acquired Unspecified hypothyroidism Elevated rheumatoid factor Other and unspecified nonspecific immunological findings documented in this encounter [facility] noteNo assessment information availableWWilson Health Work Phone: Evaluation note* Diagnosis Hypothyroidism, acquired Unspecified hypothyroidism [facility] Diagnosis Onset Date Resolution Status Nonrheumatic aortic (valve) stenosis acute AVNRT (AV manolo re-entry tachycardia) chronic Essential hypertension chron ic HLD (hyperlipidemia) chronic WPW (Cjsgn-Djjhzadif-Klpve syndrome) [facility] Work Phone: Evaluation note* Diagnosis Arthralgia, unspecified joint- Primary Polyarthritis Unspecified polyarthropathy or polyarthritis, site unspecified Elevated rheumatoid factor Other and unspecified nonspecific immunological findings Primary hypertension Unspecified essential hypertension Hypothyroidism, acquired Unspecified hypothyroidism Bicuspid aortic valve Congenital insufficiency of aortic valve documented in this encounter [facility] note* Diagnosis Hypothyroidism, acquired Unspecified hypothyroidism documented in this encounter [facility] note* Diagnosis Chronic pain of right ankle [facility] Diagnosis Hypothyroidism, acquired Unspecified hypothyroidism documented in this encounter [facility] note* Diagnosis Primary hypertension- Primary Unspecified essential hypertension H/O cardiac radiofrequency ablation SVT (supraventricular tachycardia) (HCC) Other specified cardiac dysrhythmias Atrioventricular manolo re-entry tachycardia (HCC) Other specified cardiac dysrhythmias Nonrheumatic aortic valve stenosis Aortic valve disorders Hyperlipidemia, unspecified hyperlipidemia type Bicuspid aortic valve Congenital insufficiency of aortic valve RUKHSANA (obstructive sleep apnea) Obstructive sleep apnea (adult) (pediatric) Thyroid nodule Nontoxic uninodular goiter Hypothyroidism, acquired Unspecified hypothyroidism Elevated rheumatoid factor Other and unspecified nonspecific immunological findings Polyarthritis Unspecified polyarthropathy or polyarthritis, site unspecified [facility] Diagnosis Thyroid nodule Nontoxic uninodular goiter documented in this encounter [facility] note* Diagnosis Primary hypertension- Primary Unspecified essential hypertension Screening for depression Encounter for screening examination for other mental health and behavioral disorders SVT (supraventricular tachycardia) (HCC) Other specified cardiac dysrhythmias Bicuspid aortic valve Congenital insufficiency of aortic valve Nonrheumatic aortic valve stenosis Aortic valve disorders Thyroid nodule Nontoxic uninodular goiter Hypothyroidism, acquired Unspecified hypothyroidism RUKHSANA (obstructive sleep apnea) Obstructive sleep apnea (adult) (pediatric) Acute pain of left shoulder documented in this encounter [facility] note* Diagnosis Acute pain of left shoulder documented in this encounter [facility] for referral (narrative)* Diagnostic Procedure Only (Routine) - Authorized Specialty Diagnoses / Procedures Referred By Stephany watson Referred To Contact US IMAGING Diagnoses Thyroid nodule Procedures US THYROID/PARATHYROID US SOFT TISSUE HEAD & NECK REAL TIME IMGE Matt Petersen MD [address] [place] [address] Us Imaging Referral ID Status Reason Start Date Expiration Date Visits Requested Visits Authorized [id number] Authorized Auto-Generat ed Referral 10/31/2022 11/30/2023 1 1 [facility] for referral (narrative)* Diagnostic Procedure Only (Routine) - Closed Specialty Diagnoses / Procedures Referred By Stephany watson Referred To Contact US IMAGING Diagnoses Thyroid nodule Procedures US THYROID/PARATHYROID US SOFT TISSUE HEAD & NECK REAL TIME IMGE Matt Petersen MD [address] [place] [address] [place] [address] Referral ID Status Reason Start Date Expiration Date V isits Requested Visits Authorized [id number] Closed Auto-Generate d Referral 10/31/2022 11/30/2023 1 1 [facility] for referral (narrative)* Diagnostic Procedure Only (Routine) - Closed Specialty Diagnoses / Procedures Referred By Contac t Referred To Contact XR IMAGING Diagnoses Chronic pain of right ankle Procedures XR ANKLE GENERAL 3V AP/LAT/OBL RIGHT RADEX ANKLE COMPLETE MINIMUM 3 VIEWS Matt Araiza MD [address] [place] [id number] [place] [address] Referral ID Status Reason Start Date Expiration Date V isits Requested Visits Authorized [id number] Closed Auto-Generate d Referral 12/02/2021 01/01/2023 1 1 [facility] for referral (narrative)* Diagnostic Procedure Only (Routine) - Authorized Specialty Diagnoses / Procedures Referred By Contac t Referred To Contact US IMAGING Diagnoses Thyroid nodule Procedures US THYROID/PARATHYROID US SOFT TISSUE HEAD & NECK REAL TIME IMGE Matt Petersen MD [address] [place] [address] [place] [address] Referral ID Status Reason Start Date Expiration Date Visits Requested Visits Authorized [id number] Authorized Auto-Generat ed Referral 09/25/2025 1 1 [facility] for referral (narrative)* Diagnostic Procedure Only (Routine) - Closed Specialty Diagnoses / Procedures Referred By Contac t Referred To Contact US IMAGING Diagnoses Thyroid nodule Procedures US THYROID/PARATHYROID US SOFT TISSUE HEAD & NECK REAL TIME IMGE Matt Petersen MD [address] [place] [address] [place] [address] Referral ID Status Reason Start Date Expiration Date V isits Requested Visits Authorized [id number] Closed Auto-Generate d Referral 08/26/2024 09/25/2025 1 1 [facility] for referral (narrative)No reason for referral information availableRiverview [facility] Services Work Phone: [facility] Narrative* Diagnostic Procedure Only (Routine) - Closed Specialty Diagnoses / Procedures Referred By Contac t Referred To Contact XR IMAGING Diagnoses Chronic pain of right ankle Procedures XR ANKLE GENERAL 3V AP/LAT/OBL RIGHT RADEX ANKLE COMPLETE MINIMUM 3 VIEWS Matt Araiza MD [facility] [place] [phone] [place] [address] Referral ID Status Reason Start Date Expiration Date V isits Requested Visits Authorized [id number] Closed Auto-Generate d Referral 12/02/2021 01/01/2023 1 1 [facility] for visit Narrative* Diagnostic Procedure Only (Routine) - Closed Specialty Diagnoses / Procedures Referred By Contac t Referred To Contact US IMAGING Diagnoses Thyroid nodule Procedures US THYROID/PARATHYROID US SOFT TISSUE HEAD & NECK REAL TIME IMGE DOCM Matt Araiza MD [address] [place], [place] [phone] [place] [address] Referral ID Status Reason Start Date Expiration Date V isits Requested Visits Authorized [id number] Closed Auto-Generate d Referral 08/26/2024 09/25/2025 1 1 [facility] for visit Narrative* Diagnostic Procedure Only (Routine) - Closed Specialty Diagnoses / Procedures Referred By Contac t Referred To Contact XR IMAGING Diagnoses Acute pain of left shoulder Procedures XR SHOULDER GENERAL 3V OR MORE AP/TRUE AP/OTHER LEFT RADEX SHOULDER COMPLETE MINIMUM 2 VIEWS Matt Araiza MD [address] [place] [address] Phone: tel: fax: [place] [address] Referral ID Status Reason Start Date Expiration Date V isits Requested Visits Authorized [id number] Closed Auto-Generate d Referral 02/24/2025 03/26/2026 1 1 [facility] Chief Complaint and Reason for Visit Chief Complaint palpitations PALPITATIONS PALPITATIONS Palpitations Palpitations Palps, discuss 48 hour darleenter Alexandr SLEEP APNEA, UNSPECIFIED; HUNG UP 3/3 & 3/7 PER KR (SLEEP STUDY) SINUS PAUSE Sleep problems EORDER Reason for Visit Sinus pause Essential hypertension WPW (Ooplq-Jvcgsfgak-Lvbwu syndrome) Nonrheumatic aortic (valve) stenosis Sinus pause Essential hypertension RUKHSANA (obstructive sleep apnea) Smoking greater than 40 pack years Essential hypertension Chief Complaint Palpitations Palpitations Palps, discuss 48 hour holter Alexandr SLEEP APNEA, UNSPECIFIED; HUNG UP 3/3 & 3/7 PER KR (SLEEP STUDY) SINUS PAUSE Sleep problems EORDER nicotine dependence RUKHSANA Reason for Visit Sinus pause Essential hypertension WPW (Ovikx-Acnudbwnk-Iwvwx syndrome) Nonrheumatic aortic (valve) stenosis Sinus pause Essential hypertension RUKHSANA (obstructive sleep apnea) Smoking greater than 40 pack years Essential hypertension Chief Complaint Sleep problems EORDER nicotine dependence RUKHSANA 4 M FU EORDER Reason for Visit RUKHSANA (obstructive sle ep apnea) Smoking greater than 40 pack years Essential hypertension Hypothyroidism Nonrheumatic aortic (valve) stenosis RUKHSANA (obstructive sleep apnea) Sinus pause Essential hypertension Chief Complaint 9 M FU INT LABS Reason for Visit Nonrheumatic aortic (valve) stenosis RUKHSANA (obstructive sleep apnea) AVNRT (AV manolo re-entry tachycardia) Essential hypertension HLD (hyperlipidemia) WPW (Myegm-Yzthdczuf-Xusoq syndrome) Chief Complaint 9 M FU INT LABS SMOKER, MURMUR Reason for Visit Nonrheumatic aortic (valve) stenosis RUKHSANA (obstructive sleep apnea) AVNRT (AV manolo re-entry tachycardia) Essential hypertension HLD (hyperlipidemia) WPW (Ujkjj-Csrkegsbe-Bxczv syndrome) Chief Complaint TOBACCO ABUSE Chief Complaint TOBACCO ABUSE TOBACCO ABUSE TOBACCO ABUSE Chief Complaint TOBACCO ABUSE TOBACCO ABUSE TOBACCO ABUSE NICOTINE DEP 1 Y FU Reason for Visit Nonrheumatic aortic (valve) stenosis AVNRT (AV manolo re-entry tachycardia) Essential hypertension HLD (hyperlipidemia) WPW (Uslov-Jeiwdxmfn-Egabo syndrome) Chief Complaint Admit Date 4 M FU January 29, 2025 12: 29pm 1 Y FU April 01, 2025 10:4 8am Reason for Visit Admit Date Multiple lung nodules on CT January 29, 2025 12:29pm Rheumatoid arthritis January 29, 2025 12 :29pm Smoking greater than 40 pack years January 29, 2025 12:29pm Family History Relationship Condition Age at Onset Recorded Date/T charisma brother Myocardial infarction Unknown Diabetes mellitus Unknown father Cardiac disease Unknown Malignant neoplasm Unknown grandmother Cardiac disease Unknown Advance Directives Advance Directive Response Recorded Date/ Time Advance Directives No October 25, 2013 4:22pm Living Will No October 06, 8:28pm Power of Valve And Regulator Repairer No October 06, 2021 8:28pm Advance Directive Response Recorded Date/ Time Living Will No October 06, 021 8:28pm Do you have a Healthcare Power of Valve And Regulator Repairer? No October 06, 2021 8:28pm Advance Directives No October 25, 2013 4:22pm Reason for Referral Specialty Diagnoses / Procedures Referred By Contac t Referred To Contact Rheumatology Diagnoses Polyarthritis Elevated rheumatoid factor Procedures CONSULT TO RHEUM/IMMUN DISEASE OFFICE/OUTPATIENT [facility] 60 MINUTES Matt Araiza MD [address] [place] [address] Referral ID Status Reason Start Date Expiration Date Visits Requested Visits Authorized [id number] Authorized PCP Requested Referral 12/25/2023 12/24/2024 1 1 Summary Purpose Additional Source Comments Source Comments (unrecognize d section and content) In the event this informatio n is protected by the Federal Confidentiality of Alcohol and Drug Abuse Patient Records regulations: The Federal rules restrict any use of the information to criminally investigate or prosecute any alcohol or drug abuse patient.[facility] the event this information is protected by the Federal Confidentiality of Alcohol and Drug Abuse Patient Records regulations: The Federal rules restrict any use of the information to criminally investigate or prosecute any alcohol or drug abuse patient.[facility] the event this information is protected by the Federal Confidentiality of Alcohol and Drug Abuse Patient Records regulations: The Federal rules restrict any use of the information to criminally investigate or prosecute any alcohol or drug abuse patient.[facility] the event this information is protected by the Federal Confidentiality of Alcohol and Drug Abuse Patient Records regulations: The Federal rules restrict any use of the information to criminally investigate or prosecute any alcohol or drug abuse patient.[facility] the event this information is protected by the Federal Confidentiality of Alcohol and Drug Abuse Patient Records regulations: The Federal rules restrict any use of the information to criminally investigate or prosecute any alcohol or drug abuse patient.[facility] the event this information is protected by the Federal Confidentiality of Alcohol and Drug Abuse Patient Records regulations: The Federal rules restrict any use of the information to criminally investigate or prosecute any alcohol or drug abuse patient.[facility] the event this information is protected by the Federal Confidentiality of Alcohol and Drug Abuse Patient Records regulations: The Federal rules restrict any use of the information to criminally investigate or prosecute any alcohol or drug abuse patient.[facility] the event this information is protected by the Federal Confidentiality of Alcohol and Drug Abuse Patient Records regulations: The Federal rules restrict any use of the information to criminally investigate or prosecute any alcohol or drug abuse patient.[facility] the event this information is protected by the Federal Confidentiality of Alcohol and Drug Abuse Patient Records regulations: The Federal rules restrict any use of the information to criminally investigate or prosecute any alcohol or drug abuse patient.[facility] the event this information is protected by the Federal Confidentiality of Alcohol and Drug Abuse Patient Records regulations: The Federal rules restrict any use of the information to criminally investigate or prosecute any alcohol or drug abuse patient.[facility] the event this information is protected by the Federal Confidentiality of Alcohol and Drug Abuse Patient Records regulations: The Federal rules restrict any use of the information to criminally investigate or prosecute any alcohol or drug abuse patient.[facility] the event this information is protected by the Federal Confidentiality of Alcohol and Drug Abuse Patient Records regulations: The Federal rules restrict any use of the information to criminally investigate or prosecute any alcohol or drug abuse patient.[facility] the event this information is protected by the Federal Confidentiality of Alcohol and Drug Abuse Patient Records regulations: The Federal rules restrict any use of the information to criminally investigate or prosecute any alcohol or drug abuse patient.[facility] Hospital[facility] the event this information is protected by the Federal Confidentiality of Alcohol and Drug Abuse Patient Records regulations: The Federal rules restrict any use of the information to criminally investigate or prosecute any alcohol or drug abuse patient.[facility] the event this information is protected by the Federal Confidentiality of Alcohol and Drug Abuse Patient Records regulations: The Federal rules restrict any use of the information to criminally investigate or prosecute any alcohol or drug abuse patient.[facility] the event this information is protected by the Federal Confidentiality of Alcohol and Drug Abuse Patient Records regulations: The Federal rules restrict any use of the information to criminally investigate or prosecute any alcohol or drug abuse patient.[facility] the event this information is protected by the Federal Confidentiality of Alcohol and Drug Abuse Patient Records regulations: The Federal rules restrict any use of the information to criminally investigate or prosecute any alcohol or drug abuse patient.[facility] Hospital[facility] the event this information is protected by the Federal Confidentiality of Alcohol and Drug Abuse Patient Records regulations: The Federal rules restrict any use of the information to criminally investigate or prosecute any alcohol or drug abuse patient.[facility] the event this information is protected by the Federal Confidentiality of Alcohol and Drug Abuse Patient Records regulations: The Federal rules restrict any use of the information to criminally investigate or prosecute any alcohol or drug abuse patient.[facility] Hospital[facility] the event this information is protected by the Federal Confidentiality of Alcohol and Drug Abuse Patient Records regulations: The Federal rules restrict any use of the information to criminally investigate or prosecute any alcohol or drug abuse patient.[facility] HospitalIn the event this information is protected by the Federal Confidentiality of Alcohol and Drug Abuse Patient Records regulations: The Federal rules restrict any use of the information to criminally investigate or prosecute any alcohol or drug abuse patient.[facility] HospitalIn the event this information is protected by the Federal Confidentiality of Alcohol and Drug Abuse Patient Records regulations: The Federal rules restrict any use of the information to criminally investigate or prosecute any alcohol or drug abuse patient.[facility] HospitalIn the event this information is protected by the Federal Confidentiality of Alcohol and Drug Abuse Patient Records regulations: The Federal rules restrict any use of the information to criminally investigate or prosecute any alcohol or drug abuse patient.[facility] the event this information is protected by the Federal Confidentiality of Alcohol and Drug Abuse Patient Records regulations: The Federal rules restrict any use of the information to criminally investigate or prosecute any alcohol or drug abuse patient.[facility] Care Teams (unrecognized sec tion and content) Electric Motor Repair Supervisor Relationship Specialty Start Date End Date Matt Araiza MD [address] [place], [place] [phone] PCP - General Family Practice 01/10/13 Matt Araiza MD [address] [place], [place] [phone] Family Practice 01/10/13 Electric Motor Repair Supervisor Relationship Specialty Start Date End Date Matt Araiza MD [address] [place] [address] PCP - General Family Practice 01/10/13 Matt Araiza MD [address] [place] [address] Family Practice 01/10/13 Electric Motor Repair Supervisor Relationship Specialty Start Date End Date Matt Araiza MD [address] [facility] [place] [address] PCP - General Family Practice 01/10/13 Matt Araiza MD [address] [place] [address] Family Practice 01/10/13 Electric Motor Repair Supervisor Relationship Specialty Start Date End Date Matt Araiza MD [address] [place] [place] [address] PCP - General Family Practice 01/10/13 Matt Araiza MD [address] [place] [address] Family Practice 01/10/13 Electric Motor Repair Supervisor Relationship Specialty Start Date End Date Matt Araiza MD [address] [place] [place] [address] PCP - General Family Medicine 01/10/13 Matt Araiza MD [address] [place] [address] Family Medicine 01/10/13 Electric Motor Repair Supervisor Relationship Specialty Start Date End Date Matt Araiza MD [address] [place] [place] [address] PCP - General Family Medicine 01/10/13 Matt Araiza MD [address] [place] [address] Family Medicine 01/10/13 Electric Motor Repair Supervisor Relationship Specialty Start Date End Date Matt Araiza MD [address] [place] [address] PCP - General Family Medicine 01/10/13 Matt Araiza MD [address] [place] [address] Family Medicine 01/10/13 Team Status: Active Member Role Status Dates Dr. Matt Araiza MD Family Provider Active Dr. Matt Araiza MD Primary Care Provider Active Team Status: Inactive Member Role Status Dates Dr. Matt Araiza MD Primary Care Provider, Referring Provider Active Dr. Mervin Pastor MD Attending Provider Active Team Status: Inactive Member Role Status Dates Dr. Matt Araiza MD Primary Care Provider Active Dr. Mervin Pastor MD Attending Provider, Referring Pro vider Active Team Status: Active Member Role Status Dates Dr. Matt Araiza MD Primary Care Provider Active Dr. Mervin Pastor MD Attending Provider Active Electric Motor Repair Supervisor Relationship Specialty Start Date End Date Matt Araiza MD [address] [place] [address] PCP - General Family Medicine 01/10/13 Matt Araiza MD [address] [place] [address] Family Medicine 01/10/13 Electric Motor Repair Supervisor Relationship Specialty Start Date End Date Matt Araiza MD [address] [place] [address] PCP - General Family Medicine 01/10/13 Matt Araiza MD [address] [place] [address] Family Medicine 01/10/13 Electric Motor Repair Supervisor Relationship Specialty Start Date End Date Matt Araiza MD [address] [place] [address] PCP - General Family Medicine 01/10/13 Matt Araiza MD [address] [place] [address] Family Medicine 01/10/13 Team Status: Inactive Member Role Status Dates Dr. Matt Araiza MD Primary Care Provider Active Lacey Gamble ASSET RECOVERY SPECIALIST, ASSET RECOVERY SPECIALIST-C Attending Provider, Referrin g Provider Active Team Status: Active Member Role Status Dates Dr. Matt Araiza MD Primary Care Provider Active Lacey Gamble ASSET RECOVERY SPECIALIST, ASSET RECOVERY SPECIALIST-C Referring Provider, Other Pr ovider Active Dr. Duke Lopez DO Attending Provider Active Electric Motor Repair Supervisor Relationship Specialty Start Date End Date Matt Araiza MD [address] [place] [address] PCP - General Family Medicine 01/10/13 Matt Araiza MD [address] [place] [address] Family Medicine 01/10/13 Team Status: Inactive Member Role Status Dates Dr. Matt Araiza MD Primary Care Provider, Referring Provider Active Prince Ni ASSET RECOVERY SPECIALIST, ASSET RECOVERY SPECIALIST-C Attending Provider Active Electric Motor Repair Supervisor Relationship Specialty Start Date End Date Matt Araiza MD [address] [place] [address] PCP - General Family Medicine 01/10/13 Matt Araiza MD [address] [place] [address] Family Medicine 01/10/13 Electric Motor Repair Supervisor Relationship Specialty Start Date End Date Matt Araiza MD [address] [place] [address] PCP - General Family Medicine 01/10/13 Matt Araiza MD [address] [place] [address] Family Medicine 01/10/13 Electric Motor Repair Supervisor Relationship Specialty Start Date End Date Matt Araiza MD [address] [place] [address] PCP - General Family Medicine 01/10/13 Matt Araiza MD [address] [facility] [place] [address] Family Medicine 01/10/13 Electric Motor Repair Supervisor Relationship Specialty Start Date End Date Matt Araiza MD [address] [facility] [place] [address] PCP - General Family Medicine 01/10/13 Matt Araiza MD [address] [place] [address] Family Medicine 01/10/13 Electric Motor Repair Supervisor Relationship Specialty Start Date End Date Matt Araiza MD [address] [facility] [place] [address] PCP - General Family Medicine 01/10/13 Matt Araiza MD [address] [place] [address] Family Medicine 01/10/13 Electric Motor Repair Supervisor Relationship Specialty Start Date End Date Matt Araiza MD [address] [place] [address] PCP - General Family Medicine 01/10/13 Matt Araiza MD [address] [facility] [place] [address] Family Medicine 01/10/13 Electric Motor Repair Supervisor Relationship Specialty Start Date End Date Matt Araiza MD [address] [place] [address] PCP - General Family Medicine 01/10/13 Matt Araiza MD [address] [place] [address] Family Medicine 01/10/13 Electric Motor Repair Supervisor Relationship Specialty Start Date End Date Matt Araiza MD [address] [place] [address] PCP - General Family Medicine 01/10/13 Matt Araiza MD [address] [place] [address] Family Medicine 01/10/13 Electric Motor Repair Supervisor Relationship Specialty Start Date End Date Matt Araiza MD [address] [place] [address] PCP - General Family Medicine 01/10/13 Matt Araiza MD [address] [place] [address] Family Medicine 01/10/13 Electric Motor Repair Supervisor Relationship Specialty Start Date End Date Matt Araiza MD [address] [place] [address] PCP - General Family Medicine 01/10/13 Matt Araiza MD [address] [place] [address] Family Medicine 01/10/13 Cristal Andrews, CHRIS.WATCH CRYSTAL MOLDER [address] [place] [address] [facility] 09/16/24 Lolis De La Torre APRN.WATCH CRYSTAL MOLDER [address] [place] [address] [employer] Family [facility] 09/16/24 Electric Motor Repair Supervisor Relationship Specialty Start Date End Date Matt Araiza MD [address] [place] [address] PCP - General Family Medicine 01/10/13 Matt Araiza MD [address] [place] [address] Family Medicine 01/10/13 Cristal Andrews APRN.WATCH CRYSTAL MOLDER [address] [place] [address] [facility] Lolis De La Torre MORTGAGE COORDINATOR.WATCH CRYSTAL MOLDER [address] [place] [address] [facility] Electric Motor Repair Supervisor Relationship Specialty Start Date End Date Matt Araiza MD [address] [place] [address] PCP - General Family Medicine 01/10/13 Matt Araiza MD [address] [place] [address] Family Medicine 01/10/13 Cristal Andrews APRN.WATCH CRYSTAL MOLDER [address] [facility] [place] [address] [employer] [facility] Family [facility] 09/16/24 Lolis De La Torre APRN.WATCH CRYSTAL MOLDER [address] [facility] [place] [address] [facility] 09/16/24 Team Status: Active Member Role Status Dates Dr. Matt Araiza MD Primary Care Provider Active Team Status: Inactive Member Role Status Dates Dr. Matt Araiza MD Primary Care Provider Active Start: January 29, 2025 End: January 29, 2025 Dr. Matt Araiza MD Referring Provider Active Start: January 29, 2025 End: January 29, 2025 Caitie Sanches , LAUREN-C Attending Provider Active Start: January 29, 2025 End: January 29, 2025 Team Status: Inactive Member Role Status Dates Dr. Matt Araiza MD Primary Care Provider Active Start: April 01, 2025 End: April 01, 2025 Dr. Matt Araiza MD Referring Provider Active Start: April 01, 2025 End: April 01, 2025 Dr. Mervin Pastor MD Attending Provider Active S tart: April 01, 2025 End: April 01, 2025 Electric Motor Repair Supervisor Relationship Specialty Start Date End Date Matt Araiza MD [address] [facility] [place] [address] PCP - General Family Medicine 01/10/13 Matt Araiza MD [address] [facility] [place] [id number] Family Medicine 01/10/13 Cristal Andrews, CHRIS.WATCH CRYSTAL MOLDER [address] [facility] [place] [address] [facility] 09/16/24 Lolis De La Torre, MORTGAGE COORDINATOR.WATCH CRYSTAL MOLDER [address] [facility] [place] [address] [facility] 09/16/24 Reason for Visit (unrecogniz ed section and content) Reason Comments Results Reason Comments Results Patient Update Reason Comments Thyroid Problem Sleep Apnea RUKHSANA using CPAP now f rom [facility] Fresh Aire Blood Pressure [facility] decrease d lisinopril Reason Onset Date Comments Refill Request 07/15/2022 Reason Comments 6 Month Exam Reason Comments Recheck 6 month Reason Comments Radiology US Specialty Diagnoses / Procedures Referred By Contac t Referred To Contact US IMAGING Diagnoses Thyroid nodule Procedures US THYROID/PARATHYROID US SOFT TISSUE HEAD & NECK REAL TIME IMGE Matt Petersen MD [address] [place] [address] [place] [address] Referral ID Status Reason Start Date Expiration Date V isits Requested Visits Authorized [id number] Closed Auto-Generate d Referral 10/31/2022 11/30/2023 1 1 Reason Comments Results Reason Comments Follow Up Reason Comments OV notes faxed Reason Comments Consult Rheumatology Reason Onset Date Comments Refill Request 03/13/2025 Goals (unrecognized section and content) Goals may be documented in a n alternate sectionGoals may be documented in an alternate sectionGoals may be documented in an alternate sectionGoals may be documented in an alternate sectionGoals may be documented in an alternate sectionGoals may be documented in an alternate sectionGoals may be documented in an alternate sectionGoals may be documented in an alternate sectionGoals may be documented in an alternate section (unrecognized sect ion and content) No Status Records FoundNo Status Records Found INFORMATION SOURCE (unrecogn ized section and content) DATE CREATED AUTHOR 03/05/2025 [facility] DATE CREATED AUTHOR AUTHOR'S ORGANIZ ATION 04/26/2025 [facility] FOR RECORDS PERTAINING TO PATIENTS WHO ARE OR HAVE BEEN ENROLLED IN A CHEMICAL DEPENDENCY/SUBSTANCEABUSE PROGRAM, SOME INFORMATION MAY BE OMITTED. This clinical summary was aggregated from multiple sources. Caution should be exercised in using it in the provision of clinical care. This summary normalizes information from multiple sources, and as a consequence, information in this document may materially change the coding, format and clinical context of patient data. In addition, data may be omitted in some cases. CLINICAL DECISIONS SHOULD BE BASED ON THE PRIMARY CLINICAL RECORDS. [facility] [employer] [facility]. provides no warranty or guarantee of the accuracy or completeness of information in this document.
--- NOTE | 2025-04-30 17:40 | STRESSREP_ITS ---
Stress Test Report Exercise myocardial perfusion stress test. 64-year-old male with a history of coronary disease Stress protocol: Resting EKG demonstrates normal sinus rhythm with a rate of 67 bpm resting blood pressure is 154/80 mmHg. The patient exercised according to the regular Jam protocol for a total duration of 6 minutes attaining a maximum heart rate of 131 bpm which was 83% of maximum predicted heart rate; the maximum workload was 7 metabolic equivalents. At rest there were no ST or T wave changes noted to suggest ischemia and at peak exercise upsloping ST changes only were noted which did not meet the criteria for ischemia. No clinical angina was noted the test was terminated due to the target heart rate being achieved/fatigue. The peak blood pressure was 180/90 mmHg. Rate-pressure product was 17,000. Myocardial perfusion protocol. 15.1 mCi of technetium 99m sestamibi was injected at rest. The patient exercised according to regular Jam protocol for total duration of 6 minutes and at peak exercise 41.2 mCi of technetium 99m sestamibi was injected stress images were obtained stress and rest images were reconstructed in comparing the short axis vertical long and horizontal long axis. Gated images were also obtained. Perfusion SPECT analysis: Review of the stress images demonstrate normal uptake of tracer noted in all a reas of the myocardium. The resting images similarly demonstrate normal uptake of tracer noted in all areas of the myocardium. No areas of reversibility are noted to suggest ischemia no previous infarct was noted. Gated SPECT analysis: The gated ejection fraction is 74%. Conclusion: Normal exercise myocardial perfusion stress test at a moderate workload Preserved ejection fraction.
== END | disposition home or self-care (01) ==
LOC: CVS 07:01
PROVIDERS: PCP Family Medicine; Referring Provider Internal Medicine Cardiovascular Disease; Visit Provider Internal Medicine Cardiovascular Disease
DX: R91.8 Other nonspecific abnormal finding of lung field (principal); I10 Essential (primary) hypertension; I25.10 Atherosclerotic heart disease of native coronary artery without angina pectoris; R01.1 Cardiac murmur, unspecified
CPT/HCPCS: 78452; 93017; 93306; A9500; A4216